=== PATIENT | male | born 1955 | race Caucasian/White ===

== ENCOUNTER 2020-10-09 06:03 | Outpatient (REF) | payer MEDICARE, SELFPAY ==
[2020-10-09 07:15] LABS: MANUAL DIFF FLAG NO
[2020-10-09 07:20] LABS: Basophils Percent Auto 0.6 % (0-2); Eosinophils Absolute Auto 0.2 X10*3/uL (0.0-0.4); Eosinophils Percent Auto 2.2 % (0-4); Hematocrit 42.4 % (42-52); Hemoglobin 14.6 g/dl (14.0-18.0); Imm Gran Abs Auto 0.01 X10*3/uL (0.00-0.03); Imm Gran Pct Auto 0.1 % (0.0-0.4); Lymphocytes Absolute Auto 1.4 X10*3/uL (1.2-4.9); Lymphocytes Percent Auto 19.1 % (20-40); Mean Corpuscular HGB Conc 34.4 g/dl (31.0-36.0); Mean Corpuscular Hemoglobin 31.8 pg (27.0-33.0); Mean Corpuscular Volume 92.4 fL (80-98); Mean Platelet Volume 11.6 fL (9.4-12.4); Monocytes Absolute Auto 0.5 X10*3/uL (0.1-1.2); Monocytes Percent Auto 6.9 % (2-11); Neutrophils Absolute Auto 5.1 X10*3/uL (2.0-8.3); Neutrophils Percent Auto 71.1 % (45-73); Platelet Count 222 X10*3/uL (160-400); Red Blood Count 4.59 X10*6/uL (4.60-5.80); Red Cell Distribution Width 12.3 % (11.0-16.0); White Blood Count 7.2 X10*3/uL (4.8-10.8)
[2020-10-09 07:27] LABS: Estimated Average Glucose 292 mg/dL; Hemoglobin A1c % 11.8 %
[2020-10-09 07:31] LABS: Alanine Aminotransferase 16 U/L (0-40); Albumin Level 3.9 g/dL (3.5-5.0); Alkaline Phosphatase 62 U/L (39-117); Anion Gap 13 (12-20); Aspartate Amino Transferase 16 U/L (5-37); Bilirubin Total 0.7 mg/dL (0.0-1.0); Blood Urea Nitrogen 20 mg/dL (9-16); Calcium 8.9 mg/dL (8.4-10.2); Carbon Dioxide 25 mmol/L (22-29); Chloride 105 mmol/L (96-108); Cholesterol 180 mg/dL; Estimated Glomerular Filt Rate > 60; Glucose Random 131 mg/dL (60-115); HDL Cholesterol 74 mg/dL; LDL Cholesterol Calculated 96 mg/dl; Potassium 4.3 mmol/l (3.3-5.1); Sodium 139 mmol/L (135-145); Total Protein 6.3 g/dL (6.5-8.0); Triglycerides 50 mg/dL
[2020-10-09 07:42] LABS: Creatinine Urine 242.35 mg/dL
[2020-10-09 07:51] LABS: Free T4 (Free Thyroxine) 1.27 ng/dL (0.71-1.85); Prostate Specific Antigen Scr 0.18 ng/mL (<0.05-4.0); Thyroid Stimulating Hormone 1.58 uIU/mL (0.32-4.0)
[2020-10-09 08:01] LABS: Folate 9.4 ng/mL (> or = 4.0); Vitamin B12 335 pg/mL (200-900)
== END 2020-10-09 06:04 | disposition home or self-care (01) ==
LOC: HO.LAB 06:03
PROVIDERS: PCP Internal Medicine; Visit Provider Internal Medicine
DX: E78.00 Pure hypercholesterolemia, unspecified (principal); I10 Essential (primary) hypertension; E03.9 Hypothyroidism, unspecified; E11.65 Type 2 diabetes mellitus with hyperglycemia
CPT/HCPCS: 36415; 80053; 80061; 82043; 82607; 82746; 83036; 84153; 84439; 84443; 85025

== ENCOUNTER 2021-04-15 05:56 | Outpatient (REF) | payer MEDICARE, SELFPAY ==
[2021-04-15 07:05] LABS: MANUAL DIFF FLAG NO
[2021-04-15 07:11] LABS: Basophils Absolute Auto 0.1 X10*3/uL (0.0-0.2); Basophils Percent Auto 0.7 % (0-2); Eosinophils Absolute Auto 0.2 X10*3/uL (0.0-0.4); Hematocrit 42.9 % (42-52); Hemoglobin 14.5 g/dl (14.0-18.0); Imm Gran Abs Auto 0.02 X10*3/uL (0.00-0.03); Imm Gran Pct Auto 0.3 % (0.0-0.4); Lymphocytes Absolute Auto 1.7 X10*3/uL (1.2-4.9); Lymphocytes Percent Auto 22.7 % (20-40); Mean Corpuscular HGB Conc 33.8 g/dl (31.0-36.0); Mean Corpuscular Hemoglobin 31.7 pg (27.0-33.0); Mean Corpuscular Volume 93.7 fL (80-98); Mean Platelet Volume 11.5 fL (9.4-12.4); Monocytes Absolute Auto 0.5 X10*3/uL (0.1-1.2); Monocytes Percent Auto 6.8 % (2-11); Neutrophils Absolute Auto 5.1 X10*3/uL (2.0-8.3); Neutrophils Percent Auto 66.5 % (45-73); Platelet Count 212 X10*3/uL (160-400); Red Blood Count 4.58 X10*6/uL (4.60-5.80); Red Cell Distribution Width 12.5 % (11.0-16.0); White Blood Count 7.6 X10*3/uL (4.8-10.8)
[2021-04-15 07:41] LABS: Alanine Aminotransferase 17 U/L (0-40); Alkaline Phosphatase 69 U/L (39-117); Anion Gap 13 (12-20); Aspartate Amino Transferase 15 U/L (5-37); Bilirubin Total 0.8 mg/dL (0.0-1.0); Blood Urea Nitrogen 22 mg/dL (9-16); Calcium 9.1 mg/dL (8.4-10.2); Carbon Dioxide 27 mmol/L (22-29); Chloride 105 mmol/L (96-108); Estimated Glomerular Filt Rate > 60; Glucose Random 273 mg/dL (60-115); Potassium 4.6 mmol/L (3.3-5.1); Sodium 140 mmol/L (135-145); Total Protein 6.3 g/dL (6.5-8.0)
[2021-04-15 07:43] LABS: Creatinine Urine 216.81 mg/dL
[2021-04-15 07:50] LABS: Estimated Average Glucose 312 mg/dL; Hemoglobin A1c % 12.5 %
[2021-04-15 07:54] LABS: Free T4 (Free Thyroxine) 1.12 ng/dL (0.71-1.85); Prostate Specific Antigen Scr 0.24 ng/mL (<0.05-4.0); Thyroid Stimulating Hormone 1.59 uIU/mL (0.32-4.0)
[2021-04-15 11:03] LABS: Folate 11.5 ng/mL (> or = 4.0); Vitamin B12 370 pg/mL (200-900)
== END 2021-04-15 05:57 | disposition home or self-care (01) ==
LOC: HO.LAB 05:56
PROVIDERS: PCP Internal Medicine; Visit Provider Internal Medicine
DX: E11.65 Type 2 diabetes mellitus with hyperglycemia (principal); Z79.4 Long term (current) use of insulin
CPT/HCPCS: 36415; 80053; 82043; 82607; 82746; 83036; 84153; 84439; 84443; 85025

== ENCOUNTER 2021-06-13 14:52 | Outpatient (REF) | payer MEDICARE, SELFPAY | END 2021-06-13 14:53 | disposition home or self-care (01) | LOC: HO.LAB 14:52 | PROVIDERS: Visit Provider Physician Assistant | DX: E11.65 Type 2 diabetes mellitus with hyperglycemia (principal); L03.116 Cellulitis of left lower limb; L02.416 Cutaneous abscess of left lower limb; Z96.652 Presence of left artificial knee joint | CPT/HCPCS: 87071; 87077; 87147; 87186; 87205 ==

== ENCOUNTER 2021-06-16 09:14 | Outpatient (REF) | payer MEDICARE, SELFPAY ==
--- NOTE | ~2021-06-16 | US_ITS ---
EXAMINATION: US VENOUS ULTRASOUND WITH DOPPLER LOWER EXTREMITY, LEFT CLINICAL INFORMATION: This is a 66-year-old male with left leg pain and cellulitis. Possible deep vein thrombosis. COMPARISON: None TECHNIQUE: Ultrasound of the deep veins is performed from the hip to the calf with compression sonography and color and pulse Doppler assessment. Spectral analysis with color-flow imaging is performed. FINDINGS: There is normal venous compression and respiratory variation and augmented flow. The visualized common femoral vein, superficial femoral vein, profunda femoral vein, popliteal vein, and the trifurcation region shows no evidence of deep venous thrombosis. There is no significant popliteal fossa cyst. If the patient's symptoms persist, followup ultrasound in 5 days 7 days might be of value to exclude proximal propagation from a non-visualized calf vein. US/US venous duplex LE IMPRESSION: No DVT demonstrated in the left lower extremity.
== END 2021-06-16 09:15 | disposition home or self-care (01) ==
LOC: HO.US 09:14
PROVIDERS: PCP Internal Medicine; Visit Provider Hospitalist
DX: M79.662 Pain in left lower leg (principal); L03.90 Cellulitis, unspecified
CPT/HCPCS: 93971

== ENCOUNTER 2021-08-03 09:47 | Inpatient (IN) | payer MEDICARE, SELFPAY ==
--- NOTE | ~2021-08-03 | US_ITS ---
EXAMINATION: US VENOUS ULTRASOUND WITH DOPPLER LOWER EXTREMITY, BILATERAL CLINICAL INFORMATION: Cellulitis COMPARISON: Previous left leg exam May 2021 TECHNIQUE: Ultrasound of the deep veins is performed from the hip to the calf with compression sonography and color and pulse Doppler assessment. Spectral analysis with color-flow imaging is performed. FINDINGS: RIGHT: There is normal venous compression and respiratory variation and augmented flow. The visualized common femoral vein, superficial femoral vein, profunda femoral vein, popliteal vein, and the trifurcation region shows no evidence of deep venous thrombosis. There is no significant popliteal fossa cyst. LEFT: There is normal venous compression and respiratory variation and augmented flow. The visualized common femoral vein, superficial femoral vein, profunda femoral vein, popliteal vein, and the trifurcation region shows no evidence of deep venous thrombosis. There is no significant popliteal fossa cyst. There is a prominent lymph node in the left proximal thigh measuring 4.8 x 1.2 x 2 cm. This demonstrates normal ultrasound morphology and flow and may be reactive. US/US venous duplex LE BI IMPRESSION: No DVT demonstrated in the bilateral lower extremity.
--- NOTE | ~2021-08-03 | XR_ITS ---
EXAMINATION: XR CHEST CLINICAL INFORMATION: Lower extremity swelling COMPARISON: Previous chest x-ray January 2010 TECHNIQUE: 2 views of the chest were obtained. FINDINGS: The cardiac and mediastinal contours are normal. There is slight elevation of the right hemidiaphragm. There is pleural thickening adjacent to the right lateral sixth and seventh ribs. This is unchanged from 2010 exam. The lungs are clear. There is no pleural effusion or pneumothorax. There are degenerative changes of the thoracic spine. No acute bone abnormality is seen. XR/XR chest 2V IMPRESSION: No evidence for CHF.
[2021-08-03 09:49] VITALS: BP 108/62; PULSE 98; RESP 20; TEMP 37.4; O2SAT 95; BMI 38.3
[2021-08-03 10:40] VITALS: BP 95/57; PULSE 81; RESP 14; TEMP 36.7; O2SAT 97
--- NOTE | 2021-08-03 10:48 | ED_ITS ---
HPI - Skin/Abscess/Foreign Bdy General Chief complaint: Skin/Abscess/Foreign Body Stated complaint: cellulitis - leg Time Seen by Provider: 08/03/21 10:17 Source: patient and family Mode of arrival: ambulatory Limitations: no limitations History of Present Illness HPI narrative: 66 yo male with past medical of history of OA, insulin-dependent diabetic, high cholesterol, polymyalgia rheumatica not currently on steroids, hypothyroidism, obesity, hypertension here with complaints of bilateral lower extremity swelling and redness left greater than right. Patient tells me that he has had this for about 2 months. He was initially seen at a walk-in and prescribed Keflex. His wound culture later grew Staph and so he was changed to 7 days of Bactrim. He tells me he initially had some improvement but now for the last few weeks as it increasing redness and swelling to both legs. No fevers or chills. Of note June 16 patient had bilateral venous US negative for DVT Related Data Home Medications Medication Instructions Recorded Confirmed aspirin 81 mg tablet,delayed 81 mg PO DAILY 10/13/20 04/20/21 release (Adult Aspirin Regimen) Previous Rx's Medication Instructions Recorded levothyroxine 112 mcg tablet 112 mcg PO QAM #90 tab 12/23/20 lisinopril 5 mg tablet 5 mg PO DAILY #90 tab 12/23/20 prednisone 5 mg tablet 5 mg PO DAILY #90 tab 02/11/21 insulin degludec 100 unit/mL 25 unit SUBCUT BID #10 ml 05/11/21 subcutaneous solution (Tresiba U-100 Insulin) insulin syringe-needle U-100 1 mL #100 ea 05/11/21 29 gauge x 1/2 (BD Insulin Syringe) cephalexin 500 mg capsule 500 mg PO Q6H 10 Days #40 cap 06/13/21 sulfamethoxazole 800 1 tab PO Q12H 10 Days #20 tab 06/13/21 mg-trimethoprim 160 mg tablet Allergies Allergy/AdvReac Type Severity Reaction Status Date / Time atorvastatin [Lipitor] Allergy Unknown Unknown Verified 06/16/21 07:57 canagliflozin [Invokana] Allergy Unknown hives Verified 06/16/21 07:57 dulaglutide [Trulicity] Allergy Unknown hives Verified 06/16/21 07:57 insulin lispro Allergy Unknown rash Verified 06/16/21 07:57 [Humalog U-100 Insulin] metformin [METFORMIN] Allergy Unknown HIVES Verified 06/16/21 07:57 rosuvastatin Allergy Unknown Unknown Verified 06/16/21 07:57 sitagliptin [From JANUVIA] Allergy Unknown HIVES Verified 06/16/21 07:57 Review of Systems Review of Systems: Yes all other systems are reviewed and are negative Constitutional: Constitutional: Reports no additional constitutional complaints, Denies body ache(s), Denies chills, Denies fever(s), Denies headache(s) and Denies weakness Eyes: Eyes: Reports no additional eye complaints and Denies change in vision ENT: Reports system reviewed and no additional complaints, except as documented, Denies dizziness, Denies headache(s), Denies nasal congestion, Denies nasal discharge and Denies neck pain Cardiovascular: Cardiovascular: Reports no additional cardiovascular complaints, Denies chest pain, Reports leg edema and Denies dyspnea Respiratory: Respiratory: Reports no additional respiratory complaints, Denies cough and Denies dyspnea Gastrointestinal: Gastrointestinal: Reports no additional gastrointestinal complaints, Denies abdominal pain, Denies diarrhea, Denies nausea and Denies vomiting Genitourinary: Genitourinary: Denies urinary incontinence Musculoskeletal: Musculoskeletal: Reports no additional musculoskeletal complaints, Denies back pain, Denies arthralgias, Denies joint swelling, Denies neck pain, Denies numbness and Denies tingling Integumentary/Breasts: Skin/Breast: Reports system reviewed and no additional complaints, except as docu, Reports swelling, Reports erythema and Reports rash Neurologic: Reports system reviewed and no additional complaints, except as documented, Denies Abnormal speech present, Denies dizziness, Denies headache(s), Denies numbness, Denies tingling and Denies weakness [facility] Past Medical History Attestation statement: The following information was validated with the patient. Source: old records reviewed and nursing notes reviewed Medical History Alcohol abuse Erectile dysfunction Hypercholesterolemia Hypertension Hypothyroid Migraine Obesity Osteoarthritis Polymyalgia rheumatica Solitary left kidney TIA (transient ischemic attack) Tobacco abuse Type 2 diabetes mellitus with hyperglycemia Vitamin D deficiency Surgical History History of arthroscopy of both knees History of colonoscopy History of total left knee replacement Hx of tonsillectomy Family History Family History Father Diabetes Mother Melanoma Maternal Uncle Colon cancer Social History Social History Housing: House Alcohol intake: never Patient Tobacco Use Status: Current everyday Tobacco user Tobacco use type: Cigar and Pipe Use of substances other than those prescribed or required for medical reasons: No Advance Directives: No Advance Directives Information Provided: No service: No Current occupational status: employed Physical Exam Vital Signs: Vital Signs: Last Vital Signs Temp 98.1 F 08/03/21 10:40 Pulse 81 08/03/21 10:40 Resp 14 08/03/21 10:40 BP 95/57 L 08/03/21 10:40 Pulse Ox 97 08/03/21 10:40 Body Mass Index 38.3 Const: General: cooperative, healthy appearing, comfortable and no acute distress Orientation/consciousness: patient oriented x3 Limitations: no limitations HENMT: Head: Yes normal to inspection Ears: hearing grossly normal wagner aterally General nose exam: Normal external nose present Face and sinus: Yes normal facial exam Mouth: Normal oral and palatal mucosa present Throat: Yes posterior oropharynx normal Eyes: General: appearance normal, both eyes and all related structures Pupils: Equal, round and reactive pupils present Neck: Neck: Yes normal visual inspection Chest: Chest palpation & inspection: normal inspection of the chest Resp: Effort & Inspection: normal respiratory effort Auscultation: clear to auscultation bilaterally Cardio: Rate: regular rate Rhythm: regular rhythm Peripheral pulses: Peripheral pulses 2+ throughout GI: Inspection: Yes normal to inspection Palpation (GI): Soft to palpation and nontender Auscultation: normal bowel sounds Back/Spine/Pelvis: Thoracic/Lumbar Spine: thoracic and lumbar spine normal to inspection Skin: General skin exam: no rashes or lesions noted Neuro: General: patient oriented x3, no focal motor deficits and normal sensation to monofilament Cranial nerves: Yes Equal, round and reactive pupils present Cognition (Neuro): normal cognition Speech: No Abnormal speech present Gait exam (Neuro): Normal gait present Motor exam (neuro): 5/5 motor strength present throughout Extrem: Other: pitting edema bilaterally 1+ +palpable pulses bilaterally. General: Yes normal to inspection Course Course Course Narrative: 66-year-old male here with complaints of bilateral lower extremity swelling and redness left greater than right for about 2 months. Had some initial improvement p.o. antibiotics but feels like now has worsened. No fevers or chills. Of note patient worked up for DVT 2 months ago negative ultrasound. At this infection is suspected. Antibiotics ordered. 1130-mild hyperglycemia. No evidence of DKA. Will order 1 L normal saline and 5 of IV insulin. 1230-spoke to Medicine who accepted patient for admission. MDM - Skin/Abscess/Foreign Bdy Medical Records Attestation: I reviewed the patient's medical records. Lab Data Attestation: I reviewed the patient's lab results. Result diagrams: 08/03/21 10:55 08/03/21 10:55 Labs: Lab Results 08/03/21 08/03/21 08/03/21 Range/Units 10:55 10:55 10:55 WBC 11.5 H (4.8-10.8) X10*3/uL RBC 4.38 L (4.60-5.80) X10*6/uL Hgb 13.8 L (14.0-18.0) g/dl Hct 40.1 L (42-52) % MCV 91.6 (80-98) fL MCH 31.5 (27.0-33.0) pg MCHC 34.4 (31.0-36.0) g/dl RDW 12.2 (11.0-16.0) % Plt Count 150 L D (160-400) X10*3/uL MPV 11.5 (9.4-12.4) fL Immature Gran % (Auto) 0.4 (0.0-0.4) % Neut % (Auto) 83.8 H (45-73) % Lymph % (Auto) 9.0 L (20-40) % [place] % (Auto) 6.3 (2-11) % Eos % (Auto) 0.2 (0-4) % Baso % (Auto) 0.3 (0-2) % Lymph # (Auto) 1.0 L (1.2-4.9) X10*3/uL [place] # (Auto) 0.7 (0.1-1.2) X10*3/uL Eos # (Auto) 0.0 (0.0-0.4) X10*3/uL Baso # (Auto) 0.0 (0.0-0.2) X10*3/uL Abs Immat Gran (auto) 0.05 H (0.00-0.03) X10*3/uL Absolute Neuts (auto) 9.7 H (2.0-8.3) X10*3/uL Absolute Nucleated RBC 0.000 (0.0-0.012) X10*3/uL Nucleated RBC % (auto) 0.0 (0.0-0.2) /100WBC Sodium 132 L (135-145) mmol/L Potassium 4.6 (3.3-5.1) mmol/L Chloride 97 (96-108) mmol/L Carbon Dioxide 26 (22-29) mmol/L Anion Gap 14 (12-20) BUN 40 H D (9-16) mg/dL Creatinine 1.25 (0.5-1.4) mg/dL Estim Creat Clear Calc 69.1 Estimated GFR 58 Random Glucose 422 H* (60-115) mg/dL Calcium 8.1 L D (8.4-10.2) mg/dL Magnesium 2.6 (1.6-2.6) mg/dL Total Bilirubin 1.3 H (0.0-1.0) mg/dL Direct Bilirubin 0.5 (0.0-0.5) mg/dL AST 28 D (5-37) U/L ALT 38 (0-40) U/L Alkaline Phosphatase 59 (39-117) U/L B-Natriuretic Peptide < 10 (<100) pg/mL Total Protein 6.1 L (6.5-8.0) g/dL Albumin 3.5 (3.5-5.0) g/dL COVID-19 (JENNIFER) (Negative) COVID-19 Clin Com 08/03/21 Range/Units 11:33 WBC (4.8-10.8) X10*3/uL RBC (4.60-5.80) X10*6/uL Hgb (14.0-18.0) g/dl Hct (42-52) % MCV (80-98) fL MCH (27.0-33.0) pg MCHC (31.0-36.0) g/dl RDW (11.0-16.0) % Plt Count (160-400) X10*3/uL MPV (9.4-12.4) fL Immature Gran % (Auto) (0.0-0.4) % Neut % (Auto) (45-73) % Lymph % (Auto) (20-40) % [place] % (Auto) (2-11) % Eos % (Auto) (0-4) % Baso % (Auto) (0-2) % Lymph # (Auto) (1.2-4.9) X10*3/uL [place] # (Auto) (0.1-1.2) X10*3/uL Eos # (Auto) (0.0-0.4) X10*3/uL Baso # (Auto) (0.0-0.2) X10*3/uL Abs Immat Gran (auto) (0.00-0.03) X10*3/uL Absolute Neuts (auto) (2.0-8.3) X10*3/uL Absolute Nucleated RBC (0.0-0.012) X10*3/uL Nucleated RBC % (auto) (0.0-0.2) /100WBC Sodium (135-145) mmol/L Potassium (3.3-5.1) mmol/L Chloride (96-108) mmol/L Carbon Dioxide (22-29) mmol/L Anion Gap (12-20) BUN (9-16) mg/dL Creatinine (0.5-1.4) mg/dL Estim Creat Clear Calc Estimated GFR Random Glucose (60-115) mg/dL Calcium (8.4-10.2) mg/dL Magnesium (1.6-2.6) mg/dL Total Bilirubin (0.0-1.0) mg/dL Direct Bilirubin (0.0-0.5) mg/dL AST (5-37) U/L ALT (0-40) U/L Alkaline Phosphatase (39-117) U/L B-Natriuretic Peptide (<100) pg/mL Total Protein (6.5-8.0) g/dL Albumin (3.5-5.0) g/dL COVID-19 (JENNIFER) Negative (Negative) COVID-19 Clin Com See Note Imaging Data Chest x-ray: Attestation: I personally reviewed and interpreted this imaging study as follows: Radiologist's impression: FINDINGS: The cardiac and mediastinal contours are normal. There is slight elevation of the right hemidiaphragm. There is pleural thickening adjacent to the right lateral sixth and seventh ribs. This is unchanged from 2010 exam. The lungs are clear. There is no pleural effusion or pneumothorax. There are degenerative changes of the thoracic spine. No acute bone abnormality is seen. XR/XR chest 2V IMPRESSION: No evidence for CHF. Discharge Plan Discharge Clinical Impression: Cellulitis, Hyperglycemia Patient Disposition: Admitted As Inpatient
[2021-08-03 11:05] LABS: MANUAL DIFF FLAG NO
[2021-08-03 11:08] LABS: Basophils Percent Auto 0.3 % (0-2); Eosinophils Percent Auto 0.2 % (0-4); Hematocrit 40.1 % (42-52); Hemoglobin 13.8 g/dl (14.0-18.0); Imm Gran Abs Auto 0.05 X10*3/uL (0.00-0.03); Imm Gran Pct Auto 0.4 % (0.0-0.4); Mean Corpuscular HGB Conc 34.4 g/dl (31.0-36.0); Mean Corpuscular Hemoglobin 31.5 pg (27.0-33.0); Mean Corpuscular Volume 91.6 fL (80-98); Mean Platelet Volume 11.5 fL (9.4-12.4); Monocytes Absolute Auto 0.7 X10*3/uL (0.1-1.2); Monocytes Percent Auto 6.3 % (2-11); Neutrophils Absolute Auto 9.7 X10*3/uL (2.0-8.3); Neutrophils Percent Auto 83.8 % (45-73); Platelet Count 150 X10*3/uL (160-400); Red Blood Count 4.38 X10*6/uL (4.60-5.80); Red Cell Distribution Width 12.2 % (11.0-16.0); White Blood Count 11.5 X10*3/uL (4.8-10.8)
[2021-08-03 11:23] LABS: Alanine Aminotransferase 38 U/L (0-40); Albumin Level 3.5 g/dL (3.5-5.0); Alkaline Phosphatase 59 U/L (39-117); Anion Gap 14 (12-20); Aspartate Amino Transferase 28 U/L (5-37); Bilirubin Direct 0.5 mg/dL (0.0-0.5); Bilirubin Total 1.3 mg/dL (0.0-1.0); Blood Urea Nitrogen 40 mg/dL (9-16); Calcium 8.1 mg/dL (8.4-10.2); Carbon Dioxide 26 mmol/L (22-29); Chloride 97 mmol/L (96-108); Creatinine Clr Calc Pharmacy 69.1; Estimated Glomerular Filt Rate 58; Glucose Random 422 mg/dL (60-115); Magnesium 2.6 mg/dL (1.6-2.6); Potassium 4.6 mmol/L (3.3-5.1); Sodium 132 mmol/L (135-145); Total Protein 6.1 g/dL (6.5-8.0)
[2021-08-03 11:25] LABS: B Type Natriuretic Peptide < 10 pg/mL (<100)
[2021-08-03] MEDS: Insulin Regular, Human 100 UNIT/ML 3 ML VIAL IVPUSH (11:48)
[2021-08-03] MEDS: 0.9 % Sodium Chloride 1,000 ML 999 ML IV (11:49)
[2021-08-03] MEDS: Piperacillin Sodium/Tazobactam 3.375 GM in 0.9 % Sodium Chloride 50 ML IV ×2 (11:58→18:26)
[2021-08-03 12:12] LABS: COVID-19 Test Negative (Negative)
--- NOTE | 2021-08-03 13:14 | PM.IMHP ---
History of Present Illness Date of Service: 08/03/21 Chief Complaint: cellulitis 66-year-old male well known to me with history of noncompliant type 2 diabetes. He states that over the last 4-6 weeks his leg started becoming red; states he notice some weepiness but it has progressed over the last 2 weeks. He denies pain but states his legs are itchy. Status his sugars have been running ?a little high?. Sugar in ER greater than 400. He denies fever chills and shortness of breath. He states last night, his legs were so weak be that he had to put towels underneath M to soak up the fluid Review of Systems Review of Systems: Denies chest pain He denies shortness of breath Denies nausea vomiting diarrhea PMFSH Medical History Alcohol abuse Erectile dysfunction Hypercholesterolemia Hypertension Hypothyroid Migraine Obesity Osteoarthritis Polymyalgia rheumatica Solitary left kidney TIA (transient ischemic attack) Tobacco abuse Type 2 diabetes mellitus with hyperglycemia Vitamin D deficiency Family History Father Diabetes Mother Melanoma Maternal Uncle Colon cancer Pertinent family history: . Surgical History History of arthroscopy of both knees History of colonoscopy History of total left knee replacement Hx of tonsillectomy Social History Housing: House Alcohol intake: never Patient Tobacco Use Status: Current everyday Tobacco user Tobacco use type: Cigar and Pipe Use of substances other than those prescribed or required for medical reasons: No Advance Directives: No Advance Directives Information Provided: No service: No Current occupational status: employed Meds Allergies Allergy/AdvReac Type Severity Reaction Status Date / Time atorvastatin [Lipitor] Allergy Unknown Unknown Verified 06/16/21 07:57 canagliflozin [Invokana] Allergy Unknown hives Verified 06/16/21 07:57 dulaglutide [Trulicity] Allergy Unknown hives Verified 06/16/21 07:57 insulin lispro Allergy Unknown rash Verified 06/16/21 07:57 [Humalog U-100 Insulin] metformin [METFORMIN] Allergy Unknown HIVES Verified 06/16/21 07:57 rosuvastatin Allergy Unknown Unknown Verified 06/16/21 07:57 sitagliptin [From OCTTOMASZ] Allergy Unknown HIVES Verified 06/16/21 07:57 Active Medications: Current Medications Dextrose (Dextrose 50 % 25 Gm/50 Ml Vial) 25 gm IVPUSH Q15M PRN; Protocol PRN Reason: per Hypoglycemia Standing Ord. Enoxaparin Sodium (Enoxaparin Sodium 40 Mg/0.4 Ml Syringe) 40 mg SUBCUT Q24H NINA Glucose (Glucose Gel 15 Gm Gel..Gram.) 15 gm PO Q15M PRN; Protocol PRN Reason: per Hypoglycemia Standing Ord. Glucose (Glucose Gel 15 Gm Gel..Gram.) 15 gm PO Q15M PRN; Protocol PRN Reason: per Hypoglycemia Standing Ord. Piperacillin Sod/Tazobactam (Sod 3.375 gm/ Sodium Chloride) 50 mls @ 100 mls/hr IV Q6H [facility] Insulin Human Lispro (Insulin Lispro 100 Unit/Ml 3 Ml Vial) 0 unit SUBCUT QIDACHS [facility]; Protocol Melatonin (Melatonin 3 Mg Tablet) 6 mg PO BEDTIME PRN PRN Reason: Insomnia Oxycodone HCl (Oxycodone Hcl Immed Release 5 Mg Tablet) 5 mg PO Q6H PRN PRN Reason: Pain, Severe (Pain Scale 7-10) Pharmacy Consult (Consult Rx Vancomycin Dosing) 1 each MISCELLANE DAILY PRN PRN Reason: Consult order Pharmacy Consult (Consult Rx Vancomycin Dosing) 1 each MISCELLANE DAILY PRN PRN Reason: Consult order Pharmacy Consult (Consult Rx Vancomycin Dosing) 1 each MISCELLANE DAILY PRN PRN Reason: Consult order Sodium Chloride (0.9 % Sodium Chloride Flush 3 Ml Syringe) 3 ml IVFLUSH QSHIFT [facility] Home Medications Medication Instructions Recorded Confirmed Last Taken Type aspirin 81 mg tablet,delayed 81 mg PO DAILY 10/13/20 04/20/21 Unknown History release (Adult Aspirin Regimen) Physical Exam Vital Signs and Narrative: Vital Signs: Last Vital Signs Temp 98.1 F 08/03/21 10:40 Pulse 81 08/03/21 10:40 Resp 14 08/03/21 10:40 BP 95/57 L 08/03/21 10:40 Pulse Ox 97 08/03/21 10:40 Body Mass Index 38.3 Const: Other: Awake alert oriented x3 in no acute distress lying quietly in bed HENMT: Other: Membranes moist; posterior pharynx clear Resp: Other: Clear to auscultation all malin. No rales rhonchi or wheezes Cardio: Other: No S4; positive S1-S2; no S3 murmurs or gallops GI: Other: Soft nontender nondistended with normoactive bowel sounds. Obese abdomen Neuro: Other: Cranial nerves 2-12 grossly intact as tested motor is 5/5 all extremities. Sensation diminished stocking-glove distribution Extrem: Other: Bilateral lower extremities edematous weeping. Left lower extremity medial aspect with quarter-size ulcer. Erythematous left greater than right from tibial plateau distally Results Labs CBC and Chem 7: 08/03/21 10:55 08/03/21 10:55 Labs: Laboratory Results - last 24 hr 08/03/21 08/03/21 08/03/21 10:55 10:55 10:55 MCV 91.6 MCH 31.5 MCHC 34.4 RDW 12.2 Plt Count 150 L D MPV 11.5 Immature Gran % (Auto) 0.4 Neut % (Auto) 83.8 H Lymph % (Auto) 9.0 L Stark % (Auto) 6.3 Eos % (Auto) 0.2 Baso % (Auto) 0.3 Lymph # (Auto) 1.0 L Stark # (Auto) 0.7 Eos # (Auto) 0.0 Baso # (Auto) 0.0 Abs Immat Gran (auto) 0.05 H Absolute Neuts (auto) 9.7 H Absolute Nucleated RBC 0.000 Nucleated RBC % (auto) 0.0 Anion Gap 14 Estim Creat Clear Calc 69.1 Estimated GFR 58 Random Glucose 422 H* Calcium 8.1 L D Magnesium 2.6 Total Bilirubin 1.3 H Direct Bilirubin 0.5 AST 28 D ALT 38 Alkaline Phosphatase 59 B-Natriuretic Peptide < 10 Total Protein 6.1 L Albumin 3.5 COVID-19 (JENNIFER) COVID-19 Clin Com 08/03/21 11:33 MCV MCH MCHC RDW Plt Count MPV Immature Gran % (Auto) Neut % (Auto) Lymph % (Auto) Stark % (Auto) Eos % (Auto) Baso % (Auto) Lymph # (Auto) Stark # (Auto) Eos # (Auto) Baso # (Auto) Abs Immat Gran (auto) Absolute Neuts (auto) Absolute Nucleated RBC Nucleated RBC % (auto) Anion Gap Estim Creat Clear Calc Estimated GFR Random Glucose Calcium Magnesium Total Bilirubin Direct Bilirubin AST ALT Alkaline Phosphatase B-Natriuretic Peptide Total Protein Albumin COVID-19 (JENNIFER) Negative COVID-19 Clin Com See Note Imaging Radiologist's Impressions: Impressions Chest X-Ray 08/03/21 10:23 IMPRESSION: No evidence for CHF. 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 He states he started to feel poorly and decided to come to the emergency room for evaluation. In the emergency room his sugar was greater than 400, sodium 132 and legs consistent with cellulitis. He will be admitted for further workup and treatment of same 1. Cellulitis IV Zosyn/vancomycin Given extensive edema and drainage with pulse dose with Lasix 20 mg once and follow response. Check labs in a.m. Bilateral venous duplex order to rule out clot 2. Diabetes type 2 requiring insulin Will switch Tresiba to Lantus at 30 units subQ b.i.d. Will add sliding scale to regimen adjust as indicated 3. PMR Longstanding prednisone use. Will continue the same at 5 mg daily 4. Hypothyroidism Will continue outpatient supplements as ordered check TSH if not ordered in the ER 5. Hypertension Will hold lisinopril as BP is marginal at this time. Reinstate as appropriate 6. Full code DVT prophylaxis: Lovenox Further plans based on clinical response to therapies and forthcoming data Quality Stroke Does the patient have a stroke diagnosis?: No VTE Prior VTE?: No VTE Risk Level:: Medical - moderate - high VTE Device Contraindication: Treatment Not Indicated VTE Drug Contraindication: N/A - Med Ordered
[2021-08-03] MEDS: vancomycin HCL 1,500 MG in 0.9 % Sodium Chloride 500 ML 333.33 MG IV (13:26)
[2021-08-03] MEDS: Enoxaparin Sodium 40 MG/0.4 ML SYRINGE SUBCUT (13:28)
--- NOTE | 2021-08-03 13:31 | PC.NURSE ---
called for report- kim to call back
--- NOTE | 2021-08-03 13:49 | PHA.PROG ---
Admission Date/Time: August 03, 2021 12:50 Indication: Skin Weight in k.13 kg Adjusted body weight in K.11 KG Vidalia body weight in K.1 kg Serum Creatinine - Last 168 Hours 08/03/21 10:55 Creatinine 1.25 Estimated CrCl and GFR - Last 168 Hours 08/03/21 10:55 Estim Creat Clear Calc 69.1 Estimated GFR 58 Vancomycin Loading Dose: 1500 mg on 08/03 @ 1326 Current Vancomycin Dosing Regimen: 1000 mg Q12H Date and Time for next Vancomycin Level to be drawn: 08/04 @ 1300 Pharmacist Comments on Vancomycin Plan: Start Vanco 1000 mg Q12H at 0200 @ 08/04. The expected AUC will be 529 with a trough of 18.1 Trough drawn before 3rd in case there is an unexpected jump in AUC due to obesity and renal function Pharmacy will monitor SCr daily, and adjust if required Shruthi Bui, Kayden Vancomycin dosing will take advantage of [employer] as a clinical decision support tool that uses Bayesian modeling to calculate individual patient's pharmacokinetic parameters and forecast the patient's drug concentration time course with the target goal AUC 24 range of 400 - 600 mg/L/hr.
[2021-08-03 14:54] LABS: Estimated Average Glucose 269 mg/dL
--- NOTE | 2021-08-03 15:15 | PHA.MEDREC ---
Pharmacy Consult ? Medication Reconciliation Pharmacy has completed the medication reconciliation. There are no remarkable issues for provider's attention. Shruthi Bui, JemimaD
[2021-08-03 15:16] VITALS: BP 112/64; PULSE 90; RESP 18; TEMP 36.1; O2SAT 96
[2021-08-03 16:40] LABS: Glucose, Whole Blood 177 mg/dL (60-115)
[2021-08-03] MEDS: Furosemide 20 MG/2 ML VIAL IVPUSH (16:43)
[2021-08-03] MEDS: 0.9 % Sodium Chloride Flush 3 ML SYRINGE IVFLUSH ×2 (16:43→20:40)
[2021-08-03] MEDS: Insulin Lispro 100 UNIT/ML 3 ML VIAL SUBCUT ×2 (16:43→20:39)
[2021-08-03 19:25] VITALS: BP 105/67; PULSE 93; RESP 14; TEMP 36.7; O2SAT 96
[2021-08-03 20:20] LABS: Glucose, Whole Blood 233 mg/dL (60-115)
[2021-08-03] MEDS: Aspirin Enteric Coated 81 MG TABLET.DR PO (20:39)
[2021-08-04] VITALS (7 sets, daily range): BP systolic 102–127; BP diastolic 56–62; PULSE 78–93; RESP 15–18; TEMP 36.1–37.3; O2SAT 95–97
[2021-08-04] MEDS: Piperacillin Sodium/Tazobactam 3.375 GM in 0.9 % Sodium Chloride 50 ML IV ×4 (00:35→18:29)
[2021-08-04] MEDS: vancomycin HCL 1,000 MG in 0.9 % Sodium Chloride 250 ML 270 MG IV (01:56)
[2021-08-04 05:38] LABS: MANUAL DIFF FLAG NO
[2021-08-04 05:43] LABS: Basophils Percent Auto 0.1 % (0-2); Eosinophils Percent Auto 0.1 % (0-4); Hematocrit 40.4 % (42-52); Imm Gran Abs Auto 0.14 X10*3/uL (0.00-0.03); Imm Gran Pct Auto 0.8 % (0.0-0.4); Lymphocytes Absolute Auto 1.6 X10*3/uL (1.2-4.9); Lymphocytes Percent Auto 9.4 % (20-40); Mean Corpuscular HGB Conc 34.7 g/dl (31.0-36.0); Mean Corpuscular Hemoglobin 31.5 pg (27.0-33.0); Mean Corpuscular Volume 90.8 fL (80-98); Mean Platelet Volume 11.2 fL (9.4-12.4); Monocytes Percent Auto 5.9 % (2-11); Neutrophils Percent Auto 83.7 % (45-73); Platelet Count 218 X10*3/uL (160-400); Red Blood Count 4.45 X10*6/uL (4.60-5.80); Red Cell Distribution Width 12.2 % (11.0-16.0); White Blood Count 16.7 X10*3/uL (4.8-10.8)
[2021-08-04] MEDS: Levothyroxine Sodium 112 MCG TABLET PO (06:03)
[2021-08-04 06:04] LABS: Anion Gap 16 (12-20); Blood Urea Nitrogen 23 mg/dL (9-16); Calcium 8.4 mg/dL (8.4-10.2); Carbon Dioxide 23 mmol/L (22-29); Chloride 101 mmol/L (96-108); Creatinine Clr Calc Pharmacy 102.9; Estimated Glomerular Filt Rate > 60; Glucose Random 90 mg/dL (60-115); Potassium 3.8 mmol/L (3.3-5.1); Sodium 136 mmol/L (135-145)
[2021-08-04 07:29] LABS: Glucose, Whole Blood 119 mg/dL (60-115)
--- NOTE | 2021-08-04 09:31 | MHC.CM.PN ---
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 D/C PLAN: HOME SELF-CARE, FAMILY FOR TRANSPORT PCP: NOE JETT HCP: GAGAN PAREDES (DTR): [phone] MARLEE LENA (SON) : C: [phone], H: [phone]
[2021-08-04] MEDS: Furosemide 20 MG/2 ML VIAL IVPUSH (10:34)
[2021-08-04] MEDS: 0.9 % Sodium Chloride Flush 3 ML SYRINGE IVFLUSH ×3 (10:34→20:49)
[2021-08-04] MEDS: Aspirin Enteric Coated 81 MG TABLET.DR PO ×2 (10:34→20:48)
[2021-08-04] MEDS: lisinopriL 5 MG TABLET PO (10:34)
[2021-08-04 11:30] LABS: Glucose, Whole Blood 269 mg/dL (60-115)
--- NOTE | 2021-08-04 12:06 | P.PNIM_ITS ---
Subjective Subjective Date of Service: 10/06/21 Interval History: No acute issues overnight. States feels better after antibiotics. Ambulating ad megan in room Review of Systems Denies chest pain He denies shortness of breath Denies nausea vomiting diarrhea Physical Exam Vital Signs: Vital Signs: Last Vital Signs Temp 97.5 F 08/04/21 11:36 Pulse 78 08/04/21 11:36 Resp 18 08/04/21 11:36 BP 110/62 08/04/21 11:36 Pulse Ox 95 08/04/21 11:36 Body Mass Index 38.3 Const: Other: Awake alert oriented x3 in no acute distress lying quietly in bed HENMT: Other: Membranes moist; posterior pharynx clear Resp: Other: Clear to auscultation all malin. No rales rhonchi or wheezes Cardio: Other: No S4; positive S1-S2; no S3 murmurs or gallops GI: Other: Soft nontender nondistended with normoactive bowel sounds. Obese abdomen Neuro: Other: Cranial nerves 2-12 grossly intact as tested motor is 5/5 all extremities. Sensation diminished stocking-glove distribution Extrem: Other: Bilateral lower extremities edematous weeping. Left lower extremity medial aspect with quarter-size ulcer. Erythematous left greater than right from tibial plateau distally. Posterior right calf with large ulcerated area Objective Data Active Medications Aspirin (Aspirin Enteric Coated 81 Mg Tablet.) 81 mg PO BID [facility] Last Admin: 08/04/21 10:34 Dose: 81 mg Documented by: BERNIE Dextrose (Dextrose 50 % 25 Gm/50 Ml Vial) 25 gm IVPUSH Q15M PRN; Protocol PRN Reason: per Hypoglycemia Standing Ord. Enoxaparin Sodium (Enoxaparin Sodium 40 Mg/0.4 Ml Syringe) 40 mg SUBCUT Q24H [facility] Last Admin: 08/03/21 13:28 Dose: 40 mg Documented by: WILLA Furosemide (Furosemide 20 Mg/2 Ml Vial) 20 mg IVPUSH DAILY [facility]; Protocol Last Admin: 08/04/21 10:34 Dose: 20 mg Documented by: BERNIE Glucose (Glucose Gel 15 Gm Gel..Gram.) 15 gm PO Q15M PRN; Protocol PRN Reason: per Hypoglycemia Standing Ord. Piperacillin Sod/Tazobactam (Sod 3.375 gm/ Sodium Chloride) 50 mls @ 100 mls/hr IV Q6H [facility] Last Infusion: 08/04/21 06:46 Dose: 0 mls/hr Documented by: HUSSAIN Vancomycin HCl 1,000 mg/ (Sodium Chloride) 270 mls @ 270 mls/hr IV Q12H [facility] Last Infusion: 08/04/21 03:13 Dose: 0 mls/hr Documented by: HUSSAIN Insulin Human Lispro (Insulin Lispro 100 Unit/Ml 3 Ml Vial) 0 unit SUBCUT QIDACHS [facility]; Protocol Last Admin: 08/04/21 07:47 Dose: Not Given Documented by: DOUG Non-Admin Reason: No Insulin Coverage Levothyroxine Sodium (Levothyroxine Sodium 112 Mcg Tablet) 112 mcg PO DAILY@0600 [facility] Last Admin: 08/04/21 06:03 Dose: 112 mcg Documented by: HUSSAIN Lisinopril (Lisinopril 5 Mg Tablet) 5 mg PO DAILY [facility]; Protocol Last Admin: 08/04/21 10:34 Dose: 5 mg Documented by: BERNIE Melatonin (Melatonin 3 Mg Tablet) 6 mg PO BEDTIME PRN PRN Reason: Insomnia Oxycodone HCl (Oxycodone Hcl Immed Release 5 Mg Tablet) 5 mg PO Q6H PRN PRN Reason: Pain, Severe (Pain Scale 7-10) Pharmacy Consult (Consult Rx Vancomycin Dosing) 1 each MISCELLANE DAILY PRN PRN Reason: Consult order Pharmacy Consult (Consult Rx Vancomycin Dosing) 1 each MISCELLANE DAILY PRN PRN Reason: Consult order Pharmacy Consult (Consult Rx Perform Med Rec) 1 each MISCELLANE ONCE PRN PRN Reason: Consult order Sodium Chloride (0.9 % Sodium Chloride Flush 3 Ml Syringe) 3 ml IVFLUSH QSHIFT [facility] Last Admin: 08/04/21 10:34 Dose: 3 ml Documented by: BERNIE Labs CBC & Chem 7: 08/05/21 05:54 08/05/21 05:54 Labs: Laboratory Results - last 24 hr 08/03/21 08/03/21 08/03/21 11:33 14:29 16:35 MCV MCH MCHC RDW Plt Count MPV Immature Gran % (Auto) Neut % (Auto) Lymph % (Auto) [place] % (Auto) Eos % (Auto) Baso % (Auto) Lymph # (Auto) [place] # (Auto) Eos # (Auto) Baso # (Auto) Abs Immat Gran (auto) Absolute Neuts (auto) Absolute Nucleated RBC Nucleated RBC % (auto) Anion Gap Estim Creat Clear Calc Estimated GFR POC Glucose 177 H Random Glucose Estimat Average Glucose 269 Hemoglobin A1c % 11.0 Calcium COVID-19 (JENNIFER) Negative COVID-19 Clin Com See Note 08/03/21 08/04/21 08/04/21 19:28 05:21 05:27 MCV 90.8 MCH 31.5 MCHC 34.7 RDW 12.2 Plt Count 218 D MPV 11.2 Immature Gran % (Auto) 0.8 H Neut % (Auto) 83.7 H Lymph % (Auto) 9.4 L [place] % (Auto) 5.9 Eos % (Auto) 0.1 Baso % (Auto) 0.1 Lymph # (Auto) 1.6 [place] # (Auto) 1.0 Eos # (Auto) 0.0 Baso # (Auto) 0.0 Abs Immat Gran (auto) 0.14 H Absolute Neuts (auto) 14.0 H Absolute Nucleated RBC 0.000 Nucleated RBC % (auto) 0.0 Anion Gap 16 Estim Creat Clear Calc 102.9 Estimated GFR > 60 POC Glucose 233 H Random Glucose 90 D Estimat Average Glucose Hemoglobin A1c % Calcium 8.4 COVID-19 (JENNIFER) COVID-19 Clin Com 08/04/21 08/04/21 07:20 11:08 MCV MCH MCHC RDW Plt Count MPV Immature Gran % (Auto) Neut % (Auto) Lymph % (Auto) [place] % (Auto) Eos % (Auto) Baso % (Auto) Lymph # (Auto) [place] # (Auto) Eos # (Auto) Baso # (Auto) Abs Immat Gran (auto) Absolute Neuts (auto) Absolute Nucleated RBC Nucleated RBC % (auto) Anion Gap Estim Creat Clear Calc Estimated GFR POC Glucose 119 H 269 H Random Glucose Estimat Average Glucose Hemoglobin A1c % Calcium COVID-19 (JENNIFER) COVID-19 Clin Com Assessment and Plan (1) Cellulitis: Status: Resolved Assessment and Plan: 66-year-old male poorly compliant with history of type 2 diabetes presents with 2 weeks of worsening redness, drainage bilateral lower extremities. He states he started to feel poorly and decided to come to the emergency room for evaluation. In the emergency room his sugar was greater than 400, sodium 132 and legs consistent with cellulitis. He will be admitted for further workup and treatment of same 1. Cellulitis IV Zosyn/vancomycin Venous duplex negative bilateral lower extremities ID consult pending 2. Diabetes type 2 requiring insulin Considered NPH however unavailable Given passed sensitivity to Humalog... An allergy to Lantus; question NPH/regular as outpatient. Follow-up with PCP 3. PMR Longstanding prednisone use. Will continue the same at 5 mg daily 4. Hypothyroidism Will continue outpatient supplements as ordered check TSH if not ordered in the ER 5. Hypertension Will hold lisinopril as BP is marginal at this time. Reinstate as appropriate 6. Full code DVT prophylaxis: Lovenox Further plans based on clinical response to therapies and forthcoming data Quality Stroke Does the patient have a stroke diagnosis?: No VTE Prior VTE?: No VTE Risk Level:: Medical - moderate - high VTE Device Contraindication: Treatment Not Indicated VTE Drug Contraindication: N/A - Med Ordered
[2021-08-04] MEDS: Insulin Lispro 100 UNIT/ML 3 ML VIAL SUBCUT ×2 (12:07→20:49)
[2021-08-04] MEDS: Enoxaparin Sodium 40 MG/0.4 ML SYRINGE SUBCUT (12:07)
--- NOTE | 2021-08-04 12:07 | MHC.CLN ---
RECOMMEND 2000DM DIET IN ADDITION TO CURRENT DIET R/T UNCONTROLLED DM
--- NOTE | 2021-08-04 13:27 | PC.NURSE ---
Skin/wound assessment completed. Patient has cellulitis on bilateral extremities with ulcers. All wounds cleaned with wound cleanser, EPC cream applied to periwounds then silver alginate applied to wound beds covered with non woven gauze, ABD pads and roll gauze. Tom wrap applied for compression. No other skin issues noted at this time.
[2021-08-04 13:53] LABS: Vancomycin Trough 3.3 mcg/mL (10.0-20.0)
[2021-08-04] MEDS: vancomycin HCL 1,250 MG in 0.9 % Sodium Chloride 250 ML 166.67 MG IV (15:52)
[2021-08-04 16:19] LABS: Glucose, Whole Blood 311 mg/dL (60-115)
[2021-08-04 20:37] LABS: Glucose, Whole Blood 373 mg/dL (60-115)
[2021-08-05] MEDS: Piperacillin Sodium/Tazobactam 3.375 GM in 0.9 % Sodium Chloride 50 ML IV ×2 (00:15→05:58)
[2021-08-05] MEDS: vancomycin HCL 1,250 MG in 0.9 % Sodium Chloride 250 ML 166.67 MG IV (02:30)
--- NOTE | 2021-08-05 03:18 | PC.NURSE ---
Addendum entered by Aida Hensley RN 08/05/21 03:24: Right allergies updated in patients chart. Original Note: Lispro listed as an allergy. Patient states he is not allergic to Lispro. He states he is allergic to Lantus. Lantus held and Lispro given per ordered sliding scale. Will pass along to daytime RN.
[2021-08-05 03:46] VITALS: BP 138/61; PULSE 83; RESP 18; TEMP 37.1; O2SAT 98
[2021-08-05] MEDS: Levothyroxine Sodium 112 MCG TABLET PO (05:58)
[2021-08-05 06:09] LABS: MANUAL DIFF FLAG NO
[2021-08-05 06:14] LABS: Basophils Percent Auto 0.3 % (0-2); Eosinophils Absolute Auto 0.1 X10*3/uL (0.0-0.4); Eosinophils Percent Auto 0.5 % (0-4); Hematocrit 36.1 % (42-52); Hemoglobin 12.5 g/dl (14.0-18.0); Imm Gran Pct Auto 0.8 % (0.0-0.4); Lymphocytes Absolute Auto 1.1 X10*3/uL (1.2-4.9); Lymphocytes Percent Auto 8.9 % (20-40); Mean Corpuscular HGB Conc 34.6 g/dl (31.0-36.0); Mean Corpuscular Hemoglobin 31.9 pg (27.0-33.0); Mean Corpuscular Volume 92.1 fL (80-98); Mean Platelet Volume 11.1 fL (9.4-12.4); Monocytes Absolute Auto 0.8 X10*3/uL (0.1-1.2); Monocytes Percent Auto 6.5 % (2-11); Neutrophils Absolute Auto 10.6 X10*3/uL (2.0-8.3); Platelet Count 206 X10*3/uL (160-400); Red Blood Count 3.92 X10*6/uL (4.60-5.80); Red Cell Distribution Width 12.4 % (11.0-16.0); White Blood Count 12.8 X10*3/uL (4.8-10.8)
[2021-08-05 06:28] LABS: Creatinine Clr Calc Pharmacy 109.4; Estimated Glomerular Filt Rate > 60
[2021-08-05 06:29] LABS: Alanine Aminotransferase 26 U/L (0-40); Albumin Level 2.9 g/dL (3.5-5.0); Alkaline Phosphatase 56 U/L (39-117); Anion Gap 11 (12-20); Aspartate Amino Transferase 18 U/L (5-37); Bilirubin Total 1.2 mg/dL (0.0-1.0); Blood Urea Nitrogen 21 mg/dL (9-16); Calcium 8.2 mg/dL (8.4-10.2); Carbon Dioxide 27 mmol/L (22-29); Chloride 103 mmol/L (96-108); Estimated Glomerular Filt Rate > 60; Glucose Fasting 239 mg/dL (60-99); Potassium 4.3 mmol/L (3.3-5.1); Sodium 137 mmol/L (135-145); Total Protein 5.2 g/dL (6.5-8.0)
[2021-08-05 07:18] VITALS: BP 114/61; PULSE 85; RESP 17; TEMP 36.4; O2SAT 95
[2021-08-05 07:58] LABS: Glucose, Whole Blood 221 mg/dL (60-115)
[2021-08-05] MEDS: Aspirin Enteric Coated 81 MG TABLET.DR PO (07:59)
[2021-08-05] MEDS: 0.9 % Sodium Chloride Flush 3 ML SYRINGE IVFLUSH (07:59)
[2021-08-05] MEDS: Insulin Lispro 100 UNIT/ML 3 ML VIAL SUBCUT (07:59)
[2021-08-05] MEDS: Furosemide 20 MG/2 ML VIAL IVPUSH (08:00)
[2021-08-05] MEDS: lisinopriL 5 MG TABLET PO (08:02)
--- NOTE | 2021-08-05 10:30 | PM.DS ---
DS: Providers Provider Date of Service: 08/05/21 Date of admission: 08/03/21 12:50 Primary care physician: Babak Greene MD Consults: 08/04/21 10:32 Consult to Infectious Diseases Routine Consulting Provider: Adeline Sawyer Reason for consultation: Cellulitis in backdrop of Poorly controlled DMII DS: Diagnosis Discharge Diagnosis (1) Stasis dermatitis: Status: Acute DS: Summary Hospital Course Hospital Course: 66-year-old male was admitted for suspected lower extremity cellulitis. He was treated with IV vancomycin and Zosyn. However, given patient's presentation of prolonged progression over several weeks to months, presentation on bilateral lower extremities, no signs of systemic illness, this is most likely stasis dermatitis. Will discontinue antibiotics, treat with compression therapy. Monitor closely for superimposed infection development. patient is feeling well and will be discharged home. Time Spent with Patient Time attestation: Total time spent providing and/or coordinating discharge services: Discharge coordination time: Greater than 30 minutes Quality: Stroke Does the patient have a stroke diagnosis?: No Physical Exam Vital Signs: Vital Signs: Last Vital Signs Temp 97.5 F 08/05/21 07:18 Pulse 85 08/05/21 07:18 Resp 17 08/05/21 07:18 BP 114/61 08/05/21 07:18 Pulse Ox 95 08/05/21 07:18 Body Mass Index 38.3 General: AO X 3, no acute distress Resp: CTA bilateral, no accessory muscles used CVS: S1,S2,RRR GI: soft, non tender, non distended Neuro: motor grossly intact, alert Psych: appropriate affect, appropriate insight skin: bilateral edema with overlying erythema, L>R, old scar over right knee. DS: Data Data Completed and Pending Labs on day of discharge: Laboratory Results - last 24 hr 08/04/21 08/04/21 08/04/21 11:08 12:55 16:14 WBC RBC Hgb Hct MCV MCH MCHC RDW Plt Count MPV Immature Gran % (Auto) Neut % (Auto) Lymph % (Auto) [place] % (Auto) Eos % (Auto) Baso % (Auto) Lymph # (Auto) [place] # (Auto) Eos # (Auto) Baso # (Auto) Abs Immat Gran (auto) Absolute Neuts (auto) Absolute Nucleated RBC Nucleated RBC % (auto) Sodium Potassium Chloride Carbon Dioxide Anion Gap BUN Creatinine Estim Creat Clear Calc Estimated GFR POC Glucose 269 H 311 H Fasting Glucose Calcium Total Bilirubin AST ALT Alkaline Phosphatase Total Protein Albumin Vancomycin Trough 3.3 L 08/04/21 08/05/21 08/05/21 20:33 05:54 05:54 WBC 12.8 H RBC 3.92 L Hgb 12.5 L Hct 36.1 L MCV 92.1 MCH 31.9 MCHC 34.6 RDW 12.4 Plt Count 206 MPV 11.1 Immature Gran % (Auto) 0.8 H Neut % (Auto) 83.0 H Lymph % (Auto) 8.9 L [place] % (Auto) 6.5 Eos % (Auto) 0.5 Baso % (Auto) 0.3 Lymph # (Auto) 1.1 L [place] # (Auto) 0.8 Eos # (Auto) 0.1 Baso # (Auto) 0.0 Abs Immat Gran (auto) 0.10 H Absolute Neuts (auto) 10.6 H Absolute Nucleated RBC 0.000 Nucleated RBC % (auto) 0.0 Sodium 137 Potassium 4.3 Chloride 103 Carbon Dioxide 27 Anion Gap 11 L BUN 21 H Creatinine 0.80 Estim Creat Clear Calc 108.0 Estimated GFR > 60 POC Glucose 373 H* Fasting Glucose 239 H Calcium 8.2 L Total Bilirubin 1.2 H AST 18 ALT 26 Alkaline Phosphatase 56 Total Protein 5.2 L Albumin 2.9 L Vancomycin Trough 08/05/21 08/05/21 05:54 07:16 WBC RBC Hgb Hct MCV MCH MCHC RDW Plt Count MPV Immature Gran % (Auto) Neut % (Auto) Lymph % (Auto) [place] % (Auto) Eos % (Auto) Baso % (Auto) Lymph # (Auto) [place] # (Auto) Eos # (Auto) Baso # (Auto) Abs Immat Gran (auto) Absolute Neuts (auto) Absolute Nucleated RBC Nucleated RBC % (auto) Sodium Potassium Chloride Carbon Dioxide Anion Gap BUN Creatinine 0.79 Estim Creat Clear Calc 109.4 Estimated GFR > 60 POC Glucose 221 H Fasting Glucose Calcium Total Bilirubin AST ALT Alkaline Phosphatase Total Protein Albumin Vancomycin Trough Preliminary micro results at discharge 08/03/21 11:53 Blood Culture - Preliminary Blood - Venous No growth after 24 hours. 08/03/21 11:53 Blood Culture - Preliminary Blood - Venous No growth after 24 hours. Discharge Plan Discharge Patient Disposition: Home, Self-Care Discharge Diagnosis: venous stasis Referrals: Po,Babak Hooper MD [Primary Care Provider] - 1 Week Discharge Medications: Continued levothyroxine 112 mcg tablet 112 mcg PO QAM Qty: 90 RF: 2 lisinopril 5 mg tablet 5 mg PO DAILY Qty: 90 RF: 2 Tresiba U-100 Insulin 100 unit/mL solution 25 unit subcut BID Qty: 10 RF: 11 (DME) insulin syringe-needle U-100 [BD Insulin Syringe] 1 mL 29 gauge x 1/2 syringe See Rx Instructions .ROUTE .MEDSUPPLY Qty: 100 RF: 3 aspirin [Adult Aspirin Regimen] 81 mg tablet,delayed release (DR/EC) 81 mg PO BID RF: 0 Discharge Orders: Discharge Order (Routine); Ordered 08/05/21 Ordered By: Vikash Barragan Diet: advance to usual diet Activity on Discharge: As tolerated Stand Alone Forms: Patient Portal Discharge page Care Plan Goals: manage stasis Health Concerns: stasis dermaitis Plan of Treatment: leg wraps, Assessment: see above
--- NOTE | 2021-08-05 11:22 | MHC.CM.PN ---
PT DISCHARGED HOME SELF-CARE, PER WOUND NURSE PT NEEDS A REFERRAL FOR WOUND CLINIC, HOSPITALIST AWARE AND CM HAS CONTACTED [facility] TO PROVIDE PTS DEMOGRAPHICS AND INSURANCE INFO AND THEY WILL CALL PT TO SET UP APPT. FAMILY HAS TRANSPORTED PT.
== END 2021-08-05 11:09 | disposition home or self-care (01) | DRG 301 ==
LOC: HO.ED 12:20 → HO.EDOVER 13:02 → HO.S3 13:02
PROVIDERS: Nurse Practitioner Family; Admitting Provider Hospitalist; Emergency Provider Emergency Medicine; PCP Internal Medicine; Visit Provider Internal Medicine
DX: E11.51 Type 2 diabetes mellitus with diabetic peripheral angiopathy without gangrene (principal); I87.2 Venous insufficiency (chronic) (peripheral); E11.65 Type 2 diabetes mellitus with hyperglycemia; Z20.822 Contact with and (suspected) exposure to COVID-19; Z96.652 Presence of left artificial knee joint; E03.9 Hypothyroidism, unspecified; I10 Essential (primary) hypertension; M35.3 Polymyalgia rheumatica; F17.210 Nicotine dependence, cigarettes, uncomplicated; Z71.6 Tobacco abuse counseling; Z79.4 Long term (current) use of insulin; Z79.82 Long term (current) use of aspirin; Z79.890 Hormone replacement therapy; Z79.899 Other long term (current) drug therapy
CPT/HCPCS: 36415; 71046; 80048; 80053; 80076; 80202; 82565; 82947; 83036; 83735; 83880; 85025; 87040; 87635; 93970; 99285; J1650; J1940; J2543; J3370

== ENCOUNTER 2021-08-13 11:52 | Outpatient (RCR) | payer MEDICARE, SELFPAY | END 2022-01-05 15:44 | disposition home or self-care (01) | LOC: HO.WCC 11:52 | PROVIDERS: PCP Internal Medicine; Visit Provider Surgery | DX: I87.303 Chronic venous hypertension (idiopathic) without complications of bilateral lower extremity (principal); L12.0 Bullous pemphigoid; L30.9 Dermatitis, unspecified; I10 Essential (primary) hypertension; Z86.73 Personal history of transient ischemic attack (TIA), and cerebral infarction without residual deficits; F17.290 Nicotine dependence, other tobacco product, uncomplicated | CPT/HCPCS: 10140; 11042; 11043; 11045; 29580; 97597; 99212; 99213; 99214; 99215 ==

== ENCOUNTER 2021-10-15 05:54 | Outpatient (REF) | payer MEDICARE, SELFPAY ==
[2021-10-15 06:15] LABS: MANUAL DIFF FLAG NO
[2021-10-15 06:19] LABS: Basophils Absolute Auto 0.1 X10*3/uL (0.0-0.2); Basophils Percent Auto 0.6 % (0-2); Eosinophils Percent Auto 12.7 % (0-4); Hematocrit 37.8 % (42.0-52.0); Hemoglobin 12.4 g/dl (14.0-18.0); Imm Gran Abs Auto 0.02 X10*3/uL (0.00-0.03); Imm Gran Pct Auto 0.2 % (0.0-0.4); Lymphocytes Absolute Auto 1.7 X10*3/uL (1.2-4.9); Lymphocytes Percent Auto 20.3 % (20-40); Mean Corpuscular HGB Conc 32.8 g/dl (31.0-36.0); Mean Corpuscular Hemoglobin 30.6 pg (27.0-33.0); Mean Corpuscular Volume 93.3 fL (80.0-98.0); Mean Platelet Volume 10.4 fL (9.4-12.4); Monocytes Absolute Auto 0.5 X10*3/uL (0.1-1.2); Monocytes Percent Auto 6.4 % (2-11); Neutrophils Absolute Auto 4.9 x10*3/uL (2.0-8.3); Neutrophils Percent Auto 59.8 % (45-73); Platelet Count 253 X10*3/uL (160-400); Red Blood Count 4.05 X10*6/uL (4.60-5.80); White Blood Count 8.2 X10*3/uL (4.8-10.8)
[2021-10-15 06:48] LABS: Alanine Aminotransferase 11 U/L (0-40); Albumin Level 3.9 g/dL (3.5-5.0); Alkaline Phosphatase 51 U/L (39-117); Anion Gap 9 (12-20); Aspartate Amino Transferase 14 U/L (5-37); Bilirubin Total 0.8 mg/dL (0.0-1.0); Blood Urea Nitrogen 19 mg/dL (9-16); C Reactive Protein 1.61 mg/dL (< or = 0.50); Calcium 9.8 mg/dL (8.4-10.2); Carbon Dioxide 31 mmol/L (22-29); Chloride 106 mmol/L (96-108); Cholesterol 182 mg/dL; Estimated Glomerular Filt Rate > 60; Glucose Random 116 mg/dL (60-115); HDL Cholesterol 56 mg/dL; LDL Cholesterol Calculated 116 mg/dl; Potassium 4.8 mmol/L (3.3-5.1); Sodium 141 mmol/L (135-145); Total Protein 7.3 g/dL (6.5-8.0); Triglycerides 54 mg/dL
[2021-10-15 07:08] LABS: Free T4 (Free Thyroxine) 1.29 ng/dL (0.71-1.85); Prostate Specific Antigen Scr 0.15 ng/mL (<0.05-4.0); Thyroid Stimulating Hormone 2.37 uIU/mL (0.32-4.0)
[2021-10-15 07:17] LABS: Folate 11.9 ng/mL (> or = 4.0); Vitamin B12 379 pg/mL (200-900)
[2021-10-15 07:24] LABS: Erythrocyte Sedimentation Rate 36 MM/HR (0-15)
[2021-10-15 08:07] LABS: Estimated Average Glucose 232 mg/dL; Hemoglobin A1c % 9.7 %
[2021-10-15 09:35] LABS: Creatinine Urine 216.22 mg/dL
== END 2021-10-15 05:55 | disposition home or self-care (01) ==
LOC: HO.LAB 05:54
PROVIDERS: PCP Internal Medicine; Visit Provider Internal Medicine
DX: E11.65 Type 2 diabetes mellitus with hyperglycemia (principal); E78.00 Pure hypercholesterolemia, unspecified; Z79.4 Long term (current) use of insulin
CPT/HCPCS: 36415; 80053; 80061; 82607; 82746; 83036; 84153; 84439; 84443; 85025; 85652; 86140

== ENCOUNTER 2022-04-08 12:35 | Outpatient (RCR) | payer MEDICARE, SELFPAY | END 2022-05-06 13:02 | disposition home or self-care (01) | LOC: HO.WCC 12:35 | PROVIDERS: Visit Provider Surgery | DX: Z09 Encounter for follow-up examination after completed treatment for conditions other than malignant neoplasm (principal); L12.0 Bullous pemphigoid; I10 Essential (primary) hypertension; I25.2 Old myocardial infarction; I48.91 Unspecified atrial fibrillation; Z87.891 Personal history of nicotine dependence; Z86.73 Personal history of transient ischemic attack (TIA), and cerebral infarction without residual deficits; Z87.2 Personal history of diseases of the skin and subcutaneous tissue | CPT/HCPCS: 99212; 99215 ==

== ENCOUNTER 2022-04-14 19:00 | Emergency (ER) | payer MEDICARE, SELFPAY ==
--- NOTE | ~2022-04-14 | CT_ITS ---
EXAMINATION: CT ANGIOGRAM HEAD CT ANGIOGRAM NECK CLINICAL INFORMATION: Headache. Complete loss of vision lasting 1-2 minutes one or 2 weeks prior. No associated weakness or headache. COMPARISON: CT head from 04/14/2022. TECHNIQUE: Initial noncontrast greenhouse staff imaging of the head and neck was performed. Comparison is made with noncontrast head CT from earlier today. Test bolus sequences followed by intravenous administration 70 mL of Omnipaque 350. Helical imaging was performed in the axial plane from the aortic arch to the skull vertex. Delayed postcontrast imaging of the head was also performed. The data was processed at the neurodiagnostic technologist's workstation for generation of MIP sequences. Angled MIPs and volume rendered reformatted images were also generated at an offline 3D workstation. Stenoses are assessed in accordance with NASCET criteria unless otherwise indicated. This CT examination was performed using dose optimization techniques as appropriate, variously including the following: *Automated exposure control. *Adjustment of mA and/or kV according to patient size (this includes techniques or standardized protocols for targeted exams where dose is matched to indication/reason for exam; i.e. extremities or head). *Use of iterative reconstruction technique. DLP: 1644 mGy-cm FINDINGS: CT Head: There is no evidence of acute intracranial hemorrhage or edematous territorial infarction. A few foci of hypoattenuation in the periventricular and deep white matter are consistent with mild microangiopathy. Chronic lacunar infarct of the right cerebellar hemisphere. No additional loss of loco-white matter differentiation. The ventricles are normal in size and configuration. No evidence for obstructive hydrocephalus. No abnormal mass effect or midline shift. No extra-axial fluid collections. No pathologic intra-axial enhancement. No acute soft tissue or osseous abnormalities. Mild mucosal thickening of the paranasal sinuses. The mastoid air cells and middle ear cavities are clear. Multifocal odontogenic enamel erosions and periapical lucencies. CT Neck: The thyroid gland and remaining cervical soft tissues are within normal limits. Exuberant anterior osteophytosis from C4-T3. Moderate to advanced multilevel degenerative spondyloarthropathy of the cervical spine. Facet and uncovertebral joint arthropathy leads osseous encroachment on the neural foramina from C2-C5. CT Upper Chest: The visualized lung apices and upper mediastinum are within normal limits. Neck CTA: Aortic Arch: Normal contour and caliber with mild calcific atherosclerotic disease. Classic 3 vessel branching pattern of the aortic arch. Great Vessel Origins: No significant stenosis of the branch origins. Right Common Carotid Artery: No focal stenosis or occlusion. Cervical Right Internal Carotid Artery: Calcific atherosclerotic disease of the carotid bulb and proximal internal carotid artery causing less than 50% stenosis. Left Common Carotid Artery: No focal stenosis or occlusion. Cervical Left Internal Carotid Artery: Calcific atherosclerotic disease of the carotid bulb and proximal internal carotid artery causing less than 50% stenosis. Cervical Right Vertebral Artery: No focal stenosis or occlusion. Cervical Left Vertebral Artery: Dominant. No focal stenosis or occlusion. Brain CTA: Intracranial Internal Carotid Arteries: There is a partially occlusive thrombus that extends from the carotid terminus and origin of the M1 segment of the right MCA into the proximal aspect of the A1 segment of the right CARRIE. Otherwise, calcific atherosclerotic disease of the intracranial internal carotid arteries without additional occlusion or flow-limiting stenosis. Right Anterior Cerebral Artery: As noted above, there is a 1.3 cm long thrombus extending from the right carotid terminus into the proximal A1 segment of the right CARRIE. Reconstitution of opacification of the distal A1 segment of the right CARRIE. Normal opacification of the distal CARRIE segments. Left Anterior Cerebral Artery: Normal A1 segment. Normal opacification of the distal CARRIE segments. Anterior Communicating Artery: Normal. Right Middle Cerebral Artery: As noted above, there is a thrombus minimally extending into the origin of the M1 segment of the right MCA. Otherwise, normal M1 segment of the MCA without focal stenosis or occlusion. Normal arborization of the distal segments. Left Middle Cerebral Artery: Normal M1 segment of the MCA without focal stenosis or occlusion. Normal arborization of the distal segments. Right Vertebral Artery: The V4 segment is diminutive. Normal opacification of the proximal segments of the posterior inferior cerebellar artery. Left Vertebral Artery: Normal V4 segment. Normal opacification of the proximal segments of the posterior inferior cerebellar artery. Basilar Artery: Normal without focal stenosis or occlusion. Normal appearance of the proximal superior cerebellar arteries. Right Posterior Cerebral Artery: Normal P1 segment. Normal opacification of the distal [employer] segments. Left Posterior Cerebral Artery: Normal P1 segment. Normal opacification of the distal [employer] segments. Normal opacification of the superior sagittal, straight, transverse, and sigmoid sinuses. CT/CT angio head neck stroke IMPRESSION: 1. No evidence of acute intracranial hemorrhage or edematous territorial infarction. Mild underlying microangiopathy and generalized cerebral volume loss. Chronic lacunar infarct of the right cerebellar hemisphere. 2. There appears to be thrombotic material filling the proximal A1 segment of the right CARRIE. There is thrombotic material partially extends into the carotid terminus and origin of the right MCA. At this time, there is normal opacification of the right CARRIE and MCA distally. 3. CTA of the head and neck without additional proximal occlusion or flow-limiting stenosis. This critical result was discussed with Dr. Churchill at 19:50 on 04/14/2022 and it was ascertained that the content and urgency of the report was understood at the time of direct communication.
--- NOTE | ~2022-04-14 | CT_ITS ---
EXAMINATION: CT HEAD WITHOUT CONTRAST (STROKE PROTOCOL) CLINICAL INFORMATION: Stroke protocol. Left-sided weakness, dysarthria COMPARISON: CT head 02/10/2010 TECHNIQUE: Contiguous axial imaging was performed from the skull base to vertex without intravenous administration of contrast. This CT examination was performed using dose optimization techniques as appropriate, variously including the following: *Automated exposure control *Adjustment of mA and/or kV according to patient size (this includes techniques or standardized protocols for targeted exams where dose is matched to indication/reason for exam; i.e. extremities or head) *Use of iterative reconstruction technique DLP: 861 mGy-cm FINDINGS: There is no evidence of acute intracranial hemorrhage or edematous territorial infarction. No abnormal mass effect or midline shift is seen. Tavares to white matter differentiation is well preserved. No extra-axial fluid collections are identified. There is generalized cerebral volume loss. No hydrocephalus. Mild periventricular and deep white matter hypodensities suggestive of chronic microangiopathic ischemic changes. No acute calvarial fracture. The mastoid air cells and visualized portions of the paranasal sinuses are well aerated. CT/CT head for stroke IMPRESSION: No CT evidence of acute intracranial intracranial hemorrhage or edematous territorial infarction. Early or small areas infarction cannot excluded. Further evaluation with CTA or MRI as clinically warranted. This critical result was discussed with Dr. Churchill at 1918 hours on 04/14/2022.
--- NOTE | ~2022-04-14 | XR_ITS ---
EXAMINATION: PORTABLE CHEST 1 VIEW CLINICAL INFORMATION: tia . COMPARISON: 08/03/2021. TECHNIQUE: Portable frontal view of the chest was obtained. FINDINGS: The lungs are hypoexpanded. Minimal left basilar atelectasis but no superimposed focal infiltrate, effusion, edema, or pneumothorax. Cardiac and mediastinal silhouettes are within normal limits for technique. No acute bony abnormality seen. Degenerative changes in the spine and shoulders. XR/XR chest 1V IMPRESSION: Hypoexpanded with mild atelectatic change but no acute airspace disease.
--- NOTE | 2022-04-14 19:03 | ECG_ITS ---
Test Reason : STROKE Blood Pressure : / mmHG Vent. Rate : 083 BPM Atrial Rate : 083 BPM P-R Int : 268 ms QRS Dur : 098 ms QT Int : 360 ms P-R-T Axes : 039 -24 022 degrees QTc Int : 423 ms Sinus rhythm with 1st degree A-V block Otherwise normal ECG When compared with ECG of 05-MAR-2015 14:45, No significant change was found Referred By: Tal Pack Electronically Signed By:YOSI HERNANDEZ MD
--- NOTE | 2022-04-14 19:13 | ED.NEUROSD ---
HPI - Neuro Symptoms/Deficit General Chief Complaint: Stroke Stated Complaint: stroke Time Seen by Provider: 04/14/22 19:03 Source: patient Mode of arrival: EMS Limitations: no limitations History of Present Illness HPI Narrative: Patient diabetic with history of hypertension and TIA last episode of TIA was in 2009 came by EMS for sudden onset of left-sided weakness with facial droop at 18:30 patient was walking to his car with his daughter all of a sudden he dropped his phone from his left hand and then was unable to hold his phone and had difficulty in speaking with left facial droop whole episode lasted about 5-6 minutes by the time EMS reached there was no focal deficit patient is on baby aspirin twice daily Related Data Home Medications Medication Instructions Recorded Confirmed aspirin 81 mg tablet,delayed 81 mg PO BID 10/13/20 08/03/21 release (Adult Aspirin Regimen) triamcinolone acetonide 0.1 % 1 appl topical BID 11/02/21 topical cream Previous Rx's Medication Instructions Recorded levothyroxine 112 mcg tablet 112 mcg PO QAM #90 tabs 09/21/21 lisinopril 5 mg tablet 5 mg PO DAILY #90 tabs 09/21/21 insulin syringe-needle U-100 1 mL #100 ea 12/02/21 29 gauge x 1/2 (BD Insulin Syringe) insulin degludec 100 unit/mL 25 unit (0.25 mL) subcut BID #10 mL 02/15/22 subcutaneous solution (Tresiba U-100 Insulin) Allergies Allergy/AdvReac Type Severity Reaction Status Date / Time atorvastatin [Lipitor] Allergy Unknown Unknown Verified 11/02/21 13:43 canagliflozin [Invokana] Allergy Unknown hives Verified 11/02/21 13:43 dulaglutide [Trulicity] Allergy Unknown hives Verified 11/02/21 13:43 insulin glargine Allergy Unknown Hives Verified 11/02/21 13:43 [From Lantus U-100 Insulin] metformin [METFORMIN] Allergy Unknown HIVES Verified 11/02/21 13:43 rosuvastatin Allergy Unknown Unknown Verified 11/02/21 13:43 sitagliptin [From JANUVIA] Allergy Unknown HIVES Verified 11/02/21 13:43 Review of Systems Review of Systems: Yes all other systems are reviewed and are negative PMFSH Past Medical History Medical History Alcohol abuse Migraine Solitary left kidney TIA (transient ischemic attack) Vitamin D deficiency Surgical History History of arthroscopy of both knees History of colonoscopy Hx of tonsillectomy Family History Family History Father Diabetes Mother Melanoma Maternal Uncle Colon cancer Social History Social History Household Members: None Housing: House Do you presently have visiting nurse or other home services: No Alcohol intake: former Patient Tobacco Use Status: Current everyday Tobacco user Tobacco use type: Cigar and Pipe Years Smoked: 50 Smoked in Last 30 Days: Yes e-Cigarette/Vaping Use: Currently Using Second Hand Smoke Exposure: Yes Use of substances other than those prescribed or required for medical reasons: No Advance Directives: No Advance Directives Information Provided: Yes service: No Current occupational status: employed Physical Exam Vital Signs: Vital Signs: Last Vital Signs Temp 98.1 F 04/14/22 19:34 Pulse 89 04/14/22 21:08 Resp 14 04/14/22 21:08 BP 156/72 H 04/14/22 21:08 Pulse Ox 97 04/14/22 21:08 O2 Del Method 04/14/22 21:08 BMI result Body Mass Index 41.3 Appearance: Alert. Oriented X3. No acute distress. Eyes: PERRLA, No Nystagmus ENT: Pharynx normal. Oral Mucosa moist Neck: Normal inspection. Neck supple. CVS: Normal heart rate and rhythm. Pulses normal. Respiratory: No respiratory distress. Equal air entry bilateral, no wheezing/rales/rhonchi Abdomen: Soft and nontender. Bowel sounds are present, no mass palpable, no CVA tenderness Skin: Skin warm and dry. Normal skin color. Normal skin turgor. Extremities: 3+ lower extremity edema. No calf tenderness Neuro: Oriented X 3. No motor deficit. No sensory deficit.No cerebellar signs , cranial nerves II-XII intact MDM - Neuro Symptoms/Deficit MDM Narrative Medical decision making narrative: 20:40 Patient history of TIA came with acute episode of left arm weakness left facial droop and dysarthria lasted only for 5-6 minutes patient is on aspirin twice daily at home after arrival patient has no neuro deficit. CT scan of the head was negative for any acute stroke CTA head and neck showed 1.3 cm long thrombus at carotid terminus extending to proximal A1 of right CARRIE and origin of right MCA. Case discussed with Dr. Hauser neurologist advised transfer to [facility]. Case discussed Dr. Melgar neurointerventional at [facility] accepted the patient for transfer at 2100. Patient agreed further risk for the procedure at [facility] Medical Records Attestation: I reviewed the patient's medical records. Lab Data Attestation: I reviewed the patient's lab results. Result diagrams: 04/14/22 20:31 04/14/22 20:31 Labs: Lab Results 04/14/22 04/14/22 04/14/22 Range/Units 20:31 20:31 20:31 WBC 7.1 (4.8-10.8) X10*3/uL RBC 4.14 L (4.60-5.80) X10*6/uL Hgb 12.9 L (14.0-18.0) g/dl Hct 38.0 L (42.0-52.0) % MCV 91.8 (80.0-98.0) fL MCH 31.2 (27.0-33.0) pg MCHC 33.9 (31.0-36.0) g/dl RDW 12.7 (11.0-16.0) % Plt Count 181 D (160-400) X10*3/uL MPV 10.9 (9.4-12.4) fL Immature Gran % (Auto) 0.3 (0.0-0.4) % Neut % (Auto) 70.1 (45-73) % Lymph % (Auto) 16.7 L (20-40) % Morehouse % (Auto) 6.8 (2-11) % Eos % (Auto) 5.7 H (0-4) % Baso % (Auto) 0.4 (0-2) % Lymph # (Auto) 1.2 (1.2-4.9) X10*3/uL [place] # (Auto) 0.5 (0.1-1.2) X10*3/uL Eos # (Auto) 0.4 (0.0-0.4) X10*3/uL Baso # (Auto) 0.0 (0.0-0.2) X10*3/uL Abs Immat Gran (auto) 0.02 (0.00-0.03) X10*3/uL Absolute Neuts (auto) 5.0 (2.0-8.3) x10*3/uL Absolute Nucleated RBC 0.000 (0.0-0.012) X10*3/uL Nucleated RBC % (auto) 0.0 (0.0-0.2) /100WBC PT 11.4 (9.9-13.0) SEC INR 1.0 (0.9-1.1) Sodium 137 (135-145) mmol/L Potassium 4.3 (3.3-5.1) mmol/L Chloride 105 (96-108) mmol/L Carbon Dioxide 24 (22-29) mmol/L Anion Gap 12 (12-20) BUN 17 H (9-16) mg/dL Creatinine 0.94 (0.5-1.4) mg/dL Estim Creat Clear Calc 58.2 Estimated GFR > 60 POC Glucose (60-115) mg/dL Random Glucose 380 H* (60-115) mg/dL Calcium 8.6 D (8.4-10.2) mg/dL Troponin I High Sens (<3.5-35.0) ng/L Hold Red Top COVID-19 (JENNIFER) (Negative) COVID-19 Clin Com 04/14/22 04/14/22 04/14/22 Range/Units 20:31 20:31 20:56 WBC (4.8-10.8) X10*3/uL RBC (4.60-5.80) X10*6/uL Hgb (14.0-18.0) g/dl Hct (42.0-52.0) % MCV (80.0-98.0) fL MCH (27.0-33.0) pg MCHC (31.0-36.0) g/dl RDW (11.0-16.0) % Plt Count (160-400) X10*3/uL MPV (9.4-12.4) fL Immature Gran % (Auto) (0.0-0.4) % Neut % (Auto) (45-73) % Lymph % (Auto) (20-40) % Morehouse % (Auto) (2-11) % Eos % (Auto) (0-4) % Baso % (Auto) (0-2) % Lymph # (Auto) (1.2-4.9) X10*3/uL Morehouse # (Auto) (0.1-1.2) X10*3/uL Eos # (Auto) (0.0-0.4) X10*3/uL Baso # (Auto) (0.0-0.2) X10*3/uL Abs Immat Gran (auto) (0.00-0.03) X10*3/uL Absolute Neuts (auto) (2.0-8.3) x10*3/uL Absolute Nucleated RBC (0.0-0.012) X10*3/uL Nucleated RBC % (auto) (0.0-0.2) /100WBC PT (9.9-13.0) SEC INR (0.9-1.1) Sodium (135-145) mmol/L Potassium (3.3-5.1) mmol/L Chloride (96-108) mmol/L Carbon Dioxide (22-29) mmol/L Anion Gap (12-20) BUN (9-16) mg/dL Creatinine (0.5-1.4) mg/dL Estim Creat Clear Calc Estimated GFR POC Glucose 327 H (60-115) mg/dL Random Glucose (60-115) mg/dL Calcium (8.4-10.2) mg/dL Troponin I High Sens < 3.5 (<3.5-35.0) ng/L Hold Red Top See Note COVID-19 (JENNIFER) (Negative) COVID-19 Clin Com 04/14/22 Range/Units 21:02 WBC (4.8-10.8) X10*3/uL RBC (4.60-5.80) X10*6/uL Hgb (14.0-18.0) g/dl Hct (42.0-52.0) % MCV (80.0-98.0) fL MCH (27.0-33.0) pg MCHC (31.0-36.0) g/dl RDW (11.0-16.0) % Plt Count (160-400) X10*3/uL MPV (9.4-12.4) fL Immature Gran % (Auto) (0.0-0.4) % Neut % (Auto) (45-73) % Lymph % (Auto) (20-40) % Morehouse % (Auto) (2-11) % Eos % (Auto) (0-4) % Baso % (Auto) (0-2) % Lymph # (Auto) (1.2-4.9) X10*3/uL More[place] # (Auto) (0.1-1.2) X10*3/uL Eos # (Auto) (0.0-0.4) X10*3/uL Baso # (Auto) (0.0-0.2) X10*3/uL Abs Immat Gran (auto) (0.00-0.03) X10*3/uL Absolute Neuts (auto) (2.0-8.3) x10*3/uL Absolute Nucleated RBC (0.0-0.012) X10*3/uL Nucleated RBC % (auto) (0.0-0.2) /100WBC PT (9.9-13.0) SEC INR (0.9-1.1) Sodium (135-145) mmol/L Potassium (3.3-5.1) mmol/L Chloride (96-108) mmol/L Carbon Dioxide (22-29) mmol/L Anion Gap (12-20) BUN (9-16) mg/dL Creatinine (0.5-1.4) mg/dL Estim Creat Clear Calc Estimated GFR POC Glucose (60-115) mg/dL Random Glucose (60-115) mg/dL Calcium (8.4-10.2) mg/dL Troponin I High Sens (<3.5-35.0) ng/L Hold Red Top COVID-19 (JENNIFER) Negative (Negative) COVID-19 Clin Com See Note Imaging Data CT scan - head: Attestation: I personally reviewed and interpreted this imaging study as follows: Radiologist's impression: CT/CT angio head? neck stroke IMPRESSION: 1. No evidence of acute intracranial hemorrhage or edematous territorial infarction. Mild underlying microangiopathy and generalized cerebral volume loss. Chronic lacunar infarct of the right cerebellar hemisphere. ? 2. There appears to be thrombotic material filling the proximal A1 segment of the right CARRIE. There is thrombotic material partially extends into the carotid terminus and origin of the right MCA. At this time, there is normal opacification of the right CARRIE and MCA distally. ? 3. CTA of the head and neck without additional proximal occlusion or flow-limiting stenosis. ? This critical result was discussed with Dr. Churchill at 19:50 on 04/14/2022 and it was ascertained that the content and urgency of the report was understood at the time of direct communication. ECG Data Attestation: I personally reviewed and interpreted this ECG as follows: Interpretation: Normal sinus rhythm first-degree heart block heart rate 83 beats per minute normal interval normal axis no acute ST-T is no acute ischemia NIH Stroke Scale Internal: Initial- Upon Arrival Time: 19:00 Level of Consciousness: Alert Level of Consciousness Questions: Answers both questions correctly Level of Consciousness Commands: Performs both tasks correctly Best Gaze: Normal Visual: No visual loss Facial Palsy: Normal Motor Arm (Right): No drift Motor Arm (Left): No drift Motor Leg (Right): No drift Motor Leg (Left): No drift Limb Ataxia: Absent Sensory: Normal Best Language: No aphasia Dysarthia: Normal Extinction and Inattention: No abnormality Score: 0 Critical Care Time Critical Care Time Critical Care Time: Yes Total Critical Care Time: 55 Attestation: I spent 55 minutes of critical care, with interventions, assessments, speaking to patient, consultants, and family. Discharge Plan Discharge Clinical Impression: Transient cerebral ischemia Patient Disposition: [facility] Transfer Details: [facility] Emergency Department Dr. Melgar Prescriptions: No Action lisinopril 5 mg tablet 5 mg PO DAILY Qty: 90 2RF levothyroxine 112 mcg tablet 112 mcg PO QAM Qty: 90 2RF (DME) insulin syringe-needle U-100 [BD Insulin Syringe] 1 mL 29 gauge x 1/2 syringe See Rx Instructions .ROUTE .MEDSUPPLY Qty: 100 3RF Rx Instructions: As directed Tresiba U-100 Insulin 100 unit/mL solution 25 unit subcut BID Qty: 10 3RF aspirin [Adult Aspirin Regimen] 81 mg tablet,delayed release (DR/EC) 81 mg PO BID triamcinolone acetonide 0.1 % cream 1 appl topical BID
[2022-04-14 19:34] VITALS: BP 140/69; BP 160/79; PULSE 74; PULSE 83; RESP 18; TEMP 36.7; O2SAT 95; O2SAT 96; BMI 18.6
[2022-04-14] MEDS: iohexoL 350 MG/ML 100 ML INFUS..BTL IV (19:36)
[2022-04-14 20:36] LABS: MANUAL DIFF FLAG NO
[2022-04-14 20:37] LABS: Basophils Percent Auto 0.4 % (0-2); Eosinophils Absolute Auto 0.4 X10*3/uL (0.0-0.4); Eosinophils Percent Auto 5.7 % (0-4); Hemoglobin 12.9 g/dl (14.0-18.0); Imm Gran Abs Auto 0.02 X10*3/uL (0.00-0.03); Imm Gran Pct Auto 0.3 % (0.0-0.4); Lymphocytes Absolute Auto 1.2 X10*3/uL (1.2-4.9); Lymphocytes Percent Auto 16.7 % (20-40); Mean Corpuscular HGB Conc 33.9 g/dl (31.0-36.0); Mean Corpuscular Hemoglobin 31.2 pg (27.0-33.0); Mean Corpuscular Volume 91.8 fL (80.0-98.0); Mean Platelet Volume 10.9 fL (9.4-12.4); Monocytes Absolute Auto 0.5 X10*3/uL (0.1-1.2); Monocytes Percent Auto 6.8 % (2-11); Neutrophils Percent Auto 70.1 % (45-73); Platelet Count 181 X10*3/uL (160-400); Red Blood Count 4.14 X10*6/uL (4.60-5.80); Red Cell Distribution Width 12.7 % (11.0-16.0); White Blood Count 7.1 X10*3/uL (4.8-10.8)
[2022-04-14 20:43] LABS: Prothrombin Time 11.4 SEC (9.9-13.0)
[2022-04-14] MEDS: Aspirin Enteric Coated 325 MG TABLET.DR PO (20:46)
[2022-04-14 20:49] VITALS: BP 151/69; PULSE 87; RESP 16; O2SAT 96; BMI 41.3
--- NOTE | 2022-04-14 20:51 | PC.NURSE ---
CALL OUT TO [facility] @2028
[2022-04-14 20:56] LABS: Anion Gap 12 (12-20); Blood Urea Nitrogen 17 mg/dL (9-16); Calcium 8.6 mg/dL (8.4-10.2); Carbon Dioxide 24 mmol/L (22-29); Chloride 105 mmol/L (96-108); Creatinine Clr Calc Pharmacy 58.2; Estimated Glomerular Filt Rate > 60; Glucose Random 380 mg/dL (60-115); Potassium 4.3 mmol/L (3.3-5.1); Sodium 137 mmol/L (135-145)
[2022-04-14 20:58] LABS: Stroke Lab Use COMPLETE
[2022-04-14 21:00] LABS: Troponin-I High Sensitivity < 3.5 ng/L (<3.5-35.0)
[2022-04-14 21:02] LABS: Glucose, Whole Blood 327 mg/dL (60-115)
--- NOTE | 2022-04-14 21:04 | PC.NURSE ---
Critical lab of 380 reported to [facility].
[2022-04-14 21:08] VITALS: BP 156/72; PULSE 89; RESP 14; O2SAT 97
[2022-04-14 21:41] LABS: COVID-19 Test Negative (Negative); IDNOW Serial# 55D5AD1C
== END 2022-04-14 21:30 | disposition short-term general hospital (02) ==
PROVIDERS: Emergency Provider Internal Medicine
DX: G45.9 Transient cerebral ischemic attack, unspecified (principal); R29.810 Facial weakness; F17.200 Nicotine dependence, unspecified, uncomplicated; E11.9 Type 2 diabetes mellitus without complications; Z20.822 Contact with and (suspected) exposure to COVID-19; Z71.6 Tobacco abuse counseling; Z79.899 Other long term (current) drug therapy; Z79.4 Long term (current) use of insulin
CPT/HCPCS: 36415; 70450; 70496; 70498; 71045; 80048; 82947; 84484; 85025; 85610; 87635; 93005; 99285; Q9967

== ENCOUNTER 2022-04-29 06:25 | Outpatient (REF) | payer MEDICARE, SELFPAY ==
[2022-04-29 06:39] LABS: MANUAL DIFF FLAG NO
[2022-04-29 07:24] LABS: Basophils Absolute Auto 0.1 X10*3/uL (0.0-0.2); Basophils Percent Auto 0.9 % (0-2); Eosinophils Absolute Auto 0.3 X10*3/uL (0.0-0.4); Eosinophils Percent Auto 2.7 % (0-4); Hemoglobin 12.9 g/dl (14.0-18.0); Imm Gran Abs Auto 0.03 X10*3/uL (0.00-0.03); Imm Gran Pct Auto 0.3 % (0.0-0.4); Lymphocytes Absolute Auto 1.5 X10*3/uL (1.2-4.9); Lymphocytes Percent Auto 16.5 % (20-40); Mean Corpuscular HGB Conc 33.9 g/dl (31.0-36.0); Mean Corpuscular Hemoglobin 30.9 pg (27.0-33.0); Mean Corpuscular Volume 90.9 fL (80.0-98.0); Mean Platelet Volume 10.5 fL (9.4-12.4); Monocytes Absolute Auto 0.6 X10*3/uL (0.1-1.2); Monocytes Percent Auto 6.4 % (2-11); Neutrophils Absolute Auto 6.8 x10*3/uL (2.0-8.3); Neutrophils Percent Auto 73.2 % (45-73); Platelet Count 340 X10*3/uL (160-400); Red Blood Count 4.18 X10*6/uL (4.60-5.80); Red Cell Distribution Width 12.3 % (11.0-16.0); White Blood Count 9.3 X10*3/uL (4.8-10.8)
[2022-04-29 07:42] LABS: Estimated Average Glucose 258 mg/dL; Hemoglobin A1c % 10.6 %
[2022-04-29 07:43] LABS: Alanine Aminotransferase 20 U/L (0-40); Albumin Level 3.9 g/dL (3.5-5.0); Alkaline Phosphatase 64 U/L (39-117); Anion Gap 13 (12-20); Aspartate Amino Transferase 20 U/L (5-37); Blood Urea Nitrogen 13 mg/dL (9-16); Calcium 8.7 mg/dL (8.4-10.2); Carbon Dioxide 25 mmol/L (22-29); Chloride 105 mmol/L (96-108); Cholesterol 123 mg/dL; Estimated Glomerular Filt Rate > 60; Glucose Random 107 mg/dL (60-115); HDL Cholesterol 58 mg/dL; LDL Cholesterol Calculated 57 mg/dl; Potassium 4.6 mmol/L (3.3-5.1); Sodium 138 mmol/L (135-145); Total Protein 6.8 g/dL (6.5-8.0); Triglycerides 42 mg/dL
[2022-04-29 08:09] LABS: Free T4 (Free Thyroxine) 1.42 ng/dL (0.71-1.85); Prostate Specific Antigen Scr 0.13 ng/mL (<0.05-4.0); Thyroid Stimulating Hormone 2.07 uIU/mL (0.32-4.0)
== END 2022-04-29 06:26 | disposition home or self-care (01) ==
LOC: HO.LAB 06:25
PROVIDERS: PCP Internal Medicine; Visit Provider Internal Medicine
DX: Z12.5 Encounter for screening for malignant neoplasm of prostate (principal); E11.65 Type 2 diabetes mellitus with hyperglycemia; E78.00 Pure hypercholesterolemia, unspecified; Z79.4 Long term (current) use of insulin
CPT/HCPCS: 36415; 80053; 80061; 83036; 84153; 84439; 84443; 85025

== ENCOUNTER 2022-08-09 06:00 | Outpatient (REF) | payer MEDICARE, SELFPAY ==
[2022-08-09 06:19] LABS: MANUAL DIFF FLAG NO
[2022-08-09 07:31] LABS: Basophils Percent Auto 0.6 % (0-2); Eosinophils Absolute Auto 0.3 X10*3/uL (0.0-0.4); Eosinophils Percent Auto 4.1 % (0-4); Hematocrit 36.8 % (42.0-52.0); Hemoglobin 12.3 g/dl (14.0-18.0); Imm Gran Abs Auto 0.02 X10*3/uL (0.00-0.03); Imm Gran Pct Auto 0.3 % (0.0-0.4); Lymphocytes Absolute Auto 1.4 X10*3/uL (1.2-4.9); Lymphocytes Percent Auto 20.5 % (20-40); Mean Corpuscular HGB Conc 33.4 g/dl (31.0-36.0); Mean Corpuscular Hemoglobin 30.3 pg (27.0-33.0); Mean Corpuscular Volume 90.6 fL (80.0-98.0); Mean Platelet Volume 10.3 fL (9.4-12.4); Monocytes Absolute Auto 0.5 X10*3/uL (0.1-1.2); Monocytes Percent Auto 7.3 % (2-11); Neutrophils Absolute Auto 4.4 x10*3/uL (2.0-8.3); Neutrophils Percent Auto 67.2 % (45-73); Platelet Count 241 X10*3/uL (160-400); Red Blood Count 4.06 X10*6/uL (4.60-5.80); Red Cell Distribution Width 12.6 % (11.0-16.0); White Blood Count 6.6 X10*3/uL (4.8-10.8)
[2022-08-09 08:02] LABS: Creatinine Urine 154.57 mg/dL; Microalbum/Creatinine Ratio Ur 12.2 ug/mg cr
[2022-08-09 08:05] LABS: Alanine Aminotransferase 9 U/L (0-40); Albumin Level 3.8 g/dL (3.5-5.0); Alkaline Phosphatase 57 U/L (39-117); Anion Gap 15 (12-20); Aspartate Amino Transferase 10 U/L (5-37); Bilirubin Total 0.9 mg/dL (0.0-1.0); Blood Urea Nitrogen 19 mg/dL (9-16); C Reactive Protein 3.46 mg/dL (< or = 0.50); Calcium 8.9 mg/dL (8.4-10.2); Carbon Dioxide 25 mmol/L (22-29); Chloride 103 mmol/L (96-108); Cholesterol 137 mg/dL; Estimated Glomerular Filt Rate > 60; Glucose Random 260 mg/dL (60-115); HDL Cholesterol 53 mg/dL; LDL Cholesterol Calculated 76 mg/dl; Potassium 4.5 mmol/L (3.3-5.1); Sodium 138 mmol/L (135-145); Total Protein 6.6 g/dL (6.5-8.0); Triglycerides 43 mg/dL
[2022-08-09 08:08] LABS: Estimated Average Glucose 278 mg/dL; Hemoglobin A1c % 11.3 %
[2022-08-09 08:27] LABS: Folate 15.8 ng/mL (> or = 4.0); Vitamin B12 421 pg/mL (200-900)
[2022-08-09 08:31] LABS: Free T4 (Free Thyroxine) 1.24 ng/dL (0.71-1.85); Prostate Specific Antigen Scr 0.12 ng/mL (<0.05-4.0); Thyroid Stimulating Hormone 2.38 uIU/mL (0.32-4.0)
[2022-08-09 08:35] LABS: Erythrocyte Sedimentation Rate 58 MM/HR (0-15)
== END 2022-08-09 06:01 | disposition home or self-care (01) ==
LOC: HO.LAB 06:00
PROVIDERS: PCP Internal Medicine; Visit Provider Internal Medicine
DX: E11.65 Type 2 diabetes mellitus with hyperglycemia (principal); E78.00 Pure hypercholesterolemia, unspecified; M35.3 Polymyalgia rheumatica; Z79.4 Long term (current) use of insulin; Z12.5 Encounter for screening for malignant neoplasm of prostate
CPT/HCPCS: 36415; 80053; 80061; 82043; 82607; 82746; 83036; 84153; 84439; 84443; 85025; 85652; 86140

== ENCOUNTER 2022-11-12 05:55 | Outpatient (REF) | payer MEDICARE, SELFPAY ==
[2022-11-12 06:08] LABS: MANUAL DIFF FLAG NO
[2022-11-12 07:24] LABS: Basophils Percent Auto 0.6 % (0-2); Eosinophils Absolute Auto 0.3 X10*3/uL (0.0-0.4); Eosinophils Percent Auto 4.2 % (0-4); Hematocrit 37.8 % (42.0-52.0); Hemoglobin 12.9 g/dl (14.0-18.0); Imm Gran Abs Auto 0.02 X10*3/uL (0.00-0.03); Imm Gran Pct Auto 0.3 % (0.0-0.4); Immature Retic Fraction 7.5 % (2.3-13.4); Lymphocytes Absolute Auto 1.5 X10*3/uL (1.2-4.9); Lymphocytes Percent Auto 20.8 % (20-40); Mean Corpuscular HGB Conc 34.1 g/dl (31.0-36.0); Mean Corpuscular Hemoglobin 30.4 pg (27.0-33.0); Mean Corpuscular Volume 88.9 fL (80.0-98.0); Mean Platelet Volume 10.9 fL (9.4-12.4); Monocytes Absolute Auto 0.5 X10*3/uL (0.1-1.2); Monocytes Percent Auto 6.8 % (2-11); Neutrophils Absolute Auto 4.8 x10*3/uL (2.0-8.3); Neutrophils Percent Auto 67.3 % (45-73); Platelet Count 202 X10*3/uL (160-400); Red Blood Count 4.25 X10*6/uL (4.60-5.80); Red Cell Distribution Width 13.1 % (11.0-16.0); Retic HGB Equivalent 36.2 pg (30.0-35.0); Reticulocyte Percent 1.4 % (0.5-1.8); Reticulocytes Absolute 0.061 X10*6/uL (0.026-0.095); White Blood Count 7.2 X10*3/uL (4.8-10.8)
[2022-11-12 07:55] LABS: Alanine Aminotransferase 13 U/L (0-40); Albumin Level 3.7 g/dL (3.5-5.0); Alkaline Phosphatase 66 U/L (39-117); Anion Gap 15 (12-20); Aspartate Amino Transferase 14 U/L (5-37); Bilirubin Total 0.9 mg/dL (0.0-1.0); Blood Urea Nitrogen 17 mg/dL (9-16); Calcium 9.1 mg/dL (8.4-10.2); Carbon Dioxide 28 mmol/L (22-29); Chloride 104 mmol/L (96-108); Cholesterol 120 mg/dL; Estimated Glomerular Filt Rate > 60; Glucose Random 106 mg/dL (60-115); HDL Cholesterol 57 mg/dL; Iron 57 mcg/dL (45-160); LDL Cholesterol Calculated 56 mg/dl; Percent Iron Saturation 25 % (15-50); Potassium 4.6 mmol/L (3.3-5.1); Sodium 142 mmol/L (135-145); Total Iron Binding Capacity 227 mcg/dL (228-428); Total Protein 6.5 g/dL (6.5-8.0); Triglycerides 37 mg/dL; Unsaturated Iron Binding 170 ug/dL
[2022-11-12 07:58] LABS: Creatinine Urine 236.46 mg/dL
[2022-11-12 08:12] LABS: Ferritin 119 ng/mL (20-250); Free T4 (Free Thyroxine) 1.21 ng/dL (0.71-1.85); Thyroid Stimulating Hormone 2.05 uIU/mL (0.32-4.0)
[2022-11-12 08:13] LABS: Estimated Average Glucose 283 mg/dL; Hemoglobin A1c % 11.5 %
[2022-11-12 08:25] LABS: Folate 14.7 ng/mL (> or = 4.0); Vitamin B12 470 pg/mL (200-900)
== END 2022-11-12 05:56 | disposition home or self-care (01) ==
LOC: HO.LAB 05:55
PROVIDERS: PCP Internal Medicine; Visit Provider Internal Medicine
DX: E78.00 Pure hypercholesterolemia, unspecified (principal); E11.65 Type 2 diabetes mellitus with hyperglycemia; Z79.4 Long term (current) use of insulin; Z86.73 Personal history of transient ischemic attack (TIA), and cerebral infarction without residual deficits
CPT/HCPCS: 36415; 80053; 80061; 82607; 82728; 82746; 83036; 83540; 84439; 84443; 85025; 85045

== ENCOUNTER 2022-12-07 08:08 | Outpatient (RCR) | payer MEDICARE, SELFPAY | END 2023-05-13 16:00 | disposition home or self-care (01) | LOC: HO.WCC 08:08 | PROVIDERS: PCP Internal Medicine; Visit Provider Physician Assistant | DX: E11.622 Type 2 diabetes mellitus with other skin ulcer (principal); I87.333 Chronic venous hypertension (idiopathic) with ulcer and inflammation of bilateral lower extremity; E11.51 Type 2 diabetes mellitus with diabetic peripheral angiopathy without gangrene; L97.222 Non-pressure chronic ulcer of left calf with fat layer exposed; L97.211 Non-pressure chronic ulcer of right calf limited to breakdown of skin; L97.212 Non-pressure chronic ulcer of right calf with fat layer exposed; Q82.0 Hereditary lymphedema; F17.290 Nicotine dependence, other tobacco product, uncomplicated; I10 Essential (primary) hypertension; I25.2 Old myocardial infarction; I48.91 Unspecified atrial fibrillation; Z86.73 Personal history of transient ischemic attack (TIA), and cerebral infarction without residual deficits | CPT/HCPCS: 11042; 11045; 29580; 97597; 97598; 99212; 99213 ==

== ENCOUNTER 2023-05-19 05:57 | Outpatient (REF) | payer MEDICARE, SELFPAY ==
[2023-05-19 06:11] LABS: MANUAL DIFF FLAG NO
[2023-05-19 07:32] LABS: Basophils Percent Auto 0.5 % (0-2); Eosinophils Absolute Auto 0.2 X10*3/uL (0.0-0.4); Hematocrit 37.2 % (42.0-52.0); Hemoglobin 12.4 g/dl (14.0-18.0); Imm Gran Abs Auto 0.03 X10*3/uL (0.00-0.03); Imm Gran Pct Auto 0.4 % (0.0-0.4); Immature Retic Fraction 6.1 % (2.3-13.4); Lymphocytes Absolute Auto 1.5 X10*3/uL (1.2-4.9); Lymphocytes Percent Auto 19.3 % (20-40); Mean Corpuscular HGB Conc 33.3 g/dl (31.0-36.0); Mean Corpuscular Hemoglobin 30.5 pg (27.0-33.0); Mean Corpuscular Volume 91.4 fL (80.0-98.0); Mean Platelet Volume 11.2 fL (9.4-12.4); Monocytes Absolute Auto 0.6 X10*3/uL (0.1-1.2); Monocytes Percent Auto 7.8 % (2-11); Neutrophils Absolute Auto 5.3 x10*3/uL (2.0-8.3); Platelet Count 215 X10*3/uL (160-400); Red Blood Count 4.07 X10*6/uL (4.60-5.80); Red Cell Distribution Width 12.9 % (11.0-16.0); Retic HGB Equivalent 34.2 pg (30.0-35.0); Reticulocyte Percent 1.4 % (0.5-1.8); Reticulocytes Absolute 0.057 X10*6/uL (0.026-0.095); White Blood Count 7.7 X10*3/uL (4.8-10.8)
[2023-05-19 08:23] LABS: Alanine Aminotransferase 11 U/L (0-40); Albumin Level 3.6 g/dL (3.5-5.0); Alkaline Phosphatase 58 U/L (39-117); Anion Gap 15 (12-20); Aspartate Amino Transferase 13 U/L (5-37); Bilirubin Total 0.9 mg/dL (0.0-1.0); Blood Urea Nitrogen 21 mg/dL (9-16); Carbon Dioxide 22 mmol/L (22-29); Chloride 105 mmol/L (96-108); Cholesterol 117 mg/dL; Estimated Glomerular Filt Rate > 60; Glucose Random 97 mg/dL (60-115); HDL Cholesterol 57 mg/dL; Iron 34 mcg/dL (45-160); LDL Cholesterol Calculated 53 mg/dl; Percent Iron Saturation 18 % (15-50); Potassium 4.1 mmol/L (3.3-5.1); Sodium 138 mmol/L (135-145); Total Iron Binding Capacity 193 mcg/dL (228-428); Total Protein 6.7 g/dL (6.5-8.0); Triglycerides 37 mg/dL; Unsaturated Iron Binding 159 ug/dL
[2023-05-19 08:25] LABS: Creatinine Urine 218.71 mg/dL; Microalbum/Creatinine Ratio Ur 13.2 ug/mg cr
[2023-05-19 08:46] LABS: Ferritin 196 ng/mL (20-250); Free T4 (Free Thyroxine) 1.16 ng/dL (0.71-1.85); Thyroid Stimulating Hormone 2.12 uIU/mL (0.32-4.0)
[2023-05-19 08:50] LABS: Vitamin B12 466 pg/mL (200-900)
== END 2023-05-19 05:58 | disposition home or self-care (01) ==
LOC: HO.LAB 05:57
PROVIDERS: PCP Internal Medicine; Visit Provider Internal Medicine
DX: Z12.5 Encounter for screening for malignant neoplasm of prostate (principal); E11.65 Type 2 diabetes mellitus with hyperglycemia; E78.00 Pure hypercholesterolemia, unspecified; Z79.4 Long term (current) use of insulin
CPT/HCPCS: 36415; 80053; 80061; 82043; 82607; 82728; 82746; 83540; 84153; 84439; 84443; 85025; 85045

== ENCOUNTER 2023-05-23 15:18 | Outpatient (AMB) | payer MEDICARE, SELFPAY ==
[2023-05-23 15:20] VITALS: BP 138/66; PULSE 89; O2SAT 97; BMI 37.3
--- NOTE | 2023-05-23 15:20 | MHC.PC.OV ---
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: No Allergies atorvastatin [Lipitor] Allergy (Unknown, Verified 05/23/23 15:20) Unknown canagliflozin [Invokana] Allergy (Unknown, Verified 05/23/23 15:20) hives dulaglutide [Trulicity] Allergy (Unknown, Verified 05/23/23 15:20) hives insulin glargine [From Lantus U-100 Insulin] Allergy (Unknown, Verified 05/23/23 15:20) Hives metformin [METFORMIN] Allergy (Unknown, Verified 05/23/23 15:20) HIVES rosuvastatin Allergy (Unknown, Verified 05/23/23 15:20) Unknown sitagliptin [From JANUVIA] Allergy (Unknown, Verified 05/23/23 15:20) HIVES Medication List - Last Reconciled 05/23/23 by Babak Greene MD aspirin (Adult Aspirin Regimen) 81 mg PO BID 90 days atorvastatin 40 mg PO BEDTIME blood sugar diagnostic (FreeStyle Lite Strips) As directed check the BS TID insulin requiring clopidogrel 75 mg PO DAILY 90 days insulin degludec (Tresiba U-100 Insulin) 28 units (0.28 mL) subcut BID insulin syringe-needle U-100 (BD Insulin Syringe) As directed lancets (FreeStyle Lancets) As directed check BS TID levothyroxine 112 mcg PO QAM lisinopril 10 mg PO DAILY 90 days triamcinolone acetonide 0.1% 1 appl topical BID Tobacco use date assessed: 05/23/23 Fall risk assessment: No Falls in past year Last assessed Fall Risk: 05/23/23 Dental Screening Dental Screen Date: 05/23/23 Did you have a dental visit in the last 12 months?: Yes Did you have a dental problem in the last 6 months where you did not have access to dental care?: No HPI 3 month f/u HPI Details 68-year-old obese male with uncontrolled diabetes mellitus obstructive sleep apnea venous stasis dermatitis hypertension hypothyroidism hypercholesterolemia last seen in January 2020 patient is here for follow-up patient just had blood work done. PAtient has air pressure for the legs [facility] Medical History (Updated 02/15/23 @ 16:15 by Babak Greene MD) Alcohol abuse Erectile dysfunction Hypercholesterolemia Hypertension Hypothyroid Migraine Obesity Osteoarthritis Polymyalgia rheumatica Solitary left kidney TIA (transient ischemic attack) Tobacco abuse Type 2 diabetes mellitus with hyperglycemia Vitamin D deficiency Surgical History History of arthroscopy of both knees History of colonoscopy History of total left knee replacement Hx of tonsillectomy Family History (Updated 02/15/23 @ 15:32 by Geetha Johnson CMA) Father Diabetes Mother Melanoma Maternal Uncle Colon cancer Social History (Updated 05/04/22 @ 14:18 by Babak Greene MD) Household Members: None Housing: House Do you presently have visiting nurse or other home services: No Alcohol intake: former Patient Tobacco Use Status: Current everyday Tobacco user Tobacco use type: Cigar and Pipe Years Smoked: 50 stopped 08/2022 e-Cigarette/Vaping Use: Currently Using Second Hand Smoke Exposure: Yes service: No Current occupational status: employed Cognitive needs: Yes Hearing needs: No Vision needs: Yes Questionnaire Thrive Questionnaire Date Thrive assessed: 11/16/22 AUDIT C Alcohol Use Questionnaire (AUDIT-C) 1. How often do you have a drink containing alcohol?: Never 3. How often do you have six or more drinks on one occasion?: Never Total Score: 0 RIVERA-7 AMB Questionnaire RIVERA-7 Date RIVERA - 7 assessed: 11/16/22 Source: Developed by Drs. Brice Awad, Lesley Munguia, Jony Mendoza and colleagues, with an educational saúl from [employer]. Physical exam (Primary Care) Vital Signs: Last Vital Signs Pulse 89 05/23/23 15:20 BP 120/60 05/23/23 16:41 Pulse Ox 97 05/23/23 15:20 Oxygen Delivery Method Room Air 05/23/23 15:20 BMI result Body Mass Index 37.3 Tobacco/Smoking Status: Tobacco use Status Tobacco use date assessed 05/23/23 05/23/23 15:21 Patient Tobacco Use Status Current everyday Tobacco 05/23/23 15:21 Tobacco use type Pipe,Cigar 05/23/23 15:21 e-Cigarette/Vaping Use Currently Using 05/23/23 15:21 Thrive Assessment: Date of Thrive Assessment Date Thrive assessed 11/16/22 05/23/23 15:21 Const General: alert; No acute distress Eyes Conjunctivae: conjunctivae normal Resp Auscultation: clear to auscultation bilaterally Cardio Rate: regular rate Rhythm: regular rhythm GI Inspection: Yes normal to inspection Extrem General: Yes normal to inspection and No edema Results AMB Hemoglobin A1c AMB Hemoglobin A1c 11.5 % Last Edit by RASHEEDA Jett on 05/23/23 16:16 Results Reviewed Results Reviewed: Laboratory Last Values Hgb A1c (Clinic) 11.5 % (4.0-6.0) H 05/23/23 15:26 Assessment and Plan Assessment & Plan (1) Type 2 diabetes mellitus with hyperglycemia: Comment: [facility]- Code(s): E11.65 - Type 2 diabetes mellitus with hyperglycemia Qualifiers: Diabetes mellitus correction insulin use: with termite control representative use Qualified Code(s): E11.65 - Type 2 diabetes mellitus with hyperglycemia; Z79.4 - extermination supervisor (current) use of insulin Plan: Decrease the amount of carbohydrate intake, pasta, bread, rice and potatoes are all sugar and that is aside from all the sweet stuff, remember that fruits are good but they are Sweet also. hemoglobin A1c goal of less than 7.0 patient is on Tresiba- will increase the dose to control DM (2) Hypercholesterolemia: Code(s): E78.00 - Pure hypercholesterolemia, unspecified Plan: Avoid fried foods, chicken skin, eggs, butter margarine, pastries and meat. Be it pork or beef they have a lot of cholesterol LDL goal of less than 70 and triglyceride of less than 150 patient is on atorvastatin 40 mg once a day 04/2023 controlled (3) Hypothyroid: Code(s): E03.9 - Hypothyroidism, unspecified Qualifiers: Hypothyroidism type: acquired Qualified Code(s): E03.9 - Hypothyroidism, unspecified Plan: continue with thyroid medication (4) Obesity: Code(s): E66.9 - Obesity, unspecified Qualifiers: Body mass index: BMI 40.0-44.9 Obesity classification: adult class 3 (BMI >= 40) Obesity type: due to excess calories Serious obesity comorbidity presence: with serious comorbidity Qualified Code(s): E66.01 - Morbid (severe) obesity due to excess calories; Z68.41 - Body mass index [BMI]40.0-44.9, adult Plan: diet and exercise (5) Hypertension: Code(s): I10 - Essential (primary) hypertension Qualifiers: Hypertension type: essential hypertension Qualified Code(s): I10 - Essential (primary) hypertension Plan: Continue with blood pressure medication. Decrease salt intake and exercise patient is on lisinopril 10 mg once a day (6) Colon cancer screening: Code(s): Z12.11 - Encounter for screening for malignant neoplasm of colon Plan: decline due to colitis (7) Peripheral vascular disease: Code(s): I73.9 - Peripheral vascular disease, unspecified Plan: When sitting down elevate the legs, exercise, and support stockings. has the compression lymphedema air bag system (8) CVA (cerebral vascular accident): Comment: R ICA thrombectomy 03/2022, wide-based gait Code(s): I63.9 - Cerebral infarction, unspecified Plan: Control the cholesterol, weight, blood pressure, diabetes Orders: Orders AMB Hemoglobin A1c Today E11.65 - Type 2 diabetes mellitus with hyperglycemia Medications: Changed From insulin degludec (Tresiba U-100 Insulin) 25 units (0.25 mL) subcut BID 10 mL 3RF E11.65 - Type 2 diabetes mellitus with hyperglycemia To insulin degludec (Tresiba U-100 Insulin) 28 units (0.28 mL) subcut BID 10 mL 3RF E11.65 - Type 2 diabetes mellitus with hyperglycemia Coding Level of Care Code Est Pt Level 4 (14992) Diagnoses Type 2 diabetes mellitus with hyperglycemia E11.65; Z79.4 Diabetes mellitus 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
[2023-05-23 16:41] VITALS: BP 120/60
== END 2023-05-23 16:56 | disposition home or self-care (01) ==
PROVIDERS: PCP Internal Medicine; Visit Provider Internal Medicine
DX: E11.65 Type 2 diabetes mellitus with hyperglycemia (principal); Z79.4 Long term (current) use of insulin; E78.00 Pure hypercholesterolemia, unspecified; E03.9 Hypothyroidism, unspecified; E66.01 Morbid (severe) obesity due to excess calories; Z68.41 Body mass index [BMI] 40.0-44.9, adult; I10 Essential (primary) hypertension; Z12.11 Encounter for screening for malignant neoplasm of colon; I73.9 Peripheral vascular disease, unspecified; I63.9 Cerebral infarction, unspecified
CPT/HCPCS: 83036; 99214

== ENCOUNTER 2023-08-12 05:55 | Outpatient (REF) | payer MEDICARE, SELFPAY ==
[2023-08-12 06:08] LABS: MANUAL DIFF FLAG NO
[2023-08-12 07:28] LABS: Basophils Absolute Auto 0.1 X10*3/uL (0.0-0.2); Basophils Percent Auto 0.7 % (0-2); Eosinophils Absolute Auto 0.5 X10*3/uL (0.0-0.4); Eosinophils Percent Auto 6.4 % (0-4); Hematocrit 38.3 % (42.0-52.0); Hemoglobin 12.7 g/dl (14.0-18.0); Imm Gran Abs Auto 0.02 X10*3/uL (0.00-0.03); Imm Gran Pct Auto 0.3 % (0.0-0.4); Lymphocytes Absolute Auto 1.6 X10*3/uL (1.2-4.9); Lymphocytes Percent Auto 22.4 % (20-40); Mean Corpuscular HGB Conc 33.2 g/dl (31.0-36.0); Mean Corpuscular Hemoglobin 31.1 pg (27.0-33.0); Mean Corpuscular Volume 93.9 fL (80.0-98.0); Mean Platelet Volume 11.3 fL (9.4-12.4); Monocytes Absolute Auto 0.5 X10*3/uL (0.1-1.2); Monocytes Percent Auto 6.9 % (2-11); Neutrophils Absolute Auto 4.5 x10*3/uL (2.0-8.3); Neutrophils Percent Auto 63.3 % (45-73); Platelet Count 204 X10*3/uL (160-400); Red Blood Count 4.08 X10*6/uL (4.60-5.80); Red Cell Distribution Width 13.3 % (11.0-16.0); White Blood Count 7.2 X10*3/uL (4.8-10.8)
[2023-08-12 07:29] LABS: Estimated Average Glucose 252 mg/dL; Hemoglobin A1c % 10.4 % (<6.0)
[2023-08-12 07:45] LABS: Alanine Aminotransferase 18 U/L (0-40); Albumin Level 3.8 g/dL (3.5-5.0); Alkaline Phosphatase 57 U/L (39-117); Anion Gap 14 (12-20); Aspartate Amino Transferase 16 U/L (5-37); Bilirubin Total 0.6 mg/dL (0.0-1.0); Blood Urea Nitrogen 23 mg/dL (9-16); Calcium 9.3 mg/dL (8.4-10.2); Carbon Dioxide 23 mmol/L (22-29); Chloride 106 mmol/L (96-108); Cholesterol 126 mg/dL (<200); Estimated Glomerular Filt Rate > 60; Glucose Random 123 mg/dL (60-115); HDL Cholesterol 63 mg/dL (>40); LDL Cholesterol Calculated 57 mg/dL (<100); Potassium 4.5 mmol/L (3.3-5.1); Sodium 138 mmol/L (135-145); Total Protein 6.8 g/dL (6.5-8.0); Triglycerides 34 mg/dL (<150)
[2023-08-12 09:43] LABS: Appearance Urine Clear; Color Urine Yellow; Glucose Urine UA Negative (Negative); Leukocyte Esterase Urine Negative (Negative); Nitrite Urine Negative (Negative); PH 5.5 (5.0-9.0); Specific Gravity - Urine >= 1.030 (1.005-1.025); Urine Blood Negative (Negative); Urine Ketones Negative (Negative); Urine Protein Negative (Neg-Trace)
[2023-08-12 09:47] LABS: Bacteria Urine None Seen (None Seen); Hyaline Casts Urine 0-2 /LPF (0-2); RBC Urine 0-2 /HPF (0-2); Squamous Epithelial Cell Urine 0-2 /HPF (0-2); WBC Urine 0-5 /HPF (0-5)
[2023-08-12 09:58] LABS: Creatinine Urine 152.07 mg/dL; Microalbum/Creatinine Ratio Ur 9.2 ug/mg cr (<30)
== END 2023-08-12 05:56 | disposition home or self-care (01) ==
LOC: HO.LAB 05:55
PROVIDERS: PCP Internal Medicine; Visit Provider Internal Medicine
DX: E11.65 Type 2 diabetes mellitus with hyperglycemia (principal); E78.00 Pure hypercholesterolemia, unspecified; Z79.4 Long term (current) use of insulin
CPT/HCPCS: 36415; 80053; 80061; 81001; 82043; 82570; 83036; 85025

== ENCOUNTER 2023-08-22 15:32 | Outpatient (AMB) | payer MEDICARE, SELFPAY ==
--- NOTE | 2023-08-22 15:32 | MHC.PC.OV ---
Vital Signs 08/22/23 15:33 Height 5 ft 7 in Weight 247 lb 0.6 oz BMI 38.7 BP 130/70 Blood Pressure Location Lt brachial Position Sitting Pulse 70 Pulse Source Pulse Oximeter Pulse Oximetry (%) 95 Oxygen Delivery Method Room Air Intake Visit Reasons: CVA,Cholelesterol, DM Poly Area Supervisor Required: No Allergies atorvastatin [Lipitor] Allergy (Unknown, Verified 08/22/23 15:33) Unknown canagliflozin [Invokana] Allergy (Unknown, Verified 08/22/23 15:33) hives dulaglutide [Trulicity] Allergy (Unknown, Verified 08/22/23 15:33) hives insulin glargine [From Lantus U-100 Insulin] Allergy (Unknown, Verified 08/22/23 15:33) Hives metformin [METFORMIN] Allergy (Unknown, Verified 08/22/23 15:33) HIVES rosuvastatin Allergy (Unknown, Verified 08/22/23 15:33) Unknown sitagliptin [From JANUVIA] Allergy (Unknown, Verified 08/22/23 15:33) HIVES Medication List - Last Reconciled 08/22/23 by Babak Greene MD aspirin (Adult Aspirin Regimen) 81 mg PO BID 90 days atorvastatin 40 mg PO BEDTIME blood sugar diagnostic (FreeStyle Lite Strips) As directed check the BS TID insulin requiring clopidogrel 75 mg PO DAILY 90 days insulin degludec (Tresiba U-100 Insulin) 28 units (0.28 mL) subcut BID insulin syringe-needle U-100 (BD Insulin Syringe) As directed lancets (FreeStyle Lancets) As directed check BS TID levothyroxine 112 mcg PO QAM lisinopril 20 mg PO DAILY 90 days triamcinolone acetonide 0.1% 1 appl topical BID Tobacco use date assessed: 08/22/23 Fall risk assessment: No Falls in past year Last assessed Fall Risk: 08/22/23 Dental Screening Did you have a dental visit in the last 12 months?: Yes Did you have a dental problem in the last 6 months where you did not have access to dental care?: No Was dental information given to patient?: Patient has dentist HPI CVA,Cholelesterol, DM HPI Details 68-year-old obese male with uncontrolled diabetes mellitus hypercholesterolemia hypothyroidism hypertension and CVA last seen in April 2023. decline any oral med or shots- understanding that complications will come. [facility] Medical History (Updated 02/15/23 @ 16:15 by Babak Greene MD) TIA (transient ischemic attack) Solitary left kidney Osteoarthritis Type 2 diabetes mellitus with hyperglycemia Erectile dysfunction Hypercholesterolemia Polymyalgia rheumatica Vitamin D deficiency Hypothyroid Migraine Obesity Alcohol abuse Tobacco abuse Hypertension Surgical History History of colonoscopy Hx of tonsillectomy History of total left knee replacement History of arthroscopy of both knees Family History (Updated 02/15/23 @ 15:32 by Geetha Johnson [facility]) Father Diabetes Mother Melanoma Maternal Uncle Colon cancer Social History (Updated 05/04/22 @ 14:18 by Babak Greene MD) Household Members: None Housing: House Do you presently have visiting nurse or other home services: No Alcohol intake: former Patient Tobacco Use Status: Current everyday Tobacco user Tobacco use type: Cigar and Pipe Years Smoked: 50 stopped 08/2022 e-Cigarette/Vaping Use: Currently Using Second Hand Smoke Exposure: Yes service: No Current occupational status: employed Cognitive needs: Yes Hearing needs: No Vision needs: Yes Questionnaire Thrive Questionnaire Date Thrive assessed: 11/16/22 AUDIT C Alcohol Use Questionnaire (AUDIT-C) 1. How often do you have a drink containing alcohol?: Never 3. How often do you have six or more drinks on one occasion?: Never Total Score: 0 RIVERA-7 AMB Questionnaire RIVERA-7 Date RIVERA - 7 assessed: 11/16/22 Source: Developed by Drs. Brice Awad, Lesley Munguia, Jony Mendoza and colleagues, with an educational saúl from [employer]. Physical exam (Primary Care) Vital Signs: Last Vital Signs Pulse 70 08/22/23 15:33 BP 130/70 08/22/23 15:33 Pulse Ox 95 08/22/23 15:33 Oxygen Delivery Method Room Air 08/22/23 15:33 BMI result Body Mass Index 38.7 Tobacco/Smoking Status: Tobacco use Status Tobacco use date assessed 08/22/23 08/22/23 15:34 Patient Tobacco Use Status Current everyday Tobacco 08/22/23 15:34 Tobacco use type Pipe,Cigar 08/22/23 15:34 e-Cigarette/Vaping Use Currently Using 08/22/23 15:34 Thrive Assessment: Date of Thrive Assessment Date Thrive assessed 11/16/22 08/22/23 15:34 Const General: alert; No acute distress Eyes Conjunctivae: conjunctivae normal Resp Auscultation: clear to auscultation bilaterally Cardio Rate: regular rate Rhythm: regular rhythm GI Inspection: Yes normal to inspection Extrem General: Yes normal to inspection and No edema Assessment and Plan Assessment & Plan (1) Type 2 diabetes mellitus with hyperglycemia: Comment: [facility]- Code(s): E11.65 - Type 2 diabetes mellitus with hyperglycemia Qualifiers: Diabetes mellitus half-way insulin use: with salvage determiner use Qualified Code(s): E11.65 - Type 2 diabetes mellitus with hyperglycemia; Z79.4 - termite inspector (current) use of insulin Plan: Decrease the amount of carbohydrate intake, pasta, bread, rice and potatoes are all sugar and that is aside from all the sweet stuff, remember that fruits are good but they are Sweet also. Hemoglobin A1c goal of less than 7.0. Patient is on Tresiba only (2) Hypercholesterolemia: Code(s): E78.00 - Pure hypercholesterolemia, unspecified Plan: Avoid fried foods, chicken skin, eggs, butter margarine, pastries and meat. Be it pork or beef they have a lot of cholesterol LDL goal of less than 70 and triglyceride of less than 150 patient on atorvastatin 40 mg once a day July 2023 blood work goal (3) Hypothyroid: Code(s): E03.9 - Hypothyroidism, unspecified Qualifiers: Hypothyroidism type: acquired Qualified Code(s): E03.9 - Hypothyroidism, unspecified Plan: Continue with thyroid medication (4) Hypertension: Code(s): I10 - Essential (primary) hypertension Qualifiers: Hypertension type: essential hypertension Qualified Code(s): I10 - Essential (primary) hypertension Plan: Continue with blood pressure medication. Decrease salt intake and exercise patient on lisinopril 10 mg once a day (5) Obesity: Code(s): E66.9 - Obesity, unspecified Qualifiers: Obesity type: due to excess calories Obesity classification: adult class 3 (BMI >= 40) Serious obesity comorbidity presence: with serious comorbidity Body mass index: BMI 40.0-44.9 Qualified Code(s): E66.01 - Morbid (severe) obesity due to excess calories; Z68.41 - Body mass index [BMI]40.0-44.9, adult Plan: Diet and exercise (6) CVA (cerebral vascular accident): Comment: R ICA thrombectomy 03/2022, wide-based gait Code(s): I63.9 - Cerebral infarction, unspecified Plan: Control the cholesterol, weight, blood pressure, diabetes continue with aspirin (7) Obstructive sleep apnea (adult) (pediatric): Comment: CPAP Code(s): G47.33 - Obstructive sleep apnea (adult) (pediatric) Plan: Continue to use the CPAP more than 4 hours a night and benefits from this (8) Peripheral vascular disease: Code(s): I73.9 - Peripheral vascular disease, unspecified Medications: Changed From lisinopril 10 mg PO DAILY 90 tabs 2RF 90 days To lisinopril 20 mg PO DAILY 90 tabs 2RF 90 days Coding Level of Care Code Est Pt Level 4 (10886) Diagnoses Type 2 diabetes mellitus with hyperglycemia, with long-term current use of insulin E11.65; Z79.4 Diabetes mellitus half-way insulin use: with half-way use Hypercholesterolemia E78.00 Acquired hypothyroidism E03.9 Hypothyroidism type: acquired Essential hypertension I10 Hypertension type: essential hypertension Class 3 severe obesity due to excess calories with serious comorbidity and body mass index (BMI) of 40.0 to 44.9 in adult E66.01; Z68.41 Obesity type: due to excess calories Obesity classification: adult class 3 (BMI >= 40) Serious obesity comorbidity presence: with serious comorbidity Body mass index: BMI 40.0-44.9 CVA (cerebral vascular accident) I63.9 Obstructive sleep apnea (adult) (pediatric) G47.33 Peripheral vascular disease I73.9
[2023-08-22 15:33] VITALS: BP 130/70; PULSE 70; O2SAT 95; BMI 38.7
== END 2023-08-22 16:13 | disposition home or self-care (01) ==
PROVIDERS: PCP Internal Medicine; Visit Provider Internal Medicine
DX: E11.65 Type 2 diabetes mellitus with hyperglycemia (principal); Z79.4 Long term (current) use of insulin; E66.01 Morbid (severe) obesity due to excess calories; Z68.41 Body mass index [BMI] 40.0-44.9, adult; I73.9 Peripheral vascular disease, unspecified; E78.00 Pure hypercholesterolemia, unspecified; E03.9 Hypothyroidism, unspecified; I10 Essential (primary) hypertension; I63.9 Cerebral infarction, unspecified; G47.33 Obstructive sleep apnea (adult) (pediatric)
CPT/HCPCS: 99214

== ENCOUNTER 2023-11-18 05:51 | Outpatient (REF) | payer MEDICARE, SELFPAY ==
[2023-11-18 06:08] LABS: MANUAL DIFF FLAG NO
[2023-11-18 07:25] LABS: Basophils Absolute Auto 0.1 X10*3/uL (0.0-0.2); Basophils Percent Auto 0.8 % (0-2); Eosinophils Absolute Auto 0.3 X10*3/uL (0.0-0.4); Eosinophils Percent Auto 4.2 % (0-4); Hematocrit 38.5 % (42.0-52.0); Imm Gran Abs Auto 0.01 X10*3/uL (0.00-0.03); Imm Gran Pct Auto 0.2 % (0.0-0.4); Immature Retic Fraction 8.3 % (2.3-13.4); Lymphocytes Absolute Auto 1.2 X10*3/uL (1.2-4.9); Lymphocytes Percent Auto 19.3 % (20-40); Mean Corpuscular HGB Conc 33.8 g/dl (31.0-36.0); Mean Corpuscular Hemoglobin 31.5 pg (27.0-33.0); Mean Corpuscular Volume 93.2 fL (80.0-98.0); Mean Platelet Volume 10.8 fL (9.4-12.4); Monocytes Absolute Auto 0.5 X10*3/uL (0.1-1.2); Monocytes Percent Auto 8.8 % (2-11); Neutrophils Absolute Auto 4.1 x10*3/uL (2.0-8.3); Neutrophils Percent Auto 66.7 % (45-73); Platelet Count 234 X10*3/uL (160-400); Red Blood Count 4.13 X10*6/uL (4.60-5.80); Retic HGB Equivalent 35.8 pg (30.0-35.0); Reticulocyte Percent 1.4 % (0.5-1.8); Reticulocytes Absolute 0.058 X10*6/uL (0.026-0.095); White Blood Count 6.2 X10*3/uL (4.8-10.8)
[2023-11-18 07:27] LABS: Estimated Average Glucose 235 mg/dL; Hemoglobin A1c % 9.8 % (<6.0)
[2023-11-18 07:52] LABS: Alanine Aminotransferase 16 U/L (0-40); Albumin Level 3.8 g/dL (3.5-5.0); Alkaline Phosphatase 64 U/L (39-117); Anion Gap 12 (12-20); Aspartate Amino Transferase 17 U/L (5-37); Bilirubin Total 0.5 mg/dL (0.0-1.0); Blood Urea Nitrogen 24 mg/dL (9-16); Calcium 9.3 mg/dL (8.4-10.2); Carbon Dioxide 26 mmol/L (22-29); Chloride 108 mmol/L (96-108); Estimated Glomerular Filt Rate > 60; Glucose Random 176 mg/dL (60-115); Iron 45 mcg/dL (45-160); Percent Iron Saturation 19 % (15-50); Potassium 4.2 mmol/L (3.3-5.1); Sodium 142 mmol/L (135-145); Total Iron Binding Capacity 243 mcg/dL (228-428); Unsaturated Iron Binding 198 ug/dL
[2023-11-18 08:01] LABS: Ferritin 79 ng/mL (20-250); Vitamin D 25-OH Total 11.4 ng/mL (>30)
[2023-11-18 08:13] LABS: Creatinine Urine 230.15 mg/dL
== END 2023-11-18 05:52 | disposition home or self-care (01) ==
LOC: HO.LAB 05:51
PROVIDERS: PCP Internal Medicine; Visit Provider Internal Medicine
DX: E11.65 Type 2 diabetes mellitus with hyperglycemia (principal); Z79.4 Long term (current) use of insulin
CPT/HCPCS: 36415; 80053; 82306; 82570; 82728; 83036; 83540; 85025; 85045

== ENCOUNTER 2023-11-24 15:15 | Outpatient (AMB) | payer MEDICARE, SELFPAY ==
[2023-11-24 15:18] VITALS: BP 140/72; PULSE 90; O2SAT 97; BMI 40.1
--- NOTE | 2023-11-24 15:18 | MHC.PC.OV ---
Vital Signs 11/24/23 15:18 Height 5 ft 7 in Weight 256 lb BMI 40.1 BP 140/72 H Blood Pressure Location Lt brachial Position Sitting Pulse 90 Pulse Source Pulse Oximeter Pulse Oximetry (%) 97 Oxygen Delivery Method Room Air Intake Visit Reasons: DM Intake Note: Patient is here to follow up on DM Digester Required: No Allergies atorvastatin [Lipitor] Allergy (Unknown, Verified 11/24/23 16:05) Unknown canagliflozin [Invokana] Allergy (Unknown, Verified 11/24/23 16:05) hives dulaglutide [Trulicity] Allergy (Unknown, Verified 11/24/23 16:05) hives insulin glargine [From Lantus U-100 Insulin] Allergy (Unknown, Verified 11/24/23 16:05) Hives metformin [METFORMIN] Allergy (Unknown, Verified 11/24/23 16:05) HIVES rosuvastatin Allergy (Unknown, Verified 11/24/23 16:05) Unknown sitagliptin [From JANUVIA] Allergy (Unknown, Verified 11/24/23 16:05) HIVES Tobacco use date assessed: 11/24/23 Fall risk assessment: No Falls in past year Last assessed Fall Risk: 11/24/23 Dental Screening Dental Screen Date: 11/24/23 Did you have a dental visit in the last 12 months?: Yes Did you have a dental problem in the last 6 months where you did not have access to dental care?: No Was dental information given to patient?: Patient has dentist HPI DM HPI Details 68-year-old obese male morbid with uncontrolled diabetes mellitus hypercholesterolemia hypothyroidism hypertension history of CVA obstructive sleep apnea and peripheral vascular disease last seen in July 2023. Patient's last colonoscopy was done in 2015 and was advised to get retested again. concern on high BS and states allergic to all and for the BP decline changing dose - still has high BP SBP 140 and DBP 75 [facility] Medical History (Updated 02/15/23 @ 16:15 by Babak Greene MD) TIA (transient ischemic attack) Solitary left kidney Osteoarthritis Type 2 diabetes mellitus with hyperglycemia Erectile dysfunction Hypercholesterolemia Polymyalgia rheumatica Vitamin D deficiency Hypothyroid Migraine Obesity Alcohol abuse Tobacco abuse Hypertension Surgical History History of colonoscopy Hx of tonsillectomy History of total left knee replacement History of arthroscopy of both knees Family History (Updated 02/15/23 @ 15:32 by Geetha Johnson CMA) Father Diabetes Mother Melanoma Maternal Uncle Colon cancer Social History (Updated 05/04/22 @ 14:18 by Babak Greene MD) Household Members: None Housing: House Do you presently have visiting nurse or other home services: No Alcohol intake: former Patient Tobacco Use Status: Current everyday Tobacco user Tobacco use type: Cigar and Pipe Years Smoked: 50 stopped 08/2022 e-Cigarette/Vaping Use: Currently Using Second Hand Smoke Exposure: Yes service: No Current occupational status: employed Cognitive needs: Yes Hearing needs: No Vision needs: Yes Questionnaire PHQ-9 Over the last 2 weeks, how often have you been bothered by any of the following problems? 1. Little interest or pleasure in doing things: not at all 2. Feeling down, depressed, or hopeless: not at all 3. Trouble falling or staying asleep, or sleeping too much: not at all 4. Feeling tired or having little energy: not at all 5. Poor appetite or overeating: not at all 6. Feeling bad about yourself - or that you are a failure or have let yourself or your family down: not at all 7. Trouble concentrating on things, such as reading the newspaper or watching television: not at all 8. Moving or speaking so slowly that other people could have noticed. Or the opposite - being so fidgety or restless that you have been moving around a lot more than usual: not at all 9. Thoughts that you would be better off or of hurting yourself in some way: not at all Total score: 0 Depression Screening Interpretation: Negative Depression Screening Done: Yes Source: Developed by Drs. Brice Awad, Lesley Munguia, Jony Mendoza and colleagues, with an educational saúl from [employer]. Thrive Questionnaire Date Thrive assessed: 11/24/23 I am a: Patient What is your living situation today?: I have a steady place to live Within the past 12 months, did the food you bought not last and you didn't have the money to get more?: Never true Within the past 12 months, did you worry whether your food would run out before you got money to buy more?: Never true Do you have trouble paying for medicines?: No Do you have trouble getting transportation to medical appointments?: No Do you have trouble paying your heating and electricity bill?: No Do you have trouble taking care of your child, family member or friend?: No Do you have trouble with day-to-day activities such as bathing, preparing meals, shopping, managing finances, etc.?: No Are you currently unemployed and looking for a job?: No Are you interested in more education?: No Please select the resources that you would like help with: None THRIVE Score: 0 AUDIT C Alcohol Use Questionnaire (AUDIT-C) 1. How often do you have a drink containing alcohol?: Never 3. How often do you have six or more drinks on one occasion?: Never Total Score: 0 RIVERA-7 AMB Questionnaire RIVERA-7 Date RIVERA - 7 assessed: 11/24/23 Source: Developed by Drs. Brice Awad, Lesley Munguia, Jony Mendoza and colleagues, with an educational saúl from [employer]. Physical exam (Primary Care) Vital Signs: Last Vital Signs Pulse 90 11/24/23 15:18 BP 140/72 H 11/24/23 15:18 Pulse Ox 97 11/24/23 15:18 Oxygen Delivery Method Room Air 11/24/23 15:18 BMI result Body Mass Index 40.1 Tobacco/Smoking Status: Tobacco use Status Tobacco use date assessed 11/24/23 11/24/23 15:20 Patient Tobacco Use Status Current everyday Tobacco 11/24/23 15:20 Tobacco use type Pipe,Cigar 11/24/23 15:20 e-Cigarette/Vaping Use Currently Using 11/24/23 15:20 PHQ-9: PHQ-9 Score PHQ-9: Total score 0 11/24/23 16:41 Depression Screening Interpretation: Negative Thrive Assessment: Date of Thrive Assessment Date Thrive assessed 11/24/23 11/24/23 15:20 Const General: alert; No acute distress Eyes Conjunctivae: conjunctivae normal Resp Auscultation: clear to auscultation bilaterally Cardio Rate: regular rate Rhythm: regular rhythm GI Inspection: Yes normal to inspection Extrem Other: 2+ edema bilateral lower extremity General: Yes edema Office Procedures Flu Questionnaire Does the patient have a severe egg allergy?: No Does the patient have severe life threatening allergies?: No Does the patient have a fever or illness today?: No Has the patient ever had Guillain-[place] Syndrome?: No Has the patient ever had any past reaction to a flu shot?: No Immunizations flu vacc [id number] 6mos up(PF) 60 mcg(15 mcgx4)/0.5 mL IM syringe Performing Provider: Babak Greene MD Performing Location: [facility] Administered by: RASHEEDA Jett on 11/24/23 16:54 Dose Route Admin Location Dispensed Lot Number Expiration Date NDC Phlebotomist Lab Assistant 0.5 mL IM Left Deltoid 0.5 mL [id number] 04/22/24 [id number] Information Gateway VIS Given Date VIS Provided VIS Publication Date 11/24/23 Single Vaccine 21 Eligibility Eligibility Date Funding Source Not VFC Eligible 11/24/23 Private Assessment and Plan Assessment & Plan (1) Type 2 diabetes mellitus with hyperglycemia: Comment: [facility]- Code(s): E11.65 - Type 2 diabetes mellitus with hyperglycemia Qualifiers: Diabetes mellitus chcf insulin use: with macadam raker use Qualified Code(s): E11.65 - Type 2 diabetes mellitus with hyperglycemia; Z79.4 - regional economic liaison (current) use of insulin Plan: Decrease the amount of carbohydrate intake, pasta, bread, rice and potatoes are all sugar and that is aside from all the sweet stuff, remember that fruits are good but they are Sweet also. Hemoglobin A1c goal of less than 7.0 presently on insulin Tresiba declined any other medication. (2) Hypercholesterolemia: Code(s): E78.00 - Pure hypercholesterolemia, unspecified Plan: Avoid fried foods, chicken skin, eggs, butter margarine, pastries and meat. Be it pork or beef they have a lot of cholesterol LDL goal of less than 70 on atorvastatin 40 mg once a day (3) Hypothyroid: Code(s): E03.9 - Hypothyroidism, unspecified Qualifiers: Hypothyroidism type: acquired Qualified Code(s): E03.9 - Hypothyroidism, unspecified Plan: Continue with thyroid medication (4) Obesity: Code(s): E66.9 - Obesity, unspecified Qualifiers: Obesity type: due to excess calories Obesity classification: adult class 3 (BMI >= 40) Serious obesity comorbidity presence: with serious comorbidity Body mass index: BMI 40.0-44.9 Qualified Code(s): E66.01 - Morbid (severe) obesity due to excess calories; Z68.41 - Body mass index [BMI]40.0-44.9, adult Plan: Diet and exercise (5) Hypertension: Code(s): I10 - Essential (primary) hypertension Qualifiers: Hypertension type: essential hypertension Qualified Code(s): I10 - Essential (primary) hypertension Plan: Continue with blood pressure medication. Decrease salt intake and exercise presently on lisinopril 20 mg once a day. Patient declines additional medication (6) CVA (cerebral vascular accident): Comment: R ICA thrombectomy 03/2022, wide-based gait Code(s): I63.9 - Cerebral infarction, unspecified Plan: Control the cholesterol, weight, blood pressure, diabetes presently on aspirin and clopidogrel (7) Obstructive sleep apnea (adult) (pediatric): Comment: CPAP Code(s): G47.33 - Obstructive sleep apnea (adult) (pediatric) Plan: Continue to use the CPAP more than 4 hours and benefits from this. Orders: Orders Influenza [id number] Immunization Today Z23 - Encounter for immunization Medications: New flu vacc [id number] 6mos up(PF) 0.5 mL IM ONCE 0.5 mL 0RF Z23 - Encounter for immunization Coding Level of Care Code Est Pt Level 4 (30239) Diagnoses Type 2 diabetes mellitus with hyperglycemia, with long-term current use of insulin E11.65; Z79.4 Diabetes mellitus chcf insulin use: with chcf use Hypercholesterolemia E78.00 Acquired hypothyroidism E03.9 Hypothyroidism type: acquired Class 3 severe obesity due to excess calories with serious comorbidity and body mass index (BMI) of 40.0 to 44.9 in adult E66.01; Z68.41 Obesity type: due to excess calories Obesity classification: adult class 3 (BMI >= 40) Serious obesity comorbidity presence: with serious comorbidity Body mass index: BMI 40.0-44.9 Essential hypertension I10 Hypertension type: essential hypertension CVA (cerebral vascular accident) I63.9 Obstructive sleep apnea (adult) (pediatric) G47.33
== END 2023-11-24 16:59 | disposition home or self-care (01) ==
PROVIDERS: PCP Internal Medicine; Visit Provider Internal Medicine
DX: E11.65 Type 2 diabetes mellitus with hyperglycemia (principal); E66.01 Morbid (severe) obesity due to excess calories; Z68.41 Body mass index [BMI] 40.0-44.9, adult; Z23 Encounter for immunization; Z79.4 Long term (current) use of insulin; E78.00 Pure hypercholesterolemia, unspecified; G47.33 Obstructive sleep apnea (adult) (pediatric); E03.9 Hypothyroidism, unspecified; I10 Essential (primary) hypertension; I63.9 Cerebral infarction, unspecified
CPT/HCPCS: 90471; 90686; 99214

== ENCOUNTER 2024-02-21 06:01 | Outpatient (REF) | payer MEDICARE, SELFPAY ==
[2024-02-21 06:21] LABS: MANUAL DIFF FLAG NO
[2024-02-21 07:22] LABS: Basophils Absolute Auto 0.1 X10*3/uL (0.0-0.2); Basophils Percent Auto 0.7 % (0-2); Eosinophils Absolute Auto 0.3 X10*3/uL (0.0-0.4); Eosinophils Percent Auto 4.1 % (0-4); Hematocrit 37.5 % (42.0-52.0); Imm Gran Abs Auto 0.03 X10*3/uL (0.00-0.03); Imm Gran Pct Auto 0.4 % (0.0-0.4); Lymphocytes Absolute Auto 1.3 X10*3/uL (1.2-4.9); Lymphocytes Percent Auto 18.8 % (20-40); Mean Corpuscular HGB Conc 34.7 g/dl (31.0-36.0); Mean Corpuscular Hemoglobin 32.4 pg (27.0-33.0); Mean Corpuscular Volume 93.5 fL (80.0-98.0); Mean Platelet Volume 10.8 fL (9.4-12.4); Monocytes Absolute Auto 0.5 X10*3/uL (0.1-1.2); Monocytes Percent Auto 7.2 % (2-11); Neutrophils Absolute Auto 4.9 x10*3/uL (2.0-8.3); Neutrophils Percent Auto 68.8 % (45-73); Platelet Count 207 X10*3/uL (160-400); Red Blood Count 4.01 X10*6/uL (4.60-5.80); Red Cell Distribution Width 13.2 % (11.0-16.0); White Blood Count 7.1 X10*3/uL (4.8-10.8)
[2024-02-21 07:57] LABS: Prostate Specific Antigen Scr 0.19 ng/mL (<0.05-4.0)
[2024-02-21 08:04] LABS: Estimated Average Glucose 220 mg/dL; Hemoglobin A1c % 9.3 % (<6.0)
[2024-02-21 08:15] LABS: Free T4 (Free Thyroxine) 1.03 ng/dL (0.71-1.85); Thyroid Stimulating Hormone 3.47 uIU/mL (0.32-4.0); Vitamin D 25-OH Total 12.3 ng/mL (>30)
[2024-02-21 08:32] LABS: Creatinine Urine 88.23 mg/dL
[2024-02-21 08:37] LABS: Alanine Aminotransferase 20 U/L (0-40); Albumin Level 3.7 g/dL (3.5-5.0); Alkaline Phosphatase 58 U/L (39-117); Anion Gap 18 (12-20); Aspartate Amino Transferase 22 U/L (5-37); Bilirubin Total 0.7 mg/dL (0.0-1.0); Blood Urea Nitrogen 17 mg/dL (9-16); Calcium 8.9 mg/dL (8.4-10.2); Carbon Dioxide 21 mmol/L (22-29); Chloride 105 mmol/L (96-108); Cholesterol 121 mg/dL (<200); Estimated Glomerular Filt Rate > 60; Glucose Random 94 mg/dL (60-115); HDL Cholesterol 57 mg/dL (>40); LDL Cholesterol Calculated 57 mg/dL (<100); Potassium 5.1 mmol/L (3.3-5.1); Sodium 139 mmol/L (135-145); Total Protein 6.4 g/dL (6.5-8.0); Triglycerides 38 mg/dL (<150)
== END 2024-02-21 06:02 | disposition home or self-care (01) ==
LOC: HO.LAB 06:01
PROVIDERS: PCP Internal Medicine; Visit Provider Internal Medicine
DX: Z12.5 Encounter for screening for malignant neoplasm of prostate (principal); I63.9 Cerebral infarction, unspecified; E78.00 Pure hypercholesterolemia, unspecified; E11.65 Type 2 diabetes mellitus with hyperglycemia; Z79.4 Long term (current) use of insulin
CPT/HCPCS: 36415; 80053; 80061; 82306; 82570; 83036; 84153; 84439; 84443; 85025

== ENCOUNTER 2024-02-27 15:28 | Outpatient (AMB) | payer MEDICARE, SELFPAY ==
--- NOTE | 2024-02-27 15:37 | MHC.PC.OV ---
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: No Allergies atorvastatin [Lipitor] Allergy (Unknown, Verified 02/27/24 15:38) Unknown canagliflozin [Invokana] Allergy (Unknown, Verified 02/27/24 15:38) hives dulaglutide [Trulicity] Allergy (Unknown, Verified 02/27/24 15:38) hives insulin glargine [From Lantus U-100 Insulin] Allergy (Unknown, Verified 02/27/24 15:38) Hives metformin [METFORMIN] Allergy (Unknown, Verified 02/27/24 15:38) HIVES rosuvastatin Allergy (Unknown, Verified 02/27/24 15:38) Unknown sitagliptin [From JANUVIA] Allergy (Unknown, Verified 02/27/24 15:38) HIVES Tobacco use date assessed: 02/27/24 Fall risk assessment: No Falls in past year Last assessed Fall Risk: 02/27/24 Dental Screening Dental Screen Date: 11/24/23 HPI DM HPI Details 68-year-old morbidly obese male with uncontrolled diabetes mellitus noncompliant hypothyroidism hypercholesterolemia hypertension history of CVA obstructive sleep apnea coming in for follow-up. Last seen in November 2023. Patient did see Ophthalmology has nonproliferative diabetic retinopathy with some cystic edema and nuclear cataract. sent to Dr. Martino and was rx systane [facility] Medical History (Updated 02/15/23 @ 16:15 by Babak Greene MD) TIA (transient ischemic attack) Solitary left kidney Osteoarthritis Type 2 diabetes mellitus with hyperglycemia Erectile dysfunction Hypercholesterolemia Polymyalgia rheumatica Vitamin D deficiency Hypothyroid Migraine Obesity Alcohol abuse Tobacco abuse Hypertension Surgical History History of colonoscopy Hx of tonsillectomy History of total left knee replacement History of arthroscopy of both knees Family History (Updated 02/15/23 @ 15:32 by Geetha Johnson CMA) Father Diabetes Mother Melanoma Maternal Uncle Colon cancer Social History (Updated 05/04/22 @ 14:18 by Babak Greene MD) Household Members: None Housing: House Do you presently have visiting nurse or other home services: No Alcohol intake: former Patient Tobacco Use Status: Current everyday Tobacco user Tobacco use type: Cigar and Pipe Years Smoked: 50 stopped 08/2022 e-Cigarette/Vaping Use: Currently Using Second Hand Smoke Exposure: Yes service: No Current occupational status: employed Cognitive needs: Yes Hearing needs: No Vision needs: Yes Questionnaire Thrive Questionnaire Date Thrive assessed: 11/24/23 AUDIT C Alcohol Use Questionnaire (AUDIT-C) 1. How often do you have a drink containing alcohol?: Never 3. How often do you have six or more drinks on one occasion?: Never Total Score: 0 RIVERA-7 AMB Questionnaire RIVERA-7 Date RIVERA - 7 assessed: 11/24/23 Source: Developed by Drs. Brice Awad, Lesley Munguia, Jony Mendoza and colleagues, with an educational saúl from [employer]. Physical exam (Primary Care) Vital Signs: Last Vital Signs Pulse 84 02/27/24 15:38 BP 140/72 H 02/27/24 15:38 Pulse Ox 97 02/27/24 15:38 Oxygen Delivery Method Room Air 02/27/24 15:38 BMI result Body Mass Index 40.1 Tobacco/Smoking Status: Tobacco use Status Tobacco use date assessed 02/27/24 02/27/24 15:38 Patient Tobacco Use Status Current everyday Tobacco 02/27/24 15:38 Tobacco use type Pipe,Cigar 02/27/24 15:38 e-Cigarette/Vaping Use Currently Using 02/27/24 15:38 Thrive Assessment: Date of Thrive Assessment Date Thrive assessed 11/24/23 02/27/24 15:38 Const General: alert; No acute distress Eyes Conjunctivae: conjunctivae normal Resp Auscultation: clear to auscultation bilaterally Cardio Rate: regular rate Rhythm: regular rhythm GI Inspection: Yes normal to inspection Extrem General: Yes normal to inspection and No edema Assessment and Plan Assessment & Plan (1) Type 2 diabetes mellitus with hyperglycemia: Comment: [facility]- Code(s): E11.65 - Type 2 diabetes mellitus with hyperglycemia Qualifiers: Diabetes mellitus 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 Hemoglobin A1c goal of less than 7.0. Patient on insulin declined additional medication. (2) Hypertension: Code(s): I10 - Essential (primary) hypertension Qualifiers: Hypertension type: essential hypertension Qualified Code(s): I10 - Essential (primary) hypertension Plan: Continue with blood pressure medication. Decrease salt intake and exercise on lisinopril 20 mg once a day (3) Obesity: Code(s): E66.9 - Obesity, unspecified Qualifiers: Obesity type: due to excess calories Obesity classification: adult class 3 (BMI >= 40) Serious obesity comorbidity presence: with serious comorbidity Body mass index: BMI 40.0-44.9 Qualified Code(s): E66.01 - Morbid (severe) obesity due to excess calories; Z68.41 - Body mass index [BMI]40.0-44.9, adult Plan: Diet and exercise (4) Hypothyroid: Code(s): E03.9 - Hypothyroidism, unspecified Qualifiers: Hypothyroidism type: acquired Qualified Code(s): E03.9 - Hypothyroidism, unspecified Plan: Continue with thyroid medication (5) Hypercholesterolemia: Code(s): E78.00 - Pure hypercholesterolemia, unspecified Plan: Avoid fried foods, chicken skin, eggs, butter margarine, pastries and meat. Be it pork or beef they have a lot of cholesterol LDL goal of less than 70 and triglyceride of less than 150 on atorvastatin 40 mg once a day (6) CVA (cerebral vascular accident): Comment: R ICA thrombectomy 03/2022, wide-based gait Code(s): I63.9 - Cerebral infarction, unspecified Plan: Control the cholesterol, weight, blood pressure, diabetes continue with aspirin patient also on clopidogrel 75 mg once a day Coding Level of Care Code Est Pt Level 4 (63018) Diagnoses Type 2 diabetes mellitus with hyperglycemia, with long-term current use of insulin E11.65; Z79.4 Diabetes mellitus skilled nursing insulin use: with skilled nursing use Essential hypertension I10 Hypertension type: essential hypertension Class 3 severe obesity due to excess calories with serious comorbidity and body mass index (BMI) of 40.0 to 44.9 in adult E66.01; Z68.41 Obesity type: due to excess calories Obesity classification: adult class 3 (BMI >= 40) Serious obesity comorbidity presence: with serious comorbidity Body mass index: BMI 40.0-44.9 Acquired hypothyroidism E03.9 Hypothyroidism type: acquired Hypercholesterolemia E78.00 CVA (cerebral vascular accident) I63.9
[2024-02-27 15:38] VITALS: BP 140/72; PULSE 84; O2SAT 97; BMI 40.1
[2024-02-27 16:27] VITALS: BP 132/80
== END 2024-02-27 16:35 | disposition home or self-care (01) ==
PROVIDERS: PCP Internal Medicine; Visit Provider Internal Medicine
DX: E11.65 Type 2 diabetes mellitus with hyperglycemia (principal); Z79.4 Long term (current) use of insulin; E66.01 Morbid (severe) obesity due to excess calories; Z68.41 Body mass index [BMI] 40.0-44.9, adult; E03.9 Hypothyroidism, unspecified; E78.00 Pure hypercholesterolemia, unspecified
CPT/HCPCS: 99214

== ENCOUNTER 2024-06-17 11:11 | Inpatient (IN) | payer MEDICARE, SELFPAY ==
[2024-06-17] VITALS (8 sets, daily range): BP systolic 118–177; BP diastolic 40–84; PULSE 99–114; RESP 17–24; TEMP 36.1–36.9; O2SAT 94–97; BMI 38.3
--- NOTE | ~2024-06-17 | CT_ITS ---
Examination:: CT brain and CT cervical spine without contrast. CLINICAL INDICATION: Trauma. COMPARISON: CTA brain and neck 04/14/2022. TECHNIQUE: 2 mm in axial and reformatted 2 mm thin sagittal and coronal images of brain were obtained. Subsequently axial 3 mm thin and reformatted 2 mm thin sagittal and coronal images of cervical spine were obtained. DLP [id number]. This CT examination was performed using dose optimization technique as appropriate, variously including the following: Automated exposure control Adjustment of MA and/or KV according to patient size(this includes techniques or standardized protocols for targeted exams where dose is matched to indication/reason for exam; extremities or head. Use of iterative reconstruction techniques. FINDINGS: Brain: There is no acute intra-axial, extra-axial bleed, masses or midline shift. There is a right frontal lobe edema new since the previous study 04/14/2022, likely encephalomalacia from previous injury. There is no acute infarction in evolution. There is no edema. The rodríguez to white matter differentiation is maintained normal. The lateral ventricles are symmetrical in size but enlarged. Bone windows reveal no calvarial abnormality. There is complete opacification of left maxillary sinus from inflammatory process. No scalp soft tissue abnormality seen. Cervical spine: There is maintain cervical lordosis the vertebral heights and alignment is normal. The craniovertebral junction and the C1-C2 alignment is normal. The disc heights are maintained and normal. There is some ventral bridging osteophytes from C4/5 through T2-3-3 levels. There is no visible fracture, dislocation or subluxation seen. The prevertebral and paravertebral soft tissues are normal. There is bilateral C2-3, left C3-4 facet joint arthropathy. Incidentally noted are bilateral C7 cervical ribs. CT/CT cervical spine wo IV con IMPRESSION: No acute bleed or infarct seen. 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 No acute cervical fracture, dislocation or subluxation. Bilateral C7 cervical ribs. Electronically signed by: Ino Yoo MD 06/17/2024 03:30 PM EDT
--- NOTE | ~2024-06-17 | XR_ITS ---
EXAMINATION: XR CHEST CLINICAL INFORMATION: fall, weakness COMPARISON: Chest radiograph 04/14/2022 TECHNIQUE: One view of the chest FINDINGS: Lines and tubes: Cardiac loop recorder device overlies left hemithorax. Lung volumes with streaky bibasilar opacities which may reflect atelectasis. No pleural effusion. No pneumothorax. Unchanged cardiomediastinal silhouette. XR/XR chest 1V IMPRESSION: 1. Lung volumes with streaky bibasilar opacities which may reflect atelectasis. Electronically signed by: Libby Malhotra MD 06/17/2024 01:57 PM EDT
--- NOTE | 2024-06-17 11:19 | ED_ITS ---
HPI - Fall General Chief Complaint: Fall Stated Complaint: FALL,ON FLOOR SINCE LAST NIGHT PER EMS Time Seen by Provider: 06/17/24 11:12 Source: patient and EMS Mode of arrival: EMS Limitations: no limitations History of Present Illness ED Provider: Ute Glez APRN HPI Narrative: 69 yo male with history of ROLO, DM, hypothyroidism, HLD, HTN, CVA on dual platelet here after he slid out of bed last night landing on the ground, unable to get up since then. Reports landed on his buttocks. No head strike or LOC. Arrives incontinent of urine. No headache, chest pain, abdominal pain, back/neck pain. Related Data Home Medications ?Medication ?Instructions ?Recorded ?Confirmed triamcinolone acetonide 0.1 % 1 appl topical BID 11/02/21 08/22/23 topical cream Previous Rx's ?Medication ?Instructions ?Recorded aspirin 81 mg tablet,delayed 81 mg PO BID 90 days #180 tabs 12/16/22 release (Adult Aspirin Regimen) blood sugar diagnostic (FreeStyle #300 ea 12/16/22 Lite Strips) lancets 28 gauge (FreeStyle ##3 12/16/22 Lancets) lisinopril 20 mg tablet 20 mg PO DAILY 90 days #90 tabs 08/22/23 levothyroxine 112 mcg tablet 112 mcg PO QAM #90 tabs 09/21/23 MOLNLYCKE TUBIGRIP SIZE F NAtural #4 ea 12/05/23 atorvastatin 40 mg tablet 40 mg PO BEDTIME #90 tabs 01/23/24 insulin syringe-needle U-100 1 mL #100 ea 03/12/24 29 gauge x 1/2 (BD Insulin Syringe) clopidogrel 75 mg tablet 75 mg PO DAILY 90 days #90 tabs 04/23/24 insulin degludec 100 unit/mL 28 unit (0.28 mL) subcut BID #10 mL 05/07/24 subcutaneous solution (Tresiba U-100 Insulin) Allergies Allergy/AdvReac Type Severity Reaction Status Date / Time atorvastatin [Lipitor] Allergy Unknown Unknown Verified 06/17/24 11:41 canagliflozin [Invokana] Allergy Unknown hives Verified 06/17/24 11:41 dulaglutide [Trulicity] Allergy Unknown hives Verified 06/17/24 11:41 insulin glargine Allergy Unknown Hives Verified 06/17/24 11:41 [From Lantus U-100 Insulin] metformin [METFORMIN] Allergy Unknown HIVES Verified 06/17/24 11:41 rosuvastatin Allergy Unknown Unknown Verified 06/17/24 11:41 sitagliptin [From JANUVIA] Allergy Unknown HIVES Verified 06/17/24 11:41 Review of Systems 2 Review of Systems: Yes all other systems are reviewed and are negative Constitutional: Constitutional: Reports no additional constitutional complaints, Denies body ache(s), Denies chills, Denies fever(s), Denies headache(s) and Reports weakness Eyes: Eyes: Reports no additional eye complaints and Denies change in vision ENT: Reports system reviewed and no additional complaints, except as documented, Denies dizziness, Denies headache(s), Denies nasal congestion, Denies nasal discharge and Denies neck pain Cardiovascular: Cardiovascular: Reports no additional cardiovascular complaints, Denies chest pain, Denies leg edema and Denies dyspnea Respiratory: Respiratory: Reports no additional respiratory complaints, Denies cough and Denies dyspnea Gastrointestinal: Gastrointestinal: Reports no additional gastrointestinal complaints, Denies abdominal pain, Denies diarrhea, Denies nausea and Denies vomiting Genitourinary: Genitourinary: Denies urinary incontinence Musculoskeletal: Musculoskeletal: Reports no additional musculoskeletal complaints, Denies back pain, Denies arthralgias, Denies joint swelling, Denies neck pain, Denies numbness and Denies tingling Integumentary/Breasts: Skin/Breast: Reports system reviewed and no additional complaints, except as docu and Denies rash Neurologic: Reports system reviewed and no additional complaints, except as documented, Denies Abnormal speech present, Denies dizziness, Denies headache(s), Denies numbness, Denies tingling and Reports weakness PMFSH Past Medical History Attestation statement: The following information was validated with the patient. Source: old records reviewed and nursing notes reviewed Medical History TIA (transient ischemic attack) Solitary left kidney Osteoarthritis Type 2 diabetes mellitus with hyperglycemia Erectile dysfunction Hypercholesterolemia Polymyalgia rheumatica Vitamin D deficiency Hypothyroid Migraine Obesity Alcohol abuse Tobacco abuse Hypertension Surgical History History of colonoscopy Hx of tonsillectomy History of total left knee replacement History of arthroscopy of both knees Family History Family History Father Diabetes Mother Melanoma Maternal Uncle Colon cancer Social History Social History Household Members: None Housing: House Do you presently have visiting nurse or other home services: No Alcohol intake: former Patient Tobacco Use Status: Current everyday Tobacco user Tobacco use type: Cigar and Pipe Years Smoked: 50 stopped 08/2022 Smoked in Last 30 Days: No e-Cigarette/Vaping Use: Currently Using Second Hand Smoke Exposure: Yes Use of substances other than those prescribed or required for medical reasons: No Advance Directives: No Advance Directives Information Provided: Yes Do you have a plan to hurt others: No Plan service: No Current occupational status: employed Cognitive needs: Yes Hearing needs: No Vision needs: Yes Physical Exam 2 Vital Signs: Vital Signs: Last Vital Signs Temp 97.1 F 06/17/24 14:44 Pulse 110 H 06/17/24 15:48 Resp 22 H 06/17/24 15:48 BP 168/84 H 06/17/24 15:48 Pulse Ox 96 06/17/24 15:48 O2 Del Method Room Air 06/17/24 15:48 BMI result Body Mass Index 38.3 Const: General: cooperative, healthy appearing, comfortable and no acute distress Orientation/consciousness: patient oriented x3 Limitations: no limitations HEENT: Other: Tacky MM Head: Yes normal to inspection, No Elizabeth's sign and No raccoon eyes E ars: hearing grossly normal bilaterally and TM's normal bilaterally General nose exam: Normal external nose present Face and sinus: Yes normal facial exam Mouth: Normal oral and palatal mucosa present Throat: Yes posterior oropharynx normal Eyes: General: appearance normal, both eyes and all related structures P upils: Equal, round and reactive pupils present Neck: Other: No cervical midline tenderness, step offs or deformities Neck: Yes normal visual inspection Chest: Chest palpation & inspection: normal inspection of the chest Resp: Effort & Inspection: normal respiratory effort Auscultation: clear to auscultation bilaterally Cardio: Rate: regular rate Rhythm: regular rhythm Peripheral pulses: P eripheral pulses 2+ throughout GI: Inspection: Yes normal to inspection Palpation (GI): Soft to palpation and nontender Auscultation: normal bowel sounds Back/Spine/Pelvis: Other: Thoracic/Lumbar Spine: thoracic and lumbar spine normal to inspection Skin: General skin exam: no rashes or lesions noted Neuro: Other: 4/5 strength all extremities General: patient oriented x3, moves all extremities and normal sensation to monofilament Cranial nerves: Yes Equal, round and reactive pupils present Cognition (Neuro): normal cognition Speech: No Abnormal speech present S ensory Exam: Normal double simultaneous stimulation for sensation Extrem: Other: Course Course Course Narrative: 1338-elevated lactic acid with leukocytosis, tachycardia, tachypnea. At this time infection suspected. Antibiotics ordered. Reevaluation(s) Reevaluation #1: I reviewed the findings with the patient and the family at the bedside. They do share some additional concerns the patient lives alone and has had some falls and seems to be more weak than baseline. They are requesting physical therapy evaluation and case management consult which I explained to them can happen during his hospitalization. I spoke to the hospitalist who accepted admission Medications Administered Discontinued Medications Generic Name Dose Route Start Last Admin Trade Name Freq PRN Reason Stop Dose Admin Sodium Chloride 1,000 mls @ 999 mls/hr 06/17/24 11:52 06/17/24 14:25 Ns IV 06/17/24 12:52 Infused .Q1H1M STA Infusion Ceftriaxone Sodium 1 gm/ 50 mls @ 100 mls/hr 06/17/24 13:38 06/17/24 14:25 Sodium Chloride IV 06/17/24 14:07 Infused ONCE ONE Infusion Medical Decision Making Medical Decision Making [facility] Narrative: 69 yo male with history of ROLO, DM, hypothyroidism, HLD, HTN, CVA on dual platelet here after he slid out of bed last night landing on the ground, unable to get up since then. Reports landed on his buttocks. No head strike or LOC. Arrives incontinent of urine. No headache, chest pain, abdominal pain, back/neck pain. On exam there are areas of breakdown over the buttocks. Patient has swelling to bilateral LE which he tells me is chronic for him L> R, there are some wounds on the posterior left calf and a DTI on the left heel VSS Tacky MM Will obtain labs, EKG, CXR, UA, CT head/cervical spine. Will start IVF Differential Diagnosis Differential Diagnoses: The differential diagnosis associated with the presentation includes rhabdo, trauma, metabolic cause, cellulitis Admission/Observation Consideration of admission/observation: Escalation of care including admission/observation considered Labs show rhabdomyolysis requiring IV fluids, patient meeting SIRS criteria needing IV antibiotics and admission Consult Healthcare Provider Management of the patient was discussed with: Hospitalist Spoke to Dr Bryan who accepted admission Lab Data MDM Lab Attestation statement: I reviewed the patient's lab results. 06/17/24 12:19 06/17/24 12:19 Labs: Lab Results 06/17/24 06/17/24 Range/Units 12:19 15:43 WBC 14.3 H (4.8-10.8) X10*3/uL RBC 4.75 (4.60-5.80) X10*6/uL Hgb 15.0 (14.0-18.0) g/dl Hct 44.3 (42.0-52.0) % MCV 93.3 (80.0-98.0) fL MCH 31.6 (27.0-33.0) pg MCHC 33.9 (31.0-36.0) g/dl RDW 13.4 (11.0-16.0) % Plt Count 225 (160-400) X10*3/uL MPV 11.3 (9.4-12.4) fL Immature Gran % (Auto) 0.5 H (0.0-0.4) % Neut % (Auto) 87.3 H (45-73) % Lymph % (Auto) 6.1 L (20-40) % [place] % (Auto) 5.9 (2-11) % Eos % (Auto) 0.0 (0-4) % Baso % (Auto) 0.2 (0-2) % Lymph # (Auto) 0.9 L (1.2-4.9) X10*3/uL [place] # (Auto) 0.8 (0.1-1.2) X10*3/uL Eos # (Auto) 0.0 (0.0-0.4) X10*3/uL Baso # (Auto) 0.0 (0.0-0.2) X10*3/uL Abs Immat Gran (auto) 0.07 H (0.00-0.03) X10*3/uL Absolute Neuts (auto) 12.5 H (2.0-8.3) x10*3/uL Absolute Nucleated RBC 0.000 (0.0-0.012) X10*3/uL Nucleated RBC % (auto) 0.0 (0.0-0.2) /100WBC PT 13.0 (11.1-13.3) SEC INR 1.1 (0.9-1.1) Sodium 145 (135-145) mmol/L Potassium 4.5 (3.3-5.1) mmol/L Chloride 107 (96-108) mmol/L Carbon Dioxide 21 L (22-29) mmol/L Anion Gap 22 H (12-20) BUN 70 H (9-16) mg/dL Creatinine 0.89 (0.5-1.4) mg/dL Estim Creat Clear Calc 96.0 Estimated GFR > 60 Random Glucose 318 H (60-115) mg/dL Lactic Acid 3.5 H* (0.5-2.0) mmol/L Calcium 9.5 D (8.4-10.2) mg/dL Magnesium 3.0 H (1.6-2.6) mg/dL Total Bilirubin 1.3 H (0.0-1.0) mg/dL Direct Bilirubin 0.6 H (0.0-0.5) mg/dL AST 79 H (5-37) U/L ALT 83 H (0-40) U/L Alkaline Phosphatase 75 (39-117) U/L Total Creatine Kinase 1901 H 1949 H (38-174) U/L Troponin I High Sens 4.9 (<3.5-35.0) ng/L Total Protein 7.2 (6.5-8.0) g/dL Albumin 3.4 L (3.5-5.0) g/dL Urine Color Dark Yellow Urine Appearance Clear Urine pH 5.5 (5.0-9.0) Ur Specific [place] >= 1.030 H (1.005-1.025) Urine Protein Trace (Neg-Trace) mg/dL Urine Glucose (UA) >=1000 H (Negative) mg/dL Urine Ketones 15 (Negative) mg/dL Urine Blood Negative (Negative) Urine Nitrite Negative (Negative) Ur Leukocyte Esterase Negative (Negative) Urine RBC 0-2 (0-2) /HPF Urine WBC 0-5 (0-5) /HPF Ur Squamous Epith Cells 3-5 (0-2) /HPF Urine Bacteria None Seen (None Seen) Hyaline Casts 6-10 (0-2) /LPF Granular Casts Present Independent Interpretation I performed an independent interpretation of an: EKG, Plain X-Ray and CT Scan Interpretation: I independently viewed the chest x-ray/ct head/cervical spine and agree with the radiology report I independently viewed the EKG which is sinus tachycardia with a rate of 106, normal RI, normal QRS normal QT Radiology Impression Discussion of test interpretation with radiology: I have reviewed the radiologist's reading. Radiologist Impression: [address] [address] XRay Report Signed Patient: Shaun Nolasco MR#: [id number] : 1955 Acct:[id number] Age/Sex: 69 / M ADM Date: 06/17/24 Loc: .ED Attending Dr: Ordering Physician: Ute Alonzo NP Date of Service: 06/17/24 Procedure(s): XR chest 1V Accession Number(s): [id number] cc: Babak Greene MD; Ute Alonzo NP~ EXAMINATION: XR CHEST CLINICAL INFORMATION: fall, weakness COMPARISON: Chest radiograph 04/14/2022 TECHNIQUE: One view of the chest FINDINGS: Lines and tubes: Cardiac loop recorder device overlies left hemithorax. Lung volumes with streaky bibasilar opacities which may reflect atelectasis. No pleural effusion. No pneumothorax. Unchanged cardiomediastinal silhouette. XR/XR chest 1V IMPRESSION: 1. Lung volumes with streaky bibasilar opacities which may reflect atelectasis. Electronically signed by: Libby Malhotra MD 06/17/2024 01:57 PM EDT [address] [address] [address] Scan Report Signed Patient: Shaun Nolasco MR#: [id number] : 1955 Acct:[id number] Age/Sex: 69 / M ADM Date: 06/17/24 Loc: HO.ED Attending Dr: Ordering Physician: Ute Alonzo NP Date of Service: 06/17/24 Procedure(s): CT head/brain wo IV con Accession Number(s): [id number] cc: Babak Greene MD; Ute Alonzo NP~ Examination:: CT brain and CT cervical spine without contrast. CLINICAL INDICATION: Trauma. COMPARISON: CTA brain and neck 04/14/2022. TECHNIQUE: 2 mm in axial and reformatted 2 mm thin sagittal and coronal images of brain were obtained. Subsequently axial 3 mm thin and reformatted 2 mm thin sagittal and coronal images of cervical spine were obtained. DLP 1461. This CT examination was performed using dose optimization technique as appropriate, variously including the following: Automated exposure control Adjustment of MA and/or KV according to patient size(this includes techniques or standardized protocols for targeted exams where dose is matched to indication/reason for exam; extremities or head. Use of iterative reconstruction techniques. FINDINGS: Brain: There is no acute intra-axial, extra-axial bleed, masses or midline shift. There is a right frontal lobe edema new since the previous study 04/14/2022, likely encephalomalacia from previous injury. There is no acute infarction in evolution. There is no edema. The rodríguez to white matter differentiation is maintained normal. The lateral ventricles are symmetrical in size but enlarged. Bone windows reveal no calvarial abnormality. There is complete opacification of left maxillary sinus from inflammatory process. No scalp soft tissue abnormality seen. Cervical spine: There is maintain cervical lordosis the vertebral heights and alignment is normal. The craniovertebral junction and the C1-C2 alignment is normal. The disc heights are maintained and normal. There is some ventral bridging osteophytes from C4/5 through T2-3-3 levels. There is no visible fracture, dislocation or subluxation seen. The prevertebral and paravertebral soft tissues are normal. There is bilateral C2-3, left C3-4 facet joint arthropathy. Incidentally noted are bilateral C7 cervical ribs. CT/CT head/brain wo IV con IMPRESSION: No acute bleed or infarct seen. 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 No acute cervical fracture, dislocation or subluxation. Bilateral C7 cervical ribs. Independent Historian Clinical information obtained from an independent historian. History obtained from or confirmed by: EMS Critical Care Time Critical Care Time Critical Care Time: Yes Total Critical Care Time: 60 Attestation: Rhabdomyolysis requiring admission. Discussion with hospitalist Discharge Plan Discharge Clinical Impression: Rhabdomyolysis, Elevated lactic acid level, Leukocytosis, Cellulitis Patient Disposition: Admitted As Inpatient Print Language: Maldivian
--- NOTE | 2024-06-17 11:22 | ECG_ITS ---
Test Reason : weakness Blood Pressure : / mmHG Vent. Rate : 095 BPM Atrial Rate : 095 BPM P-R Int : 200 ms QRS Dur : 084 ms QT Int : 380 ms P-R-T Axes : 018 -51 032 degrees QTc Int : 477 ms Normal sinus rhythm Left axis deviation Inferior infarct , age undetermined Abnormal ECG When compared with ECG of 14-APR-2022 20:24, IA interval has decreased Inferior infarct is now Present QT has lengthened Referred By: Ute Glez Electronically Signed By:DELIA PARKER
[2024-06-17] MEDS: 0.9 % Sodium Chloride 1,000 ML 999 ML IV (12:33)
[2024-06-17 12:34] LABS: MANUAL DIFF FLAG NO
[2024-06-17 12:53] LABS: Appearance Urine Clear; Color Urine Dark Yellow; Glucose Urine UA >=1000 mg/dL (Negative); Leukocyte Esterase Urine Negative (Negative); Nitrite Urine Negative (Negative); PH 5.5 (5.0-9.0); Specific Gravity - Urine >= 1.030 (1.005-1.025); UMIC TRIGGER UACC YES; Urine Blood Negative (Negative); Urine Ketones 15 mg/dL (Negative); Urine Protein Trace mg/dL (Neg-Trace)
[2024-06-17 12:54] LABS: Basophils Percent Auto 0.2 % (0-2); Hematocrit 44.3 % (42.0-52.0); Imm Gran Abs Auto 0.07 X10*3/uL (0.00-0.03); Imm Gran Pct Auto 0.5 % (0.0-0.4); Lymphocytes Absolute Auto 0.9 X10*3/uL (1.2-4.9); Lymphocytes Percent Auto 6.1 % (20-40); Mean Corpuscular HGB Conc 33.9 g/dl (31.0-36.0); Mean Corpuscular Hemoglobin 31.6 pg (27.0-33.0); Mean Corpuscular Volume 93.3 fL (80.0-98.0); Mean Platelet Volume 11.3 fL (9.4-12.4); Monocytes Absolute Auto 0.8 X10*3/uL (0.1-1.2); Monocytes Percent Auto 5.9 % (2-11); Neutrophils Absolute Auto 12.5 x10*3/uL (2.0-8.3); Neutrophils Percent Auto 87.3 % (45-73); Platelet Count 225 X10*3/uL (160-400); Red Blood Count 4.75 X10*6/uL (4.60-5.80); Red Cell Distribution Width 13.4 % (11.0-16.0); White Blood Count 14.3 X10*3/uL (4.8-10.8)
[2024-06-17 12:56] LABS: INTERNATIONAL NORM RATIO 1.1 (0.9-1.1)
--- NOTE | 2024-06-17 13:00 | PC.NURSE ---
Pt comes of ED today via EMS s/p fall out of chair last night. Pt was found by family member this morning. Pt denies pain, denies LOC or head strike. A&Ox3, VSS, and afebrile. Pt was incontinent upon arrival. While cleaning, large wound with skin tear noted to coccyx area. Scant bleeding, Pt denies pain. Non-adherent loosely applied to area to prevent wound from touching bed pad. Blood labs drawn. Awaiting CT results.
[2024-06-17 13:04] LABS: Alanine Aminotransferase 83 U/L (0-40); Albumin Level 3.4 g/dL (3.5-5.0); Alkaline Phosphatase 75 U/L (39-117); Anion Gap 22 (12-20); Aspartate Amino Transferase 79 U/L (5-37); Bilirubin Direct 0.6 mg/dL (0.0-0.5); Bilirubin Total 1.3 mg/dL (0.0-1.0); Blood Urea Nitrogen 70 mg/dL (9-16); Calcium 9.5 mg/dL (8.4-10.2); Carbon Dioxide 21 mmol/L (22-29); Chloride 107 mmol/L (96-108); Estimated Glomerular Filt Rate > 60; Glucose Random 318 mg/dL (60-115); Potassium 4.5 mmol/L (3.3-5.1); Sodium 145 mmol/L (135-145); Total Protein 7.2 g/dL (6.5-8.0)
[2024-06-17 13:05] LABS: Lactic Acid 3.5 mmol/L (0.5-2.0)
[2024-06-17 13:08] LABS: Troponin-I High Sensitivity 4.9 ng/L (<3.5-35.0)
[2024-06-17 13:23] LABS: Bacteria Urine None Seen (None Seen); Granular Casts Urine Present; RBC Urine 0-2 /HPF (0-2); WBC Urine 0-5 /HPF (0-5)
[2024-06-17] MEDS: cefTRIAXone sodium 1 GM in 0.9 % Sodium Chloride 50 ML IV (13:43)
[2024-06-17 14:32] LABS: Reflex Lactate? Lactic Acid Added
--- NOTE | 2024-06-17 14:42 | ECG_ITS ---
Test Reason : tachycardia Blood Pressure : / mmHG Vent. Rate : 106 BPM Atrial Rate : 106 BPM P-R Int : 206 ms QRS Dur : 074 ms QT Int : 344 ms P-R-T Axes : 059 -28 048 degrees QTc Int : 456 ms Poor data quality, interpretation may be adversely affected Sinus tachycardia Possible Inferior infarct (cited on or before 17-JUN-2024) Abnormal ECG When compared with ECG of 17-JUN-2024 11:51, Questionable change in initial forces of Inferior leads Heart rate has increased Referred By: Ute Glez Electronically Signed By:DELIA PARKER
--- NOTE | 2024-06-17 14:43 | PC.NURSE ---
pt warm to touch, shivering, rectal temp 97, monitoring engineer applied - HR variable 84-114, provider notified. plan for repeat EKG/labs.
[2024-06-17 16:42] LABS: COVID-19 Test Negative (Negative); IDNOW Serial# 152EDE1D
--- NOTE | 2024-06-17 17:18 | P.HPHOSP_ITS ---
History of Present Illness Date of Service: 06/17/24 Chief Complaint: fall 69-year-old gentleman with past medical history of obstructive sleep apnea, diabetes mellitus type 2, hypothyroidism, hyperlipidemia, hypertension, CVA on dual platelet was brought in to [facility] accompanied by family since patient was on bed last night and was unable to get out of bed so he has slid out of bed, landed on the ground and remained on the floor all night till 09:00, when daughter sent aunt to check on him, since he was not responding to her phone calls, on arrival to the emergency room he was noted to be incontinent of urine patient denied any symptoms of lightheadedness dizziness, no fevers, no chills, no shortness of breath, no cough, no abdominal pain no nausea, no vomiting no urinary symptoms of urgency and frequency, no chest pain or palpitation workup in the emergency room showed WBC 14.3, magnesium 3 BUN 70 normal creatinine, blood sugar 318, AG 22, bicarb 21,LA 3.5, total bili 1.3, creatinine kinase 1949 Chest x-ray showed streaky bibasilar opacities likely atelectasis, CT head and C-spine were unremarkable, leg examination reveals left leg bigger than right leg with warmth redness, no tenderness to palpation, no open wounds, patient is now being admitted to [facility] due to sepsis likely related to left lower extremity cellulitis and mild rhabdomyolysis along with anion gap acidosis likely due to lactic acidosis. Review of Systems 2 Review of Systems: General no headache ,no dizziness, no fever chills. CVS no chest pain, no palpitation. Respiratory no cough, no sob Gastrointestinal no nausea, no vomiting, no abdominal pain no urgency no frequency Musculoskeletal no pain Skin bilateral lower extremity redness left greater than right All other system reviewed and negative. [facility] Medical History TIA (transient ischemic attack) Solitary left kidney Osteoarthritis Type 2 diabetes mellitus with hyperglycemia Erectile dysfunction Hypercholesterolemia Polymyalgia rheumatica Vitamin D deficiency Hypothyroid Migraine Obesity Alcohol abuse Tobacco abuse Hypertension Family History Father Diabetes Mother Melanoma Maternal Uncle Colon cancer Surgical History History of colonoscopy Hx of tonsillectomy History of total left knee replacement History of arthroscopy of both knees Social History Household Members: None Housing: House Do you presently have visiting nurse or other home services: No Alcohol intake: former Patient Tobacco Use Status: Current everyday Tobacco user Tobacco use type: Cigar and Pipe Years Smoked: 50 stopped 08/2022 Smoked in Last 30 Days: No e-Cigarette/Vaping Use: Currently Using Second Hand Smoke Exposure: Yes Use of substances other than those prescribed or required for medical reasons: No Advance Directives: No Advance Directives Information Provided: Yes Do you have a plan to hurt others: No Plan Nutrition Risks: No Nutritional Risk service: Yes Current occupational status: employed Cognitive needs: Yes Hearing needs: No Vision needs: Yes Meds Allergies Allergy/AdvReac Type Severity Reaction Status Date / Time canagliflozin [Invokana] Allergy Unknown hives Verified 06/17/24 11:41 dulaglutide [Trulicity] Allergy Unknown hives Verified 06/17/24 11:41 insulin glargine Allergy Unknown Hives Verified 06/17/24 11:41 [From Lantus U-100 Insulin] metformin [METFORMIN] Allergy Unknown HIVES Verified 06/17/24 11:41 rosuvastatin Allergy Unknown Unknown Verified 06/17/24 11:41 sitagliptin [From JANUVIA] Allergy Unknown HIVES Verified 06/17/24 11:41 Active Medications: Current Medications Acetaminophen (Acetaminophen 325 Mg Tablet) 650 mg PO Q6H PRN PRN Reason: Pain, Mild (Pain Scale 1-3), fever or headache Calcium Carbonate (Calcium Carbonate 750 Mg Tab.Chew) 750 mg PO Q4H PRN PRN Reason: Heartburn Magnesium Hydroxide (Milk Of Magnesia 30 Ml Oral.Susp) 30 ml PO DAILY PRN PRN Reason: Constipation Melatonin (Melatonin 3 Mg Tablet) 6 mg PO BEDTIME PRN PRN Reason: Insomnia Ondansetron HCl (Ondansetron Hcl 4 Mg/2 Ml Vial) 4 mg IVPUSH Q8H PRN PRN Reason: Nausea and Vomiting Polyethylene Glycol (Polyethylene Glycol 3350 17 Gm Powd.Pack) 17 gm PO DAILY PRN PRN Reason: Constipation Sodium Chloride (0.9 % Sodium Chloride Flush 3 Ml Syringe) 3 ml IVFLUSH QSHIFT NINA Home Medications ?Medication ?Instructions ?Recorded ?Confirmed ?Last Taken ?Type levothyroxine 112 mcg tablet 112 mcg PO DAILY@0600 06/17/24 06/17/24 06/15/24 History Physical Exam 2 Vital Signs and Narrative: Vital Signs: Last Vital Signs Temp 97.1 F 06/17/24 14:44 Pulse 110 H 06/17/24 15:48 Resp 22 H 06/17/24 15:48 BP 168/84 H 06/17/24 15:48 Pulse Ox 96 06/17/24 15:48 O2 Del Method Room Air 06/17/24 15:48 BMI result Body Mass Index 38.3 Const: Other: General awake alert x3 resting comfortably in no acute distress. Anicteric sclera Neck supple no JVD. CVS regular rate rhythm, good peripheral pulses Respiratory lungs clear to auscultation, no respiratory distress, no wheeze, no rhonchi. Gastrointestinal abdomen soft, non tender, bowel sounds audible, no guarding , no rigidity. Extremities right leg > left, right lower extremity redness, warmth extending towards medial thigh, left leg chronic venous stasis changes with thick skin Coccyx deep tissue injury Neuro non focal Psych appropriate affect Results Labs 06/18/24 11:18 06/17/24 12:19 Labs: Laboratory Results - last 24 hr 06/17/24 06/17/24 06/17/24 12:19 15:43 16:24 MCV 93.3 MCH 31.6 MCHC 33.9 RDW 13.4 Plt Count 225 MPV 11.3 Immature Gran % (Auto) 0.5 H Neut % (Auto) 87.3 H Lymph % (Auto) 6.1 L Kingman % (Auto) 5.9 Eos % (Auto) 0.0 Baso % (Auto) 0.2 Lymph # (Auto) 0.9 L Kingman # (Auto) 0.8 Eos # (Auto) 0.0 Baso # (Auto) 0.0 Abs Immat Gran (auto) 0.07 H Absolute Neuts (auto) 12.5 H Absolute Nucleated RBC 0.000 Nucleated RBC % (auto) 0.0 PT 13.0 INR 1.1 Anion Gap 22 H Estim Creat Clear Calc 96.0 Estimated GFR > 60 Random Glucose 318 H Lactic Acid 3.5 H* Calcium 9.5 D Magnesium 3.0 H Total Bilirubin 1.3 H Direct Bilirubin 0.6 H AST 79 H ALT 83 H Alkaline Phosphatase 75 Total Creatine Kinase 1901 H 1949 H Troponin I High Sens 4.9 Total Protein 7.2 Albumin 3.4 L Urine Color Dark Yellow Urine Appearance Clear Urine pH 5.5 Ur Specific Wiggins >= 1.030 H Urine Protein Trace Urine Glucose (UA) >=1000 H Urine Ketones 15 Urine Blood Negative Urine Nitrite Negative Ur Leukocyte Esterase Negative Urine RBC 0-2 Urine WBC 0-5 Ur Squamous Epith Cells 3-5 Urine Bacteria None Seen Hyaline Casts 6-10 Granular Casts Present COVID-19 (JENNIFER) Cancelled Negative COVID-19 Clin Com Cancelled See Note Imaging Radiologist's Impressions: Impressions Chest X-Ray 06/17/24 11:47 IMPRESSION: 1. Lung volumes with streaky bibasilar opacities which may reflect atelectasis. Electronically signed by: Libby Malhotra MD 06/17/2024 01:57 PM EDT RP Cervical Spine CT 06/17/24 12:49 IMPRESSION: No acute bleed or infarct seen. 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 No acute cervical fracture, dislocation or subluxation. Bilateral C7 cervical ribs. Electronically signed by: Ino Yoo MD 06/17/2024 03:30 PM EDT RP Head CT 06/17/24 12:49 IMPRESSION: No acute bleed or infarct seen. 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 No acute cervical fracture, dislocation or subluxation. Bilateral C7 cervical ribs. Electronically signed by: Ino Yoo MD 06/17/2024 03:30 PM EDT RP Assessment and Plan (1) Cellulitis: Status: Acute (2) Elevated lactic acid level: Status: Acute Plan 69-year-old gentleman with history of obstructive sleep apnea, diabetes mellitus, hypothyroidism, hyperlipidemia, hypertension, CVA on dual antiplatelet therapy slid out of bed last night landing on the ground on his buttocks, unable to get up since then and brought to [facility] this morning patient denies loss of consciousness, no preceding symptoms of lightheadedness, or dizziness, patient noted to be incontinent of urine, diagnosed to have sepsis likely due to left lower extremity cellulitis and an anion gap acidosis. Sepsis likely due to left lower extremity cellulitis due to diabetes mellitus/ch venous stasis wounds. IV vancomycin started on 06/17 Follow CBC, blood culture x2 Keep legs elevated/wound nurse consult Anion gap metabolic acidosis likely due to acute lactic acidosis IVF,follow labs Acute mild rhabdomyolysis treat with IV fluids follow CPK Hypermagnesemia Question on magnesium replacement, follow home meds, repeat magnesium, IV fluids Generalized weakness PT eval Diabetes mellitus type 2 on insulin presented with hyperglycemia, place on insulin sliding scale, diabetic diet,on Tresiba b.i.d. at home but ran out of prescription few days ago. Hypothyroidism resume levothyroxine, follow TSH Hyperlipidemia Lipitor 40 mg Hypertension on lisinopril follow bp History of CVA continue Plavix and aspirin. Class 2 obesity recommend low-calorie diet and nutrition consult ROLO not using CPAP regularly, place on CPAP Full code In my clinical judgment patient required 2 night inpatient hospitalization management of sepsis likely due to cellulitis requiring IV antibiotics and close electrolyte monitoring. Quality Stroke Does the patient have a stroke diagnosis?: No VTE Prior VTE?: No VTE Risk Level:: Medical - moderate - high VTE Device Contraindication: Treatment Not Indicated VTE Drug Contraindication: N/A - Med Ordered
--- OUTSIDE RECORDS SUMMARY | 2024-06-17 17:29 | XMS_ITS | Continuity of Care Document ---
Author Organization [facility] Address [address] [place] [address]- Care Team Providers Care Steam Locomotive Firer/Fireman Name Role Phone Reji Atwood MD Primary Care Physician Encounter [facility] [place] Date(s): 02/29/24 - 05/02/24 [facility] [address] [place] [address]- Attending Physician: Delio Arevalo MD Admitting Physician: Delio Arevalo MD Referring Physician: Reji Atwood MD Allergies, Adverse Reactions, Alerts Substance Reaction Severity Status Lipitor Active Lantus Active rosuvastatin Active Trulicity Active Januvia Active metFORMIN Active Invokana Active Immunizations Given and Recorded Vaccine Date Status Refusal Reason SARS-CoV-2 (COVID-19) mRNA-7591 vaccine 09/19/21 R ecorded Medications aspirin 81 mg oral tablet, chewable 81 mg, 1, tablet, By Mouth, Daily, # 12 tablet, Refills 0, Tot. Refills 0, Maintenance, 04/24/22 5:58:00 EDT, Print Requisition, Partial fill upon patient request if the prescription is for a schedule II opioid drug. Start Date: 04/24/22 Stop Date: 05/06/22 Status: Ordered atorvastatin 40 mg oral tablet 1 tablet = 40 mg, By Mouth, Daily at bedtime, # 30 tablet, 0 Refills, Maintenance, 04/24/22 5:59:00EDT, Tablet, Partial fill upon patient request if the prescription is for a schedule II opioid drug. Start Date: 04/24/22 Status: Ordered insulin detemir 100 units/mL subcutaneous solution = 25 units, Subcutaneous Injection, 2 times a day, # 10 mL, 0 Refills, Maintenance, 04/24/22 5:56:00 EDT, Solution, Partial fill upon patient request if the prescription is for a schedule II opioid drug. Start Date: 04/24/22 Stop Date: 05/24/22 Status: Ordered levothyroxine 0.112 mg oral tablet 1 tablet = 112 mcg, By Mouth, Daily, # 30 tablet, 0 Refills, Maintenance, 04/24/22 5:59:00 EDT, Tablet, Partial fill upon patient request if the prescription is for a schedule II opioid drug. Start Date: 04/24/22 Status: Ordered lisinopril 5 mg oral tablet 5 mg, 1, tablet, By Mouth, Daily, # 30 tablet, Refills 0, Tot. Refills 0, Maintenance, 04/24/22 5:59:00 EDT, Print Requisition, Partial fill upon patient request if the prescription is for a scheduleII opioid drug. Start Date: 04/24/22 Status: Ordered Plavix 75 mg oral tablet 75 mg, 1, tablet, By Mouth, Daily, # 30 tablet, Refills 0, Tot. Refills 0, Maintenance, 04/24/22 5:59:00 EDT, Print Requisition, Partial fill upon patient request if the prescription is for a schedule II opioid drug. Start Date: 04/24/22 Status: Ordered Problem List Condition Confirmation Course Effective Dates Status Health St atus Informant Obese class II Confirmed Active Patient Care team information Care Team Personnel Name: Marnie Aparicio RN Position: S RN Member Role: Primary Care Nurse Name: Xin Wagner RN Position: S RN Member Role: Primary Care Nurse Name: Aj Farooq RN Position: S RN Member Role: Primary Care Nurse Name: Chavez Driscoll Position: S RN Member Role: Primary Care Nurse Care Team Related Persons Name: GIANNA PAREDES Address: home [address] [place], [place] Name: GAGAN PAREDES Address: [address] [place] [address] Name: GLEN PAREDES
--- OUTSIDE RECORDS SUMMARY | 2024-06-17 17:29 | XMS_ITS | Continuity of Care Document ---
Author Organization [facility] Address [address] [place] [address]- Care Team Providers Care Certified Physician Assistant Name Role Phone Reji Atwood MD Primary Care Physician [place] [facility] [place] - 05/04/23 [facility] [address] [place] [address]- Attending Physician: Delio Arevalo MD Admitting Physician: Delio Arevalo MD Referring Physician: Reji Atwood MD Allergies, Adverse Reactions, Alerts Substance Reaction Severity Status Lipitor Active Lantus Active rosuvastatin Active Januvia Active metFORMIN Active Invokana Active Trulicity Active Immunizations Given and Recorded Vaccine Date Status Refusal Reason SARS-CoV-2 (COVID-19) mRNA-8878 vaccine 09/19/21 R ecorded Medications aspirin 81 [...] Persons Name: GIANNA PAREDES Address: home [address] [place], [place] Name: GAGAN PAREDES Address: [address] [place] [address] Name: GLEN PAREDES
--- OUTSIDE RECORDS SUMMARY | 2024-06-17 17:29 | XMS_ITS | Continuity of Care Document ---
Author Organization [facility] Address [address] [place] [address]- Care Team Providers Care Dental Sales Representative Name Role Phone Rai Reji BRAN Primary Care Physician Encounter [facility] [place] Date(s): 02/28/23 - 03/30/23 [facility] [address] [place] [address]- Attending Physician: Josue Gonsales Admitting Physician: Josue Gonsales Referring Physician: AdmtrJosue Allergies, Adverse Reactions, Alerts Substance Reaction Severity Status Lipitor Active Lantus Active Trulicity Active rosuvastatin Active Januvia Active metFORMIN Active Invokana Active Immunizations Given and Recorded Vaccine Date Status Refusal Reason SARS-CoV-2 (COVID-19) mRNA-1270 vaccine 09/19/21 R ecorded Medications aspirin 81 [...] Persons Name: GIANNA PAREDES Address: home [address] [place], [place] Name: GAGAN PAREDES Address: [address] [place] [address] Name: GLEN PAREDES
--- OUTSIDE RECORDS SUMMARY | 2024-06-17 17:29 | XMS_ITS | Continuity of Care Document ---
Author Organization [facility] Address [address] [place] [address]- Care Team Providers Care Cooperative Education Director Name Role Phone Reji Atwood MD Primary Care Physician Encounter [facility] [place] Date(s): 08/30/23 - 11/02/23 [facility] [address] [place] [address]- Attending Physician: Delio Arevalo MD Admitting Physician: Delio Arevalo MD Referring Physician: Reji Atwood MD Allergies, Adverse Reactions, Alerts Substance Reaction Severity Status Lipitor Active Lantus Active Trulicity Active rosuvastatin Active Januvia Active metFORMIN Active Invokana Active Immunizations Given and Recorded Vaccine Date Status Refusal Reason SARS-CoV-2 (COVID-19) mRNA-1274 vaccine 09/19/21 R ecorded Medications aspirin 81 [...] Persons Name: GIANNA PAREDES Address: [address] [place] [address] Name: GAGAN PAREDES Address: [address] [place] [address] Name: GLEN PAREDES
--- OUTSIDE RECORDS SUMMARY | 2024-06-17 17:29 | XMS_ITS | Continuity of Care Document ---
Author Organization [facility] Address [address] [place] [address]- Care Team Providers Care Front Line Supervisor Name Role Phone Reji Atwood MD Primary Care Physician Encounter [facility] [place] Date(s): 06/01/22 - 08/01/22 [facility] [address] [place] [address]- Attending Physician: Delio Arevalo MD Admitting Physician: Delio Arevalo MD Referring Physician: Reji Atwood MD Allergies, Adverse Reactions, Alerts Substance Reaction Severity Status Lipitor Active Lantus Active rosuvastatin Active Invokana Active Trulicity Active metFORMIN Active Januvia Active Immunizations Given and Recorded Vaccine Date Status Refusal Reason SARS-CoV-2 (COVID-19) mRNA-6224 vaccine 09/19/21 R ecorded Medications aspirin 81 [...] II Confirmed Active Patient Care team information Personnel Name: Rai BRAN , Reji Tavera Address: Address: [address] [place] [address]-
--- OUTSIDE RECORDS SUMMARY | 2024-06-17 17:29 | XMS_ITS | Continuity of Care Document ---
Author Organization [facility] Address [address] [place] [address]- Care Team Providers Care Developmental Education Instructor Name Role Phone Reji Atwood MD Primary Care Physician Encounter [facility] Date(s): 05/11/22 - 06/27/22 [facility] [address] [place] [address]- Attending Physician: Delio Arevalo MD Admitting Physician: Delio Arevalo MD Referring Physician: Reji Atwood MD Allergies, Adverse Reactions, Alerts Substance Reaction Severity Status Lipitor Active Lantus Active Trulicity Active rosuvastatin Active Januvia Active metFORMIN Active Invokana Active Immunizations Given and Recorded Vaccine Date Status Refusal Reason SARS-CoV-2 (COVID-19) mRNA-1122 vaccine 09/19/21 R ecorded Medications aspirin 81 [...] Date: 04/24/22 Status: Ordered Problem List Condition Effective Dates Status Health Status Inform ant Obese class II(Confirmed) Active Care Team Personnel Name: Reji Atwood MD Address: [address] [place] [address] [address] [place] [address]- [place]
--- OUTSIDE RECORDS SUMMARY | 2024-06-17 17:29 | XMS_ITS | Continuity of Care Document ---
Author Organization [facility] Address [address] [place] [address]- Care Team Providers Care Assignment Desk Assistant Name Role Phone Rai Reji BRAN Primary Care Physician Encounter [facility] [place] Date(s): 05/11/22 - 06/10/22 [facility] [address] [place] [address]- Allergies, Adverse Reactions, Alerts Substance Reaction Severity Status Lipitor Active Lantus Active rosuvastatin Active Januvia Active metFORMIN Active Invokana Active Trulicity Active Immunizations Given and Recorded Vaccine Date Status Refusal Reason SARS-CoV-2 (COVID-19) mRNA-6337 vaccine 09/19/21 R ecorded Medications aspirin 81 [...]
--- OUTSIDE RECORDS SUMMARY | 2024-06-17 17:29 | XMS_ITS | Continuity of Care Document ---
Author Organization [facility] Address [address] [place] [address]- Care Team Providers Care Technical Sales Consultant Name Role Phone Reji Atwood MD Primary Care Physician [phone] Encounter [facility] [place] Date(s): 08/06/22 - 10/10/22 [facility] [address] [place] [address]- Attending Physician: Delio Arevalo MD Admitting Physician: Delio Arevalo MD Referring Physician: Reji Atwood MD Allergies, Adverse Reactions, Alerts Substance Reaction Severity Status Lipitor Active Lantus Active rosuvastatin Active Januvia Active metFORMIN Active Invokana Active Trulicity Active Immunizations Given and Recorded Vaccine Date Status Refusal Reason SARS-CoV-2 (COVID-19) mRNA-5845 vaccine 09/19/21 R ecorded Medications aspirin 81 [...] Persons Name: GIANNA PAREDES Address: [address] [place], [place] Name: GAGAN PAREDES Address: [address] [place] [address] Name: GLEN PAREDES
--- OUTSIDE RECORDS SUMMARY | 2024-06-17 17:29 | XMS_ITS | Continuity of Care Document ---
Author Organization [facility] Address [address] [place] [address]- Care Team Providers Care Hemotherapist Name Role Phone Rai Reji BRAN Primary Care Physician [phone] Encounter [facility] [place] Date(s): 08/29/23 - 09/28/23 [facility] [address] [place] [address]- Attending Physician: Josue Gonsales Admitting Physician: Josue Gonsales Referring Physician: Josue Gonsales Allergies, Adverse Reactions, Alerts Substance Reaction Severity Status Lipitor Active Lantus Active rosuvastatin Active Januvia Active metFORMIN Active Invokana Active Trulicity Active Immunizations Given and Recorded Vaccine Date Status Refusal Reason SARS-CoV-2 (COVID-19) mRNA-1273 vaccine 09/19/21 R ecorded Medications aspirin 81 [...] Persons Name: GIANNA PAREDES Address: [address] [place] [address] Name: GAGAN PAREDES Address: [address] [place] [address] Name: GLEN PAREDES
--- OUTSIDE RECORDS SUMMARY | 2024-06-17 17:29 | XMS_ITS | Continuity of Care Document ---
Author Organization [facility] Address [address] [place] [address]- Care Team Providers Care Dividend Deposit Voucher Clerk Name Role Phone Rai Reji BRAN Primary Care Physician [place] [facility] [place] - 11/14/22 [facility] [address] [place] [address]- Attending Physician: Josue Gonsales Admitting Physician: Josue Gonsales Referring Physician: AdmtrJosue Allergies, Adverse Reactions, Alerts Substance Reaction Severity Status Lipitor Active Lantus Active rosuvastatin Active Januvia Active metFORMIN Active Invokana Active Trulicity Active Immunizations Given and Recorded Vaccine Date Status Refusal Reason SARS-CoV-2 (COVID-19) mRNA-1277 vaccine 09/19/21 R ecorded Medications aspirin 81 [...] Persons Name: GIANNA PAREDES Address: [address] [place], [place] Name: GAGAN PAREDES Address: [address] [place] [address] Name: GLEN PAREDES
--- OUTSIDE RECORDS SUMMARY | 2024-06-17 17:29 | XMS_ITS | Continuity of Care Document ---
Author Organization [facility] Address [address] [place] [address]- Care Team Providers Care Reference Investigator Name Role Phone Reji Atwood MD Primary Care Physician [phone] [place] [facility] [place] - 01/19/23 [facility] [address] [place] [address]- Attending Physician: Delio Arevalo MD Admitting Physician: Delio Arevalo MD Referring Physician: Reji Atwood MD Allergies, Adverse Reactions, Alerts Substance Reaction Severity Status Lipitor Active Lantus Active rosuvastatin Active Januvia Active metFORMIN Active Invokana Active Trulicity Active Immunizations Given and Recorded Vaccine Date Status Refusal Reason SARS-CoV-2 (COVID-19) mRNA-8124 vaccine 09/19/21 R ecorded Medications aspirin 81 [...] Persons Name: GIANNA PAREDES Address: [address] [place], [place] Name: GAGAN PAREDES Address: [address] [place] [address] Name: GLEN PAREDES
--- OUTSIDE RECORDS SUMMARY | 2024-06-17 17:29 | XMS_ITS | Continuity of Care Document ---
Author Organization [facility] Address [address] [place] [address]- Care Team Providers Care Weighing Station Operator Name Role Phone Rai Reji BRAN Primary Care Physician [place] [facility] [place] Date(s): 02/27/24 - 03/28/24 [facility] [address] [place] [address]- Attending Physician: Josue Gonsales Admitting Physician: Josue [...] Persons Name: GIANNA PAREDES Address: [address] [place] [address] Name: GAGAN PAREDES Address: [address] [place] [address] Name: GLEN PAREDES
--- OUTSIDE RECORDS SUMMARY | 2024-06-17 17:29 | XMS_ITS | Continuity of Care Document ---
Author Organization [facility] Address [address] [place] [address]- Care Team Providers Care Hydrochloric Manufacturing Supervisor Name Role Phone Reji Atwood MD Primary Care Physician [phone] Encounter [facility] [place] Date(s): 01/24/23 - 03/30/23 [facility] [address] [place] [address]- Attending Physician: Delio Arevalo MD Admitting Physician: Delio Arevalo MD Referring Physician: Reji Atwood MD Allergies, Adverse Reactions, Alerts Substance Reaction Severity Status Lipitor Active Lantus Active rosuvastatin Active Januvia Active metFORMIN Active Invokana Active Trulicity Active Immunizations Given and Recorded Vaccine Date Status Refusal Reason SARS-CoV-2 (COVID-19) mRNA-1972 vaccine 09/19/21 R ecorded Medications aspirin 81 [...] Persons Name: GIANNA PAREDES Address: [address] [place], [place] Name: GAGAN PAREDES Address: home [address] [place] [address] Name: GLEN PAREDES
--- OUTSIDE RECORDS SUMMARY | 2024-06-17 17:29 | XMS_ITS | Continuity of Care Document ---
Author Organization [facility] Address [address] [place] [address]- Care Team Providers Care Process Mold Technician Name Role Phone Rai Reji BRAN Primary Care Physician Encounter [facility] [place] Date(s): 01/22/24 - 02/21/24 [facility] [address] [place] [address]- Attending Physician: Josue Gonsales Admitting Physician: Josue Gonsales Referring Physician: AdmtrJosue Allergies, Adverse Reactions, Alerts Substance Reaction Severity Status Lipitor Active Lantus Active rosuvastatin Active Januvia Active metFORMIN Active Invokana Active Trulicity Active Immunizations Given and Recorded Vaccine Date Status Refusal Reason SARS-CoV-2 (COVID-19) mRNA-1276 vaccine 09/19/21 R ecorded Medications aspirin 81 [...] Persons Name: GIANNA PAREDES Address: home [address] [place], [place] Name: GAGAN PAREDES Address: [address] [place] [address] Name: GLEN PAREDES
--- OUTSIDE RECORDS SUMMARY | 2024-06-17 17:29 | XMS_ITS | Continuity of Care Document ---
Author Organization [facility] Address [address] [place] [address]- Care Team Providers Care Web Machine Tender Name Role Phone Reji Atwood MD Primary Care Physician [phone] Encounter [facility] [place] Date(s): 07/26/23 - 09/28/23 [facility] [address] [place] [address]- Attending Physician: Delio Arevalo MD Admitting Physician: Delio Arevalo MD Referring Physician: Reji Atwood MD Allergies, Adverse Reactions, Alerts Substance Reaction Severity Status Lipitor Active Lantus Active rosuvastatin Active Januvia Active metFORMIN Active Invokana Active Trulicity Active Immunizations Given and Recorded Vaccine Date Status Refusal Reason SARS-CoV-2 (COVID-19) mRNA-6608 vaccine 09/19/21 R ecorded Medications aspirin 81 [...] Persons Name: GIANNA PAREDES Address: home [address] [place], [place] Name: GAGAN PAREDES Address: [address] [place] [address] Name: GLEN PAREDES
--- OUTSIDE RECORDS SUMMARY | 2024-06-17 17:29 | XMS_ITS | Continuity of Care Document ---
Author Organization [facility] Address [address] [place] [address]- Care Team Providers Care Machine Zipper Trimmer Name Role Phone Rai Reji BRAN Primary Care Physician [phone] En[place] [facility] [place] Date(s): 05/15/23 - 06/14/23 [facility] [address] [place] [address]- Attending Physician: Josue Gonsales Admitting Physician: Josue [...] Persons Name: GIANNA PAREDES Address: home [address] [place], [place] Name: GAGAN PAREDES Address: [address] [place] [address] Name: GLEN PAREDES
--- OUTSIDE RECORDS SUMMARY | 2024-06-17 17:29 | XMS_ITS | Continuity of Care Document ---
Author Organization [facility] Address [address] [facility], [address]r d Floor, [address] [place] [address]- Care Team Providers Care Contracts Attorney Name Role Phone Rai Reji BRAN Primary Care Physician [phone] [place] [facility] [place] Date(s): 05/17/22 - 06/16/22 [facility] [address], [address] Floor, [address] [place] [address]- Attending Physician: Josue Gonsales Admitting Physician: Admtr, Ar8 Referring Physician: Admtr, Ar8 Allergies, Adverse Reactions, Alerts Substance Reaction Severity Status Lipitor Active Lantus Active rosuvastatin Active Januvia Active metFORMIN Active Invokana Active Trulicity Active Immunizations Given and Recorded Vaccine Date Status Refusal Reason SARS-CoV-2 (COVID-19) mRNA-1271 vaccine 09/19/21 R ecorded Medications aspirin 81 [...]
--- OUTSIDE RECORDS SUMMARY | 2024-06-17 17:29 | XMS_ITS | Continuity of Care Document ---
Author Organization [facility] Address [address] [place] [address]- Care Team Providers Care Earth Science Technical Officer Name Role Phone Reji Atwood MD Primary Care Physician [phone] Encounter [facility] [place] Date(s): 05/19/23 - 07/20/23 [facility] [address] [place] [address]- Attending Physician: Delio Arevalo MD Admitting Physician: Delio Arevalo MD Referring Physician: Reji Atwood MD Allergies, Adverse Reactions, Alerts Substance Reaction Severity Status Lipitor Active Lantus Active Trulicity Active rosuvastatin Active Januvia Active metFORMIN Active Invokana Active Immunizations Given and Recorded Vaccine Date Status Refusal Reason SARS-CoV-2 (COVID-19) mRNA-6074 vaccine 09/19/21 R ecorded Medications aspirin 81 [...] Persons Name: GIANNA PAREDES Address: home [address] [place], [place] Name: GAGAN PAREDES Address: [address] [place] [address] Name: GLEN PAREDES
--- OUTSIDE RECORDS SUMMARY | 2024-06-17 17:29 | XMS_ITS | Continuity of Care Document ---
Author Organization [facility] Address [address], [address] Floor, [address] [place] [address]- Care Team Providers Care Office Coordinator Receptionist Name Role Phone Rai , Reji Tavera Primary Care Physician Encounter [facility] [place] Date(s): 04/20/22 - 07/03/22 [facility] [address], 3[address] Floor, [address] [place] [address]- Attending Physician: Lisbet Arechiga MD, Yoli Allergies, Adverse Reactions, Alerts Substance Reaction Severity Status Lipitor Active Lantus Active Invokana Active Trulicity Active metFORMIN Active rosuvastatin Active Januvia Active Immunizations Given and Recorded [...] class II(Confirmed) Active Care Team Personnel Name: Rai BRAN , Reji Tavera Address: [address] [place] [address] [address] [place] [address]- [place]
--- OUTSIDE RECORDS SUMMARY | 2024-06-17 17:29 | XMS_ITS | Continuity of Care Document ---
Author Organization [facility] Address [address] [place] [address]- Care Team Providers Care Artificial Glass Eye Maker Name Role Phone Rai Reji BRAN Primary Care Physician Encounter [facility] Date(s): 12/19/22 - 01/18/23 [facility] [address] [place] [address]- Attending Physician: Josue Gonsales Admitting Physician: Josue [...] RN Member Role: Primary Care Nurse Name: Xni Wagner RN Position: S RN Member Role: Primary Care Nurse Name: Aj Farooq RN Position: S RN Member Role: Primary Care Nurse Name: Chavez Driscoll Position: S RN Member Role: Primary Care Nurse Care Team Related Persons Name: GIANNA PAREDES Address: home [address] [place], [place] Name: GAGAN PAREDES Address: home [address] [place] [address] Name: GLEN PAREDES
--- OUTSIDE RECORDS SUMMARY | 2024-06-17 17:29 | XMS_ITS | Continuity of Care Document ---
Author Organization [facility] Address [address] [place] [address]- Care Team Providers Care Acrobatic Dancer Name Role Phone Rai Reji BRAN Primary Care Physician [phone] Encounter [facility] [place] Date(s): 04/15/22 - 04/21/[address] [address] Discharge Disposition: Disch/Trans to IP Rehab or unit w/in Hos Attending Physician: Gustavo June MD Admitting Physician: Khalif Natarajan MD Referring Physician: Not on Staff, Referring MD Allergies, Adverse Reactions, Alerts Substance Reaction Severity Status Lipitor Active Lantus Active rosuvastatin Active Januvia Active metFORMIN Active Invokana Active Trulicity Active Immunizations Given and Recorded Vaccine Date Status Refusal Reason SARS-CoV-2 (COVID-19) mRNA-4341 vaccine 09/19/21 R ecorded Medications aspirin 81 mg oral delayed release tablet 81 mg, 1, tablet, By Mouth, 2 times a day, # 90 tablet, Refills 0, Maintenance, 04/15/22 0:45:00 EDT, Partial fill upon patient request if the prescription is for a schedule II opioid drug. Start Date: 04/15/22 Status: Ordered atorvastatin 40 mg oral tablet 1 tablet = 40 mg, By Mouth, Daily at bedtime, 0 Refills, Maintenance, 04/21/22 15:34:00 EDT, Tablet, Partial fill upon patient request if the prescription is for a schedule II opioid drug. Start Date: 04/21/22 Status: Ordered insulin detemir 100 units/mL subcutaneous solution = 20 units, Subcutaneous Injection, Every 12 hours, 0 Refills, Maintenance, 04/21/22 15:40:00 EDT, Injection, Partial fill upon patient request if the prescription is for a schedule II opioid drug. Start Date: 04/21/22 Status: Ordered Insulin Lispro 6-16 units, Subcutaneous Injection, 3 times a day before meals and bedtime, << Sliding Scale Comments >> 100 - 149 6 units Call if less than 70 150 - 199 8 units 200 - 249 10 units 250 - 299 12 units 300 - 349 14 units 350 - 399... Start Date: 04/21/22 Status: Ordered levothyroxine 0.112 mg oral tablet 1 tablet = 112 mcg, By Mouth, Daily, 0 Refills, Maintenance Start Date: 09/10/13 Status: Ordered lisinopril 5 mg oral tablet 1 tablet = 5 mg, By Mouth, Daily, 0 Refills, Maintenance Start Date: 09/10/13 Status: Ordered lisinopril 5 mg oral tablet 5 mg, Tablet, By Mouth, 04/21/22 9:00:00 EDT Start Date: 04/21/22 Stop Date: 04/21/22 Status: Completed mupirocin 2% topical ointment 1 application, Topically, 3 times a day, # 15 Gm, 0 Refills, Maintenance, 04/15/22 0:09:00 EDT, Ointment, Partial fill upon patient request if the prescription is for a schedule II opioid drug. Start Date: 04/15/22 Status: Ordered Plavix 75 mg oral tablet 75 mg, 1, tablet, By Mouth, Daily, Refills 0, Maintenance, 04/21/22 15:34:00 EDT, Partial fill uponpatient request if the prescription is for a schedule II opioid drug. Start Date: 04/21/22 Status: Ordered triamcinolone 0.1% topical cream 1 application, Topically, 2 times a day, # 80 Gm, 0 Refills, Maintenance, 04/15/22 0:09:00 EDT, Cream, Partial fill upon patient request if the prescription is for a schedule II opioid drug. Start Date: 04/15/22 Status: Ordered Problem List Condition Effective Dates Status Health Status Inform ant Obese class II(Confirmed) Active Vital Signs Most recent to oldest [Reference Range]: 1 2 3 Height 170.2 cm (04/21/22 12:04 PM) 170.2 cm (04/21/22 8:26 AM) 170.2 cm (04/20/22 3:43 PM) Weight 115.8 kg (04/19/22 7:04 AM) 115.8 kg (04/14/22 11:45 PM) Oxygen Saturation [94-100 %] 97 % (04/21/22 3:00 PM) 96 % (04/21/22 12:04 PM) 98 % (04/21/22 8:26 AM) Pulse Rate [55-90 bpm] 86 bpm (04/21/22 3:00 PM) 80 bpm (04/21/22 12:04 PM) 86 bpm (04/21/22 8:26 AM) Body Mass Index [18.5-24.99] 39.98 *>HHI* (04/14/22 11:45 PM) Blood Pressure [90-138/55-84 mm Hg] 127/75mm Hg (04/21/22 3:00 PM) 116/66mm Hg (04/21/22 12:04 PM) 128/61mm Hg (04/21/22 9:05 AM) Respiratory Rate [16-30 br/min] 20 br/min (04/21/22 3:00 PM) 20 br/min (04/21/22 12:04 PM) 20 br/min (04/21/22 8:26 AM) Temperature [96.8-100.4 DegF] 99 DegF (04/21/22 3:00 PM) 98.1 DegF (04/21/22 12:04 PM) 97.4 DegF (04/21/22 8:26 AM) Liters per Minute 0 L/min (04/21/22 8:26 AM) 5 L/min (04/19/22 4:27 PM) 2 L/min (04/16/22 8:00 AM) Mode of Delivery (Oxygen) Room air (04/21/22 3:00 PM) Room air (04/21/22 12:04 PM) Room air (04/21/22 8:26 AM) Blood pressure sites Arm, right (04/21/22 3:00 PM) Arm, right (04/21/22 12:04 PM) Arm, right (04/21/22 8:26 AM) Temperature Route Temporal (04/21/22 3:00 PM) Temporal (04/21/22 12:04 PM) Temporal (04/21/22 8:26 AM) Dry Weight 115.8 kg (04/14/22 11:45 PM)
--- OUTSIDE RECORDS SUMMARY | 2024-06-17 17:29 | XMS_ITS | Continuity of Care Document ---
Author Organization [facility] Address Unknown Care Team Providers Care Mangle Operator Garments Name Role Phone Rai Reji BRAN Primary Care Physician [phone] Encounter [facility] [place] Date(s): 05/17/22 - 05/24/22 [facility] Attending Physician: Lisbet Arechiga MD, Yoli Allergies, Adverse Reactions, Alerts Substance Reaction Severity Status Lipitor Active Lantus Active rosuvastatin Active Januvia Active metFORMIN Active Invokana Active Trulicity Active Immunizations Given and Recorded Vaccine Date Status Refusal Reason SARS-CoV-2 (COVID-19) bULO-6818 vaccine 09/19/21 R ecorded Medications aspirin 81 [...]
--- OUTSIDE RECORDS SUMMARY | 2024-06-17 17:29 | XMS_ITS | Continuity of Care Document ---
Author Organization [facility] Address [address] [place] [address]- Care Team Providers Care Jacquard Lace Weaver Name Role Phone Rai Reji BRAN Primary Care Physician Encounter [facility] [place] Date(s): 05/11/22 - 06/10/22 [facility] [address] [place] [address]- Allergies, Adverse Reactions, Alerts Substance Reaction Severity Status Lipitor Active Lantus Active rosuvastatin Active Januvia Active metFORMIN Active Invokana Active Trulicity Active Immunizations Given and Recorded Vaccine Date Status Refusal Reason SARS-CoV-2 (COVID-19) mRNA-8524 vaccine 09/19/21 R ecorded Medications aspirin 81 [...]
--- OUTSIDE RECORDS SUMMARY | 2024-06-17 17:29 | XMS_ITS | Continuity of Care Document ---
Author Organization [facility] Address [address] [place] [address]- Care Team Providers Care Arboreal Scientist Name Role Phone Reji Atwood MD Primary Care Physician [place] [facility] [place] 04/02/24 - 06/06/24 [facility] [address] [place] [address]- Attending Physician: Delio Arevalo MD Admitting Physician: [...] Persons Name: GIANNA PAREDES Address: [address] [place] [address] Name: GAGAN PAREDES Address: [address] [place] [address] Name: GLEN PAREDES
--- OUTSIDE RECORDS SUMMARY | 2024-06-17 17:29 | XMS_ITS | Continuity of Care Document ---
Author Organization [facility] Address [address] [place] [address]- Care Team Providers Care Vocational Examiner Name Role Phone Rai Reji BRAN Primary Care Physician [phone] [place] [facility] [place] Date(s): 12/13/23 - 01/12/24 [facility] [address] [place] [address]- Allergies, Adverse Reactions, Alerts Substance Reaction Severity Status Lipitor Active Lantus Active Trulicity Active rosuvastatin Active Januvia Active metFORMIN Active Invokana Active Immunizations Given and Recorded Vaccine Date Status Refusal Reason SARS-CoV-2 (COVID-19) mRNA-2409 vaccine 09/19/21 R ecorded Medications aspirin 81 [...] Team Related Persons Name: GIANNA PAREDES Address: [address] [address] Name: GAGAN PAREDES Address: [address] [address] Name: GLEN PAREDES
--- OUTSIDE RECORDS SUMMARY | 2024-06-17 17:29 | XMS_ITS | Continuity of Care Document ---
Author Organization [facility] Address [address] [place] [address]- Care Team Providers Care Software Systems Analyst Name Role Phone Rai Reji BRAN Primary Care Physician Encounter [facility] [place] Date(s): 06/19/23 - 07/19/23 [facility] [address] [place] [address]- Attending Physician: Josue Gonsales Admitting Physician: Josue Gonsales Referring Physician: AdmtrJosue Allergies, Adverse Reactions, Alerts Substance Reaction Severity Status Lipitor Active Lantus Active rosuvastatin Active Trulicity Active Januvia Active metFORMIN Active Invokana Active Immunizations Given and Recorded Vaccine Date Status Refusal Reason SARS-CoV-2 (COVID-19) mRNA-1279 vaccine 09/19/21 R ecorded Medications aspirin 81 [...] Persons Name: GIANNA PAREDES Address: [address] [place], [place] Name: GAGAN PAREDES Address: [address] [place] [address] Name: GLEN PAREDES
--- OUTSIDE RECORDS SUMMARY | 2024-06-17 17:29 | XMS_ITS | Continuity of Care Document ---
Author Organization [facility] Address [address] [place] [address]- Care Team Providers Care Embosser Apprentice Name Role Phone Rai Reji BRAN Primary Care Physician [phone] [place] [facility] [place]23 - 08/23/23 [facility] [address] [place] [address]- Attending Physician: Josue Gonsales Admitting Physician: Josue [...] Persons Name: GIANNA PAREDES Address: [address] [place], [place] Name: GAGAN PAREDES Address: [address] [place] [address] Name: GLEN PAREDES
--- OUTSIDE RECORDS SUMMARY | 2024-06-17 17:29 | XMS_ITS | Continuity of Care Document ---
Author Organization [facility] Address [address] [place] [address]- Care Team Providers Care Operational Risk Consultant Name Role Phone Reji Atwood MD Primary Care Physician En[place] [facility] [place] Date(s): 12/21/22 - 02/23/23 [facility] [address] [place] [address]- Attending Physician: Delio Arevalo MD Admitting Physician: Delio Arevalo MD Referring Physician: Reji Atwood MD Allergies, Adverse Reactions, Alerts Substance Reaction Severity Status Lipitor Active Lantus Active rosuvastatin Active Januvia Active metFORMIN Active Invokana Active Trulicity Active Immunizations Given and Recorded Vaccine Date Status Refusal Reason SARS-CoV-2 (COVID-19) mRNA-1872 vaccine 09/19/21 R ecorded Medications aspirin 81 [...] Persons Name: GIANNA PAREDES Address: [address] [place], [place] Name: GAGAN PAREDES Address: [address] [place] [address] Name: GLEN PAREDES
--- OUTSIDE RECORDS SUMMARY | 2024-06-17 17:29 | XMS_ITS | Continuity of Care Document ---
Author Organization [facility] Address [address] [place] [address]- Care Team Providers Care Short Range Air Defense Artillery Name Role Phone Rai Reji BRAN Primary Care Physician Encounter [facility] [place] Date(s): 05/07/24 - 06/06/24 [facility] [address] [place] [address]- Attending Physician: Josue Gonsales Admitting Physician: Josue [...] Persons Name: GIANNA PAREDES Address: [address] [place], [place] Name: GAGAN PAREDES Address: [address] [place] [address] Name: GLEN PAREDES
--- OUTSIDE RECORDS SUMMARY | 2024-06-17 17:29 | XMS_ITS | Continuity of Care Document ---
Author Organization [facility] Address [address] [place] [address]- Care Team Providers Care Knotting Machine Operator Portable Name Role Phone Rai Reji BRAN Primary Care Physician Encounter [facility] [place] Date(s): 04/01/24 - 05/01/24 [facility] [address] [place] [address]- Attending Physician: Josue Gonsales Admitting Physician: Josue Gonsales Referring Physician: AdmtrJosue Allergies, Adverse Reactions, Alerts Substance Reaction Severity Status Lipitor Active Lantus Active Trulicity Active rosuvastatin Active Januvia Active metFORMIN Active Invokana Active Immunizations Given and Recorded Vaccine Date Status Refusal Reason SARS-CoV-2 (COVID-19) mRNA-1275 vaccine 09/19/21 R ecorded Medications aspirin 81 [...] Persons Name: GIANNA PAREDES Address: [address] [place], [place] Name: GAGAN PAREDES Address: [address] [place] [address] Name: GLEN PAREDES
--- OUTSIDE RECORDS SUMMARY | 2024-06-17 17:29 | XMS_ITS | Continuity of Care Document ---
Author Organization [facility] Address [address] [place] [address]- Care Team Providers Care Geology Teacher Name Role Phone Reji Atwood MD Primary Care Physician Encounter [facility] [place] Date(s): 06/21/23 - 08/24/23 [facility] [address] [place] [address]- Attending Physician: Delio Arevalo MD Admitting Physician: [...] Persons Name: GIANNA PAREDES Address: [address] [place] [address] Name: GAGAN PAREDES Address: [address] [place] [address] Name: GLEN PAREDES
--- OUTSIDE RECORDS SUMMARY | 2024-06-17 17:29 | XMS_ITS | Continuity of Care Document ---
Author Organization [facility] Address [address] [place] [address]- Care Team Providers Care Trench Pipe Layer Name Role Phone Reji Atwood MD Primary Care Physician [phone] [place] [facility] [place](s[place] 10/15/22 - 12/15/22 [facility] [address] [place] [address]- Attending Physician: Delio Arevalo MD Admitting Physician: Delio Arevalo MD Referring Physician: Reji Atwood MD Allergies, Adverse Reactions, Alerts Substance Reaction Severity Status Lipitor Active Lantus Active rosuvastatin Active Januvia Active metFORMIN Active Invokana Active Trulicity Active Immunizations Given and Recorded Vaccine Date Status Refusal Reason SARS-CoV-2 (COVID-19) mRNA-1926 vaccine 09/19/21 R ecorded Medications aspirin 81 [...] Persons Name: GIANNA PAREDES Address: [address] [place], [place] Name: GAGAN PAREDES Address: [address] [place] [address] Name: GLEN PAREDES
--- OUTSIDE RECORDS SUMMARY | 2024-06-17 17:29 | XMS_ITS | Continuity of Care Document ---
Author Organization [facility] Address [address] [place] [address]- Care Team Providers Care Insecticide Expert Name Role Phone Reji Atwood MD Primary Care Physician [place] [facility] [place]05/23 - 06/15/23 [facility] [address] [place] [address]- Attending Physician: Delio Arevalo MD Admitting Physician: Delio Arevalo MD Referring Physician: Reji Atwood MD Allergies, Adverse Reactions, Alerts Substance Reaction Severity Status Lipitor Active Lantus Active rosuvastatin Active Januvia Active metFORMIN Active Trulicity Active Invokana Active Immunizations Given and Recorded Vaccine Date Status Refusal Reason SARS-CoV-2 (COVID-19) mRNA-0138 vaccine 09/19/21 R ecorded Medications aspirin 81 [...] Persons Name: GIANNA PAREDES Address: [address] [place], [place] Name: GAGAN PAREDES Address: [address] [place] [address] Name: GLEN PAREDES
--- OUTSIDE RECORDS SUMMARY | 2024-06-17 17:29 | XMS_ITS | Continuity of Care Document ---
Author Organization [facility] Address [address] [place] [address]- Care Team Providers Care Mine Supervisor Name Role Phone Ari Reji BRAN Primary Care Physician [place] [facility] [place] Date(s): 04/03/23 - 05/03/23 [facility] [address] [place] [address]- Attending Physician: Josue Gonsales Admitting Physician: Josue [...] Persons Name: GIANNA PAREDES Address: [address] [place], [place] Name: GAGAN PAREDES Address: [address] [place] [address] Name: GLEN PAREDES
--- OUTSIDE RECORDS SUMMARY | 2024-06-17 17:29 | XMS_ITS | Continuity of Care Document ---
Author Organization [facility] Address [address] [place] [id number]- Care Team Providers Care Mangle Catcher Name Role Phone Rai Reji BRAN Primary Care Physician [phone] [place] [facility] [place] 02[place]23/23 [facility] [address] [place] [id number]- Attending Physician: Josue Gonsales Admitting Physician: Josue [...] Persons Name: GIANNA PAREDES Address: home [address] [place] [address] Name: GAGAN PAREDES Address: [address] [place] [address] Name: GLEN PAREDES
--- OUTSIDE RECORDS SUMMARY | 2024-06-17 17:29 | XMS_ITS | Continuity of Care Document ---
Author Organization [facility] Address [address] [place] [address]- Care Team Providers Care B2B Appointment Setter Name Role Phone Reji Atwood MD Primary Care Physician Encounter [facility] [place] Date(s): 09/13/22 - 11/14/22 [facility] [address] [place] [id number]- Attending Physician: Delio Arevalo MD Admitting Physician: Delio Arevalo MD Referring Physician: Reji Atwood MD Allergies, Adverse Reactions, Alerts Substance Reaction Severity Status Lipitor Active Lantus Active rosuvastatin Active Januvia Active metFORMIN Active Trulicity Active Invokana Active Immunizations Given and Recorded Vaccine Date Status Refusal Reason SARS-CoV-2 (COVID-19) [id number] vaccine 09/19/21 R ecorded Medications aspirin 81 [...] Persons Name: GIANNA PAREDES Address: home [address] [place], [place] Name: GAGAN PAREDES Address: [address] [place] [address] Name: GLEN PAREDES
--- OUTSIDE RECORDS SUMMARY | 2024-06-17 17:29 | XMS_ITS | Continuity of Care Document ---
Author Organization [facility] Address [address] [place] [id number]- Care Team Providers Care Extension Course Counselor Name Role Phone Reji Atwood MD Primary Care Physician [place] [facility] [place] 02/16/24 [facility] [address] [place] [id number]- Attending Physician: Delio Arevalo MD Admitting Physician: Delio Arevalo MD Referring Physician: Reji Atwood MD Allergies, Adverse Reactions, Alerts Substance Reaction Severity Status Lipitor Active Lantus Active rosuvastatin Active Januvia Active metFORMIN Active Invokana Active Trulicity Active Immunizations Given and Recorded Vaccine Date Status Refusal Reason SARS-CoV-2 (COVID-19) [id number] vaccine 09/19/21 R ecorded Medications aspirin 81 [...] Persons Name: GIANNA PAREDES Address: [address] [place], [place] Name: GAGAN PAREDES Address: [address] [place] [address] Name: GLEN PAREDES
--- NOTE | 2024-06-17 17:39 | PHA.MEDREC ---
Addendum entered by Helena Farr RPh 06/17/24 17:44: [facility] reviewed Original Note: Pharmacy Consult ? Medication Reconciliation Pharmacy has completed the medication reconciliation.
[2024-06-17 18:21] LABS: Reflex Lactate? 2 Y; ~Lactic Acid-LAB USE ONLY 2.4 mmol/L (0.5-2.0)
[2024-06-17] MEDS: Enoxaparin Sodium 40 MG/0.4 ML SYRINGE SUBCUT (18:22)
[2024-06-17] MEDS: vancomycin/NS 2,000 MG/500 ML PLAST..BAG 250 MG IV (18:22)
[2024-06-17 20:38] LABS: Glucose, Whole Blood 298 mg/dL (60-115)
[2024-06-17] MEDS: Insulin Lispro 100 UNIT/ML 3 ML VIAL SUBCUT (20:53)
[2024-06-17 21:00] LABS: ~Lactic Acid-LAB USE ONLY 2.6 mmol/L (0.5-2.0)
[2024-06-18] VITALS (10 sets, daily range): BP systolic 96–147; BP diastolic 48–86; PULSE 82–103; RESP 16–22; TEMP 36.4–37; O2SAT 93–97
[2024-06-18 07:35] LABS: Glucose, Whole Blood 271 mg/dL (60-115)
[2024-06-18] MEDS: vancomycin HCL 1,000 MG in 0.9 % Sodium Chloride 250 ML 270 MG IV ×2 (07:41→21:06)
[2024-06-18] MEDS: Insulin Lispro 100 UNIT/ML 3 ML VIAL SUBCUT ×4 (07:41→21:19)
[2024-06-18] MEDS: 0.9 % Sodium Chloride Flush 3 ML SYRINGE IVFLUSH ×3 (07:45→21:22)
--- NOTE | 2024-06-18 07:54 | PC.NURSE ---
Pt boosted in bed, given meal tray. Pt medicated per MAR, VS updated. Pt denies any complaints at this time. Awaiting inpatient bed assignment.
--- NOTE | 2024-06-18 08:16 | MHC.EDTECH ---
checked on patient to see if patient was wet patient was dry i set up patient with his breakfast tray
--- NOTE | 2024-06-18 09:39 | MHC.CM.PN ---
CM met with Patient at bedside, in the ED and addressed IMM with him, providing Patient with the original and a copy will be placed on the chart. Patient lives alone in a house, is still working and functionally independent/no DME. Home/self care is the goal and CM has initiated and will follow for dc planning. PCP is Dr. Babak Greene and Daughter/Son or Sister-in Law will transport to home.
--- NOTE | 2024-06-18 09:46 | PC.NURSE ---
Pt ambulatory to the BR with staff member to shave, per pt request with electric razor.
[2024-06-18] MEDS: Aspirin Enteric Coated 81 MG TABLET.DR PO ×2 (10:10→21:06)
[2024-06-18] MEDS: Clopidogrel Bisulfate 75 MG TABLET PO (10:10)
--- NOTE | 2024-06-18 10:14 | PC.NURSE ---
Daughter at bedside visiting. Pt given am medications without incident. Call gunn within reach.
--- NOTE | 2024-06-18 11:23 | MHC.EDTECH ---
patient had a BM put patient on a bed murphy and clean his bed I did a full bed change on him patient ask for some douglas evens gave him 2 cans of douglas evens
[2024-06-18 11:24] LABS: Hematocrit 39.8 % (42.0-52.0); Hemoglobin 13.6 g/dl (14.0-18.0); Mean Corpuscular HGB Conc 34.2 g/dl (31.0-36.0); Mean Corpuscular Hemoglobin 31.7 pg (27.0-33.0); Mean Corpuscular Volume 92.8 fL (80.0-98.0); Mean Platelet Volume 10.6 fL (9.4-12.4); Platelet Count 197 X10*3/uL (160-400); Red Blood Count 4.29 X10*6/uL (4.60-5.80); Red Cell Distribution Width 13.5 % (11.0-16.0); White Blood Count 15.4 X10*3/uL (4.8-10.8)
[2024-06-18 11:36] LABS: Creatinine Clr Calc Pharmacy 98.2; Estimated Glomerular Filt Rate > 60
--- NOTE | 2024-06-18 11:50 | HO.PM.IMPN ---
Subjective Subjective Date of Service: 06/19/24 Interval History: Being followed for sepsis due to left lower extremity cellulitis, weakness and rhabdomyolysis. Offers no acute complaints denies pain, slept well, tolerated CPAP for short duration, denies lightheadedness, no dizziness, no nausea, no vomiting, no pain no other acute events overnight Review of Systems All other system reviewed and negative. Physical Exam Vital Signs: Vital Signs: Last Vital Signs Temp 98.6 F 06/18/24 11:22 Pulse 103 H 06/18/24 11:22 Resp 22 H 06/18/24 11:22 BP 141/63 H 06/18/24 11:22 Pulse Ox 94 06/18/24 11:22 O2 Del Method Room Air 06/18/24 11:22 BMI result Body Mass Index 38.3 Const: Other: General awake alert x3 resting comfortably in no acute distress. Anicteric sclera Neck supple no JVD. CVS regular rate rhythm, good peripheral pulses Respiratory lungs clear to auscultation, no respiratory distress, no wheeze, no rhonchi. Gastrointestinal abdomen soft, non tender, bowel sounds audible, no guarding , no rigidity. Extremities left leg > rt, left lower extremity redness, warmth improving, chronic venous stasis changes with thick skin Coccyx deep tissue injury Neuro non focal Psych appropriate affect Objective Data Active Medications Acetaminophen (Acetaminophen 325 Mg Tablet) 650 mg PO Q6H PRN PRN Reason: Pain, Mild (Pain Scale 1-3), fever or headache Aspirin (Aspirin Enteric Coated 81 Mg Tablet.) 81 mg PO BID [facility] Last Admin: 06/18/24 10:10 Dose: 81 mg Documented By: MATEO Atorvastatin Calcium (Atorvastatin Calcium 40 Mg Tablet) 40 mg PO BEDTIME [facility] Calcium Carbonate (Calcium Carbonate 750 Mg Tab.Chew) 750 mg PO Q4H PRN PRN Reason: Heartburn Clopidogrel Bisulfate (Clopidogrel Bisulfate 75 Mg Tablet) 75 mg PO DAILY [facility] Last Admin: 06/18/24 10:10 Dose: 75 mg Documented By: MATEO Enoxaparin Sodium (Enoxaparin Sodium 40 Mg/0.4 Ml Syringe) 40 mg SUBCUT Q24H [facility] Last Admin: 06/17/24 18:22 Dose: 40 mg Documented By: CLARISA Glucose (Glucose Gel 15 Gm Gel..Gram.) 15 gm PO Q15M PRN; Protocol PRN Reason: per Hypoglycemia Standing Ord. Vancomycin HCl 1,000 mg/ (Sodium Chloride) 270 mls @ 270 mls/hr IV Q12H [facility] Last Infusion: 06/18/24 08:41 Dose: Infused Documented By: MATEO Dextrose (D10) 250 mls @ 750 mls/hr IV Q15M PRN; Protocol PRN Reason: per Hypoglycemia Standing Ord. Insulin Human Lispro (Insulin Lispro 100 Unit/Ml 3 Ml Vial) 0 unit SUBCUT QIDACHS [facility]; Protocol Last Admin: 06/18/24 07:41 Dose: 6 unit Documented By: MATEO Levothyroxine Sodium (Levothyroxine Sodium 112 Mcg Tablet) 112 mcg PO DAILY@0600 [facility] Magnesium Hydroxide (Milk Of Magnesia 30 Ml Oral.Susp) 30 ml PO DAILY PRN PRN Reason: Constipation Melatonin (Melatonin 3 Mg Tablet) 6 mg PO BEDTIME PRN PRN Reason: Insomnia Non-Formulary Medication (Insulin Degludec [Tresiba U-100 Insulin]) 28 unit SUBCUT BID [facility] Ondansetron HCl (Ondansetron Hcl 4 Mg/2 Ml Vial) 4 mg IVPUSH Q8H PRN PRN Reason: Nausea and Vomiting Pharmacy Consult (Consult Rx Vancomycin Dosing) 1 each MISCELLANE DAILY PRN PRN Reason: Consult order Polyethylene Glycol (Polyethylene Glycol 3350 17 Gm Powd.Pack) 17 gm PO DAILY PRN PRN Reason: Constipation Sodium Chloride (0.9 % Sodium Chloride Flush 3 Ml Syringe) 3 ml IVFLUSH QSHIFT [facility] Last Admin: 06/18/24 07:45 Dose: 3 ml Documented By: MATEO Labs 06/18/24 11:18 06/19/24 06:19 Labs: Laboratory Results - last 24 hr 06/17/24 06/17/24 06/17/24 12:19 15:43 16:14 MCV 93.3 MCH 31.6 MCHC 33.9 RDW 13.4 Plt Count 225 MPV 11.3 Immature Gran % (Auto) 0.5 H Neut % (Auto) 87.3 H Lymph % (Auto) 6.1 L [place] % (Auto) 5.9 Eos % (Auto) 0.0 Baso % (Auto) 0.2 Lymph # (Auto) 0.9 L [place] # (Auto) 0.8 Eos # (Auto) 0.0 Baso # (Auto) 0.0 Abs Immat Gran (auto) 0.07 H Absolute Neuts (auto) 12.5 H Absolute Nucleated RBC 0.000 Nucleated RBC % (auto) 0.0 PT 13.0 INR 1.1 Anion Gap 22 H Estim Creat Clear Calc 96.0 Estimated GFR > 60 POC Glucose Random Glucose 318 H Lactic Acid 3.5 H* Lactic Acid F/U @ 2Hr 2.4 H* Lactic Acid F/U @ 4Hr Calcium 9.5 D Magnesium 3.0 H Total Bilirubin 1.3 H Direct Bilirubin 0.6 H AST 79 H ALT 83 H Alkaline Phosphatase 75 Total Creatine Kinase 1901 H 1949 H Troponin I High Sens 4.9 Total Protein 7.2 Albumin 3.4 L Urine Color Dark Yellow Urine Appearance Clear Urine pH 5.5 Ur Specific [place] >= 1.030 H Urine Protein Trace Urine Glucose (UA) >=1000 H Urine Ketones 15 Urine Blood Negative Urine Nitrite Negative Ur Leukocyte Esterase Negative Urine RBC 0-2 Urine WBC 0-5 Ur Squamous Epith Cells 3-5 Urine Bacteria None Seen Hyaline Casts 6-10 Granular Casts Present COVID-19 (JENNIFER) Cancelled COVID-19 Clin Com Cancelled 06/17/24 06/17/24 06/17/24 16:24 20:08 20:29 MCV MCH MCHC RDW Plt Count MPV Immature Gran % (Auto) Neut % (Auto) Lymph % (Auto) [place] % (Auto) Eos % (Auto) Baso % (Auto) Lymph # (Auto) [place] # (Auto) Eos # (Auto) Baso # (Auto) Abs Immat Gran (auto) Absolute Neuts (auto) Absolute Nucleated RBC Nucleated RBC % (auto) PT INR Anion Gap Estim Creat Clear Calc Estimated GFR POC Glucose 298 H Random Glucose Lactic Acid Lactic Acid F/U @ 2Hr Lactic Acid F/U @ 4Hr 2.6 H* Calcium Magnesium Total Bilirubin Direct Bilirubin AST ALT Alkaline Phosphatase Total Creatine Kinase Troponin I High Sens Total Protein Albumin Urine Color Urine Appearance Urine pH Ur Specific [place] Urine Protein Urine Glucose (UA) Urine Ketones Urine Blood Urine Nitrite Ur Leukocyte Esterase Urine RBC Urine WBC Ur Squamous Epith Cells Urine Bacteria Hyaline Casts Granular Casts COVID-19 (JENNIFER) Negative COVID-19 Clin Com See Note 06/18/24 06/18/24 06:59 11:18 MCV 92.8 MCH 31.7 MCHC 34.2 RDW 13.5 Plt Count 197 MPV 10.6 Immature Gran % (Auto) Neut % (Auto) Lymph % (Auto) [place] % (Auto) Eos % (Auto) Baso % (Auto) Lymph # (Auto) [place] # (Auto) Eos # (Auto) Baso # (Auto) Abs Immat Gran (auto) Absolute Neuts (auto) Absolute Nucleated RBC 0.000 Nucleated RBC % (auto) 0.0 PT INR Anion Gap Estim Creat Clear Calc 98.2 Estimated GFR > 60 POC Glucose 271 H Random Glucose Lactic Acid Lactic Acid F/U @ 2Hr Lactic Acid F/U @ 4Hr Calcium Magnesium Total Bilirubin Direct Bilirubin AST ALT Alkaline Phosphatase Total Creatine Kinase Troponin I High Sens Total Protein Albumin Urine Color Urine Appearance Urine pH Ur Specific [place] Urine Protein Urine Glucose (UA) Urine Ketones Urine Blood Urine Nitrite Ur Leukocyte Esterase Urine RBC Urine WBC Ur Squamous Epith Cells Urine Bacteria Hyaline Casts Granular Casts COVID-19 (JENNIFER) COVID-19 Clin Com Microbiology Microbiology Results: Microbiology 06/17/24 12:34 Blood Culture - Preliminary Blood - Venous Prelim: GPC Gram Stain only 06/17/24 12:28 Blood Culture - Preliminary Blood - Venous Prelim: GPC Gram Stain only Assessment and Plan (1) Cellulitis: Status: Acute (2) Leukocytosis: Status: Acute (3) Elevated lactic acid level: Status: Acute (4) Rhabdomyolysis: Status: Acute (5) Obstructive sleep apnea (adult) (pediatric): Status: Acute Plan 69-year-old gentleman with history of obstructive sleep apnea, diabetes mellitus, hypothyroidism, hyperlipidemia, hypertension, CVA on dual antiplatelet therapy slid out of bed last night landing on the ground on his buttocks, unable to get up since then and brought to [facility] this morning patient denies loss of consciousness, no preceding symptoms of lightheadedness, or dizziness, patient noted to be incontinent of urine, diagnosed to have sepsis likely due to left lower extremity cellulitis and an anion gap acidosis. Sepsis likely due to left lower extremity cellulitis due to diabetes mellitus/ch venous stasis wounds. IV vancomycin started on 06/17 Follow CBC,follow blood culture x2 Chest x-ray benign, UA negative Keep legs elevated/wound nurse consult Anion gap metabolic acidosis likely due to acute lactic acidosis Resolved with IV fluids Acute mild rhabdomyolysis s/p IV fluids, follow CPK. Hypermagnesemia repeat magnesium trending down, not on magnesium supplements, normal renal function Generalized weakness PT eval Diabetes mellitus type 2 on insulin presented with hyperglycemia, on insulin sliding scale, diabetic diet,on Tresiba b.i.d. at home but ran out of prescription few days ago. Follow blood sugar, send script of Tresiba to pharmacy Adjust insulin sliding scale. Hypothyroidism resume levothyroxine, TSH pending Hyperlipidemia Lipitor 40 mg Hypertension on lisinopril follow bp History of CVA continue Plavix and aspirin. Class 2 obesity recommend low-calorie diet and nutrition consult. ROLO not using CPAP regularly, encourage CPAP Sacral pressure wound unstageable /deep tissue injury present on admission, follow wound nurse consult. Full code In my clinical judgment patient requires continued inpatient hospitalization management of sepsis likely due to cellulitis requiring IV antibiotics and close electrolyte monitoring. Quality Stroke Does the patient have a stroke diagnosis?: No VTE Prior VTE?: No VTE Risk Level:: Medical - moderate - high VTE Device Contraindication: Treatment Not Indicated VTE Drug Contraindication: N/A - Med Ordered
[2024-06-18 11:53] LABS: Anion Gap 12 (12-20); Blood Urea Nitrogen 54 mg/dL (9-16); Calcium 8.3 mg/dL (8.4-10.2); Carbon Dioxide 25 mmol/L (22-29); Chloride 103 mmol/L (96-108); Creatinine Clr Calc Pharmacy 99.4; Estimated Glomerular Filt Rate > 60; Glucose Random 367 mg/dL (60-115); Magnesium 2.7 mg/dL (1.6-2.6); Potassium 4.5 mmol/L (3.3-5.1); Sodium 135 mmol/L (135-145)
[2024-06-18 12:03] LABS: Glucose, Whole Blood 344 mg/dL (60-115)
[2024-06-18 12:14] LABS: Thyroid Stimulating Hormone 5.06 uIU/mL (0.32-4.0)
--- NOTE | 2024-06-18 14:00 | MHC.EDTECH ---
patient had BM Gave him a be bed bath and gave him water
--- NOTE | 2024-06-18 14:01 | PC.NURSE ---
PT working with patient.
--- NOTE | 2024-06-18 15:39 | MHC.EDTECH ---
This pct assumed care of patient at 1500 ,vitals taken ,pt comfortable ,no apparent distress noted ,plan of care continue ,will continue to monitor .
--- NOTE | 2024-06-18 16:53 | MHC.EDTECH ---
KAIA Christian said not to check blood sugar until dinner comes .
[2024-06-18 18:07] LABS: Glucose, Whole Blood 277 mg/dL (60-115)
[2024-06-18] MEDS: Enoxaparin Sodium 40 MG/0.4 ML SYRINGE SUBCUT (18:27)
[2024-06-18 19:42] LABS: Vancomycin Random 11.9 mcg/mL (15-20)
[2024-06-18 21:02] LABS: Glucose, Whole Blood 234 mg/dL (60-115)
[2024-06-18] MEDS: Atorvastatin Calcium 40 MG TABLET PO (21:06)
[2024-06-19] VITALS (9 sets, daily range): BP systolic 102–136; BP diastolic 42–66; PULSE 76–94; RESP 14–20; TEMP 36–37.1; O2SAT 92–100
[2024-06-19] MEDS: Levothyroxine Sodium 112 MCG TABLET PO (05:39)
--- NOTE | 2024-06-19 06:23 | HO.SKINPHOTO ---
Location: Buttocks Location: L Leg/L heel
[2024-06-19 06:52] LABS: Creatinine Clr Calc Pharmacy 104.2; Estimated Glomerular Filt Rate > 60
[2024-06-19 07:12] LABS: Glucose, Whole Blood 205 mg/dL (60-115)
[2024-06-19] MEDS: Aspirin Enteric Coated 81 MG TABLET.DR PO ×2 (08:29→21:59)
[2024-06-19] MEDS: Insulin Lispro 100 UNIT/ML 3 ML VIAL SUBCUT ×4 (08:29→21:59)
[2024-06-19] MEDS: Clopidogrel Bisulfate 75 MG TABLET PO (08:29)
[2024-06-19] MEDS: vancomycin HCL 1,000 MG in 0.9 % Sodium Chloride 250 ML 270 MG IV (09:16)
[2024-06-19 12:09] LABS: Glucose, Whole Blood 294 mg/dL (60-115)
--- NOTE | 2024-06-19 13:35 | HO.PM.IMPN ---
Subjective Subjective Date of Service: 06/19/24 Interval History: Being followed for cellulitis/sepsis/rhabdo and weakness Offers no acute complaints, resting comfortably tolerating diet, no nausea, no vomiting, no fevers, no chills blood sugars in 200 range. Review of Systems All other system reviewed and are negative Physical Exam Vital Signs: Vital Signs: Last Vital Signs Temp 97.5 F 06/19/24 12:00 Pulse 87 06/19/24 12:00 Resp 20 06/19/24 12:00 BP 102/42 L 06/19/24 12:00 Pulse Ox 98 06/19/24 12:00 O2 Del Method Room Air 06/19/24 12:00 BMI result Body Mass Index 38.3 Const: Other: General awake alert x3 resting comfortably in no acute distress. Anicteric sclera Neck supple no JVD. CVS regular rate rhythm, good peripheral pulses Respiratory lungs clear to auscultation, no respiratory distress, no wheeze, no rhonchi. Gastrointestinal abdomen soft, non tender, bowel sounds audible, no guarding , no rigidity. Extremities left leg > rt, left lower extremity less erythema and swelling, chronic venous stasis changes with thick skin Coccyx deep tissue injury Neuro non focal Psych appropriate affect Objective Data Active Medications Acetaminophen (Acetaminophen 325 Mg Tablet) 650 mg PO Q6H PRN PRN Reason: Pain, Mild (Pain Scale 1-3), fever or headache Aspirin (Aspirin Enteric Coated 81 Mg Tablet.) 81 mg PO BID [facility] Last Admin: 06/19/24 08:29 Dose: 81 mg Documented By: CRISELDA Atorvastatin Calcium (Atorvastatin Calcium 40 Mg Tablet) 40 mg PO BEDTIME [facility] Last Admin: 06/18/24 21:06 Dose: 40 mg Documented By: FOREST Calcium Carbonate (Calcium Carbonate 750 Mg Tab.Chew) 750 mg PO Q4H PRN PRN Reason: Heartburn Clopidogrel Bisulfate (Clopidogrel Bisulfate 75 Mg Tablet) 75 mg PO DAILY [facility] Last Admin: 06/19/24 08:29 Dose: 75 mg Documented By: CRISELDA Collagenase (Collagenase Clostridium Hist. 30 Gm Tube) 1 appl TOPICAL DAILY [facility]; Protocol Enoxaparin Sodium (Enoxaparin Sodium 40 Mg/0.4 Ml Syringe) 40 mg SUBCUT Q24H [facility] Last Admin: 06/18/24 18:27 Dose: 40 mg Documented By: SHYLA Glucose (Glucose Gel 15 Gm Gel..Gram.) 15 gm PO Q15M PRN; Protocol PRN Reason: per Hypoglycemia Standing Ord. Dextrose (D10) 250 mls @ 750 mls/hr IV Q15M PRN; Protocol PRN Reason: per Hypoglycemia Standing Ord. Ceftriaxone Sodium 2 gm/ (Sodium Chloride) 50 mls @ 100 mls/hr IV Q24H [facility] Insulin Human Lispro (Insulin Lispro 100 Unit/Ml 3 Ml Vial) 0 unit SUBCUT QIDACHS [facility]; Protocol Last Admin: 06/19/24 12:14 Dose: 10 unit Documented By: CRISELDA Levothyroxine Sodium (Levothyroxine Sodium 112 Mcg Tablet) 112 mcg PO DAILY@0600 [facility] Last Admin: 06/19/24 05:39 Dose: 112 mcg Documented By: FOREST Magnesium Hydroxide (Milk Of Magnesia 30 Ml Oral.Susp) 30 ml PO DAILY PRN PRN Reason: Constipation Melatonin (Melatonin 3 Mg Tablet) 6 mg PO BEDTIME PRN PRN Reason: Insomnia Non-Formulary Medication (Insulin Degludec [Tresiba U-100 Insulin]) 28 unit SUBCUT BID [facility] Ondansetron HCl (Ondansetron Hcl 4 Mg/2 Ml Vial) 4 mg IVPUSH Q8H PRN PRN Reason: Nausea and Vomiting Pharmacy Consult (Consult Rx Vancomycin Dosing) 1 each MISCELLANE DAILY PRN PRN Reason: Consult order Polyethylene Glycol (Polyethylene Glycol 3350 17 Gm Powd.Pack) 17 gm PO DAILY PRN PRN Reason: Constipation Sodium Chloride (0.9 % Sodium Chloride Flush 3 Ml Syringe) 3 ml IVFLUSH QSHIFT [facility] Last Admin: 06/19/24 08:29 Dose: Not Given Documented By: CRISELDA Non-Admin Reason: No Access Labs 06/18/24 11:18 06/19/24 06:19 Labs: Laboratory Results - last 24 hr 06/18/24 06/18/24 06/18/24 17:59 18:53 20:58 Estim Creat Clear Calc Estimated GFR POC Glucose 277 H 234 H Random Vancomycin 11.9 L 06/19/24 06/19/24 06/19/24 06:19 07:01 11:58 Estim Creat Clear Calc 104.2 Estimated GFR > 60 POC Glucose 205 H 294 H Random Vancomycin Microbiology Microbiology Results: Microbiology 06/17/24 12:34 Blood Culture - Final Blood - Venous Strep agalactiae (Grp B) 06/17/24 12:28 Blood Culture - Final Blood - Venous Strep agalactiae (Grp B) Assessment and Plan (1) Cellulitis: Status: Acute (2) Leukocytosis: Status: Acute (3) Elevated lactic acid level: Status: Acute (4) Rhabdomyolysis: Status: Acute Plan 69-year-old gentleman with history of obstructive sleep apnea, diabetes mellitus, hypothyroidism, hyperlipidemia, hypertension, CVA on dual antiplatelet therapy slid out of bed last night landing on the ground on his buttocks, unable to get up since then and brought to [facility] this morning patient denies loss of consciousness, no preceding symptoms of lightheadedness, or dizziness, patient noted to be incontinent of urine, diagnosed to have sepsis likely due to left lower extremity cellulitis and an anion gap acidosis. Sepsis likely due to left lower extremity cellulitis due to diabetes mellitus/ch venous stasis wounds. Blood cultures x2 positive for strep agalactie On IV vancomycin started on 06/17, will transition to IV ceftriaxone, repeat blood cultures x2, follow CBC Chest x-ray benign, UA negative Keep legs elevated Anion gap metabolic acidosis likely due to acute lactic acidosis. Resolved with IV fluids Acute mild rhabdomyolysis s/p IV fluids, follow CPK. Hypermagnesemia repeat magnesium trending down, not on magnesium supplements, normal renal function Generalized weakness PT recommend short-term rehab Diabetes mellitus type 2 on insulin presented with hyperglycemia, on insulin sliding scale, diabetic diet,on Tresiba b.i.d. at home but ran out of prescription few days ago. Follow blood sugar, send script of Tresiba to pharmacy Adjust insulin sliding scale. Hypothyroidism resume levothyroxine, TSH 5.06 , will increase dose to 125 mcg daily, follow TSH in 6 weeks. Hyperlipidemia Lipitor 40 mg Hypertension soft BP lisinopril on hold History of CVA continue Plavix and aspirin. Class 2 obesity recommend low-calorie diet ROLO not using CPAP regularly, continue CPAP at bedtime Sacral pressure wound unstageable /deep tissue injury present on admission, seen by wound nurse recommended Santyl dressing, will obtain surgical consult for dressing Full code In my clinical judgment patient requires continued inpatient hospitalization management of sepsis/bacteremia likely due to cellulitis requiring IV antibiotics and close electrolyte monitoring. Quality Stroke Does the patient have a stroke diagnosis?: No VTE Prior VTE?: No VTE Risk Level:: Medical - moderate - high VTE Device Contraindication: Treatment Not Indicated VTE Drug Contraindication: N/A - Med Ordered
[2024-06-19] MEDS: cefTRIAXone sodium 2 GM in 0.9 % Sodium Chloride 50 ML IV (14:27)
--- NOTE | 2024-06-19 15:54 | HO.WOUND ---
Wound Consult: Initial 69yr old? admitted to [facility] on 06/17/24 17:13 - See progress notes and H&P for detailed history.? Wound consult placed for Buttock and bilateral Heels.? Patient agreeable to assessment and photo documentation.? Patient reports he was down at his home after a fall for approximately 10 hours on his back without being able to get up. Sacum Etiology: Unstageable Pressure Injury Present on Admission Measurements:11 cm x 8cm x 0.2cm Wound Bed: moist black eschar Drainage / Odor: Mild odor noted - brink drainage Edges: ?irregular Maria L wound: ? red blanchable tissue No Induration, Fluctuance or Warmth noted Pain: tenderness reported Goals of Treatment: Off Load and Santyl for enzymatic debridement - general surgery consult to assess for debridement Right Heel Left Heel Bilateral Heels Etiology: Deep Tissue Injury Present on Admission Measurements:see charting for measurement Wound Bed: intact dark purple nonblanchable tissue Drainage / Odor: None Edges: ?irregular Maria L wound: ? red blanchable tissue No Induration, Fluctuance or Warmth noted Pain: Pain reported Goals of Treatment: Off Load Pressure - Heel Protector boots while in bed Mid Thoracic Back Etiology: Deep Tissue Injury Present on Admission Wound Bed: intact serous filled blisters and dark maroon purple nonblanchable tissue Drainage / Odor: None Edges: ?irregular Maria L wound: Intact No Induration, Fluctuance or Warmth noted Pain: denies Goals of Treatment: Off Load Pressure with foam dressing to protect from friciton and pressure Left Posterior Leg Etiology: Venous Dermatitis Wound Bed: moist red tissue Drainage / Odor: serous drainage noted Edges: ?irregular Maria L wound: ? Macerated edges red blanchable tissue No Induration, Fluctuance or Warmth noted Pain: tenderness reported Goals of Treatment: Lower Leg elevation and Durafiber AG to aid in moisture management Recommendations: 1. Turn and Reposition every 2 hours and as needed for patient comfort.? Use pillows or wedges to support off loading positions. 2. Off Load all bony prominences with use of pillows and heel boots if needed.? Apply Preventative foams where needed. ? 3. Monitor for incontinence and moisture control, use barrier creams when needed for prevention and treatment. 4. Provide adequate and supplemental nutrition.? 5. Order low air loss mattress. 6. When applicable maintain blood glucose levels per Providers order. 7. Bilateral Heels - Elevate lower legs - Apply skin prep to heels. Place in Heel Protector boots when in bed to off load pressure. 8. Sacrum - Off Load Pressure - Cleanse with normal saline, pat dry. ?Apply barrier to the immediate maria l wound, apply thick layer of Santyl to entire wound bed, cover with saline moist gauze, secure ABD Pad, change Daily. 9. Left Lower Leg - Elevate lower legs off of surface of bed with use of pillows.? Cleanse with NS, Pat dry.? Apply vaseline to both legs, apply layer of Durafiber AG to open wound beds secure with ABD pad, gauze wrap and tape.? Change every other day.. 10. Mid Thoracic Spine - Routine cleansing, Apply foam dressing peel back and assess change every 5 days and PRN. Re-consult wound care Nurse for wound deterioration or wound changes.
--- NOTE | 2024-06-19 15:56 | PM.CNGS ---
History of Present Illness Consult details Consult date: 06/19/24 Narrative: 69-year-old male referred because of a sacrococcygeal decubitus ulcer. He was admitted on June 17, 2024 after he was found at home on the floor. He apparently had not been responding to phone calls from his family. It was uncertain as to how long he had been on the floor but it appears that he had been there all night He was extremely weak and was noted to have rhabdomyolysis and elevated lactate levels. He also had significant cellulitis of the left lower leg along with edema which was deemed to be the source of sepsis He was also noted to have this large sacral decubitus ulcer so General surgery was consulted He says that he is now able to get up to the recliner. He says that he feels a little stronger compared to when he was 1st admitted. He does state that he has had this left leg edema for a long time. He also admits that he has never been very mobile because of his severe rheumatoid arthritis. He also has polymyalgia rheumatica and diabetes.. Review of Systems Constitutional: Constitutional: Reports chills and Denies fever(s) Cardiovascular: Cardiovascular: Reports dyspnea on exertion Respiratory: Respiratory: Reports dyspnea on exertion Comments: Sleep apnea Gastrointestinal: Gastrointestinal: Denies abdominal pain Musculoskeletal: Musculoskeletal: Reports abnormal gait, Reports back pain, Reports myalgias, Reports arthralgias, Reports limited range of motion and Reports muscle weakness Neurologic: Reports abnormal gait PMFSH Past Medical History Medical History (Updated 06/19/24 @ 16:03 by Steve Paiz MD) Sacral decubitus ulcer TIA (transient ischemic attack) Solitary left kidney Osteoarthritis Type 2 diabetes mellitus with hyperglycemia Erectile dysfunction Hypercholesterolemia Polymyalgia rheumatica Vitamin D deficiency Hypothyroid Migraine Obesity Alcohol abuse Tobacco abuse Hypertension Family History Family History Father Diabetes Mother Melanoma Maternal Uncle Colon cancer Surgical History Surgical History History of colonoscopy Hx of tonsillectomy History of total left knee replacement History of arthroscopy of both knees Social History Social History Household Members: None Housing: House Do you presently have visiting nurse or other home services: No Alcohol intake: former Patient Tobacco Use Status: Never used Tobacco Tobacco use type: Cigar and Pipe Years Smoked: 50 stopped 08/2022 e-Cigarette/Vaping Use: Currently Using Second Hand Smoke Exposure: Yes service: Yes Current occupational status: employed Cognitive needs: Yes Hearing needs: No Vision needs: Yes Meds Allergies Allergy/AdvReac Type Severity Reaction Status Date / Time canagliflozin [Invokana] Allergy Unknown hives Verified 06/17/24 11:41 dulaglutide [Trulicity] Allergy Unknown hives Verified 06/17/24 11:41 insulin glargine Allergy Unknown Hives Verified 06/17/24 11:41 [From Lantus U-100 Insulin] metformin [METFORMIN] Allergy Unknown HIVES Verified 06/17/24 11:41 rosuvastatin Allergy Unknown Unknown Verified 06/17/24 11:41 sitagliptin [From JANUVIA] Allergy Unknown HIVES Verified 06/17/24 11:41 Active Medications: Current Medications Acetaminophen (Acetaminophen 325 Mg Tablet) 650 mg PO Q6H PRN PRN Reason: Pain, Mild (Pain Scale 1-3), fever or headache Aspirin (Aspirin Enteric Coated 81 Mg Tablet.) 81 mg PO BID [facility] Last Admin: 06/19/24 08:29 Dose: 81 mg Atorvastatin Calcium (Atorvastatin Calcium 40 Mg Tablet) 40 mg PO BEDTIME [facility] Last Admin: 06/18/24 21:06 Dose: 40 mg Calcium Carbonate (Calcium Carbonate 750 Mg Tab.Chew) 750 mg PO Q4H PRN PRN Reason: Heartburn Clopidogrel Bisulfate (Clopidogrel Bisulfate 75 Mg Tablet) 75 mg PO DAILY [facility] Last Admin: 06/19/24 08:29 Dose: 75 mg Collagenase (Collagenase Clostridium Hist. 30 Gm Tube) 1 appl TOPICAL DAILY [facility]; Protocol Last Admin: 06/19/24 14:03 Dose: Not Given Enoxaparin Sodium (Enoxaparin Sodium 40 Mg/0.4 Ml Syringe) 40 mg SUBCUT Q24H [facility] Last Admin: 06/18/24 18:27 Dose: 40 mg Glucose (Glucose Gel 15 Gm Gel..Gram.) 15 gm PO Q15M PRN; Protocol PRN Reason: per Hypoglycemia Standing Ord. Dextrose (D10) 250 mls @ 750 mls/hr IV Q15M PRN; Protocol PRN Reason: per Hypoglycemia Standing Ord. Ceftriaxone Sodium 2 gm/ (Sodium Chloride) 50 mls @ 100 mls/hr IV Q24H [facility] Last Infusion: 06/19/24 15:08 Dose: Infused Insulin Human Lispro (Insulin Lispro 100 Unit/Ml 3 Ml Vial) 0 unit SUBCUT QIDACHS [facility]; Protocol Last Admin: 06/19/24 12:14 Dose: 10 unit Levothyroxine Sodium (Levothyroxine Sodium 125 Mcg Tablet) 125 mcg PO DAILY@0600 [facility] Magnesium Hydroxide (Milk Of Magnesia 30 Ml Oral.Susp) 30 ml PO DAILY PRN PRN Reason: Constipation Melatonin (Melatonin 3 Mg Tablet) 6 mg PO BEDTIME PRN PRN Reason: Insomnia Non-Formulary Medication (Insulin Degludec [Tresiba U-100 Insulin]) 28 unit SUBCUT BID [facility] Ondansetron HCl (Ondansetron Hcl 4 Mg/2 Ml Vial) 4 mg IVPUSH Q8H PRN PRN Reason: Nausea and Vomiting Pharmacy Consult (Consult Rx Vancomycin Dosing) 1 each MISCELLANE DAILY PRN PRN Reason: Consult order Polyethylene Glycol (Polyethylene Glycol 3350 17 Gm Powd.Pack) 17 gm PO DAILY PRN PRN Reason: Constipation Sodium Chloride (0.9 % Sodium Chloride Flush 3 Ml Syringe) 3 ml IVFLUSH QSHIFT [facility] Last Admin: 06/19/24 08:29 Dose: Not Given Home Medications ?Medication ?Instructions ?Recorded ?Confirmed ?Last Taken ?Type levothyroxine 112 mcg tablet 112 mcg PO DAILY@0600 06/17/24 06/17/24 06/15/24 History Physical Exam Vital Signs: Vital Signs: Last Vital Signs Temp 97.7 F 06/19/24 15:51 Pulse 94 06/19/24 15:51 Resp 14 06/19/24 15:51 BP 136/66 06/19/24 15:51 Pulse Ox 93 06/19/24 15:51 O2 Del Method Room Air 06/19/24 15:51 BMI result Body Mass Index 38.3 Const: Other: Obese looking, appears weak, answers questions well General: no acute distress Cardio: Rate: regular rate GI: Other: Protuberant but soft Palpation (GI): not firm and nontender Back/Spine/Pelvis: Other: Sacrococcygeal decubitus ulcer with an eschar, about 9 x 6 cm, no pus, no on going gangrene no cellulitis, no significant tenderness, Extrem: Other: Significant edema of the left lower leg, with some cellulitis, no fluctuance or induration Results Labs 06/20/24 06:49 06/20/24 06:49 Labs: Abnormal lab results 06/18/24 06/18/24 06/18/24 Range/Units 17:59 18:53 20:58 POC Glucose 277 H 234 H (60-115) mg/dL Random Vancomycin 11.9 L (15-20) mcg/mL 06/19/24 06/19/24 Range/Units 07:01 11:58 POC Glucose 205 H 294 H (60-115) mg/dL Random Vancomycin (15-20) mcg/mL BMP 06/19/24 06:19 Creatinine 0.82 Urine 06/17/24 Range/Units 12:19 Urine Color Dark Yellow Urine Appearance Clear Urine pH 5.5 (5.0-9.0) Ur Specific [place] >= 1.030 H (1.005-1.025) Urine Protein Trace (Neg-Trace) mg/dL Urine Glucose (UA) >=1000 H (Negative) mg/dL All other labs normal. Laboratory Results WBC 15.4 X10*3/uL (4.8-10.8) H 06/18/24 11:18 RBC 4.29 X10*6/uL (4.60-5.80) L 06/18/24 11:18 Hgb 13.6 g/dl (14.0-18.0) L 06/18/24 11:18 Hct 39.8 % (42.0-52.0) L 06/18/24 11:18 MCV 92.8 fL (80.0-98.0) 06/18/24 11:18 MCH 31.7 pg (27.0-33.0) 06/18/24 11:18 MCHC 34.2 g/dl (31.0-36.0) 06/18/24 11:18 RDW 13.5 % (11.0-16.0) 06/18/24 11:18 Plt Count 197 X10*3/uL (160-400) 06/18/24 11:18 MPV 10.6 fL (9.4-12.4) 06/18/24 11:18 Immature Gran % (Auto) 0.5 % (0.0-0.4) H 06/17/24 12:19 Neut % (Auto) 87.3 % (45-73) H 06/17/24 12:19 Lymph % (Auto) 6.1 % (20-40) L 06/17/24 12:19 [place] % (Auto) 5.9 % (2-11) 06/17/24 12:19 Eos % (Auto) 0.0 % (0-4) 06/17/24 12:19 Baso % (Auto) 0.2 % (0-2) 06/17/24 12:19 Lymph # (Auto) 0.9 X10*3/uL (1.2-4.9) L 06/17/24 12:19 [place] # (Auto) 0.8 X10*3/uL (0.1-1.2) 06/17/24 12:19 Eos # (Auto) 0.0 X10*3/uL (0.0-0.4) 06/17/24 12:19 Baso # (Auto) 0.0 X10*3/uL (0.0-0.2) 06/17/24 12:19 Abs Immat Gran (auto) 0.07 X10*3/uL (0.00-0.03) H 06/17/24 12:19 Absolute Neuts (auto) 12.5 x10*3/uL (2.0-8.3) H 06/17/24 12:19 Absolute Nucleated RBC 0.000 X10*3/uL (0.0-0.012) 06/18/24 11:18 Nucleated RBC % (auto) 0.0 /100WBC (0.0-0.2) 06/18/24 11:18 PT 13.0 SEC (11.1-13.3) 06/17/24 12:19 INR 1.1 (0.9-1.1) 06/17/24 12:19 Sodium 135 mmol/L (135-145) 06/18/24 11:18 Potassium 4.5 mmol/L (3.3-5.1) 06/18/24 11:18 Chloride 103 mmol/L (96-108) 06/18/24 11:18 Carbon Dioxide 25 mmol/L (22-29) 06/18/24 11:18 Anion Gap 12 (12-20) 06/18/24 11:18 BUN 54 mg/dL (9-16) H 06/18/24 11:18 Creatinine 0.82 mg/dL (0.5-1.4) 06/19/24 06:19 Estim Creat Clear Calc 104.2 06/19/24 06:19 Estimated GFR > 60 06/19/24 06:19 POC Glucose 294 mg/dL (60-115) H 06/19/24 11:58 Random Glucose 367 mg/dL (60-115) H* 06/18/24 11:18 Lactic Acid 3.5 mmol/L (0.5-2.0) H* 06/17/24 12:19 Lactic Acid F/U @ 2Hr 2.4 mmol/L (0.5-2.0) H* 06/17/24 16:14 Lactic Acid F/U @ 4Hr 2.6 mmol/L (0.5-2.0) H* 06/17/24 20:08 Calcium 8.3 mg/dL (8.4-10.2) L D 06/18/24 11:18 Magnesium 2.7 mg/dL (1.6-2.6) H 06/18/24 11:18 Total Bilirubin 1.3 mg/dL (0.0-1.0) H 06/17/24 12:19 Direct Bilirubin 0.6 mg/dL (0.0-0.5) H 06/17/24 12:19 AST 79 U/L (5-37) H 06/17/24 12:19 ALT 83 U/L (0-40) H 06/17/24 12:19 Alkaline Phosphatase 75 U/L (39-117) 06/17/24 12:19 Total Creatine Kinase 1949 U/L (38-174) H 06/17/24 15:43 Troponin I High Sens 4.9 ng/L (<3.5-35.0) 06/17/24 12:19 Total Protein 7.2 g/dL (6.5-8.0) 06/17/24 12:19 Albumin 3.4 g/dL (3.5-5.0) L 06/17/24 12:19 TSH 5.06 uIU/mL (0.32-4.0) H 06/18/24 11:18 Urine Color Dark Yellow 06/17/24 12:19 Urine Appearance Clear 06/17/24 12:19 Urine pH 5.5 (5.0-9.0) 06/17/24 12:19 Ur Specific [place] >= 1.030 (1.005-1.025) H 06/17/24 12:19 Urine Protein Trace mg/dL (Neg-Trace) 06/17/24 12:19 Urine Glucose (UA) >=1000 mg/dL (Negative) H 06/17/24 12:19 Urine Ketones 15 mg/dL (Negative) 06/17/24 12:19 Urine Blood Negative (Negative) 06/17/24 12:19 Urine Nitrite Negative (Negative) 06/17/24 12:19 Ur Leukocyte Esterase Negative (Negative) 06/17/24 12:19 Urine RBC 0-2 /HPF (0-2) 06/17/24 12:19 Urine WBC 0-5 /HPF (0-5) 06/17/24 12:19 Ur Squamous Epith Cells 3-5 /HPF (0-2) 06/17/24 12:19 Urine Bacteria None Seen (None Seen) 06/17/24 12:19 Hyaline Casts 6-10 /LPF (0-2) 06/17/24 12:19 Granular Casts Present 06/17/24 12:19 Random Vancomycin 11.9 mcg/mL (15-20) L 06/18/24 18:53 COVID-19 (JENNIFER) Negative (Negative) 06/17/24 16:24 COVID-19 Clin Com See Note 06/17/24 16:24 Impressions Chest X-Ray 06/17/24 11:47 IMPRESSION: 1. Lung volumes with streaky bibasilar opacities which may reflect atelectasis. Electronically signed by: Libby Malhotra MD 06/17/2024 01:57 PM EDT RP Cervical Spine CT 06/17/24 12:49 IMPRESSION: No acute bleed or infarct seen. 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 No acute cervical fracture, dislocation or subluxation. Bilateral C7 cervical ribs. Electronically signed by: Ino Yoo MD 06/17/2024 03:30 PM EDT RP Head CT 06/17/24 12:49 IMPRESSION: No acute bleed or infarct seen. 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 No acute cervical fracture, dislocation or subluxation. Bilateral C7 cervical ribs. Electronically signed by: Ino Yoo MD 06/17/2024 03:30 PM EDT RP Assessment and Plan (1) Sacral decubitus ulcer: Status: Acute Plan He has a large sacral decubitus ulcer as described above. This is unstageable at this time. He may need to have debridement for this in the operating room because of the presence of an eschar. I will review this with wound care nurse Justa as well as with the patient's family tomorrow. In the meantime, his position should be changed every 2 hours . He says that he feels stronger but he seems to be still not very mobile in bed. Procedures Date of Service Date of Service: 06/20/24
[2024-06-19 16:21] LABS: Glucose, Whole Blood 320 mg/dL (60-115)
[2024-06-19] MEDS: 0.9 % Sodium Chloride Flush 3 ML SYRINGE IVFLUSH (16:55)
[2024-06-19] MEDS: Enoxaparin Sodium 40 MG/0.4 ML SYRINGE SUBCUT (18:32)
[2024-06-19 19:43] LABS: Vancomycin Random 13.8 mcg/mL (15-20)
[2024-06-19 20:40] LABS: Glucose, Whole Blood 348 mg/dL (60-115)
[2024-06-19 21:56] LABS: Glucose, Whole Blood 312 mg/dL (60-115)
[2024-06-19] MEDS: Atorvastatin Calcium 40 MG TABLET PO (21:59)
[2024-06-20 04:00] VITALS: BP 132/63; PULSE 83; RESP 20; TEMP 36.1; O2SAT 92
[2024-06-20] MEDS: Levothyroxine Sodium 125 MCG TABLET PO (06:23)
[2024-06-20 07:15] VITALS: BP 144/66; PULSE 83; RESP 12; TEMP 36.3; O2SAT 93
[2024-06-20 07:17] LABS: Hematocrit 34.9 % (42.0-52.0); Hemoglobin 11.9 g/dl (14.0-18.0); Mean Corpuscular HGB Conc 34.1 g/dl (31.0-36.0); Mean Corpuscular Hemoglobin 31.4 pg (27.0-33.0); Mean Corpuscular Volume 92.1 fL (80.0-98.0); Mean Platelet Volume 10.5 fL (9.4-12.4); Platelet Count 248 X10*3/uL (160-400); Red Blood Count 3.79 X10*6/uL (4.60-5.80); Red Cell Distribution Width 13.3 % (11.0-16.0); White Blood Count 11.6 X10*3/uL (4.8-10.8)
[2024-06-20 07:18] LABS: Alanine Aminotransferase 45 U/L (0-40); Albumin Level 2.6 g/dL (3.5-5.0); Alkaline Phosphatase 53 U/L (39-117); Anion Gap 13 (12-20); Aspartate Amino Transferase 32 U/L (5-37); Bilirubin Direct 0.5 mg/dL (0.0-0.5); Blood Urea Nitrogen 34 mg/dL (9-16); Calcium 8.5 mg/dL (8.4-10.2); Carbon Dioxide 24 mmol/L (22-29); Chloride 102 mmol/L (96-108); Estimated Glomerular Filt Rate > 60; Glucose Random 235 mg/dL (60-115); Potassium 4.2 mmol/L (3.3-5.1); Sodium 135 mmol/L (135-145); Total Protein 5.4 g/dL (6.5-8.0)
[2024-06-20 07:33] LABS: Glucose, Whole Blood 222 mg/dL (60-115)
[2024-06-20] MEDS: Insulin Lispro 100 UNIT/ML 3 ML VIAL SUBCUT ×4 (08:21→21:51)
[2024-06-20] MEDS: Aspirin Enteric Coated 81 MG TABLET.DR PO ×2 (08:22→21:51)
[2024-06-20] MEDS: Clopidogrel Bisulfate 75 MG TABLET PO (08:22)
[2024-06-20] MEDS: 0.9 % Sodium Chloride Flush 3 ML SYRINGE IVFLUSH ×3 (08:22→21:54)
--- NOTE | 2024-06-20 10:19 | MHC.CM.PN ---
Per ROUNDS discussion, Patient is not yet medically cleared for dc (debridement of Sacral wound); PT is recommending STR and CM will continue to follow.
[2024-06-20 10:48] VITALS: BP 144/66; PULSE 83; O2SAT 93
[2024-06-20] MEDS: Sennosides/Docusate Sodium TABLET 1 TAB PO (11:02)
[2024-06-20] MEDS: polyethylene glycoL 3350 17 GM POWD.PACK PO (11:02)
[2024-06-20 11:11] LABS: Glucose, Whole Blood 293 mg/dL (60-115)
[2024-06-20 11:37] VITALS: BP 135/60; PULSE 80; RESP 20; TEMP 36.2; O2SAT 95
[2024-06-20 12:17] VITALS: BMI 38.3
--- NOTE | 2024-06-20 12:24 | MHC.CLN ---
NUTRITION DIET=DIABETIC 2000 KCALS. SUPPLEMENT ENSURE MAX BID PROVIDES 300 KCALS, 60 G PROTEIN. SUPPLEMENT APPROPRIATE TO PROMOTE WOUND HEALING. SKIN WITH UNSTAGEABLE AREA TO COCCYX AND DTIs TO MID THORACIC SPINE AND BILATERAL HEELS. INTAKE 75-100%. FOLLOW FOR INTAKE AND WOUND HEALING. SEE CLINICAL NUTRITION ASSESSMENT 06/20/24.
--- NOTE | 2024-06-20 12:45 | PM.PNGS ---
Subjective Subjective Date of Service: 06/20/24 <Cherry Ramírez PA-C - Last Filed: 06/20/24 12:52> 06/20/24 <Steve Paiz MD - Last Filed: 06/20/24 15:35> Interval history: Feels more tired today. Did not sleep well. Has not been able to get out of bed. <Cherry Ramírez PA-C - Last Filed: 06/20/24 12:52> Physical Exam Vital Signs: Vital Signs: Last Vital Signs Temp 97.1 F 06/20/24 11:37 Pulse 80 06/20/24 11:37 Resp 20 06/20/24 11:37 BP 135/60 06/20/24 11:37 Pulse Ox 95 06/20/24 11:37 O2 Del Method Room Air 06/20/24 11:37 BMI result Body Mass Index 38.3 <Cherry Ramírez PA-C - Last Filed: 06/20/24 12:52> Const: General: comfortable, no acute distress and alert <Cherry Ramírez PA-C - Last Filed: 06/20/24 12:52> Nutritional Appearance: obese <Cherry Ramírez PA-C - Last Filed: 06/20/24 12:52> Orientation/consciousness: patient oriented x3 <Cherry Ramírez PA-C - Last Filed: 06/20/24 12:52> Skin: Other: Sacral decubitus ulcer with large thick eschar measuring about 9 x 6 cm, no surrounding skin changes, area debrided at bedside down to viable subq tissue <Cherry Ramírez PA-C - Last Filed: 06/20/24 12:52> Neuro: General: patient oriented x3 <Cherry Ramírez PA-C - Last Filed: 06/20/24 12:52> Extrem: Other: b/l pitting edema <LITTLE Rice Last Filed: 06/20/24 12:52> Objective Data Active Medications Acetaminophen (Acetaminophen 325 Mg Tablet) 650 mg PO Q6H PRN PRN Reason: Pain, Mild (Pain Scale 1-3), fever or headache Aspirin (Aspirin Enteric Coated 81 Mg Tablet.) 81 mg PO BID [facility] Last Admin: 06/20/24 08:22 Dose: 81 mg Documented By: CRISELDA Atorvastatin Calcium (Atorvastatin Calcium 40 Mg Tablet) 40 mg PO BEDTIME [facility] Last Admin: 06/19/24 21:59 Dose: 40 mg Documented By: ADIEL Calcium Carbonate (Calcium Carbonate 750 Mg Tab.Chew) 750 mg PO Q4H PRN PRN Reason: Heartburn Clopidogrel Bisulfate (Clopidogrel Bisulfate 75 Mg Tablet) 75 mg PO DAILY [facility] Last Admin: 06/20/24 08:22 Dose: 75 mg Documented By: CRISELDA Collagenase (Collagenase Clostridium Hist. 30 Gm Tube) 1 appl TOPICAL DAILY [facility]; Protocol Last Admin: 06/20/24 10:17 Dose: Not Given Documented By: CRISELDA Non-Admin Reason: wound debridement Enoxaparin Sodium (Enoxaparin Sodium 40 Mg/0.4 Ml Syringe) 40 mg SUBCUT Q24H [facility] Last Admin: 06/19/24 18:32 Dose: 40 mg Documented By: CRISELDA Glucose (Glucose Gel 15 Gm Gel..Gram.) 15 gm PO Q15M PRN; Protocol PRN Reason: per Hypoglycemia Standing Ord. Dextrose (D10) 250 mls @ 750 mls/hr IV Q15M PRN; Protocol PRN Reason: per Hypoglycemia Standing Ord. Ceftriaxone Sodium 2 gm/ (Sodium Chloride) 50 mls @ 100 mls/hr IV Q24H [facility] Last Infusion: 06/19/24 15:08 Dose: Infused Documented By: CRISELDA Insulin Human Lispro (Insulin Lispro 100 Unit/Ml 3 Ml Vial) 0 unit SUBCUT QIDACHS [facility]; Protocol Last Admin: 06/20/24 11:02 Dose: 10 unit Documented By: CRISELDA Levothyroxine Sodium (Levothyroxine Sodium 125 Mcg Tablet) 125 mcg PO DAILY@0600 [facility] Last Admin: 06/20/24 06:23 Dose: 125 mcg Documented By: ADIEL Magnesium Hydroxide (Milk Of Magnesia 30 Ml Oral.Susp) 30 ml PO DAILY PRN PRN Reason: Constipation Melatonin (Melatonin 3 Mg Tablet) 6 mg PO BEDTIME PRN PRN Reason: Insomnia Pt Own (Insulin Degludec [Tresiba U- 100 Insulin] 100 Unit/Ml Solution) 20 unit SUBCUT BID [facility] Ondansetron HCl (Ondansetron Hcl 4 Mg/2 Ml Vial) 4 mg IVPUSH Q8H PRN PRN Reason: Nausea and Vomiting Pharmacy Consult (Consult Rx Vancomycin Dosing) 1 each MISCELLANE DAILY PRN PRN Reason: Consult order Polyethylene Glycol (Polyethylene Glycol 3350 17 Gm Powd.Pack) 17 gm PO DAILY PRN PRN Reason: Constipation Polyethylene Glycol (Polyethylene Glycol 3350 17 Gm Powd.Pack) 17 gm PO DAILY [facility] Last Admin: 06/20/24 11:02 Dose: 17 gm Documented By: CRISELDA Senna/Docusate Sodium (Sennosides/Docusate Sodium Tablet) 1 tab PO DAILY [facility] Last Admin: 06/20/24 11:02 Dose: 1 tab Documented By: CRISELDA Sodium Chloride (0.9 % Sodium Chloride Flush 3 Ml Syringe) 3 ml IVFLUSH QSHIFT [facility] Last Admin: 06/20/24 08:22 Dose: 3 ml Documented By: CRISELDA <Cherry Ramírez PA-C - Last Filed: 06/20/24 12:52> Labs CBC & Chem 7: 06/20/24 06:49 06/20/24 06:49 <Cherry Ramírez PA-C - Last Filed: 06/20/24 12:52> Labs: Laboratory Results - last 24 hr 06/19/24 06/19/24 06/19/24 16:10 18:00 19:26 MCV MCH MCHC RDW Plt Count MPV Absolute Nucleated RBC Nucleated RBC % (auto) Anion Gap Estim Creat Clear Calc Estimated GFR POC Glucose 320 H 348 H Random Glucose Calcium Total Bilirubin Direct Bilirubin AST ALT Alkaline Phosphatase Total Creatine Kinase Total Protein Albumin Random Vancomycin 13.8 L 06/19/24 06/20/24 06/20/24 21:52 06:49 07:18 MCV 92.1 MCH 31.4 MCHC 34.1 RDW 13.3 Plt Count 248 D MPV 10.5 Absolute Nucleated RBC 0.000 Nucleated RBC % (auto) 0.0 Anion Gap 13 Estim Creat Clear Calc 111.0 Estimated GFR > 60 POC Glucose 312 H 222 H Random Glucose 235 H Calcium 8.5 Total Bilirubin 1.0 Direct Bilirubin 0.5 AST 32 ALT 45 H Alkaline Phosphatase 53 Total Creatine Kinase 414 H Total Protein 5.4 L Albumin 2.6 L Random Vancomycin 06/20/24 10:59 MCV MCH MCHC RDW Plt Count MPV Absolute Nucleated RBC Nucleated RBC % (auto) Anion Gap Estim Creat Clear Calc Estimated GFR POC Glucose 293 H Random Glucose Calcium Total Bilirubin Direct Bilirubin AST ALT Alkaline Phosphatase Total Creatine Kinase Total Protein Albumin Random Vancomycin <Cherry Ramírez PA-C - Last Filed: 06/20/24 12:52> Microbiology Microbiology Results: Microbiology 06/17/24 12:34 Blood Culture - Final Blood - Venous Strep agalactiae (Grp B) 06/17/24 12:28 Blood Culture - Final Blood - Venous Strep agalactiae (Grp B) <Cherry Ramírez PA-C - Last Filed: 06/20/24 12:52> Procedures Date of Service Date of Service: 06/20/24 <Cherry Ramírez PA-C - Last Filed: 06/20/24 12:52> 06/20/24 <Steve Paiz MD - Last Filed: 06/20/24 15:35> Progress Note: A&P Assessment and plan (1) Sacral decubitus ulcer: Status: Acute <Cherry Ramírez PA-C - Last Filed: 06/20/24 12:52> Assessment and Plan: Sharp excisional debridement done at bedside with a blade 15 as well as curved Hines scissors Wet-to-dry dressings applied He tolerated procedure well Change position [id number] Seen and examined independently <Steve Paiz MD - Last Filed: 06/20/24 15:35> Assessment and Plan: Sacral decubitus ulcer with large eschar. Sharp excisional debridement with scissors and scalpel performed at bedside today down to viable subq tissue. Wound base oozy and viable appearing for now. Wet to dry fluffs to wound base followed by thick dressing of fluffs and abd pads followed by tape. Can change daily and as needed. Cont offloading q2h, nutritional support. Consider [place] cath until strength improved for better wound care, prevent skin maceration. <LITTLE Rice Last Filed: 06/20/24 12:52> Time Spent With Patient Time: Total time managing care of this patient today ____ minutes. <LITTLE Rice Last Filed: 06/20/24 12:52> Quality Stroke Does the patient have a stroke diagnosis?: No <Cherry Ramírez PA-C - Last Filed: 06/20/24 12:52> VTE Prior VTE?: No <Cherry Ramírez PA-C - Last Filed: 06/20/24 12:52> VTE Risk Level:: Medical - moderate - high <Cherry Ramírez PA-C - Last Filed: 06/20/24 12:52> VTE Device Contraindication: Treatment Not Indicated <Cherry Ramírez PA-C - Last Filed: 06/20/24 12:52> VTE Drug Contraindication: N/A - Med Ordered <Cherry Ramírez PA-C - Last Filed: 06/20/24 12:52>
--- NOTE | 2024-06-20 13:16 | P.PNIM_ITS ---
Subjective Subjective Date of Service: 06/20/24 Interval History: Being followed for left lower extremity cellulitis/sepsis / rhabdo and hyperglycemia. Denies pain, no fevers, no chills, tolerating diet with no nausea, no vomiting, complaining of constipation offers no other acute complaints, of headache, no dizziness. daughter at bedside. Review of Systems All other system reviewed and are negative. Physical Exam 2 Vital Signs: Vital Signs: Last Vital Signs Temp 97.1 F 06/20/24 11:37 Pulse 80 06/20/24 11:37 Resp 20 06/20/24 11:37 BP 135/60 06/20/24 11:37 Pulse Ox 95 06/20/24 11:37 O2 Del Method Room Air 06/20/24 11:37 BMI result Body Mass Index 38.3 Const: Other: General awake alert x3 resting comfortably in no acute distress. Anicteric sclera Neck supple no JVD. CVS regular rate rhythm, good peripheral pulses Respiratory lungs clear to auscultation, no respiratory distress, no wheeze, no rhonchi. Gastrointestinal abdomen soft, non tender, bowel sounds audible, no guarding , no rigidity. Extremities left leg > rt, persistent erythema and swelling improving, chronic venous stasis changes with thick skin Left posterior leg venous stasis wound, irregular margins, no induration or fluctuation Coccyx deep tissue injury b/l heel deep tissue injury,no open ulcers Neuro non focal Psych appropriate affect Objective Data Active Medications Acetaminophen (Acetaminophen 325 Mg Tablet) 650 mg PO Q6H PRN PRN Reason: Pain, Mild (Pain Scale 1-3), fever or headache Aspirin (Aspirin Enteric Coated 81 Mg Tablet.) 81 mg PO BID [facility] Last Admin: 06/20/24 08:22 Dose: 81 mg Documented By: CRISELDA Atorvastatin Calcium (Atorvastatin Calcium 40 Mg Tablet) 40 mg PO BEDTIME [facility] Last Admin: 06/19/24 21:59 Dose: 40 mg Documented By: ADIEL Calcium Carbonate (Calcium Carbonate 750 Mg Tab.Chew) 750 mg PO Q4H PRN PRN Reason: Heartburn Clopidogrel Bisulfate (Clopidogrel Bisulfate 75 Mg Tablet) 75 mg PO DAILY [facility] Last Admin: 06/20/24 08:22 Dose: 75 mg Documented By: CRISELDA Collagenase (Collagenase Clostridium Hist. 30 Gm Tube) 1 appl TOPICAL DAILY [facility]; Protocol Last Admin: 06/20/24 10:17 Dose: Not Given Documented By: CRISELDA Non-Admin Reason: wound debridement Enoxaparin Sodium (Enoxaparin Sodium 40 Mg/0.4 Ml Syringe) 40 mg SUBCUT Q24H [facility] Last Admin: 06/19/24 18:32 Dose: 40 mg Documented By: CRISELDA Glucose (Glucose Gel 15 Gm Gel..Gram.) 15 gm PO Q15M PRN; Protocol PRN Reason: per Hypoglycemia Standing Ord. Dextrose (D10) 250 mls @ 750 mls/hr IV Q15M PRN; Protocol PRN Reason: per Hypoglycemia Standing Ord. Ceftriaxone Sodium 2 gm/ (Sodium Chloride) 50 mls @ 100 mls/hr IV Q24H [facility] Last Infusion: 06/19/24 15:08 Dose: Infused Documented By: CRISELDA Insulin Human Lispro (Insulin Lispro 100 Unit/Ml 3 Ml Vial) 0 unit SUBCUT QIDACHS [facility]; Protocol Last Admin: 06/20/24 11:02 Dose: 10 unit Documented By: CRISELDA Levothyroxine Sodium (Levothyroxine Sodium 125 Mcg Tablet) 125 mcg PO DAILY@0600 [facility] Last Admin: 06/20/24 06:23 Dose: 125 mcg Documented By: ADIEL Magnesium Hydroxide (Milk Of Magnesia 30 Ml Oral.Susp) 30 ml PO DAILY PRN PRN Reason: Constipation Melatonin (Melatonin 3 Mg Tablet) 6 mg PO BEDTIME PRN PRN Reason: Insomnia Pt Own (Insulin Degludec [Tresiba U- 100 Insulin] 100 Unit/Ml Solution) 20 unit SUBCUT BID [facility] Ondansetron HCl (Ondansetron Hcl 4 Mg/2 Ml Vial) 4 mg IVPUSH Q8H PRN PRN Reason: Nausea and Vomiting Pharmacy Consult (Consult Rx Vancomycin Dosing) 1 each MISCELLANE DAILY PRN PRN Reason: Consult order Polyethylene Glycol (Polyethylene Glycol 3350 17 Gm Powd.Pack) 17 gm PO DAILY PRN PRN Reason: Constipation Polyethylene Glycol (Polyethylene Glycol 3350 17 Gm Powd.Pack) 17 gm PO DAILY [facility] Last Admin: 06/20/24 11:02 Dose: 17 gm Documented By: CRISELDA Senna/Docusate Sodium (Sennosides/Docusate Sodium Tablet) 1 tab PO DAILY [facility] Last Admin: 06/20/24 11:02 Dose: 1 tab Documented By: CRISELDA Sodium Chloride (0.9 % Sodium Chloride Flush 3 Ml Syringe) 3 ml IVFLUSH QSHIFT [facility] Last Admin: 06/20/24 08:22 Dose: 3 ml Documented By: CRISELDA Labs 06/20/24 06:49 06/20/24 06:49 Labs: Laboratory Results - last 24 hr 06/19/24 06/19/24 06/19/24 16:10 18:00 19:26 MCV MCH MCHC RDW Plt Count MPV Absolute Nucleated RBC Nucleated RBC % (auto) Anion Gap Estim Creat Clear Calc Estimated GFR POC Glucose 320 H 348 H Random Glucose Calcium Total Bilirubin Direct Bilirubin AST ALT Alkaline Phosphatase Total Creatine Kinase Total Protein Albumin Random Vancomycin 13.8 L 06/19/24 06/20/24 06/20/24 21:52 06:49 07:18 MCV 92.1 MCH 31.4 MCHC 34.1 RDW 13.3 Plt Count 248 D MPV 10.5 Absolute Nucleated RBC 0.000 Nucleated RBC % (auto) 0.0 Anion Gap 13 Estim Creat Clear Calc 111.0 Estimated GFR > 60 POC Glucose 312 H 222 H Random Glucose 235 H Calcium 8.5 Total Bilirubin 1.0 Direct Bilirubin 0.5 AST 32 ALT 45 H Alkaline Phosphatase 53 Total Creatine Kinase 414 H Total Protein 5.4 L Albumin 2.6 L Random Vancomycin 06/20/24 10:59 MCV MCH MCHC RDW Plt Count MPV Absolute Nucleated RBC Nucleated RBC % (auto) Anion Gap Estim Creat Clear Calc Estimated GFR POC Glucose 293 H Random Glucose Calcium Total Bilirubin Direct Bilirubin AST ALT Alkaline Phosphatase Total Creatine Kinase Total Protein Albumin Random Vancomycin Assessment and Plan (1) Sacral decubitus ulcer: Status: Acute (2) Cellulitis: Status: Acute (3) Leukocytosis: Status: Acute Plan 69-year-old gentleman with history of obstructive sleep apnea, diabetes mellitus, hypothyroidism, hyperlipidemia, hypertension, CVA on dual antiplatelet therapy slid out of bed last night landing on the ground on his buttocks, unable to get up since then and brought to [facility] this morning patient denies loss of consciousness, no preceding symptoms of lightheadedness, or dizziness, patient noted to be incontinent of urine, diagnosed to have sepsis likely due to left lower extremity cellulitis and an anion gap acidosis. Sepsis likely due to left lower extremity cellulitis due to diabetes mellitus/ch venous stasis wound. Strep agalactiae bacteremia Blood cultures x2 positive for strep agalactie/repeat bc x2 pend s/p IV vancomycin started on 06/17, transitioned to IV ceftriaxone on 06/19, if bc neg will dc on 2 weeks of po ceftin Chest x-ray benign, UA negative Keep legs elevated Anion gap metabolic acidosis likely due to acute lactic acidosis. Resolved with IV fluids Acute mild rhabdomyolysis s/p IV fluids, CPK trended down to 414, LFTs trended down will likely due to rhabdo. Hypermagnesemia repeat magnesium trended down, not on magnesium supplements, normal renal function. Generalized weakness PT recommend short-term rehab Diabetes mellitus type 2 on insulin presented with hyperglycemia, on insulin sliding scale, diabetic diet,on Tresiba b.i.d. at home but ran out of prescription few days ago. Follow blood sugar, Patient allergic to Lantus, family brought Tresiba , pharmacy will resume from [facility] , continue insulin sliding scale. Hypothyroidism TSH 5.06 , will increase dose to 125 mcg daily, follow TSH in 6 weeks. Hyperlipidemia Lipitor 40 mg Hypertension soft BP continue to hold lisinopril. History of CVA continue Plavix and aspirin. Class 2 obesity recommend low-calorie diet ROLO not using CPAP regularly, encourage compliance come continue CPAP at bedtime Sacral pressure wound unstageable /deep tissue injury present on admission, seen by wound nurse recommended Santyl dressing, seen by General surgery for debridement. Full code In my clinical judgment patient requires continued inpatient hospitalization management of sepsis/bacteremia likely due to cellulitis requiring IV antibiotics , and further treatment and expert consultation for sacral wound. Quality Stroke Does the patient have a stroke diagnosis?: No VTE Prior VTE?: No VTE Risk Level:: Medical - moderate - high VTE Device Contraindication: Treatment Not Indicated VTE Drug Contraindication: N/A - Med Ordered
--- NOTE | 2024-06-20 13:23 | P.CDIM_ITS ---
PROVIDER RESPONSE TEXT: To clarify, the appropriate diagnosis supported by the clinical indicators: Deep tissue injury bilateral heels QUERY TEXT: PHYSICIAN'S DOCUMENTATION REQUEST Date of Query: 06/20/2024 08:29 AM EDT Patient Name: Shaun Nolasco Admit Date: 06/17/2024 Dear Brigitte Bryan MD, A review of the medical record indicates additional documentation may be needed. Please review below and update the documentation accordingly. Clinical Indicators: Wound assessment note dated 06/19 - Deep tissue injury bilateral heels - present on admission. Heels elevated off the bed/heel protector boots while in bed. Based on the above, could you please provide further information regarding the ulcer/wound/injury: Deep tissue injury bilateral heels Pressure (decubitus) ulcer Please include the stage of the ulcer and specify the location and laterality of the ulcer/wound Other (explain) Clinically unable to determine (explain) Thank you, Shawna Harp, CCS, CDIS Use of terms such as suspected, likely, concern for, or probable (associated with a specific diagnosi s that is being evaluated, monitored, or treated as if it exists) are acceptable and can be coded in the inpatient se tting, when documented at the time of discharge. Please use your independent medical judgment in providing your response. THIS QUERY IS PART OF THE PERMANENT MEDICAL RECORD
[2024-06-20] MEDS: cefTRIAXone sodium 2 GM in 0.9 % Sodium Chloride 50 ML IV (14:45)
[2024-06-20 15:24] VITALS: BP 130/59; PULSE 87; RESP 14; TEMP 36.3; O2SAT 93
--- NOTE | 2024-06-20 15:35 | PM.PROC ---
Brief Operative Note Date of procedure: 06/20/24 Pre-op diagnosis: Sacral decubitus ulcer with eschar Post-op diagnosis: same Procedure: Procedure: Sharp excisional debridement of ulcer with thick eschar on the sacrococcygeal area The patient was in left lateral decubitus position. The area of the eschar was cleaned. I used a blade 15 to excise the eschar. This was from the underlying deep subcutaneous tissue using curved Hines scissors. The area excised consisted of full-thickness of the skin and part of subcutaneous layer. This measured about 9 x 6 cm in dimension Wet-to-dry dressings were then applied. He tolerated procedure well. There were no immediate complications.
[2024-06-20 16:21] LABS: Glucose, Whole Blood 261 mg/dL (60-115)
[2024-06-20] MEDS: Enoxaparin Sodium 40 MG/0.4 ML SYRINGE SUBCUT (18:05)
[2024-06-20 19:17] VITALS: BP 158/67; PULSE 94; RESP 17; TEMP 37; O2SAT 94
[2024-06-20 20:50] LABS: Glucose, Whole Blood 263 mg/dL (60-115)
[2024-06-20] MEDS: Atorvastatin Calcium 40 MG TABLET PO (21:51)
[2024-06-21] VITALS (7 sets, daily range): BP systolic 122–151; BP diastolic 63–74; PULSE 84–90; RESP 12–20; TEMP 36.1–36.4; O2SAT 92–95
--- NOTE | 2024-06-21 01:15 | PC.RT ---
Pt refused NOC CPAP
[2024-06-21] MEDS: Levothyroxine Sodium 125 MCG TABLET PO (06:23)
[2024-06-21 07:11] LABS: Glucose, Whole Blood 248 mg/dL (60-115)
[2024-06-21] MEDS: Insulin Lispro 100 UNIT/ML 3 ML VIAL SUBCUT ×4 (09:23→21:18)
[2024-06-21] MEDS: Aspirin Enteric Coated 81 MG TABLET.DR PO ×2 (09:24→21:17)
[2024-06-21] MEDS: 0.9 % Sodium Chloride Flush 3 ML SYRINGE IVFLUSH ×3 (09:24→21:19)
[2024-06-21] MEDS: Clopidogrel Bisulfate 75 MG TABLET PO (09:24)
[2024-06-21] MEDS: Sennosides/Docusate Sodium TABLET 1 TAB PO (09:24)
[2024-06-21] MEDS: Collagenase Clostridium Hist. 30 GM TUBE 1 APPL TOPICAL (09:27)
[2024-06-21 11:14] LABS: Glucose, Whole Blood 335 mg/dL (60-115)
--- NOTE | 2024-06-21 11:56 | P.PNIM_ITS ---
Subjective Subjective Date of Service: 06/21/24 Interval History: Seen and examined this morning Follow-up for left leg cellulitis/sacral decubitus ulcer no overnight events no specific complaints this am Review of Systems Review of Systems: Yes all other systems are reviewed and are negative Constitutional Constitutional: Denies chills and Denies fever(s) Cardiovascular Cardiovascular: Denies chest pain and Denies dyspnea Respiratory Respiratory: Denies dyspnea Gastrointestinal Gastrointestinal: Denies abdominal pain, Denies nausea and Denies vomiting Physical Exam 2 Vital Signs: Vital Signs: Last Vital Signs Temp 97.0 F 06/21/24 11:21 Pulse 87 06/21/24 11:21 Resp 16 06/21/24 11:21 BP 146/74 H 06/21/24 11:21 Pulse Ox 94 06/21/24 11:21 O2 Del Method Room Air 06/21/24 11:21 BMI result Body Mass Index 38.3 Const: General: cooperative, comfortable, no acute distress, alert and awake Nutritional Appearance: overweight Orientation/consciousness: patient oriented x3 Resp: Effort & Inspection: normal respiratory effort, able to speak in complete sentences, no respiratory distress and no use of accessory muscles A uscultation: clear to auscultation bilaterally Cardio: Rate: regular rate GI: Inspection: No distended Palpation (GI): Soft to palpation and nontender Skin: Other: chronic venous stasis skin changes/thickened skin b/l lower extremities; left leg>right leg with mild erythema; left leg with b/l heel DTI, no open skin Neuro: General: patient oriented x3 Objective Data Active Medications Acetaminophen (Acetaminophen 325 Mg Tablet) 650 mg PO Q6H PRN PRN Reason: Pain, Mild (Pain Scale 1-3), fever or headache Aspirin (Aspirin Enteric Coated 81 Mg Tablet.) 81 mg PO BID [facility] Last Admin: 06/21/24 09:24 Dose: 81 mg Documented By: PITER Atorvastatin Calcium (Atorvastatin Calcium 40 Mg Tablet) 40 mg PO BEDTIME [facility] Last Admin: 06/20/24 21:51 Dose: 40 mg Documented By: ADIEL Calcium Carbonate (Calcium Carbonate 750 Mg Tab.Chew) 750 mg PO Q4H PRN PRN Reason: Heartburn Clopidogrel Bisulfate (Clopidogrel Bisulfate 75 Mg Tablet) 75 mg PO DAILY [facility] Last Admin: 06/21/24 09:24 Dose: 75 mg Documented By: PITER Collagenase (Collagenase Clostridium Hist. 30 Gm Tube) 1 appl TOPICAL DAILY [facility]; Protocol Last Admin: 06/21/24 09:27 Dose: 1 appl Documented By: PITER Enoxaparin Sodium (Enoxaparin Sodium 40 Mg/0.4 Ml Syringe) 40 mg SUBCUT Q24H [facility] Last Admin: 06/20/24 18:05 Dose: 40 mg Documented By: CRISELDA Glucose (Glucose Gel 15 Gm Gel..Gram.) 15 gm PO Q15M PRN; Protocol PRN Reason: per Hypoglycemia Standing Ord. Dextrose (D10) 250 mls @ 750 mls/hr IV Q15M PRN; Protocol PRN Reason: per Hypoglycemia Standing Ord. Ceftriaxone Sodium 2 gm/ (Sodium Chloride) 50 mls @ 100 mls/hr IV Q24H [facility] Last Infusion: 06/20/24 15:18 Dose: Infused Documented By: CRISELDA Insulin Human Lispro (Insulin Lispro 100 Unit/Ml 3 Ml Vial) 0 unit SUBCUT QIDACHS [facility]; Protocol Last Admin: 06/21/24 09:23 Dose: 8 unit Documented By: PITER Levothyroxine Sodium (Levothyroxine Sodium 125 Mcg Tablet) 125 mcg PO DAILY@0600 [facility] Last Admin: 06/21/24 06:23 Dose: 125 mcg Documented By: ADIEL Magnesium Hydroxide (Milk Of Magnesia 30 Ml Oral.Susp) 30 ml PO DAILY PRN PRN Reason: Constipation Melatonin (Melatonin 3 Mg Tablet) 6 mg PO BEDTIME PRN PRN Reason: Insomnia Pt Own (Insulin Degludec [Tresiba U- 100 Insulin] 100 Unit/Ml Solution) 20 unit SUBCUT BID [facility] Last Admin: 06/21/24 09:23 Dose: 20 unit Documented By: PITER Ondansetron HCl (Ondansetron Hcl 4 Mg/2 Ml Vial) 4 mg IVPUSH Q8H PRN PRN Reason: Nausea and Vomiting Polyethylene Glycol (Polyethylene Glycol 3350 17 Gm Powd.Pack) 17 gm PO DAILY PRN PRN Reason: Constipation Polyethylene Glycol (Polyethylene Glycol 3350 17 Gm Powd.Pack) 17 gm PO DAILY [facility] Last Admin: 06/21/24 09:24 Dose: Not Given Documented By: PITER Non-Admin Reason: Patient Refused Senna/Docusate Sodium (Sennosides/Docusate Sodium Tablet) 1 tab PO DAILY [facility] Last Admin: 06/21/24 09:24 Dose: 1 tab Documented By: PITER Sodium Chloride (0.9 % Sodium Chloride Flush 3 Ml Syringe) 3 ml IVFLUSH QSHIFT [facility] Last Admin: 06/21/24 09:24 Dose: 3 ml Documented By: PITER Labs 06/20/24 06:49 06/20/24 06:49 Labs: Laboratory Results - last 24 hr 06/20/24 06/20/24 06/21/24 16:13 20:31 06:59 POC Glucose 261 H 263 H 248 H 06/21/24 10:57 POC Glucose 335 H Microbiology Microbiology Results: Microbiology 06/19/24 15:36 Blood Culture - Preliminary Blood - Venous No growth after 24 hours. 06/19/24 15:36 Blood Culture - Preliminary Blood - Venous No growth after 24 hours. Assessment and Plan (1) Sacral decubitus ulcer: Status: Acute (2) Cellulitis: Status: Acute Plan 69-year-old gentleman with history of obstructive sleep apnea, diabetes mellitus, hypothyroidism, hyperlipidemia, hypertension, CVA on dual antiplatelet therapy slid out of bed last night landing on the ground on his buttocks, unable to get up since then and brought to [facility] [place] this morning patient denies loss of consciousness, no preceding symptoms of lightheadedness, or dizziness, patient noted to be incontinent of urine, diagnosed to have sepsis likely due to left lower extremity cellulitis and an anion gap acidosis. Sepsis likely due to left lower extremity cellulitis due to diabetes mellitus/ch venous stasis wound. Strep agalactiae bacteremia Blood cultures x2 positive for strep agalactie/repeat bc x2 negative s/p IV vancomycin started on 06/17, transitioned to IV ceftriaxone on 06/19, repeat BCx neg, plan for dc on 2 weeks of po ceftin Chest x-ray benign, UA negative Keep legs elevated, continue local wound care Anion gap metabolic acidosis likely due to acute lactic acidosis. Resolved with IV fluids Acute mild rhabdomyolysis s/p IV fluids, CPK trended down to 414, LFTs trended down likely due to rhabdo. Hypermagnesemia repeat magnesium trended down, not on magnesium supplements, normal renal function. Generalized weakness PT recommend short-term rehab when medically ready for discharge Diabetes mellitus type 2 on insulin presented with hyperglycemia on insulin sliding scale, diabetic diet,on Tresiba b.i.d. at home but ran out of prescription a few days prior to admission Patient allergic to Lantus, family brought Tresiba, continue insulin sliding scale. Hypothyroidism TSH 5.06 , will increase dose to 125 mcg daily, follow TSH in 6 weeks. Hyperlipidemia Lipitor 40 mg Hypertension Lisinopril on hold for soft BP, BP trending up, we will resume at lower dose, up titrate as needed History of CVA continue Plavix, aspirin, statin Class 2 obesity recommend low-calorie diet ROLO not using CPAP regularly, encourage compliance; continue CPAP at bedtime Sacral pressure wound unstageable /deep tissue injury present on admission seen by wound nurse recommended Santyl dressing seen by General surgery -s/p sharp excisional debridement at bedside 06/20 Full code In my clinical judgment patient requires continued inpatient hospitalization management of sepsis/bacteremia likely due to cellulitis requiring IV antibiotics, and further treatment and expert consultation for sacral wound. Quality Stroke Does the patient have a stroke diagnosis?: No VTE Prior VTE?: No VTE Risk Level:: Medical - moderate - high VTE Device Contraindication: Treatment Not Indicated VTE Drug Contraindication: N/A - Med Ordered
[2024-06-21] MEDS: cefTRIAXone sodium 2 GM in 0.9 % Sodium Chloride 50 ML IV (13:08)
--- NOTE | 2024-06-21 13:10 | HO.WOUND ---
Wound Consult: Follow up 69yr old? admitted to [facility] on 06/17/24 17:13 - See progress notes and H&P for detailed history.? Wound consult follow up for Buttock and bilateral Heels.? Patient agreeable to assessment and photo documentation.? Patient reports he was down at his home after a fall for approximately 10 hours on his back without being able to get up. Sacum 06/19/24 Sacrum Etiology: Unstageable Pressure Injury Present on Admission - S/P bedside debridement from general surgery - see note for details Measurements:12 cm x 7cm x 0.3cm Wound Bed: moist necrotic tissue areas of red moist tissue Drainage / Odor:No odor noted - serosang drainage Edges: ?irregular Maria L wound: ? Intact pink blanchable tissue No Induration, Fluctuance or Warmth noted Pain: denies pain Goals of Treatment: Off Load and Santyl for enzymatic debridement Right Heel 06/19/24 Right Heel 06/21/24 Left Heel 06/19/24 Left Heel 06/21/24 Bilateral Heels Etiology: Deep Tissue Injury Present on Admission Measurements:see charting for measurement Wound Bed: intact dark purple nonblanchable tissue Drainage / Odor: None Edges: ?irregular Maria L wound: ? red blanchable tissue No Induration, Fluctuance or Warmth noted Pain: Pain reported Goals of Treatment: Off Load Pressure - Heel Protector boots while in bed Mid Thoracic Back - Resolving Etiology: Deep Tissue Injury Present on Admission Wound Bed: intact serous filled blisters and dark maroon purple nonblanchable tissue Drainage / Odor: None Edges: ?irregular Maria L wound: Intact No Induration, Fluctuance or Warmth noted Pain: denies Goals of Treatment: Off Load Pressure with foam dressing to protect from friciton and pressure Left Posterior Leg Etiology: Venous Dermatitis Wound Bed: moist red tissue Drainage / Odor: serous drainage noted Edges: ?irregular Maria L wound: ? Macerated edges red blanchable tissue No Induration, Fluctuance or Warmth noted Pain: tenderness reported Goals of Treatment: Lower Leg elevation and Durafiber AG to aid in moisture management No new topical recommendations needed at this time. Recommendations: 1. Turn and Reposition every 2 hours and as needed for patient comfort.? Use pillows or wedges to support off loading positions. 2. Off Load all bony prominences with use of pillows and heel boots if needed.? Apply Preventative foams where needed. ? 3. Monitor for incontinence and moisture control, use barrier creams when needed for prevention and treatment. 4. Provide adequate and supplemental nutrition.? 5. Order low air loss mattress. 6. When applicable maintain blood glucose levels per Providers order. 7. Bilateral Heels - Elevate lower legs - Apply skin prep to heels. Place in Heel Protector boots when in bed to off load pressure. 8. Sacrum - Off Load Pressure - Cleanse with normal saline, pat dry. ?Apply barrier to the immediate maria l wound, apply thick layer of Santyl to entire wound bed, cover with saline moist gauze, secure ABD Pad, change Daily. 9. Left Lower Leg - Elevate lower legs off of surface of bed with use of pillows.? Cleanse with NS, Pat dry.? Apply vaseline to both legs, apply layer of Durafiber AG to open wound beds secure with ABD pad, gauze wrap and tape.? Change every other day.. 10. Mid Thoracic Spine - Routine cleansing, Apply foam dressing peel back and assess change every 5 days and PRN. Re-consult wound care Nurse for wound deterioration or wound changes.
--- NOTE | 2024-06-21 14:43 | PM.PNGS ---
Subjective Subjective Date of Service: 06/21/24 Interval history: No new complaints He says he still weak and was unable to do physical therapy Physical Exam Vital Signs: Vital Signs: Last Vital Signs Temp 97.0 F 06/21/24 11:21 Pulse 87 06/21/24 11:21 Resp 16 06/21/24 11:21 BP 146/74 H 06/21/24 11:21 Pulse Ox 94 06/21/24 11:21 O2 Del Method Room Air 06/21/24 11:21 BMI result Body Mass Index 38.3 Const: General: comfortable and no acute distress Resp: Effort & Inspection: normal respiratory effort Back/Spine/Pelvis: Other: Dressings dry Objective Data Active Medications Acetaminophen (Acetaminophen 325 Mg Tablet) 650 mg PO Q6H PRN PRN Reason: Pain, Mild (Pain Scale 1-3), fever or headache Aspirin (Aspirin Enteric Coated 81 Mg Tablet.) 81 mg PO BID [facility] Last Admin: 06/21/24 09:24 Dose: 81 mg Documented By: PITER Atorvastatin Calcium (Atorvastatin Calcium 40 Mg Tablet) 40 mg PO BEDTIME [facility] Last Admin: 06/20/24 21:51 Dose: 40 mg Documented By: ADIEL Calcium Carbonate (Calcium Carbonate 750 Mg Tab.Chew) 750 mg PO Q4H PRN PRN Reason: Heartburn Clopidogrel Bisulfate (Clopidogrel Bisulfate 75 Mg Tablet) 75 mg PO DAILY [facility] Last Admin: 06/21/24 09:24 Dose: 75 mg Documented By: PITER Collagenase (Collagenase Clostridium Hist. 30 Gm Tube) 1 appl TOPICAL DAILY [facility]; Protocol Last Admin: 06/21/24 09:27 Dose: 1 appl Documented By: PITER Enoxaparin Sodium (Enoxaparin Sodium 40 Mg/0.4 Ml Syringe) 40 mg SUBCUT Q24H [facility] Last Admin: 06/20/24 18:05 Dose: 40 mg Documented By: CRISELDA Glucose (Glucose Gel 15 Gm Gel..Gram.) 15 gm PO Q15M PRN; Protocol PRN Reason: per Hypoglycemia Standing Ord. Dextrose (D10) 250 mls @ 750 mls/hr IV Q15M PRN; Protocol PRN Reason: per Hypoglycemia Standing Ord. Ceftriaxone Sodium 2 gm/ (Sodium Chloride) 50 mls @ 100 mls/hr IV Q24H [facility] Last Infusion: 06/21/24 13:55 Dose: Infused Documented By: ALCIDES Insulin Human Lispro (Insulin Lispro 100 Unit/Ml 3 Ml Vial) 0 unit SUBCUT QIDACHS [facility]; Protocol Last Admin: 06/21/24 12:20 Dose: 12 unit Documented By: PITER Levothyroxine Sodium (Levothyroxine Sodium 125 Mcg Tablet) 125 mcg PO DAILY@0600 [facility] Last Admin: 06/21/24 06:23 Dose: 125 mcg Documented By: ADIEL Lisinopril (Lisinopril 10 Mg Tablet) 10 mg PO DAILY [facility]; Protocol Magnesium Hydroxide (Milk Of Magnesia 30 Ml Oral.Susp) 30 ml PO DAILY PRN PRN Reason: Constipation Melatonin (Melatonin 3 Mg Tablet) 6 mg PO BEDTIME PRN PRN Reason: Insomnia Pt Own (Insulin Degludec [Tresiba U- 100 Insulin] 100 Unit/Ml Solution) 20 unit SUBCUT BID [facility] Last Admin: 06/21/24 09:23 Dose: 20 unit Documented By: PITER Ondansetron HCl (Ondansetron Hcl 4 Mg/2 Ml Vial) 4 mg IVPUSH Q8H PRN PRN Reason: Nausea and Vomiting Polyethylene Glycol (Polyethylene Glycol 3350 17 Gm Powd.Pack) 17 gm PO DAILY PRN PRN Reason: Constipation Polyethylene Glycol (Polyethylene Glycol 3350 17 Gm Powd.Pack) 17 gm PO DAILY [facility] Last Admin: 06/21/24 09:24 Dose: Not Given Documented By: PITER Non-Admin Reason: Patient Refused Senna/Docusate Sodium (Sennosides/Docusate Sodium Tablet) 1 tab PO DAILY [facility] Last Admin: 06/21/24 09:24 Dose: 1 tab Documented By: PITER Sodium Chloride (0.9 % Sodium Chloride Flush 3 Ml Syringe) 3 ml IVFLUSH QSHIFT [facility] Last Admin: 06/21/24 09:24 Dose: 3 ml Documented By: PITER Labs 06/20/24 06:49 06/20/24 06:49 Labs: Laboratory Results - last 24 hr 06/20/24 06/20/24 06/21/24 16:13 20:31 06:59 POC Glucose 261 H 263 H 248 H 06/21/24 10:57 POC Glucose 335 H Microbiology Microbiology Results: Microbiology 06/19/24 15:36 Blood Culture - Preliminary Blood - Venous No growth after 24 hours. 06/19/24 15:36 Blood Culture - Preliminary Blood - Venous No growth after 24 hours. Procedures Date of Service Date of Service: 06/21/24 Progress Note: A&P Assessment and plan (1) Sacral decubitus ulcer: Status: Acute Assessment and Plan: Status post excisional debridement Dressings were changed by wound care nurse Justa Wound surface appears clean Santyl dressings applied Turn patient [id number] Continue wound care Time Spent With Patient Time: Total time managing care of this patient today ____ minutes. Quality Stroke Does the patient have a stroke diagnosis?: No VTE Prior VTE?: No VTE Risk Level:: Medical - moderate - high VTE Device Contraindication: Treatment Not Indicated VTE Drug Contraindication: N/A - Med Ordered
[2024-06-21 15:55] LABS: Glucose, Whole Blood 264 mg/dL (60-115)
[2024-06-21] MEDS: Enoxaparin Sodium 40 MG/0.4 ML SYRINGE SUBCUT (17:51)
[2024-06-21 20:39] LABS: Glucose, Whole Blood 251 mg/dL (60-115)
[2024-06-21] MEDS: Atorvastatin Calcium 40 MG TABLET PO (21:17)
[2024-06-22 03:27] VITALS: BP 143/64; PULSE 86; RESP 17; TEMP 36.2; O2SAT 94
[2024-06-22] MEDS: Levothyroxine Sodium 125 MCG TABLET PO (06:15)
[2024-06-22 07:19] VITALS: BP 127/64; PULSE 79; RESP 20; TEMP 36.9; O2SAT 92
[2024-06-22 07:29] LABS: Glucose, Whole Blood 196 mg/dL (60-115)
[2024-06-22 07:58] LABS: Anion Gap 15 (12-20); Blood Urea Nitrogen 34 mg/dL (9-16); Calcium 8.9 mg/dL (8.4-10.2); Carbon Dioxide 19 mmol/L (22-29); Chloride 105 mmol/L (96-108); Creatinine Clr Calc Pharmacy 101.8; Estimated Glomerular Filt Rate > 60; Glucose Random 215 mg/dL (60-115); Potassium 5.5 mmol/L (3.3-5.1); Sodium 133 mmol/L (135-145)
[2024-06-22] MEDS: Sennosides/Docusate Sodium TABLET 1 TAB PO ×2 (08:22→08:52)
[2024-06-22] MEDS: polyethylene glycoL 3350 17 GM POWD.PACK PO ×2 (08:22→08:53)
[2024-06-22] MEDS: Clopidogrel Bisulfate 75 MG TABLET PO ×2 (08:22→08:51)
[2024-06-22] MEDS: lisinopriL 10 MG TABLET PO (08:22)
[2024-06-22] MEDS: Aspirin Enteric Coated 81 MG TABLET.DR PO ×3 (08:22→20:15)
[2024-06-22] MEDS: Insulin Lispro 100 UNIT/ML 3 ML VIAL SUBCUT ×4 (08:51→20:15)
[2024-06-22] MEDS: 0.9 % Sodium Chloride Flush 3 ML SYRINGE IVFLUSH ×3 (08:56→20:16)
[2024-06-22] MEDS: Collagenase Clostridium Hist. 30 GM TUBE 1 APPL TOPICAL (08:57)
[2024-06-22 10:54] LABS: Glucose, Whole Blood 273 mg/dL (60-115)
[2024-06-22 11:11] VITALS: BP 134/64; PULSE 90; RESP 20; TEMP 36.4; O2SAT 93
[2024-06-22 11:26] LABS: Glucose, Whole Blood 273 mg/dL (60-115)
[2024-06-22 12:31] LABS: Potassium 4.5 mmol/L (3.3-5.1)
--- NOTE | 2024-06-22 13:11 | P.DS_ITS ---
DS: Providers Provider Date of Service: 06/23/24 Date of admission: 06/17/24 17:13 Date of discharge: 06/23/24 Primary care physician: Babak Greene MD Consults: 06/19/24 06:22 Consult to Wound Care Routine Reason for consultation: Buttocks/L calf 06/19/24 12:06 Consult to General Surgery Routine Consulting Provider: Steve Paiz Reason for consultation: sacral wound Attending physician on discharge: Rommel Palencia Discharging clinician: Geetha Camilo DS: Diagnosis Discharge Diagnosis (1) Sacral decubitus ulcer: Status: Acute DS: Summary Hospital Course Hospital Course: From H&P on the day of admission 69-year-old gentleman with past medical history of obstructive sleep apnea, diabetes mellitus type 2, hypothyroidism, hyperlipidemia, hypertension, CVA on dual platelet was brought in to [facility] accompanied by family since patient was on bed last night and was unable to get out of bed so he has slid out of bed, landed on the ground and remained on the floor all night till 09:00, when daughter sent aunt to check on him, since he was not responding to her phone calls, on arrival to the emergency room he was noted to be incontinent of urine patient denied any symptoms of lightheadedness dizziness, no fevers, no chills, no shortness of breath, no cough, no abdominal pain no nausea, no vomiting no urinary symptoms of urgency and frequency, no chest pain or palpitation workup in the emergency room showed WBC 14.3, magnesium 3 BUN 70 normal creatinine, blood sugar 318, AG 22, bicarb 21,LA 3.5, total bili 1.3, creatinine kinase 1949 Chest x-ray showed streaky bibasilar opacities likely atelectasis, CT head and C-spine were unremarkable, leg examination reveals left leg bigger than right leg with warmth redness, no tenderness to palpation, no open wounds, patient is now being admitted to [facility] due to sepsis likely related to left lower extremity cellulitis and mild rhabdomyolysis along with anion gap acidosis likely due to lactic acidosis. Sepsis likely due to left lower extremity cellulitis due to diabetes mellitus/ch venous stasis wound. Strep agalactiae bacteremia Blood cultures x2 positive for strep agalactie/repeat bc x2 negative s/p IV vancomycin started on 06/17, transitioned to IV ceftriaxone on 06/19, repeat BCx neg, plan for dc on 2 weeks of po ceftin Chest x-ray benign, UA negative Keep legs elevated, continue local wound care Anion gap metabolic acidosis likely due to acute lactic acidosis. Resolved with IV fluids Acute mild rhabdomyolysis s/p IV fluids, CPK trended down to 414, LFTs trended down likely due to rhabdo. Hypermagnesemia repeat magnesium trended down, not on magnesium supplements, normal renal function. Generalized weakness PT recommend short-term rehab Diabetes mellitus type 2 on insulin presented with hyperglycemia on insulin sliding scale, diabetic diet,on Tresiba b.i.d. at home but ran out of prescription a few days prior to admission Patient allergic to Lantus, family brought Tresiba, continue insulin sliding scale. Hypothyroidism TSH 5.06 , will increase dose to 125 mcg daily, follow TSH in 6 weeks. Hypertension Lisinopril on hold for soft BP, resume as indicated Hyperkalemia k 5.5 but due to hemolysis. repeat normal recommend to repeat BMP on tuesday wounds Bilateral Heels - Elevate lower legs - Apply skin prep to heels. Place in Heel Protector boots when in bed to off load pressure. Sacrum - Off Load Pressure - Cleanse with normal saline, pat dry. ?Apply barrier to the immediate maria l wound, apply thick layer of Santyl to entire wound bed, cover with saline moist gauze, secure ABD Pad, change Daily. Left Lower Leg - Elevate lower legs off of surface of bed with use of pillows.? Cleanse with NS, Pat dry.? Apply vaseline to both legs, apply layer of Durafiber AG to open wound beds secure with ABD pad, gauze wrap and tape.? Change every other day.. Mid Thoracic Spine - Routine cleansing, Apply foam dressing peel back and assess change every 5 days and PRN. Time Attestation Discharge Coordination Time (in mins): 40 Quality: Safe Use of Opioids Does Pt have an Active Cancer Diagnosis on the Problem List?: No Quality: Stroke Does the patient have a stroke diagnosis?: No Physical Exam Vital Signs: Vital Signs: Last Vital Signs Temp 97.5 F 06/22/24 11:11 Pulse 90 06/22/24 11:11 Resp 20 06/22/24 11:11 BP 134/64 06/22/24 11:11 Pulse Ox 93 06/22/24 11:11 O2 Del Method Room Air 06/22/24 11:11 BMI result Body Mass Index 38.3 Const: General: cooperative, comfortable, no acute distress, alert and awake Nutritional Appearance: overweight Orientation/consciousness: patient oriented x3 Resp: Effort & Inspection: normal respiratory effort, able to speak in complete sentences, no respiratory distress and no use of accessory muscles Auscultation: clear to auscultation bilaterally Cardio: Rate: regular rate GI: Inspection: No distended Palpation (GI): Soft to palpation and nontender Skin: Other: chronic venous stasis skin changes/thickened skin b/l lower extremities; left leg>right leg with mild erythema; left leg with b/l heel DTI, no open skin Neuro: General: patient oriented x3 DS: Data Data Completed and Pending Labs on day of discharge: Laboratory Results - last 24 hr 06/21/24 06/21/24 06/22/24 15:44 20:27 07:12 Sodium 133 L Potassium 5.5 H D Chloride 105 Carbon Dioxide 19 L Anion Gap 15 BUN 34 H Creatinine 0.84 Estim Creat Clear Calc 101.8 Estimated GFR > 60 POC Glucose 264 H 251 H Random Glucose 215 H Calcium 8.9 06/22/24 06/22/24 06/22/24 07:19 10:47 11:18 Sodium Potassium Chloride Carbon Dioxide Anion Gap BUN Creatinine Estim Creat Clear Calc Estimated GFR POC Glucose 196 H 273 H 273 H Random Glucose Calcium 06/22/24 12:04 Sodium Potassium 4.5 Chloride Carbon Dioxide Anion Gap BUN Creatinine Estim Creat Clear Calc Estimated GFR POC Glucose Random Glucose Calcium Preliminary micro results at discharge 06/19/24 15:36 Blood Culture - Preliminary Blood - Venous No growth after 48 hours. 06/19/24 15:36 Blood Culture - Preliminary Blood - Venous No growth after 48 hours. Discharge Plan Discharge Anticipated Discharge Date/Time: 06/23/24 13:18 Patient Disposition: [facility] Discharge Diagnosis: left leg cellulitis, sacral ulcer, bacteremia Referrals: [facility] [Outside] - 1 Week Po,Babak Hooper MD [Primary Care Provider] - 1 Week Discharge Medications: New Santyl 250 unit/gram Ointment 1 appl topical DAILY Qty: 15 0RF Protocol: Apply to: Apply to: sacrum cefuroxime axetil 500 mg tablet 500 mg PO BID 10 Days Qty: 20 0RF Continued aspirin [Adult Aspirin Regimen] 81 mg tablet,delayed release (DR/EC) 81 mg PO BID 90 Days Qty: 180 0RF atorvastatin 40 mg tablet 40 mg PO BEDTIME Qty: 90 2RF clopidogrel 75 mg tablet 75 mg PO DAILY 90 Days Qty: 90 3RF levothyroxine 112 mcg tablet 112 mcg PO DAILY@0600 Changed insulin degludec [Tresiba U-100 Insulin] 100 unit/mL solution 20 unit subcut BID Qty: 10 3RF Held lisinopril 20 mg tablet 20 mg PO DAILY 90 Days Qty: 90 2RF Hold Instructions: resume as bp allows; follow potassium levels No Action (DME) lancets [FreeStyle Lancets] 28 gauge misc See Rx Instructions .ROUTE .MEDSUPPLY Qty: 3 3RF Rx Instructions: As directed check BS TID (DME) FreeStyle Lite Strips Strip See Rx Instructions .ROUTE .MEDSUPPLY Qty: 300 3RF Rx Instructions: As directed check the BS TID insulin requiring (DME) MOLNLYCKE TUBIGRIP SIZE F NAtural See Rx Instructions .Route .MEDSUPPLY Qty: 4 2RF Rx Instructions: As directed elasticated tubular support bandage (lower extremity swelling) (DME) insulin syringe-needle U-100 [BD Insulin Syringe] 1 mL 29 gauge x 1/2 syringe See Rx Instructions .ROUTE .MEDSUPPLY Qty: 100 3RF Rx Instructions: As directed Discharge Orders: Discharge Order (Routine); Ordered 06/23/24 Ordered By: Geetha Camilo Activity on Discharge: As tolerated Stand Alone Forms: Patient Portal Discharge page Print Language: [place] Zealander Care Plan Goals: see below Health Concerns: Sepsis due to left lower extremity cellulitis Strep bacteremia Metabolic acidosis-resolved Mild rhabdomyolysis-resolved Hyperkalemia-resolved Unstageable sacral pressure injury; bilateral heel DTI; left posterior leg venous dermatitis Plan of Treatment: complete 10 more days of antibiotics for cellulitis and bacteremia outpatient follow up with PCP repeat BMP on tuesday to follow potassium levels resume lisinopril if potassium remains stable and bp allows wound care: Bilateral Heels - Elevate lower legs - Apply skin prep to heels. Place in Heel Protector boots when in bed to off load pressure. Sacrum - Off Load Pressure - Cleanse with normal saline, pat dry. ?Apply barrier to the immediate maria l wound, apply thick layer of Santyl to entire wound bed, cover with saline moist gauze, secure ABD Pad, change Daily. Left Lower Leg - Elevate lower legs off of surface of bed with use of pillows.? Cleanse with NS, Pat dry.? Apply vaseline to both legs, apply layer of Durafiber AG to open wound beds secure with ABD pad, gauze wrap and tape.? Change every other day.. Mid Thoracic Spine - Routine cleansing, Apply foam dressing peel back and assess change every 5 days and PRN. outpatient follow up in wound care clinic recommended Assessment: see discharge summary
--- NOTE | 2024-06-22 13:34 | MHC.CM.PN ---
Addendum entered by Anahi Naranjo RN 06/22/24 16:52: [facility] UNABLE TO OFFER, PT'S SECOND CHOICE IS [facility] STILL AWAITING RESPONSE FROM [facility]. Original Note: PER HOSPITALIST PT TO BE MEDICALLY CLEARED FOR STR, [facility] HAS ADDED PT'S PREFERRED SNF [facility] TO REFERRAL AND AWAITING RESPONSE.
--- NOTE | 2024-06-22 14:52 | MHC.CLN ---
F/U DIET=DIABETIC 2000 KCALS. SUPPLEMENT ENSURE MAX BID PROVIDES 300 KCALS, 60 G PROTEIN. SUPPLEMENT APPROPRIATE TO PROMOTE WOUND HEALING. MULTIPLE AREAS OF IMPAIRED SKIN. INTAKE VARIABLE, WITH MOST MEALS GREATER THAN OR EQUAL TO 50%. FOLLOW FOR INTAKE AND WOUND HEALING.
[2024-06-22] MEDS: cefTRIAXone sodium 2 GM in 0.9 % Sodium Chloride 50 ML IV (14:55)
[2024-06-22 15:25] VITALS: BP 159/72; PULSE 95; RESP 20; TEMP 36.3; O2SAT 94
--- NOTE | 2024-06-22 15:52 | P.PNIM_ITS ---
Subjective Subjective Date of Service: 06/22/24 Interval History: Seen and examined this morning Follow-up for sacral wound No overnight events Patient feeling well this morning Review of Systems Review of Systems: Yes all other systems are reviewed and are negative Constitutional Constitutional: Denies chills and Denies fever(s) Cardiovascular Cardiovascular: Denies chest pain, Denies palpitations and Denies dyspnea Respiratory Respiratory: Denies cough and Denies dyspnea Endocrine Endocrine: Denies palpitations Physical Exam 2 Vital Signs: Vital Signs: Last Vital Signs Temp 97.4 F 06/22/24 15:25 Pulse 95 06/22/24 15:25 Resp 20 06/22/24 15:25 BP 159/72 H 06/22/24 15:25 Pulse Ox 94 06/22/24 15:25 O2 Del Method Room Air 06/22/24 15:25 BMI result Body Mass Index 38.3 Const: General: cooperative, comfortable, no acute distress, alert and awake Nutritional Appearance: overweight Orientation/consciousness: patient oriented x3 Resp: Effort & Inspection: normal respiratory effort, able to speak in complete sentences, no respiratory distress and no use of accessory muscles A uscultation: clear to auscultation bilaterally Cardio: Rate: regular rate GI: Inspection: No distended Palpation (GI): Soft to palpation and nontender Skin: Other: chronic venous stasis skin changes/thickened skin b/l lower extremities; left leg>right leg with mild erythema; left leg with b/l heel DTI, no open skin Neuro: General: patient oriented x3 Objective Data Active Medications Acetaminophen (Acetaminophen 325 Mg Tablet) 650 mg PO Q6H PRN PRN Reason: Pain, Mild (Pain Scale 1-3), fever or headache Aspirin (Aspirin Enteric Coated 81 Mg Tablet.) 81 mg PO BID [facility] Last Admin: 06/22/24 08:52 Dose: 81 mg Documented By: EDGARD Atorvastatin Calcium (Atorvastatin Calcium 40 Mg Tablet) 40 mg PO BEDTIME [facility] Last Admin: 06/21/24 21:17 Dose: 40 mg Documented By: GABRIEL Calcium Carbonate (Calcium Carbonate 750 Mg Tab.Chew) 750 mg PO Q4H PRN PRN Reason: Heartburn Clopidogrel Bisulfate (Clopidogrel Bisulfate 75 Mg Tablet) 75 mg PO DAILY [facility] Last Admin: 06/22/24 08:51 Dose: 75 mg Documented By: EDGARD Collagenase (Collagenase Clostridium Hist. 30 Gm Tube) 1 appl TOPICAL DAILY [facility]; Protocol Last Admin: 06/22/24 08:57 Dose: 1 appl Documented By: EDGARD Enoxaparin Sodium (Enoxaparin Sodium 40 Mg/0.4 Ml Syringe) 40 mg SUBCUT Q24H [facility] Last Admin: 06/21/24 17:51 Dose: 40 mg Documented By: PITER Glucose (Glucose Gel 15 Gm Gel..Gram.) 15 gm PO Q15M PRN; Protocol PRN Reason: per Hypoglycemia Standing Ord. Dextrose (D10) 250 mls @ 750 mls/hr IV Q15M PRN; Protocol PRN Reason: per Hypoglycemia Standing Ord. Ceftriaxone Sodium 2 gm/ (Sodium Chloride) 50 mls @ 100 mls/hr IV Q24H [facility] Last Admin: 06/22/24 14:55 Dose: 100 mls/hr Documented By: EDGARD Insulin Human Lispro (Insulin Lispro 100 Unit/Ml 3 Ml Vial) 0 unit SUBCUT QIDACHS [facility]; Protocol Last Admin: 06/22/24 11:58 Dose: 10 unit Documented By: EDGARD Levothyroxine Sodium (Levothyroxine Sodium 125 Mcg Tablet) 125 mcg PO DAILY@0600 [facility] Last Admin: 06/22/24 06:15 Dose: 125 mcg Documented By: GABRIEL Lisinopril (Lisinopril 10 Mg Tablet) 10 mg PO DAILY [facility]; Protocol Last Admin: 06/22/24 08:22 Dose: 10 mg Magnesium Hydroxide (Milk Of Magnesia 30 Ml Oral.Susp) 30 ml PO DAILY PRN PRN Reason: Constipation Melatonin (Melatonin 3 Mg Tablet) 6 mg PO BEDTIME PRN PRN Reason: Insomnia Pt Own (Insulin Degludec [Tresiba U- 100 Insulin] 100 Unit/Ml Solution) 20 unit SUBCUT BID [facility] Last Admin: 06/22/24 08:51 Dose: 20 unit Documented By: EDGARD Ondansetron HCl (Ondansetron Hcl 4 Mg/2 Ml Vial) 4 mg IVPUSH Q8H PRN PRN Reason: Nausea and Vomiting Polyethylene Glycol (Polyethylene Glycol 3350 17 Gm Powd.Pack) 17 gm PO DAILY PRN PRN Reason: Constipation Polyethylene Glycol (Polyethylene Glycol 3350 17 Gm Powd.Pack) 17 gm PO DAILY [facility] Last Admin: 06/22/24 08:53 Dose: 17 gm Documented By: EDGARD Senna/Docusate Sodium (Sennosides/Docusate Sodium Tablet) 1 tab PO DAILY [facility] Last Admin: 06/22/24 08:52 Dose: 1 tab Documented By: EDGARD Sodium Chloride (0.9 % Sodium Chloride Flush 3 Ml Syringe) 3 ml IVFLUSH QSHIFT [facility] Last Admin: 06/22/24 08:56 Dose: 3 ml Documented By: EDGARD Labs 06/20/24 06:49 06/22/24 12:04 Labs: Laboratory Results - last 24 hr 06/21/24 06/21/24 06/22/24 15:44 20:27 07:12 Anion Gap 15 Estim Creat Clear Calc 101.8 Estimated GFR > 60 POC Glucose 264 H 251 H Random Glucose 215 H Calcium 8.9 06/22/24 06/22/24 06/22/24 07:19 10:47 11:18 Anion Gap Estim Creat Clear Calc Estimated GFR POC Glucose 196 H 273 H 273 H Random Glucose Calcium Microbiology Microbiology Results: Microbiology 06/19/24 15:36 Blood Culture - Preliminary Blood - Venous No growth after 48 hours. 06/19/24 15:36 Blood Culture - Preliminary Blood - Venous No growth after 48 hours. Assessment and Plan (1) Sacral decubitus ulcer: Status: Acute (2) Cellulitis: Status: Acute Plan 69-year-old gentleman with history of obstructive sleep apnea, diabetes mellitus, hypothyroidism, hyperlipidemia, hypertension, CVA on dual antiplatelet therapy slid out of bed last night landing on the ground on his buttocks, unable to get up since then and brought to [facility] this morning patient denies loss of consciousness, no preceding symptoms of lightheadedness, or dizziness, patient noted to be incontinent of urine, diagnosed to have sepsis likely due to left lower extremity cellulitis and an anion gap acidosis. Sepsis likely due to left lower extremity cellulitis due to diabetes mellitus/ch venous stasis wound. Strep agalactiae bacteremia Blood cultures x2 positive for strep agalactie/repeat bc x2 negative s/p IV vancomycin started on 06/17, transitioned to IV ceftriaxone on 06/19, repeat BCx neg, plan for dc on 2 weeks of po ceftin Chest x-ray benign, UA negative Keep legs elevated, continue local wound care Sacral pressure wound unstageable /deep tissue injury present on admission seen by wound nurse recommended Santyl dressing seen by General surgery -s/p sharp excisional debridement at bedside 06/20. no further surgical intervention required Anion gap metabolic acidosis likely due to acute lactic acidosis. Resolved with IV fluids Acute mild rhabdomyolysis s/p IV fluids, CPK trended down to 414, LFTs trended down likely due to rhabdo. hyperkalemia due to hemolysis resolved Hypermagnesemia repeat magnesium trended down, not on magnesium supplements, normal renal function. Diabetes mellitus type 2 on insulin presented with hyperglycemia on insulin sliding scale, diabetic diet,on Tresiba b.i.d. at home but ran out of prescription a few days prior to admission Patient allergic to Lantus, family brought Tresiba, continue insulin sliding scale. Hypothyroidism TSH 5.06 , will increase dose to 125 mcg daily, follow TSH in 6 weeks. Hyperlipidemia Lipitor 40 mg Hypertension Lisinopril on hold for soft BP, BP trending up, we will resume at lower dose, up titrate as needed History of CVA continue Plavix, aspirin, statin Class 2 obesity recommend low-calorie diet ROLO not using CPAP regularly, encourage compliance; continue CPAP at bedtime Generalized weakness PT recommend short-term rehab when medically ready for discharge Full code In my clinical judgment patient requires continued inpatient hospitalization management of sepsis/bacteremia likely due to cellulitis requiring IV antibiotics, and further treatment and expert consultation for sacral wound. Quality Stroke Does the patient have a stroke diagnosis?: No VTE Prior VTE?: No VTE Risk Level:: Medical - moderate - high VTE Device Contraindication: Treatment Not Indicated VTE Drug Contraindication: N/A - Med Ordered
[2024-06-22 16:29] LABS: Glucose, Whole Blood 324 mg/dL (60-115)
[2024-06-22] MEDS: Enoxaparin Sodium 40 MG/0.4 ML SYRINGE SUBCUT (16:44)
[2024-06-22 19:07] VITALS: BP 116/58; PULSE 94; RESP 18; TEMP 37.3; O2SAT 93
[2024-06-22 20:07] LABS: Glucose, Whole Blood 268 mg/dL (60-115)
[2024-06-22] MEDS: Atorvastatin Calcium 40 MG TABLET PO (20:15)
[2024-06-23] VITALS: BP 132/63; PULSE 82; RESP 20; TEMP 36.1; O2SAT 96
[2024-06-23 04:00] VITALS: BP 132/68; PULSE 81; RESP 20; TEMP 36.2; O2SAT 95
[2024-06-23] MEDS: Levothyroxine Sodium 125 MCG TABLET PO (04:48)
[2024-06-23] MEDS: Acetaminophen 325 MG TABLET 650 MG PO (04:48)
[2024-06-23 07:54] VITALS: BP 129/59; PULSE 83; RESP 18; TEMP 36.4; O2SAT 96
[2024-06-23] MEDS: Sennosides/Docusate Sodium TABLET 1 TAB PO (08:12)
[2024-06-23 08:13] LABS: Glucose, Whole Blood 195 mg/dL (60-115)
[2024-06-23] MEDS: Aspirin Enteric Coated 81 MG TABLET.DR PO (08:13)
[2024-06-23] MEDS: Clopidogrel Bisulfate 75 MG TABLET PO (08:13)
[2024-06-23] MEDS: 0.9 % Sodium Chloride Flush 3 ML SYRINGE IVFLUSH (08:13)
[2024-06-23] MEDS: Insulin Lispro 100 UNIT/ML 3 ML VIAL SUBCUT ×2 (08:13→11:23)
[2024-06-23] MEDS: polyethylene glycoL 3350 17 GM POWD.PACK PO (08:14)
[2024-06-23] MEDS: Collagenase Clostridium Hist. 30 GM TUBE 1 APPL TOPICAL (08:14)
--- NOTE | 2024-06-23 09:23 | PM.PNGS ---
Subjective Subjective Date of Service: 06/23/24 Interval history: Still very weak he says Not getting out of bed much Physical Exam Vital Signs: Vital Signs: Last Vital Signs Temp 97.5 F 06/23/24 07:54 Pulse 83 06/23/24 07:54 Resp 18 06/23/24 07:54 BP 129/59 L 06/23/24 07:54 Pulse Ox 96 06/23/24 07:54 O2 Del Method Room Air 06/23/24 07:54 BMI result Body Mass Index 38.3 Const: General: comfortable and no acute distress Resp: Effort & Inspection: normal respiratory effort Cardio: Rate: regular rate Back/Spine/Pelvis: Other: Large ulcer on the sacrococcygeal area, small patches of nonviable skin, residual superficial eschar otherwise he has improved Objective Data Active Medications Acetaminophen (Acetaminophen 325 Mg Tablet) 650 mg PO Q6H PRN PRN Reason: Pain, Mild (Pain Scale 1-3), fever or headache Last Admin: 06/23/24 04:48 Dose: 650 mg Documented By: ADIEL Aspirin (Aspirin Enteric Coated 81 Mg Tablet.Dr) 81 mg PO BID [facility] Last Admin: 06/23/24 08:13 Dose: 81 mg Documented By: JAM Atorvastatin Calcium (Atorvastatin Calcium 40 Mg Tablet) 40 mg PO BEDTIME [facility] Last Admin: 06/22/24 20:15 Dose: 40 mg Documented By: ADIEL Calcium Carbonate (Calcium Carbonate 750 Mg Tab.Chew) 750 mg PO Q4H PRN PRN Reason: Heartburn Clopidogrel Bisulfate (Clopidogrel Bisulfate 75 Mg Tablet) 75 mg PO DAILY [facility] Last Admin: 06/23/24 08:13 Dose: 75 mg Documented By: JAM Collagenase (Collagenase Clostridium Hist. 30 Gm Tube) 1 appl TOPICAL DAILY [facility]; Protocol Last Admin: 06/23/24 08:14 Dose: 1 appl Documented By: JAM Enoxaparin Sodium (Enoxaparin Sodium 40 Mg/0.4 Ml Syringe) 40 mg SUBCUT Q24H [facility] Last Admin: 06/22/24 16:44 Dose: 40 mg Documented By: EDGARD Glucose (Glucose Gel 15 Gm Gel..Gram.) 15 gm PO Q15M PRN; Protocol PRN Reason: per Hypoglycemia Standing Ord. Dextrose (D10) 250 mls @ 750 mls/hr IV Q15M PRN; Protocol PRN Reason: per Hypoglycemia Standing Ord. Ceftriaxone Sodium 2 gm/ (Sodium Chloride) 50 mls @ 100 mls/hr IV Q24H [facility] Last Infusion: 06/22/24 15:25 Dose: Infused Documented By: JAM Insulin Human Lispro (Insulin Lispro 100 Unit/Ml 3 Ml Vial) 0 unit SUBCUT QIDACHS [facility]; Protocol Last Admin: 06/23/24 08:13 Dose: 4 unit Documented By: JAM Levothyroxine Sodium (Levothyroxine Sodium 125 Mcg Tablet) 125 mcg PO DAILY@0600 [facility] Last Admin: 06/23/24 04:48 Dose: 125 mcg Documented By: ADIEL Lisinopril (Lisinopril 10 Mg Tablet) 10 mg PO DAILY [facility]; Protocol Last Admin: 06/22/24 08:22 Dose: 10 mg Magnesium Hydroxide (Milk Of Magnesia 30 Ml Oral.Susp) 30 ml PO DAILY PRN PRN Reason: Constipation Melatonin (Melatonin 3 Mg Tablet) 6 mg PO BEDTIME PRN PRN Reason: Insomnia Pt Own (Insulin Degludec [Tresiba U- 100 Insulin] 100 Unit/Ml Solution) 20 unit SUBCUT BID [facility] Last Admin: 06/23/24 08:13 Dose: 20 unit Documented By: JAM Ondansetron HCl (Ondansetron Hcl 4 Mg/2 Ml Vial) 4 mg IVPUSH Q8H PRN PRN Reason: Nausea and Vomiting Polyethylene Glycol (Polyethylene Glycol 3350 17 Gm Powd.Pack) 17 gm PO DAILY PRN PRN Reason: Constipation Last Admin: 06/23/24 08:14 Dose: 17 gm Documented By: JAM Polyethylene Glycol (Polyethylene Glycol 3350 17 Gm Powd.Pack) 17 gm PO DAILY [facility] Last Admin: 06/22/24 08:53 Dose: 17 gm Documented By: EDGARD Senna/Docusate Sodium (Sennosides/Docusate Sodium Tablet) 1 tab PO DAILY [facility] Last Admin: 06/22/24 08:52 Dose: 1 tab Documented By: EDGARD Sodium Chloride (0.9 % Sodium Chloride Flush 3 Ml Syringe) 3 ml IVFLUSH QSHIFT [facility] Last Admin: 06/23/24 08:13 Dose: 3 ml Documented By: JAM Labs 06/20/24 06:49 06/22/24 12:04 Labs: Laboratory Results - last 24 hr 06/22/24 06/22/24 06/22/24 10:47 11:18 15:59 POC Glucose 273 H 273 H 324 H 06/22/24 06/23/24 19:58 08:03 POC Glucose 268 H 195 H Procedures Date of Service Date of Service: 06/23/24 Progress Note: A&P Assessment and plan (1) Sacral decubitus ulcer: Status: Acute Assessment and Plan: Additional debridement done, area about 2 x 2 cm at bedside to re-excise full-thickness of the skin Santyl dressings applied Fluffy dressings placed Continue same wound care daily Change position [id number] every 2 hours Time Spent With Patient Time: Total time managing care of this patient today ____ minutes. Quality Stroke Does the patient have a stroke diagnosis?: No VTE Prior VTE?: No VTE Risk Level:: Medical - moderate - high VTE Device Contraindication: Treatment Not Indicated VTE Drug Contraindication: N/A - Med Ordered
--- NOTE | 2024-06-23 09:25 | PM.PROC ---
Brief Operative Note Date of procedure: 06/23/24 Pre-op diagnosis: Sacral decubitus ulcer Post-op diagnosis: same Procedure: He was in left lateral decubitus position. There was some patchy areas of residual eschar consisting of full-thickness of skin. I excised this using fine scissors at bedside. Aggregate area was about 2 x 2 cm. I applied Santyl dressings and covered the area with fluffy gauze. He tolerated procedure well
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
--- NOTE | 2024-06-23 10:39 | MHC.CM.PN ---
Patient has been medically cleared for dc to SNF/[facility] today. Patient has accepted a bed offer from [facility] and he will dc there today at 1PM, via [facility]. Patient wished to inform his Daughter himself of the dc plan. DC IMM addressed with Patiernt and he received the original and a copy has been placed on the chart.
[2024-06-23 11:11] LABS: Glucose, Whole Blood 326 mg/dL (60-115)
[2024-06-23 11:31] VITALS: BP 145/79; PULSE 88; RESP 19; TEMP 36.6; O2SAT 98
== END 2024-06-23 13:52 | disposition skilled nursing facility (03) | DRG 854 ==
LOC: HO.ED 15:24 → HO.EDOVER 17:28 → HO.IMC 06-18 17:08
PROVIDERS: Nurse Practitioner Family; Admitting Provider Hospitalist; Emergency Provider Emergency Medicine; PCP Internal Medicine; Visit Provider Physician Assistant Medical
DX: A41.9 Sepsis, unspecified organism (principal); E87.21 Acute metabolic acidosis; L03.116 Cellulitis of left lower limb; M62.82 Rhabdomyolysis; I87.312 Chronic venous hypertension (idiopathic) with ulcer of left lower extremity; L97.829 Non-pressure chronic ulcer of other part of left lower leg with unspecified severity; G47.33 Obstructive sleep apnea (adult) (pediatric); E11.628 Type 2 diabetes mellitus with other skin complications; L89.626 Pressure-induced deep tissue damage of left heel; E11.65 Type 2 diabetes mellitus with hyperglycemia; L89.616 Pressure-induced deep tissue damage of right heel; E03.9 Hypothyroidism, unspecified; R29.6 Repeated falls; W06.XXXA Fall from bed, initial encounter; E66.8 Other obesity; M06.9 Rheumatoid arthritis, unspecified; M35.3 Polymyalgia rheumatica; Z68.38 Body mass index [BMI] 38.0-38.9, adult; B95.1 Streptococcus, group B, as the cause of diseases classified elsewhere; E87.5 Hyperkalemia; Z71.3 Dietary counseling and surveillance; E83.41 Hypermagnesemia; L89.156 Pressure-induced deep tissue damage of sacral region; T38.3X6A Underdosing of insulin and oral hypoglycemic [antidiabetic] drugs, initial encounter; E78.5 Hyperlipidemia, unspecified; Z86.73 Personal history of transient ischemic attack (TIA), and cerebral infarction without residual deficits; Z20.822 Contact with and (suspected) exposure to COVID-19; Z87.891 Personal history of nicotine dependence; Z79.4 Long term (current) use of insulin; Z79.02 Long term (current) use of antithrombotics/antiplatelets; Z79.82 Long term (current) use of aspirin; Z79.890 Hormone replacement therapy; Z79.899 Other long term (current) drug therapy
CPT/HCPCS: 36415; 70450; 71045; 72125; 80048; 80076; 80202; 81001; 82550; 82565; 82947; 83605; 83735; 84132; 84443; 84484; 85025; 85027; 85610; 87040; 87147; 87205; 87635; 93005; 94660; 97116; 97162; 97530; 99285; J0696; J1650; J3370

== ENCOUNTER → 2024-06-17 17:13 | Outpatient (BNV) | payer MEDICARE, SELFPAY | PROVIDERS: Admitting Provider Hospitalist; Emergency Provider Emergency Medicine; PCP Internal Medicine; Visit Provider Hospitalist | DX: L89.159 Pressure ulcer of sacral region, unspecified stage (principal) | CPT/HCPCS: 99223; 99232; 99233; 99238; 99499 ==

== ENCOUNTER → 2024-06-17 17:13 | Outpatient (BNV) | payer MEDICARE, SELFPAY | PROVIDERS: Admitting Provider Hospitalist; Emergency Provider Emergency Medicine; PCP Internal Medicine; Visit Provider Physician Assistant Surgical | DX: L89.159 Pressure ulcer of sacral region, unspecified stage (principal) | CPT/HCPCS: 11042; 11045; 97597; 99024; 99222; 99232 ==

== ENCOUNTER 2024-07-16 13:39 | Inpatient (IN) | payer MEDICARE, SELFPAY ==
--- NOTE | 2024-07-16 | ECG_ITS ---
Test Reason : TACHY Blood Pressure : / mmHG Vent. Rate : 133 BPM Atrial Rate : 000 BPM P-R Int : 000 ms QRS Dur : 068 ms QT Int : 318 ms P-R-T Axes : 000 251 026 degrees QTc Int : 473 ms Supraventricular tachycardia with Premature ventricular complexes or Fusion complexes Inferior infarct (cited on or before 17-JUN-2024) Anterolateral infarct , age undetermined Abnormal ECG When compared with ECG of 17-JUN-2024 14:48, Fusion complexes are now Present Premature ventricular complexes are now Present Anterolateral infarct is now Present Referred By: Chivo Padgett Electronically Signed By:DELIA PARKER
--- NOTE | ~2024-07-16 | XR_ITS ---
EXAMINATION: XR CALCANEUS, LEFT CLINICAL INFORMATION: Wound of the heel COMPARISON: None available. TECHNIQUE: Lateral and axial views of the left calcaneus were obtained. FINDINGS: No radiopaque foreign body or gas within the soft tissues. No focal bone lesion or bone destruction. No radiographic evidence for osteomyelitis. There is a plantar calcaneal spur. There are vascular calcifications around the ankle. XR/XR calcaneus LT min 2V IMPRESSION: 1. No acute abnormality. No radiographic evidence for osteomyelitis. 2. Plantar calcaneal spur. Electronically signed by: Markus Olson MD 07/16/2024 05:56 PM EDT
--- NOTE | ~2024-07-16 | CT_ITS ---
EXAMINATION: CT HEAD WITHOUT IV CONTRAST CLINICAL INFORMATION: fall out of bed, head trauma COMPARISON: CT head without contrast 06/17/2024 TECHNIQUE: Contiguous axial imaging was performed from the skull base to vertex without intravenous contrast. Sagittal and coronal reformatted images were obtained. This CT examination was performed using dose optimization techniques as appropriate, variously including the following: * Automated exposure control * Adjustment of mA and/or kV according to patient size (this includes techniques or standardized protocols for targeted exams where dose is matched to indication/reason for exam; i.e. extremities or head) Use of iterative reconstruction technique DLP: 1322 mGy-cm (including contrast-enhanced CT pelvis) FINDINGS: Mild left frontal soft tissue swelling. No acute osseous abnormality. Left maxillary sinus mucosal thickening. The mastoids are clear. There is no evidence of acute intracranial hemorrhage or territorial infarction. No abnormal mass effect or midline shift is seen. [place] to white matter differentiation is well preserved. No extra-axial fluid collections are identified. No hydrocephalus. Proportional prominence of the ventricles and sulcal spaces related to volume loss. Patchy periventricular and deep white matter hypoattenuation is consistent with mild small vessel ischemic changes. Chronic encephalomalacia involving the right superior frontal gyrus. Chronic lacunar infarcts involving the right guadarrama radiata and inferior right cerebellum. CT/CT head/brain wo IV con IMPRESSION: No acute intracranial abnormality including hemorrhage, mass effect, hydrocephalus, or acute territorial edematous infarction. Electronically signed by: Clyde Banda MD 07/16/2024 05:43 PM EDT
--- NOTE | ~2024-07-16 | XR_ITS ---
EXAMINATION: XR CHEST CLINICAL INFORMATION: Hypoxia COMPARISON: 06/17/2024 TECHNIQUE: Frontal view of the chest was obtained. FINDINGS: There is elevation of the right hemidiaphragm and suggestion of a small to moderate pleural effusion with adjacent basilar opacity. Mild atelectasis is suspected at the left lung base. No appreciable pneumothorax or overt pulmonary edema. The cardiomediastinal silhouette is stable. Loop recorder overlies the lower chest to the left of midline. Degenerative changes are noted in the spine. XR/XR chest 1V IMPRESSION: Suggestion of small to moderate right pleural effusion with adjacent basilar opacity which may represent atelectasis or consolidation. Electronically signed by: Moncho Haq MD 07/16/2024 09:17 PM EDT RP
--- NOTE | ~2024-07-16 | CT_ITS ---
EXAMINATION: CT PELVIS WITH CONTRAST CLINICAL INFORMATION: worsening deep sacral ulcer COMPARISON: None available. TECHNIQUE: Helical scanning was performed with submillimeter collimation through the pelvis with the use of oral contrast and during bolus intravenous injection of 85 mL of Omnipaque 350 intravenous contrast. Sagittal and coronal multiplanar 2-D reconstructions were obtained. This CT examination was performed using dose optimization techniques as appropriate, variously including the following: *Automated exposure control *Adjustment of mA and/or kV according to patient size (this includes techniques or standardized protocols for targeted exams where dose is matched to indication/reason for exam; i.e. extremities or head) *Use of iterative reconstruction technique DLP: 407.18+23.39 mGy-cm FINDINGS: There is a deep ulcer at the right posterior pelvis adjacent to the sacrum. This contains air and measures about 3 cm superior-inferior by 3.8 cm in depth by 3 cm in width. There is edema and induration in the surrounding cutaneous tissue. The gas-filled ulcer approaches but does not contact the underlying sacrum. 0.7 cm soft tissue still present between the bone and the air-filled ulcer. There is no bone destruction or abnormal periosteal reaction. No radiographic evidence for osteomyelitis. Multilevel degenerative spondylosis of the lower lumbar spine. Degenerative joint disease of hips bilateral. Fat-containing right inguinal hernia measuring 3.7 cm. Small left inguinal hernia. Fat-containing umbilical hernia. Anterior abdominal wall defect measures 5 cm transverse. No acute abnormality of bowel. Bladder is distended but no inflammation of the bladder wall or bladder mass. CT/CT pelvis w IV con IMPRESSION: 1. Deep ulcer at the right posterior pelvis adjacent to the sacrum. No radiographic evidence for osteomyelitis. 2. Fat-containing inguinal hernias bilateral. Fat-containing umbilical hernia. Electronically signed by: Markus Olson MD 07/16/2024 05:53 PM EDT
[2024-07-16 14:24] VITALS: BP 131/61; BP 180/98; PULSE 84; RESP 16; TEMP 36.9; O2SAT 95; O2SAT 96; BMI 42.3
[2024-07-16 15:06] LABS: MANUAL DIFF FLAG NO
[2024-07-16 15:13] LABS: Basophils Percent Auto 0.4 % (0-2); Eosinophils Absolute Auto 0.8 X10*3/uL (0.0-0.4); Eosinophils Percent Auto 7.7 % (0-4); Hematocrit 31.7 % (42.0-52.0); Hemoglobin 10.8 g/dl (14.0-18.0); Imm Gran Abs Auto 0.04 X10*3/uL (0.00-0.03); Imm Gran Pct Auto 0.4 % (0.0-0.4); Lymphocytes Absolute Auto 1.7 X10*3/uL (1.2-4.9); Lymphocytes Percent Auto 17.4 % (20-40); Mean Corpuscular HGB Conc 34.1 g/dl (31.0-36.0); Mean Corpuscular Hemoglobin 31.9 pg (27.0-33.0); Mean Corpuscular Volume 93.5 fL (80.0-98.0); Monocytes Absolute Auto 0.7 X10*3/uL (0.1-1.2); Monocytes Percent Auto 7.3 % (2-11); Neutrophils Absolute Auto 6.5 x10*3/uL (2.0-8.3); Neutrophils Percent Auto 66.8 % (45-73); Platelet Count 310 X10*3/uL (160-400); Red Blood Count 3.39 X10*6/uL (4.60-5.80); Red Cell Distribution Width 13.3 % (11.0-16.0); White Blood Count 9.7 X10*3/uL (4.8-10.8)
[2024-07-16 15:32] LABS: Alanine Aminotransferase 18 U/L (0-40); Albumin Level 2.5 g/dL (3.5-5.0); Alkaline Phosphatase 59 U/L (39-117); Anion Gap 11 (12-20); Aspartate Amino Transferase 19 U/L (5-37); Bilirubin Total 0.5 mg/dL (0.0-1.0); Blood Urea Nitrogen 10 mg/dL (9-16); C Reactive Protein 7.44 mg/dL (< or = 0.50); Carbon Dioxide 29 mmol/L (22-29); Chloride 104 mmol/L (96-108); Estimated Glomerular Filt Rate > 60; Glucose Random 194 mg/dL (60-115); Magnesium 1.8 mg/dL (1.6-2.6); Potassium 4.1 mmol/L (3.3-5.1); Sodium 140 mmol/L (135-145)
[2024-07-16 15:54] LABS: Erythrocyte Sedimentation Rate 56 MM/HR (0-15)
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
[2024-07-16] MEDS: iohexoL 350 MG/ML 100 ML INFUS..BTL IV (16:40)
[2024-07-16] MEDS: cefEPime HCl 1 GM in 0.9 % Sodium Chloride 50 ML IV (16:56)
[2024-07-16 16:58] VITALS: BP 118/38; PULSE 87; RESP 20; TEMP 36.8; O2SAT 95
[2024-07-16 17:36] LABS: Lactic Acid 1.1 mmol/L (0.5-2.0)
[2024-07-16 18:00] VITALS: BP 120/49; PULSE 90; RESP 18; TEMP 37.1; O2SAT 93
[2024-07-16] MEDS: vancomycin/NS 2,000 MG/500 ML PLAST..BAG 250 MG IV (18:16)
[2024-07-16 18:54] VITALS: BP 120/49; PULSE 93; RESP 18; TEMP 37.2; O2SAT 95
--- NOTE | 2024-07-16 18:56 | PM.IMHP ---
History of Present Illness Date of Service: 07/16/24 Attending physician on admission: Burke Jimenes Chief Complaint: worsening wounds 69 yo male with PMH of ROLO, DM, hypothyroidism, hyperlipidemia, HTN, CVA on aspirin and plavix discharged from here to [facility] for unstageable sacral ulcer s/p debridement on 06/20 and 06/23 by gen surg and then + blood cultures strep agalactie / treated with IV ceftriaxone and last dose ceftin 07/02 who presents here with c/o being at [facility] and staff told him wounds were worse. He is unable to see the wounds. He reports 4/10 pain in the sacral wound and is incontinent of urine requesting brief. He is also reporting 8/10 pain with friction to the L heel. No fevers, chills. He is supposed to be using heel boots for offloading but states they havent really been used at the facility. He did complete course of abx. Did have fall OOB 2 nights ago without loss of consciousness. Since arrival, VSS. No leukocytosis. Normocytic anemia with H/H 10.8/31.7%. Renal function electrolyte levels normal. CRP 7.44, ESR 56. Head CT negative for acute intracranial abnormality. Pelvis CT shows deep ulcer at the right posterior pelvis adjacent to the sacrum without evidence of osteomyelitis. X-ray of the left calcaneus negative for acute abnormality and negative for evidence of osteomyelitis. In the ED, has received IV cefepime, vancomycin. Review of Systems Review of Systems: Yes all other systems are reviewed and are negative [facility] Medical History Obstructive sleep apnea (adult) (pediatric) Sacral decubitus ulcer TIA (transient ischemic attack) Solitary left kidney Osteoarthritis Type 2 diabetes mellitus with hyperglycemia Erectile dysfunction Hypercholesterolemia Polymyalgia rheumatica Vitamin D deficiency Hypothyroid Migraine Obesity Alcohol abuse Tobacco abuse Hypertension Family History Father Diabetes Mother Melanoma Maternal Uncle Colon cancer Surgical History History of colonoscopy Hx of tonsillectomy History of total left knee replacement History of arthroscopy of both knees Social History Household Members: None Housing: House Do you presently have visiting nurse or other home services: No Alcohol intake: former Patient Tobacco Use Status: Never used Tobacco Tobacco use type: Cigar and Pipe Years Smoked: 50 stopped 08/2022 Smoked in Last 30 Days: No e-Cigarette/Vaping Use: Currently Using Second Hand Smoke Exposure: Yes Use of substances other than those prescribed or required for medical reasons: No Advance Directives: Yes Advance Directives on File: Yes Advance Directives Date on File: 06/26/24 Do you have a plan to hurt others: No Plan service: Yes Current occupational status: employed Cognitive needs: Yes Hearing needs: No Vision needs: Yes Meds Allergies Allergy/AdvReac Type Severity Reaction Status Date / Time canagliflozin [Invokana] Allergy Unknown hives Verified 07/16/24 14:32 dulaglutide [Trulicity] Allergy Unknown hives Verified 07/16/24 14:32 insulin glargine Allergy Unknown Hives Verified 07/16/24 14:32 [From Lantus U-100 Insulin] metformin [METFORMIN] Allergy Unknown HIVES Verified 07/16/24 14:32 rosuvastatin Allergy Unknown Unknown Verified 07/16/24 14:32 sitagliptin [From JANUVIA] Allergy Unknown HIVES Verified 07/16/24 14:32 Active Medications: Current Medications Vancomycin HCl (Vancomycin/Ns) 2,000 mg in 500 mls @ 250 mls/hr IV ONCE ONE Stop: 07/16/24 19:47 Last Admin: 07/16/24 18:16 Dose: 250 mls/hr Home Medications ?Medication ?Instructions ?Recorded ?Confirmed ?Last Taken ?Type levothyroxine 112 mcg tablet 112 mcg PO DAILY@0600 06/17/24 06/17/24 06/15/24 History Physical Exam Vital Signs and Narrative: Vital Signs: Last Vital Signs Temp 98.8 F 07/16/24 18:00 Pulse 90 07/16/24 18:00 Resp 18 07/16/24 18:00 BP 120/49 L 07/16/24 18:00 Pulse Ox 93 07/16/24 18:00 O2 Del Method Room Air 07/16/24 18:00 BMI result Body Mass Index 42.3 Constitutional - Awake and Alert, No apparent distress Eyes - PERRLA, EOMI Cardiovascular - S1S2, RRR, No edema Respiratory - Normal lung expansion, Normal respiratory effort, No respiratory distress, CTA bilaterally Gastrointestinal - NT / ND; +BS; No rebound or guarding - incontinent of urine Extremities - no calf tenderness bilaterally, no swelling Skin - Warm/Dry. Unstageable ulcer sacrum with foul odor. Unstageable ulcer L heel with eschar and some slough with foul odor Neurological - Alert & oriented x3 Psychological - Appropriate affect Results Labs 07/16/24 15:01 07/16/24 15:01 Labs: Laboratory Results - last 24 hr 07/16/24 07/16/24 15:01 17:15 MCV 93.5 MCH 31.9 MCHC 34.1 RDW 13.3 Plt Count 310 MPV 9.0 L Immature Gran % (Auto) 0.4 Neut % (Auto) 66.8 Lymph % (Auto) 17.4 L [place] % (Auto) 7.3 Eos % (Auto) 7.7 H Baso % (Auto) 0.4 Lymph # (Auto) 1.7 [place] # (Auto) 0.7 Eos # (Auto) 0.8 H Baso # (Auto) 0.0 Abs Immat Gran (auto) 0.04 H Absolute Neuts (auto) 6.5 Absolute Nucleated RBC 0.000 Nucleated RBC % (auto) 0.0 ESR 56 H Anion Gap 11 L Estim Creat Clear Calc 123.0 Estimated GFR > 60 Random Glucose 194 H Lactic Acid 1.1 Calcium 8.0 L D Magnesium 1.8 Total Bilirubin 0.5 AST 19 ALT 18 Alkaline Phosphatase 59 C-Reactive Protein 7.44 H Total Protein 6.0 L Albumin 2.5 L Imaging Radiologist's Impressions: Impressions Calcaneus X-Ray 07/16/24 15:53 IMPRESSION: 1. No acute abnormality. No radiographic evidence for osteomyelitis. 2. Plantar calcaneal spur. Electronically signed by: Markus Olson MD 07/16/2024 05:56 PM EDT RP Head CT 07/16/24 16:03 IMPRESSION: No acute intracranial abnormality including hemorrhage, mass effect, hydrocephalus, or acute territorial edematous infarction. Electronically signed by: Clyde Banda MD 07/16/2024 05:43 PM EDT RP Pelvis CT 09/23/24 16:21 IMPRESSION: 1. Deep ulcer at the right posterior pelvis adjacent to the sacrum. No radiographic evidence for osteomyelitis. 2. Fat-containing inguinal hernias bilateral. Fat-containing umbilical hernia. Electronically signed by: Markus Olson MD 07/16/2024 05:53 PM EDT RP Assessment and Plan (1) Heel ulcer: Qualifiers: Laterality: left Non-pressure ulcer stage: unspecified non-pressure ulcer stage Qualified Code(s): L97.429 - Non-pressure chronic ulcer of left heel and midfoot with unspecified severity Status: Acute (2) Sacral decubitus ulcer: Qualifiers: Pressure injury stage: unstageable Qualified Code(s): L89.150 - Pressure ulcer of sacral region, unstageable Status: Acute Plan 69 yo male with PMH of ROLO, DM, hypothyroidism, hyperlipidemia, HTN, CVA on aspirin and plavix discharged from here to [facility] for unstageable sacral ulcer s/p debridement on 06/20 and 06/23 by gen surg and then + blood cultures strep agalactie 11/25 treated with IV ceftriaxone and last dose ceftin 07/02 admitted for infected unstageable ulcer L heel #Infected unstageable decubitus ulcer L heel r/t type II diabetes -ESR 56, CRP 7, XR negative for osteo. MRI L foot w/wo ordered -IV vanco and zosyn -general surgery consult -wound care/pressure dressing -no sepsis -follow cultures -consider ID consult if +for osteomyelitis #Infected unstageable sacral ulcer -general surgery consult -IV vanco and zosyn -wound culture/pressure dressing -Incontinent of urine. Unable to place condom cath due to anatomy. Lozano catheter ordered for skin integrity #Insulin dependent type 2 diabetes -poc glucose, diabetic diet -dose adjusted basal insulin -admelog on ss #Hypothyroidism -levothyroxine #Hx CVA -continue DAPT, statin #HTN -continue lisinopril #Acute on chronic normocytic anemia -above transfusion threshold, likely in setting of chronic wounds, no bleeding dvt prophyalxis- lovenox full code pt requires inpt stay at least 2 midnights for infected foot ulcer with concern for osteomyelitis requiring broad spectum abx, further advanced imaging and expert consultation Quality Stroke Does the patient have a stroke diagnosis?: No VTE Prior VTE?: No VTE Risk Level:: Medical - moderate - high VTE Device Contraindication: Treatment Not Indicated VTE Drug Contraindication: N/A - Med Ordered
--- NOTE | 2024-07-16 19:25 | PHA.PROG ---
Admission Date/Time: July 16, 2024 18:54 Indication: BONE AND JOINT Weight in k.4 kg Adjusted body weight in Kg: [place] body weight in Kg: Obesity Dosing Indication % IBW: Serum Creatinine - Last 168 Hours 07/16/24 15:01 Creatinine 0.71 Estimated CrCl and GFR - Last 168 Hours 07/16/24 15:01 Estim Creat Clear Calc 123.0 Estimated GFR > 60 Vancomycin Loading Dose: 2000 MG Current Vancomycin Dosing Regimen: 1500 MG Q12H Vancomycin Monitoring using AUC goal of 400 - 600 range with trough as surrogate marker: OMS=118 TROUGH=17.1 Date and Time for next Vancomycin Level to be drawn: 07/18/24@0600 Pharmacist Comments on Vancomycin Plan: Vancomycin dosing will take advantage of [employer] as a clinical decision support tool that uses Bayesian modeling to calculate individual patient's pharmacokinetic parameters and forecast the patient's drug concentration time course with the target goal AUC 24 range of 400 - 600 mg/L/hr.
[2024-07-16] MEDS: Heparin Sodium,Porcine 5,000 UNIT/ML VIAL 5000 UNIT SUBCUT (19:26)
[2024-07-16] MEDS: Piperacillin Sodium/Tazobactam 4.5 GM in 0.9 % Sodium Chloride 100 ML IV (19:27)
[2024-07-16 19:41] LABS: Glucose, Whole Blood 102 mg/dL (60-115)
--- NOTE | 2024-07-16 20:16 | MHC.EDTECH ---
EKG was done and was given to admitting provider
--- NOTE | 2024-07-16 20:16 | PHA.MEDREC ---
Addendum entered by Chris Dumont [facility] 07/17/24 11:58: Reviewed by [facility]. Per pt's medical list from [facility], two updates on medication and dosing from what patient states: Lisinopril 10mg and Tresiba 32 units BID. Provider was altered of these changes from what pt states. Addendum entered by Cindy Horton 07/17/24 11:50: Patient is coming from [facility]. updated med rec utilizing list from [facility]. Original Note: Pharmacy Consult ? Medication Reconciliation Pharmacy has completed the medication reconciliation. Confirmed medications with patient. Patient confirmed he is done with his Cefuroxime 500mg regimen and never started the Santyl that were new from his last discharge on 06/23/24. He also confirmed the medications from his last discharge are up to dater but the Tresiba and Clopidogrel 75mg. He states he is injecting 28 units BID of his Tresiba and he is taking his Clopidogrel 75mg at bedtime with his Atorvastatin 40mg tab. Also with his last discharge it looked like he was suppose to put the Lisionpril 20mg tab on hold and when I asked about that the patient was confused and states he been taking it continuously and never put it on hold. Patient also seemed confused when he last took his medications, he states he last took them a day or 2 before coming into [facility] and I inquired more about it but he was going all over the place.
[2024-07-16 20:32] VITALS: PULSE 141; RESP 30; O2SAT 87
--- NOTE | 2024-07-16 20:32 | PC.NURSE ---
pt HR elevated to 140s, RR's up to 30-35, O2 down to 87% room air, w/ sob and audible wheezing. pt states it is due to his low blood sugar, however it was 102 and pt ate pudding, sandwich and juice. ppt placed on 2L O2 via LEON, MD cohen and bedside and ekg being done
[2024-07-16 20:36] VITALS: BP 148/108; PULSE 128; RESP 24; O2SAT 93
[2024-07-16] MEDS: Metoprolol Tartrate 5 MG/5 ML VIAL IVPUSH (20:36)
--- NOTE | 2024-07-16 20:41 | PC.NURSE ---
pt given iv lopressor 5mg as ordered.
[2024-07-16 21:54] LABS: Glucose, Whole Blood 184 mg/dL (60-115)
[2024-07-16 22:05] LABS: VBG Base Excess 4.3 mmol/L; VBG HCO3 29 mmol/L (22-26); VBG pCO2 48 mmHg; VBG pH 7.39 (7.32-7.43); VBG pO2 36 mmHg
[2024-07-16 22:08] LABS: Venous Blood Gas Refer to POC result
[2024-07-16 22:18] LABS: Troponin-I High Sensitivity 4.7 ng/L (<3.5-35.0)
[2024-07-16 22:35] LABS: B Type Natriuretic Peptide 23 pg/mL (<100)
[2024-07-16 23:04] LABS: Glucose, Whole Blood 202 mg/dL (60-115)
[2024-07-17] VITALS (10 sets, daily range): BP systolic 92–127; BP diastolic 30–64; PULSE 82–95; RESP 13–20; TEMP 36.3–36.9; O2SAT 90–97
--- NOTE | 2024-07-17 00:43 | PC.NURSE ---
16fr wells catheter placed for incontinence and skin breakdown. pt tolerated well. 600cc urine put out upon insertion
[2024-07-17] MEDS: Piperacillin Sodium/Tazobactam 4.5 GM in 0.9 % Sodium Chloride 100 ML IV ×4 (03:01→20:07)
[2024-07-17 04:48] LABS: MANUAL DIFF FLAG NO
[2024-07-17 04:51] LABS: Basophils Absolute Auto 0.1 X10*3/uL (0.0-0.2); Basophils Percent Auto 0.4 % (0-2); Eosinophils Absolute Auto 0.5 X10*3/uL (0.0-0.4); Eosinophils Percent Auto 4.3 % (0-4); Hematocrit 29.7 % (42.0-52.0); Hemoglobin 9.8 g/dl (14.0-18.0); Imm Gran Abs Auto 0.05 X10*3/uL (0.00-0.03); Imm Gran Pct Auto 0.4 % (0.0-0.4); Lymphocytes Absolute Auto 1.6 X10*3/uL (1.2-4.9); Lymphocytes Percent Auto 13.5 % (20-40); Mean Corpuscular Hemoglobin 31.1 pg (27.0-33.0); Mean Corpuscular Volume 94.3 fL (80.0-98.0); Mean Platelet Volume 9.5 fL (9.4-12.4); Monocytes Absolute Auto 0.8 X10*3/uL (0.1-1.2); Monocytes Percent Auto 6.5 % (2-11); Neutrophils Absolute Auto 8.8 x10*3/uL (2.0-8.3); Neutrophils Percent Auto 74.9 % (45-73); Platelet Count 314 X10*3/uL (160-400); Red Blood Count 3.15 X10*6/uL (4.60-5.80); Red Cell Distribution Width 13.3 % (11.0-16.0); White Blood Count 11.8 X10*3/uL (4.8-10.8)
[2024-07-17 05:22] LABS: Anion Gap 12 (12-20); Blood Urea Nitrogen 11 mg/dL (9-16); Carbon Dioxide 26 mmol/L (22-29); Chloride 106 mmol/L (96-108); Creatinine Clr Calc Pharmacy 114.9; Estimated Glomerular Filt Rate > 60; Glucose Random 180 mg/dL (60-115); Potassium 4.4 mmol/L (3.3-5.1); Sodium 140 mmol/L (135-145)
--- NOTE | 2024-07-17 05:29 | PM.EVENT ---
Event Note Date of Service: 07/17/24 Event Note: Patient had an episode of SVT last night with heart rate in the 140s which responded to IV Lopressor. He denied any symptoms Time Spent With Patient Time: Total time managing care of this patient today ____ minutes.
[2024-07-17] MEDS: Heparin Sodium,Porcine 5,000 UNIT/ML VIAL 5000 UNIT SUBCUT ×2 (07:00→20:04)
[2024-07-17] MEDS: Levothyroxine Sodium 112 MCG TABLET PO (07:00)
[2024-07-17 07:15] LABS: Glucose, Whole Blood 134 mg/dL (60-115)
--- NOTE | 2024-07-17 07:18 | PC.NURSE ---
Spoke with Purvi in Pharmacy RE; Zosyn not available in pyxis. Purvi reports will have it delivered to ED. Purvi aware Pt has inpatient room assignment.
--- NOTE | 2024-07-17 09:22 | PC.NURSE ---
PT PLACED IN HOSPITAL BED FOR COMFORT, SACRAL DRESSING CHANGED, ONE PLACED ON LEFT HEEL PRESSURE SORE. DR KOCH WAS AT THE BEDSIDE AND STATES PT WILL GO TO OR TOMORROW FOR WOUND DEBRIDEMENT AND CLEANING.
[2024-07-17] MEDS: 0.9 % Sodium Chloride Flush 3 ML SYRINGE IVFLUSH ×3 (09:29→22:14)
[2024-07-17] MEDS: vancomycin HCL 1,500 MG in 0.9 % Sodium Chloride 500 ML 333.33 MG IV (09:30)
[2024-07-17] MEDS: Aspirin Enteric Coated 81 MG TABLET.DR PO ×2 (09:36→22:14)
--- NOTE | 2024-07-17 09:38 | P.CONGS_ITS ---
History of Present Illness Consult details Consult date: 07/17/24 Narrative: 69-year-old male with multiple medical problems including obstructive sleep apnea, hypothyroidism hyperlipidemia, admitted because of worsening decubitus ulcers. He had been admitted last month with the hospital for similar issues. I had done bedside debridement of an ulcer on the right sacral decubitus area during that admission He had been in a correction since then. He was sent to the ER because of worsening of this ulcers. He denies any fever or chills He has known incontinence of urine. He does have frequent falls. He was admitted to the hospital last month when he was found down on the floor during a welfare check for an undetermined number of hours. He does describes pain on the left heel ulcer. Review of Systems 2 Constitutional: Constitutional: Denies chills and Denies fever(s) Cardiovascular: Cardiovascular: Denies chest pain, Denies dyspnea and Denies dyspnea on exertion Respiratory: Respiratory: Denies cough, Denies dyspnea and Denies dyspnea on exertion Gastrointestinal: Gastrointestinal: Denies hematochezia and Denies change in bowel habits Genitourinary: Genitourinary: Denies hematuria, Denies difficulty urinating and Reports urinary incontinence Musculoskeletal: Musculoskeletal: Denies back pain and Denies limited range of motion Neurologic: Denies focal weakness and Denies convulsions Psychiatric: Psychiatric: Denies depression and Denies mood swings PMFSH Past Medical History Medical History Obstructive sleep apnea (adult) (pediatric) Sacral decubitus ulcer TIA (transient ischemic attack) Solitary left kidney Osteoarthritis Type 2 diabetes mellitus with hyperglycemia Erectile dysfunction Hypercholesterolemia Polymyalgia rheumatica Vitamin D deficiency Hypothyroid Migraine Obesity Alcohol abuse Tobacco abuse Hypertension Family History Family History Father Diabetes Mother Melanoma Maternal Uncle Colon cancer Surgical History Surgical History History of colonoscopy Hx of tonsillectomy History of total left knee replacement History of arthroscopy of both knees Social History Social History Household Members: Family Housing: House Are you a primary infant childcare provider to a significant other at home: No Do you presently have visiting nurse or other home services: No Alcohol intake: former Patient Tobacco Use Status: Never used Tobacco Tobacco use type: Cigar and Pipe Years Smoked: 50 stopped 08/2022 e-Cigarette/Vaping Use: Currently Using Second Hand Smoke Exposure: No Advance Directives Date on File: 06/26/24 service: No Current occupational status: employed Cognitive needs: Yes Hearing needs: No Vision needs: Yes Meds Allergies Allergy/AdvReac Type Severity Reaction Status Date / Time canagliflozin [Invokana] Allergy Unknown hives Verified 07/16/24 14:32 dulaglutide [Trulicity] Allergy Unknown hives Verified 07/16/24 14:32 insulin glargine Allergy Unknown Hives Verified 07/16/24 14:32 [From Lantus U-100 Insulin] metformin [METFORMIN] Allergy Unknown HIVES Verified 07/16/24 14:32 rosuvastatin Allergy Unknown Unknown Verified 07/16/24 14:32 sitagliptin [From JANUVIA] Allergy Unknown HIVES Verified 07/16/24 14:32 Active Medications: Current Medications Acetaminophen (Acetaminophen 325 Mg Tablet) 650 mg PO Q6H PRN PRN Reason: Pain, Mild (Pain Scale 1-3), fever or headache Aspirin (Aspirin Enteric Coated 81 Mg Tablet.Dr) 81 mg PO BID NINA Atorvastatin Calcium (Atorvastatin Calcium 40 Mg Tablet) 40 mg PO BEDTIME NINA Calcium Carbonate (Calcium Carbonate 750 Mg Tab.Chew) 750 mg PO Q4H PRN PRN Reason: Heartburn Clopidogrel Bisulfate (Clopidogrel Bisulfate 75 Mg Tablet) 75 mg PO BEDTIME NINA Glucose (Glucose Gel 15 Gm Gel..Gram.) 15 gm PO Q15M PRN; Protocol PRN Reason: per Hypoglycemia Standing Ord. Heparin Sodium (Porcine) (Heparin Sodium,Porcine 5,000 Unit/Ml Vial) 5,000 unit SUBCUT Q12H [facility] Last Admin: 07/17/24 07:00 Dose: 5,000 unit Dextrose (D10) 250 mls @ 750 mls/hr IV Q15M PRN; Protocol PRN Reason: per Hypoglycemia Standing Ord. Piperacillin Sod/Tazobactam (Sod 4.5 gm/ Sodium Chloride) 100 mls @ 200 mls/hr IV Q6H [facility] Last Infusion: 07/17/24 09:19 Dose: Infused Vancomycin HCl 1,500 mg/ (Sodium Chloride) 500 mls @ 333.333 mls/hr IV Q12H [facility] Last Admin: 07/17/24 09:30 Dose: 333.33 mls/hr Insulin Human Lispro (Insulin Lispro 100 Unit/Ml 3 Ml Vial) 0 unit SUBCUT QIDACHS [facility]; Protocol Last Admin: 07/17/24 07:16 Dose: Not Given Levothyroxine Sodium (Levothyroxine Sodium 112 Mcg Tablet) 112 mcg PO DAILY@0600 [facility] Last Admin: 07/17/24 07:00 Dose: 112 mcg Lisinopril (Lisinopril 20 Mg Tablet) 20 mg PO DAILY [facility]; Protocol Magnesium Hydroxide (Milk Of Magnesia 30 Ml Oral.Susp) 30 ml PO DAILY PRN PRN Reason: Constipation Melatonin (Melatonin 3 Mg Tablet) 6 mg PO BEDTIME PRN PRN Reason: Insomnia Oxycodone HCl (Oxycodone Hcl Immed Release 5 Mg Tablet) 5 mg PO Q6H PRN PRN Reason: Pain, Severe (Pain Scale 7-10) Pharmacy Consult (Consult Rx Vancomycin Dosing) 1 each MISCELLANE DAILY PRN PRN Reason: Consult order Sodium Chloride (0.9 % Sodium Chloride Flush 3 Ml Syringe) 3 ml IVFLUSH QSHIFT [facility] Last Admin: 07/17/24 09:29 Dose: 3 ml Home Medications ?Medication ?Instructions ?Recorded ?Confirmed ?Last Taken ?Type clopidogrel 75 mg tablet 75 mg PO BEDTIME 07/16/24 07/16/24 Unknown History insulin degludec 100 unit/mL 32 unit subcut BID 07/16/24 07/17/24 Unknown History subcutaneous solution (Tresiba U-100 Insulin) Lactobacillus acidophilus 1,000 mmu cells PO DAILY 07/17/24 07/17/24 Unknown History acetaminophen 650 mg rectal 650 mg IL Q4H PRN Fever Or Pain 07/17/24 07/17/24 Unknown History suppository acetaminophen 650 mg 650 mg PO Q4H PRN Pain 07/17/24 07/17/24 Unknown History tablet,extended release bisacodyl 10 mg rectal suppository 10 mg IL DAILY PRN Constipation 07/17/24 07/17/24 Unknown History calcium carbonate 1,000 mg PO TIDAC 07/17/24 07/17/24 Unknown History collagenase clostridium histo. 250 1 appl topical TID 07/17/24 07/17/24 Unknown History unit/gram topical ointment (Santyl) diclofenac sodium 1 % topical gel 4 g topical Q6H 07/17/24 07/17/24 Unknown History levothyroxine 125 mcg tablet 125 mcg PO DAILY@0600 07/17/24 07/17/24 Unknown History lisinopril 10 mg tablet 10 mg PO DAILY 07/17/24 07/17/24 Unknown History magnesium hydroxide 400 mg/5 mL 5 ml PO Q8H PRN Constipation 07/17/24 07/17/24 Unknown History oral suspension (Milk of Magnesia) naloxone 0.4 mg/mL injection 0.4 mg subcut Q3M PRN Opiate 07/17/24 07/17/24 Unknown History solution Reversal omeprazole 40 mg capsule,delayed 40 mg PO DAILY@0630 07/17/24 07/17/24 Unknown History release sodium phosphates 19 gram-7 118 ml [place] DAILY PRN Constipation 07/17/24 07/17/24 Unknown History gram/118 mL enema (Fleet Enema) Physical Exam 2 Vital Signs: Vital Signs: Last Vital Signs Temp 98.1 F 07/17/24 08:31 Pulse 84 07/17/24 08:31 Resp 19 07/17/24 08:31 BP 121/54 L 07/17/24 08:31 Pulse Ox 90 L 07/17/24 08:31 O2 Del Method Room Air 07/17/24 08:31 O2 Flow Rate 2 07/16/24 20:36 BMI result Body Mass Index 42.3 Const: Other: Complains of pain on the left heel General: no acute distress Resp: Effort & Inspection: normal respiratory effort Cardio: Rate: regular rate GI: Palpation (GI): Soft to palpation Back/Spine/Pelvis: Other: Large sacral decubitus area on the right, probably at least 10 cm in diameter, with note of some nonviable debris coating the wound base and eschar Extrem: Other: Left heel ulcer with eschar, tender to touch, about 3 cm in diameter Results Labs 07/17/24 04:17 07/19/24 05:50 Labs: Abnormal lab results 07/16/24 07/16/24 07/16/24 Range/Units 15:01 21:50 21:51 WBC (4.8-10.8) X10*3/uL RBC 3.39 L (4.60-5.80) X10*6/uL Hgb 10.8 L (14.0-18.0) g/dl Hct 31.7 L (42.0-52.0) % MPV 9.0 L (9.4-12.4) fL Neut % (Auto) (45-73) % Lymph % (Auto) 17.4 L (20-40) % Eos % (Auto) 7.7 H (0-4) % Eos # (Auto) 0.8 H (0.0-0.4) X10*3/uL Abs Immat Gran (auto) 0.04 H (0.00-0.03) X10*3/uL Absolute Neuts (auto) (2.0-8.3) x10*3/uL ESR 56 H (0-15) MM/HR VBG HCO3 29 H (22-26) mmol/L Anion Gap 11 L (12-20) POC Glucose 184 H (60-115) mg/dL Random Glucose 194 H (60-115) mg/dL Calcium 8.0 L D (8.4-10.2) mg/dL C-Reactive Protein 7.44 H (< or = 0.50) mg/dL Total Protein 6.0 L (6.5-8.0) g/dL Albumin 2.5 L (3.5-5.0) g/dL 07/16/24 07/17/24 07/17/24 Range/Units 23:00 04:17 07:11 WBC 11.8 H (4.8-10.8) X10*3/uL RBC 3.15 L (4.60-5.80) X10*6/uL Hgb 9.8 L (14.0-18.0) g/dl Hct 29.7 L (42.0-52.0) % MPV (9.4-12.4) fL Neut % (Auto) 74.9 H (45-73) % Lymph % (Auto) 13.5 L (20-40) % Eos % (Auto) 4.3 H (0-4) % Eos # (Auto) 0.5 H (0.0-0.4) X10*3/uL Abs Immat Gran (auto) 0.05 H (0.00-0.03) X10*3/uL Absolute Neuts (auto) 8.8 H (2.0-8.3) x10*3/uL ESR (0-15) MM/HR VBG HCO3 (22-26) mmol/L Anion Gap (12-20) POC Glucose 202 H 134 H (60-115) mg/dL Random Glucose 180 H (60-115) mg/dL Calcium 8.0 L (8.4-10.2) mg/dL C-Reactive Protein (< or = 0.50) mg/dL Total Protein (6.5-8.0) g/dL Albumin (3.5-5.0) g/dL Short CBC 07/16/24 07/17/24 Range/Units 15:01 04:17 WBC 9.7 11.8 H (4.8-10.8) X10*3/uL Hgb 10.8 L 9.8 L (14.0-18.0) g/dl Hct 31.7 L 29.7 L (42.0-52.0) % Plt Count 310 314 (160-400) X10*3/uL BMP 07/16/24 07/17/24 15:01 04:17 Sodium 140 140 Potassium 4.1 4.4 Chloride 104 106 Carbon Dioxide 29 26 BUN 10 11 Creatinine 0.71 0.76 Calcium 8.0 L D 8.0 L Liver Function 07/16/24 Range/Units 15:01 Total Bilirubin 0.5 (0.0-1.0) mg/dL AST 19 (5-37) U/L ALT 18 (0-40) U/L Alkaline Phosphatase 59 (39-117) U/L Albumin 2.5 L (3.5-5.0) g/dL All other labs normal. Assessment and Plan (1) Sacral decubitus ulcer: Qualifiers: Pressure injury stage: unstageable Qualified Code(s): L89.150 - Pressure ulcer of sacral region, unstageable Status: Acute He has a large sacral decubitus ulcer along with a left heel ulcer with eschar and nonviable tissue as described above. I explained to him it will be best to proceed with debridement in the operating room as he complains of pain and we will be unable to tolerate bedside debridement. I reviewed with him the technique of sharp excisional debridement under anesthesia. I discussed the risks including but not limited to bleeding, infections, prolonged healing, pain, as well as the benefits and alternatives. He says he understands and agrees to proceed We will schedule him for debridement in the operating room tomorrow. (2) Heel ulcer: Qualifiers: Laterality: left Non-pressure ulcer stage: unspecified non-pressure ulcer stage Qualified Code(s): L97.429 - Non-pressure chronic ulcer of left heel and midfoot with unspecified severity Status: Acute We will do debridement in the operating room along with debridement of the sacral decubitus ulcer. Procedures Date of Service Date of Service: 07/19/24
--- NOTE | 2024-07-17 09:49 | PC.NURSE ---
9am Lisinopril 20mg held per Dr. Eason d/t BP readings of 92/30 with a recheck of 112/34. HR is 88 consistent; A&OX3; breaths and speech are slow, even and unlabored. NAD noted at this time; will continue to monitor.
--- NOTE | 2024-07-17 10:36 | MHC.CM.PN ---
CM met with Patient at bedside, in the ED and addressed IMM with him (original was given to Patient and a copy has been placed on the chart). Patient is not a private pay bed hold @ [facility] but his goal is to return there at time of dc. CM has initiated and will follow for dc planning. Patient typically lives alone and was working prior to this illness. PCP is Dr. Babak Greene and Patient's Daughter/Yvette is the HCP.
--- NOTE | 2024-07-17 12:18 | PC.NURSE ---
MRI screening form completed per request of Avril Christian. [place] made aware Pt with hardware to L knee and loop monitor. Pt transported to MRI with screening form. Dr. Eason made aware.
--- NOTE | 2024-07-17 12:34 | PC.NURSE ---
Pt refused MRI and has returned to ED. Dr. Eason made aware.
--- NOTE | 2024-07-17 12:38 | P.PNIM_ITS ---
Subjective Subjective Date of Service: 07/17/24 Interval History: seen and examined this morning follow up for sacral decubitus ulcer complaining of declined mri had episode of svt with hr in 140s given IV lopressor and further epiode Physical Exam 2 Vital Signs: Vital Signs: Last Vital Signs Temp 98.1 F 07/17/24 08:31 Pulse 82 07/17/24 11:09 Resp 14 07/17/24 11:09 BP 108/37 L 07/17/24 11:09 Pulse Ox 95 07/17/24 11:09 O2 Del Method Room Air 07/17/24 11:09 O2 Flow Rate 2 07/16/24 20:36 BMI result Body Mass Index 42.3 Constitutional - Awake and Alert, No apparent distress Eyes - PERRLA, EOMI Cardiovascular - S1S2, RRR, No edema Respiratory - Normal lung expansion, Normal respiratory effort, No respiratory distress, CTA bilaterally Gastrointestinal - NT / ND; +BS; No rebound or guarding - incontinent of urine Extremities - no calf tenderness bilaterally, no swelling Skin - Warm/Dry. Unstageable ulcer sacrum with foul odor. Unstageable ulcer L heel with eschar and some slough with foul odor Neurological - Alert & oriented x3 Psychological - Appropriate affect Objective Data Active Medications Acetaminophen (Acetaminophen 325 Mg Tablet) 650 mg PO Q6H PRN PRN Reason: Pain, Mild (Pain Scale 1-3), fever or headache Aspirin (Aspirin Enteric Coated 81 Mg Tablet.) 81 mg PO BID [facility] Last Admin: 07/17/24 09:36 Dose: 81 mg Documented By: CLARISA Atorvastatin Calcium (Atorvastatin Calcium 40 Mg Tablet) 40 mg PO BEDTIME [facility] Bisacodyl (Bisacodyl 10 Mg Supp.Rect) 10 mg [place] DAILY PRN PRN Reason: Constipation Calcium Carbonate (Calcium Carbonate 750 Mg Tab.Chew) 750 mg PO Q4H PRN PRN Reason: Heartburn Clopidogrel Bisulfate (Clopidogrel Bisulfate 75 Mg Tablet) 75 mg PO BEDTIME [facility] Glucose (Glucose Gel 15 Gm Gel..Gram.) 15 gm PO Q15M PRN; Protocol PRN Reason: per Hypoglycemia Standing Ord. Heparin Sodium (Porcine) (Heparin Sodium,Porcine 5,000 Unit/Ml Vial) 5,000 unit SUBCUT Q12H [facility] Last Admin: 07/17/24 07:00 Dose: 5,000 unit Documented By: CLARISA Dextrose (D10) 250 mls @ 750 mls/hr IV Q15M PRN; Protocol PRN Reason: per Hypoglycemia Standing Ord. Piperacillin Sod/Tazobactam (Sod 4.5 gm/ Sodium Chloride) 100 mls @ 200 mls/hr IV Q6H [facility] Last Infusion: 07/17/24 09:19 Dose: Infused Documented By: CLARISA Vancomycin HCl 1,500 mg/ (Sodium Chloride) 500 mls @ 333.333 mls/hr IV Q12H [facility] Last Admin: 07/17/24 09:30 Dose: 333.33 mls/hr Documented By: CLARISA Insulin Human Lispro (Insulin Lispro 100 Unit/Ml 3 Ml Vial) 0 unit SUBCUT QIDACHS [facility]; Protocol Last Admin: 07/17/24 07:16 Dose: Not Given Documented By: CLARISA Non-Admin Reason: No Insulin Coverage Levothyroxine Sodium (Levothyroxine Sodium 112 Mcg Tablet) 112 mcg PO DAILY@0600 [facility] Last Admin: 07/17/24 07:00 Dose: 112 mcg Documented By: CLARISA Lisinopril (Lisinopril 10 Mg Tablet) 10 mg PO DAILY [facility]; Protocol Magnesium Hydroxide (Milk Of Magnesia 30 Ml Oral.Susp) 30 ml PO DAILY PRN PRN Reason: Constipation Magnesium Hydroxide (Milk Of Magnesia 30 Ml Oral.Susp) 5 ml PO Q8H PRN PRN Reason: Constipation Melatonin (Melatonin 3 Mg Tablet) 6 mg PO BEDTIME PRN PRN Reason: Insomnia Omeprazole (Omeprazole 40 Mg Capsule.Dr) 40 mg PO DAILY@0630 [facility] Oxycodone HCl (Oxycodone Hcl Immed Release 5 Mg Tablet) 5 mg PO Q6H PRN PRN Reason: Pain, Severe (Pain Scale 7-10) Pharmacy Consult (Consult Rx Vancomycin Dosing) 1 each MISCELLANE DAILY PRN PRN Reason: Consult order Sodium Biphosphate/Sodium Phosphate (Sodium Phosphate,[place]-Dibasic 133 Ml Enema) 118 ml [place] DAILY PRN PRN Reason: Constipation Sodium Chloride (0.9 % Sodium Chloride Flush 3 Ml Syringe) 3 ml IVFLUSH QSHIFT [facility] Last Admin: 07/17/24 09:29 Dose: 3 ml Documented By: CLARISA Labs 07/17/24 04:17 07/17/24 04:17 Labs: Laboratory Results - last 24 hr 07/16/24 07/16/24 07/16/24 15:01 17:15 19:36 MCV 93.5 MCH 31.9 MCHC 34.1 RDW 13.3 Plt Count 310 MPV 9.0 L Immature Gran % (Auto) 0.4 Neut % (Auto) 66.8 Lymph % (Auto) 17.4 L [place] % (Auto) 7.3 Eos % (Auto) 7.7 H Baso % (Auto) 0.4 Lymph # (Auto) 1.7 [place] # (Auto) 0.7 Eos # (Auto) 0.8 H Baso # (Auto) 0.0 Abs Immat Gran (auto) 0.04 H Absolute Neuts (auto) 6.5 Absolute Nucleated RBC 0.000 Nucleated RBC % (auto) 0.0 ESR 56 H VBG pH VBG pCO2 VBG pO2 VBG HCO3 VBG O2 Saturation VBG Base Excess Anion Gap 11 L Estim Creat Clear Calc 123.0 Estimated GFR > 60 POC Glucose 102 Random Glucose 194 H Lactic Acid 1.1 Calcium 8.0 L D Magnesium 1.8 Total Bilirubin 0.5 AST 19 ALT 18 Alkaline Phosphatase 59 Troponin I High Sens C-Reactive Protein 7.44 H B-Natriuretic Peptide Total Protein 6.0 L Albumin 2.5 L 07/16/24 07/16/24 07/16/24 21:46 21:50 21:51 MCV MCH MCHC RDW Plt Count MPV Immature Gran % (Auto) Neut % (Auto) Lymph % (Auto) [place] % (Auto) Eos % (Auto) Baso % (Auto) Lymph # (Auto) [place] # (Auto) Eos # (Auto) Baso # (Auto) Abs Immat Gran (auto) Absolute Neuts (auto) Absolute Nucleated RBC Nucleated RBC % (auto) ESR VBG pH 7.39 VBG pCO2 48 VBG pO2 36 VBG HCO3 29 H VBG O2 Saturation 54.0 VBG Base Excess 4.3 Anion Gap Estim Creat Clear Calc Estimated GFR POC Glucose 184 H Random Glucose Lactic Acid Calcium Magnesium Total Bilirubin AST ALT Alkaline Phosphatase Troponin I High Sens 4.7 C-Reactive Protein B-Natriuretic Peptide 23 Total Protein Albumin 07/16/24 07/17/24 07/17/24 23:00 04:17 07:11 MCV 94.3 MCH 31.1 MCHC 33.0 RDW 13.3 Plt Count 314 MPV 9.5 Immature Gran % (Auto) 0.4 Neut % (Auto) 74.9 H Lymph % (Auto) 13.5 L [place] % (Auto) 6.5 Eos % (Auto) 4.3 H Baso % (Auto) 0.4 Lymph # (Auto) 1.6 [place] # (Auto) 0.8 Eos # (Auto) 0.5 H Baso # (Auto) 0.1 Abs Immat Gran (auto) 0.05 H Absolute Neuts (auto) 8.8 H Absolute Nucleated RBC 0.000 Nucleated RBC % (auto) 0.0 ESR VBG pH VBG pCO2 VBG pO2 VBG HCO3 VBG O2 Saturation VBG Base Excess Anion Gap 12 Estim Creat Clear Calc 114.9 Estimated GFR > 60 POC Glucose 202 H 134 H Random Glucose 180 H Lactic Acid Calcium 8.0 L Magnesium Total Bilirubin AST ALT Alkaline Phosphatase Troponin I High Sens C-Reactive Protein B-Natriuretic Peptide Total Protein Albumin Assessment and Plan (1) Heel ulcer: Status: Acute (2) Sacral decubitus ulcer: Status: Acute Plan 69 yo male with PMH of ROLO, DM, hypothyroidism, hyperlipidemia, HTN, CVA on aspirin and plavix discharged from here to [facility] for unstageable sacral ulcer s/p debridement on 06/20 and 06/23 by gen surg and then + blood cultures strep agalactie / treated with IV ceftriaxone and last dose ceftin 07/02 admitted for infected unstageable ulcer L heel #Infected unstageable decubitus ulcer L heel r/t type II diabetes -ESR 56, CRP 7, XR negative for osteo. MRI L foot w/wo ordered but refusing -IV vanco and zosyn -general surgery consult -wound care/pressure dressing -no sepsis -follow cultures -consider ID consult if +for osteomyelitis #Infected unstageable sacral ulcer -general surgery consult -IV vanco and zosyn -wound culture/pressure dressing -Incontinent of urine. Unable to place condom cath due to anatomy. Lozano catheter ordered for skin integrity -surgery to debride in OR tommorrow #SVT--resolved, K ok, check mag, add low dose metoprolol and if happens again, cardiology consult #Insulin dependent type 2 diabetes -poc glucose, diabetic diet -dose adjusted basal insulin -admelog on ss -restart Lantus at lower dose #Hypothyroidism -levothyroxine #Hx CVA -continue DAPT, statin #HTN -continue lisinopril #Acute on chronic normocytic anemia d/t chronic disease -above transfusion threshold, likely in setting of chronic wounds, no bleeding dvt prophyalxis- lovenox full code need for inpatient: infected foot ulcer with concern for osteomyelitis requiring broad spectum abx, further advanced imaging and expert consultation Quality Stroke Does the patient have a stroke diagnosis?: No VTE Prior VTE?: No VTE Risk Level:: Medical - moderate - high VTE Device Contraindication: Treatment Not Indicated VTE Drug Contraindication: N/A - Med Ordered
[2024-07-17 12:54] LABS: Glucose, Whole Blood 183 mg/dL (60-115)
[2024-07-17] MEDS: Insulin Lispro 100 UNIT/ML 3 ML VIAL SUBCUT ×2 (13:09→17:54)
[2024-07-17 17:48] LABS: Glucose, Whole Blood 167 mg/dL (60-115)
[2024-07-17 18:13] LABS: Magnesium 1.9 mg/dL (1.6-2.6)
[2024-07-17 20:26] LABS: Glucose, Whole Blood 155 mg/dL (60-115)
[2024-07-17] MEDS: vancomycin HCL 1,500 MG in 0.9 % Sodium Chloride 500 ML 333.3 MG IV (22:13)
[2024-07-17] MEDS: Metoprolol Tartrate 12.5 MG HALFTAB PO (22:13)
[2024-07-17] MEDS: Atorvastatin Calcium 40 MG TABLET PO (22:14)
[2024-07-17] MEDS: Clopidogrel Bisulfate 75 MG TABLET PO (22:14)
[2024-07-18] VITALS (13 sets, daily range): BP systolic 94–154; BP diastolic 35–73; PULSE 74–90; RESP 16–20; TEMP 36–37.1; O2SAT 91–100; BMI 42.3
[2024-07-18] MEDS: Piperacillin Sodium/Tazobactam 4.5 GM in 0.9 % Sodium Chloride 100 ML IV ×3 (00:32→17:13)
[2024-07-18] MEDS: Omeprazole 40 MG CAPSULE.DR PO (05:49)
[2024-07-18] MEDS: Levothyroxine Sodium 112 MCG TABLET PO (05:49)
[2024-07-18 06:43] LABS: Creatinine Clr Calc Pharmacy 132.4; Estimated Glomerular Filt Rate > 60; Vancomycin Random 21.7 mcg/mL (15-20)
[2024-07-18 07:11] LABS: Glucose, Whole Blood 90 mg/dL (60-115)
[2024-07-18] MEDS: lisinopriL 10 MG TABLET PO (07:37)
[2024-07-18] MEDS: Aspirin Enteric Coated 81 MG TABLET.DR PO ×2 (07:37→20:52)
[2024-07-18] MEDS: Heparin Sodium,Porcine 5,000 UNIT/ML VIAL 5000 UNIT SUBCUT ×2 (07:37→20:52)
--- NOTE | 2024-07-18 08:06 | HE.PHANOTE ---
MICHELL Reduced dose to 1000mg Q12H per supratherapeutic trough of 21.7 after 3 doses. Decreasing for one day to allow trough to come down and then adjusting based on next trough on 07/19.
[2024-07-18 08:21] LABS: Anion Gap 12 (12-20)
[2024-07-18 08:24] LABS: Blood Urea Nitrogen 8 mg/dL (9-16); Calcium 7.8 mg/dL (8.4-10.2); Carbon Dioxide 25 mmol/L (22-29); Chloride 108 mmol/L (96-108); Glucose Random 103 mg/dL (60-115); Potassium 3.9 mmol/L (3.3-5.1); Sodium 141 mmol/L (135-145)
[2024-07-18] MEDS: vancomycin HCL 1,000 MG in 0.9 % Sodium Chloride 250 ML 270 MG IV ×2 (08:48→20:52)
[2024-07-18] MEDS: Metoprolol Tartrate 12.5 MG HALFTAB PO ×2 (09:00→20:53)
--- NOTE | 2024-07-18 11:03 | HO.PM.IMPN ---
Subjective Subjective Date of Service: 07/18/24 Interval History: seen and examined this morning follow up for sacral decubitus ulcer and concern for OM Pain seems controlled, still declining mri no further episode of vtach or other arrythmia Physical Exam Vital Signs: Vital Signs: Last Vital Signs Temp 98.0 F 07/18/24 07:09 Pulse 77 07/18/24 07:09 Resp 18 07/18/24 07:09 BP 119/58 L 07/18/24 07:09 Pulse Ox 94 07/18/24 07:09 O2 Del Method Room Air 07/18/24 07:09 O2 Flow Rate 2 07/16/24 20:36 BMI result Body Mass Index 42.3 Constitutional - Awake and Alert, No apparent distress Eyes - PERRLA, EOMI Cardiovascular - S1S2, RRR, No edema Respiratory - Normal lung expansion, Normal respiratory effort, No respiratory distress, CTA bilaterally Gastrointestinal - NT / ND; +BS; No rebound or guarding - incontinent of urine Extremities - no calf tenderness bilaterally, no swelling Skin - Warm/Dry. Unstageable ulcer sacrum with foul odor. Unstageable ulcer L heel with eschar and some slough with foul odor Neurological - Alert & oriented x3 Psychological - Appropriate affect Objective Data Active Medications Acetaminophen (Acetaminophen 325 Mg Tablet) 650 mg PO Q6H PRN PRN Reason: Pain, Mild (Pain Scale 1-3), fever or headache Aspirin (Aspirin Enteric Coated 81 Mg Tablet.) 81 mg PO BID [facility] Last Admin: 07/18/24 07:37 Dose: 81 mg Documented By: TERESA Atorvastatin Calcium (Atorvastatin Calcium 40 Mg Tablet) 40 mg PO BEDTIME [facility] Last Admin: 07/17/24 22:14 Dose: 40 mg Documented By: MIS Bisacodyl (Bisacodyl 10 Mg Supp.Rect) 10 mg [place] DAILY PRN PRN Reason: Constipation Calcium Carbonate (Calcium Carbonate 750 Mg Tab.Chew) 750 mg PO Q4H PRN PRN Reason: Heartburn Clopidogrel Bisulfate (Clopidogrel Bisulfate 75 Mg Tablet) 75 mg PO BEDTIME [facility] Last Admin: 07/17/24 22:14 Dose: 75 mg Documented By: MIS Glucose (Glucose Gel 15 Gm Gel..Gram.) 15 gm PO Q15M PRN; Protocol PRN Reason: per Hypoglycemia Standing Ord. Heparin Sodium (Porcine) (Heparin Sodium,Porcine 5,000 Unit/Ml Vial) 5,000 unit SUBCUT Q12H [facility] Last Admin: 07/18/24 07:37 Dose: 5,000 unit Documented By: TERESA Dextrose (D10) 250 mls @ 750 mls/hr IV Q15M PRN; Protocol PRN Reason: per Hypoglycemia Standing Ord. Piperacillin Sod/Tazobactam (Sod 4.5 gm/ Sodium Chloride) 100 mls @ 200 mls/hr IV Q6H [facility] Last Infusion: 07/18/24 08:30 Dose: Infused Documented By: TERESA Vancomycin HCl 1,000 mg/ (Sodium Chloride) 270 mls @ 270 mls/hr IV Q12H [facility] Last Admin: 07/18/24 08:48 Dose: 270 mls/hr Documented By: TERESA Insulin Human Lispro (Insulin Lispro 100 Unit/Ml 3 Ml Vial) 0 unit SUBCUT QIDACHS [facility]; Protocol Last Admin: 07/18/24 07:38 Dose: Not Given Documented By: TERESA Non-Admin Reason: No Insulin Coverage Levothyroxine Sodium (Levothyroxine Sodium 112 Mcg Tablet) 112 mcg PO DAILY@0600 [facility] Last Admin: 07/18/24 05:49 Dose: 112 mcg Documented By: MIS Lisinopril (Lisinopril 10 Mg Tablet) 10 mg PO DAILY [facility]; Protocol Last Admin: 07/18/24 07:37 Dose: 10 mg Documented By: TERESA Magnesium Hydroxide (Milk Of Magnesia 30 Ml Oral.Susp) 30 ml PO DAILY PRN PRN Reason: Constipation Magnesium Hydroxide (Milk Of Magnesia 30 Ml Oral.Susp) 5 ml PO Q8H PRN PRN Reason: Constipation Melatonin (Melatonin 3 Mg Tablet) 6 mg PO BEDTIME PRN PRN Reason: Insomnia Metoprolol Tartrate (Metoprolol Tartrate 12.5 Mg Halftab) 12.5 mg PO BID [facility]; Protocol Last Admin: 07/17/24 22:13 Dose: 12.5 mg Documented By: MIS Omeprazole (Omeprazole 40 Mg Capsule.) 40 mg PO DAILY@0630 [facility] Last Admin: 07/18/24 05:49 Dose: 40 mg Documented By: MIS Oxycodone HCl (Oxycodone Hcl Immed Release 5 Mg Tablet) 5 mg PO Q6H PRN PRN Reason: Pain, Severe (Pain Scale 7-10) Pharmacy Consult (Consult Rx Vancomycin Dosing) 1 each MISCELLANE DAILY PRN PRN Reason: Consult order Sodium Biphosphate/Sodium Phosphate (Sodium Phosphate,[place]-Dibasic 133 Ml Enema) 118 ml [place] DAILY PRN PRN Reason: Constipation Sodium Chloride (0.9 % Sodium Chloride Flush 3 Ml Syringe) 3 ml IVFLUSH QSHIFT [facility] Last Admin: 07/17/24 22:14 Dose: 3 ml Documented By: MIS Labs 07/17/24 04:17 07/18/24 06:00 Labs: Laboratory Results - last 24 hr 07/17/24 07/17/24 07/17/24 04:17 12:44 17:44 Anion Gap Estim Creat Clear Calc Estimated GFR POC Glucose 183 H 167 H Random Glucose Calcium Magnesium 1.9 Random Vancomycin 07/17/24 07/18/24 07/18/24 20:20 06:00 07:08 Anion Gap 12 Estim Creat Clear Calc 132.4 Estimated GFR > 60 POC Glucose 155 H 90 Random Glucose 103 Calcium 7.8 L Magnesium Random Vancomycin 21.7 H Microbiology Microbiology Results: Microbiology 07/16/24 17:19 Blood Culture - Preliminary Blood - Venous No growth after 24 hours. 07/16/24 17:15 Blood Culture - Preliminary Blood - Venous No growth after 24 hours. Assessment and Plan (1) Heel ulcer: Status: Acute (2) Sacral decubitus ulcer: Status: Acute Plan 69 yo male with PMH of ROLO, DM, hypothyroidism, hyperlipidemia, HTN, CVA on aspirin and plavix discharged from here to [facility] for unstageable sacral ulcer s/p debridement on 06/20 and 06/23 by gen surg and then + blood cultures strep agalactie / treated with IV ceftriaxone and last dose ceftin 07/02 admitted for infected unstageable ulcer L heel #Infected unstageable decubitus ulcer L heel r/t type II diabetes -ESR 56, CRP 7, XR negative for osteo. MRI L foot w/wo ordered but refusing -IV vanco and zosyn -general surgery consult -wound care/pressure dressing -no sepsis -follow cultures -consider ID consult if +for osteomyelitis #Infected unstageable sacral ulcer -general surgery consult -IV vanco and zosyn -wound culture/pressure dressing -Incontinent of urine. Unable to place condom cath due to anatomy. Lozano catheter ordered for skin integrity -surgery to debride in OR today #SVT--resolved, K ok, check mag, add low dose metoprolol and if happens again, cardiology consult #Insulin dependent type 2 diabetes -poc glucose, diabetic diet -dose adjusted basal insulin -admelog on ss -restart Lantus at lower dose #Hypothyroidism -levothyroxine #Hx CVA -continue DAPT, statin #HTN -continue lisinopril #Acute on chronic normocytic anemia d/t chronic disease -above transfusion threshold, likely in setting of chronic wounds, no bleeding dvt prophyalxis- lovenox full code need for inpatient: infected foot ulcer with concern for osteomyelitis requiring broad spectum abx, further advanced imaging and expert consultation Quality Stroke Does the patient have a stroke diagnosis?: No VTE Prior VTE?: No VTE Risk Level:: Medical - moderate - high VTE Device Contraindication: Treatment Not Indicated VTE Drug Contraindication: N/A - Med Ordered
[2024-07-18 11:28] LABS: Glucose, Whole Blood 79 mg/dL (60-115)
--- NOTE | 2024-07-18 11:35 | MHC.SHP ---
Pre-Procedural Eval Section A - 24 Hr Update-Section A only Date of Service: 07/18/24 The patient is an INPATIENT: Yes Changes since office visit: No Cold of Flu in the past 2 weeks, No New Medical Problems, No Changes in Medication and No Patient answered all questions The patient has been examined within 24 hours of the surgical procedure. The History & Physical has been completed within 30 days and I have reviewed it.: Yes Section B - Complete if H&P > 30 days Chief Complaint: infected ulcer l heel Allergies: Allergies Allergy/AdvReac Type Severity Reaction Status Date / Time canagliflozin [Invokana] Allergy Unknown hives Verified 07/16/24 14:32 dulaglutide [Trulicity] Allergy Unknown hives Verified 07/16/24 14:32 insulin glargine Allergy Unknown Hives Verified 07/16/24 14:32 [From Lantus U-100 Insulin] metformin [METFORMIN] Allergy Unknown HIVES Verified 07/16/24 14:32 rosuvastatin Allergy Unknown Unknown Verified 07/16/24 14:32 sitagliptin [From JANUVIA] Allergy Unknown HIVES Verified 07/16/24 14:32 Plan I have reviewed the history and physical and performed a pertinent physical examination on my patient. No changes have occurred unless specified. Time Spent With Patient Time: Total time managing care of this patient today ____ minutes.
--- NOTE | 2024-07-18 13:08 | HO.WOUND ---
Wound Consult: Initial 69yr old Male? admitted to [facility] on 06/[facility]4 - See progress notes and H&P for detailed history.? Wound consult placed for sacral wound and bilateral heels wounds.? Chart review completed patient was seen by General Surgery with plan for OR debridement to sacrum and left heel. Arrival to bedside patient was already sent to OR - discussion with nurse to followup at future time and or date. Recommendations: 1. Turn and Reposition every 2 hours and as needed for patient comfort.? Use pillows or wedges to support off loading positions. 2. Off Load all bony prominences with use of pillows and heel boots if needed.? Apply Preventative foams where needed. ?Elevate heels with heel protector boots if non-ambulatory at this time. 3. Monitor for incontinence and moisture control, use barrier creams when needed for prevention and treatment. 4. Provide adequate and supplemental nutrition.? 5. Order low air loss mattress. 6. When applicable maintain blood glucose levels per Providers order. Re-consult wound care Nurse for wound deterioration or wound changes.
[2024-07-18 13:33] LABS: Glucose, Whole Blood 71 mg/dL (60-115)
--- NOTE | 2024-07-18 13:56 | P.CONAN_ITS ---
[facility] Active Problems Active Problems: All Active Problems Heel ulcer (Acute) Sacral decubitus ulcer (Acute) Sacral decubitus ulcer (Acute) Cellulitis (Acute) Leukocytosis (Acute) CVA (cerebral vascular accident) (Acute) Colonoscopy refused (Acute) Peripheral vascular disease (Acute) Left leg cellulitis (Acute) Stasis dermatitis (Acute) Hyperglycemia (Acute) History of total left knee replacement (Acute) Colon cancer screening (Acute) Osteoarthritis (Acute) Type 2 diabetes mellitus with hyperglycemia (Acute) Erectile dysfunction (Acute) Hypercholesterolemia (Acute) Polymyalgia rheumatica (Acute) Hypothyroid (Acute) Obesity (Acute) Hypertension (Acute) Past Medical History Medical History Obstructive sleep apnea (adult) (pediatric) Sacral decubitus ulcer TIA (transient ischemic attack) Solitary left kidney Osteoarthritis Type 2 diabetes mellitus with hyperglycemia Erectile dysfunction Hypercholesterolemia Polymyalgia rheumatica Vitamin D deficiency Hypothyroid Migraine Obesity Alcohol abuse Tobacco abuse Hypertension Family History Family History Father Diabetes Mother Melanoma Maternal Uncle Colon cancer Surgical History Surgical History History of colonoscopy Hx of tonsillectomy History of total left knee replacement History of arthroscopy of both knees History of Problems with Anesthesia: No Social History Social History Household Members: Family Housing: House Are you a primary pet care worker to a significant other at home: No Do you presently have visiting nurse or other home services: No Alcohol intake: former Patient Tobacco Use Status: Never used Tobacco Tobacco use type: Cigar and Pipe Years Smoked: 50 stopped 08/2022 e-Cigarette/Vaping Use: Currently Using Second Hand Smoke Exposure: No Advance Directives Date on File: 06/26/24 service: No Current occupational status: employed Cognitive needs: Yes Hearing needs: No Vision needs: Yes Meds Allergies Allergy/AdvReac Type Severity Reaction Status Date / Time canagliflozin [Invokana] Allergy Unknown hives Verified 07/16/24 14:32 dulaglutide [Trulicity] Allergy Unknown hives Verified 07/16/24 14:32 insulin glargine Allergy Unknown Hives Verified 07/16/24 14:32 [From Lantus U-100 Insulin] metformin [METFORMIN] Allergy Unknown HIVES Verified 07/16/24 14:32 rosuvastatin Allergy Unknown Unknown Verified 07/16/24 14:32 sitagliptin [From JANUVIA] Allergy Unknown HIVES Verified 07/16/24 14:32 Active Medications: Current Medications Acetaminophen (Acetaminophen 325 Mg Tablet) 650 mg PO Q6H PRN PRN Reason: Pain, Mild (Pain Scale 1-3), fever or headache Aspirin (Aspirin Enteric Coated 81 Mg Tablet.Dr) 81 mg PO BID [facility] Last Admin: 07/18/24 07:37 Dose: 81 mg Atorvastatin Calcium (Atorvastatin Calcium 40 Mg Tablet) 40 mg PO BEDTIME [facility] Last Admin: 07/17/24 22:14 Dose: 40 mg Bisacodyl (Bisacodyl 10 Mg Supp.Rect) [address] DAILY PRN PRN Reason: Constipation Calcium Carbonate (Calcium Carbonate 750 Mg Tab.Chew) 750 mg PO Q4H PRN PRN Reason: Heartburn Clopidogrel Bisulfate (Clopidogrel Bisulfate 75 Mg Tablet) 75 mg PO BEDTIME [facility] Last Admin: 07/17/24 22:14 Dose: 75 mg Glucose (Glucose Gel 15 Gm Gel..Gram.) 15 gm PO Q15M PRN; Protocol PRN Reason: per Hypoglycemia Standing Ord. Heparin Sodium (Porcine) (Heparin Sodium,Porcine 5,000 Unit/Ml Vial) 5,000 unit SUBCUT Q12H [facility] Last Admin: 07/18/24 07:37 Dose: 5,000 unit Dextrose (D10) 250 mls @ 750 mls/hr IV Q15M PRN; Protocol PRN Reason: per Hypoglycemia Standing Ord. Piperacillin Sod/Tazobactam (Sod 4.5 gm/ Sodium Chloride) 100 mls @ 200 mls/hr IV Q6H [facility] Last Infusion: 07/18/24 08:30 Dose: Infused Vancomycin HCl 1,000 mg/ (Sodium Chloride) 270 mls @ 270 mls/hr IV Q12H [facility] Last Infusion: 07/18/24 09:50 Dose: Infused Insulin Human Lispro (Insulin Lispro 100 Unit/Ml 3 Ml Vial) 0 unit SUBCUT QIDACHS [facility]; Protocol Last Admin: 07/18/24 13:06 Dose: Not Given Levothyroxine Sodium (Levothyroxine Sodium 112 Mcg Tablet) 112 mcg PO DAILY@0600 [facility] Last Admin: 07/18/24 05:49 Dose: 112 mcg Lisinopril (Lisinopril 10 Mg Tablet) 10 mg PO DAILY [facility]; Protocol Last Admin: 07/18/24 07:37 Dose: 10 mg Magnesium Hydroxide (Milk Of Magnesia 30 Ml Oral.Susp) 30 ml PO DAILY PRN PRN Reason: Constipation Magnesium Hydroxide (Milk Of Magnesia 30 Ml Oral.Susp) 5 ml PO Q8H PRN PRN Reason: Constipation Melatonin (Melatonin 3 Mg Tablet) 6 mg PO BEDTIME PRN PRN Reason: Insomnia Metoprolol Tartrate (Metoprolol Tartrate 12.5 Mg Halftab) 12.5 mg PO BID [facility]; Protocol Last Admin: 07/17/24 22:13 Dose: 12.5 mg Omeprazole (Omeprazole 40 Mg Capsule.Dr) 40 mg PO DAILY@0630 [facility] Last Admin: 07/18/24 05:49 Dose: 40 mg Oxycodone HCl (Oxycodone Hcl Immed Release 5 Mg Tablet) 5 mg PO Q6H PRN PRN Reason: Pain, Severe (Pain Scale 7-10) Pharmacy Consult (Consult Rx Vancomycin Dosing) 1 each MISCELLANE DAILY PRN PRN Reason: Consult order Sodium Biphosphate/Sodium Phosphate (Sodium Phosphate,Bell-Dibasic 133 Ml Enema) [address] DAILY PRN PRN Reason: Constipation Sodium Chloride (0.9 % Sodium Chloride Flush 3 Ml Syringe) [facility] Admin: 07/17/24 22:14 Dose: 3 ml Home Medications ?Medication ?Instructions ?Recorded ?Confirmed ?Last Taken ?Type clopidogrel 75 mg tablet 75 mg PO BEDTIME 07/16/24 07/16/24 Unknown History insulin degludec 100 unit/mL 32 unit subcut BID 07/16/24 07/17/24 Unknown Hist ory subcutaneous solution (Tresiba U-100 Insulin) Lactobacillus acidophilus 1,000 mmu cells PO DAILY 07/17/24 07/17/24 Unknown History acetaminophen 650 mg [address] Q4H PRN Fever Or Pain 07/17/24 07/17/24 Unknown History suppository acetaminophen 650 mg 650 mg PO Q4H PRN Pain 07/17/24 07/17/24 Unknown History tablet,extended release bisacodyl 10 mg rectal suppository [address] DAILY PRN Constipation 07/17/24 07/17/24 Unknown History calcium carbonate 1,000 mg PO TIDAC 07/17/24 07/17/24 Unknown History collagenase clostridium histo. 250 1 appl topical TID 07/17/24 07/17/24 Unknown History unit/gram topical ointment (Santyl) diclofenac sodium 1 % topical gel 4 g topical Q6H 07/17/24 07/17/24 Unknown History levothyroxine 125 mcg tablet 125 mcg PO DAILY@0600 07/17/24 07/17/24 Unknown History lisinopril 10 mg tablet 10 mg PO DAILY 07/17/24 07/17/24 Unknown History magnesium hydroxide 400 mg/5 mL 5 ml PO Q8H PRN Constipation 07/17/24 07/17/24 Unknown History oral suspension (Milk of Magnesia) naloxone 0.4 mg/mL injection 0.4 mg subcut Q3M PRN Opiate 07/17/24 07/17/24 Unknown History solution Reversal omeprazole 40 mg capsule,delayed 40 mg PO DAILY@0630 07/17/24 07/17/24 Unknown History release sodium phosphates 19 gram-[address] DAILY PRN Constipation 07/17/24 07/17/24 Unknown History gram/118 mL enema (Fleet Enema) Exam Height,Weight and Vital Signs: Height 5 ft 7 in Weight 122.4 kg Last Vital Signs Temp 98.1 F 07/18/24 13:19 Pulse 76 07/18/24 13:19 Resp 16 07/18/24 13:19 BP 154/58 H 07/18/24 13:19 Pulse Ox 93 07/18/24 13:19 O2 Del Method Room Air 07/18/24 13:19 O2 Flow Rate 2 07/16/24 20:36 Pertinent Lab Results Pertinent Lab Results: Laboratory Tests 07/16/24 07/16/24 07/16/24 15:01 17:15 19:36 WBC 9.7 RBC 3.39 L Hgb 10.8 L Hct 31.7 L MCV 93.5 MCH 31.9 MCHC 34.1 RDW 13.3 Plt Count 310 MPV 9.0 L Immature Gran % (Auto) 0.4 Neut % (Auto) 66.8 Lymph % (Auto) 17.4 L Bell % (Auto) 7.3 Eos % (Auto) 7.7 H Baso % (Auto) 0.4 Lymph # (Auto) 1.7 Bell # (Auto) 0.7 Eos # (Auto) 0.8 H Baso # (Auto) 0.0 Abs Immat Gran (auto) 0.04 H Absolute Neuts (auto) 6.5 Absolute Nucleated RBC 0.000 Nucleated RBC % (auto) 0.0 ESR 56 H VBG pH VBG pCO2 VBG pO2 VBG HCO3 VBG O2 Saturation VBG Base Excess Sodium 140 Potassium 4.1 Chloride 104 Carbon Dioxide 29 Anion Gap 11 L BUN 10 Creatinine 0.71 Estim Creat Clear Calc 123.0 Estimated GFR > 60 POC Glucose 102 Random Glucose 194 H Lactic Acid 1.1 Calcium 8.0 L D Magnesium 1.8 Total Bilirubin 0.5 AST 19 ALT 18 Alkaline Phosphatase 59 Troponin I High Sens C-Reactive Protein 7.44 H B-Natriuretic Peptide Total Protein 6.0 L Albumin 2.5 L Random Vancomycin 07/16/24 07/16/24 07/16/24 21:46 21:50 21:51 WBC RBC Hgb Hct MCV MCH MCHC RDW Plt Count MPV Immature Gran % (Auto) Neut % (Auto) Lymph % (Auto) Bell % (Auto) Eos % (Auto) Baso % (Auto) Lymph # (Auto) Bell # (Auto) Eos # (Auto) Baso # (Auto) Abs Immat Gran (auto) Absolute Neuts (auto) Absolute Nucleated RBC Nucleated RBC % (auto) ESR VBG pH 7.39 VBG pCO2 48 VBG pO2 36 VBG HCO3 29 H VBG O2 Saturation 54.0 VBG Base Excess 4.3 Sodium Potassium Chloride Carbon Dioxide Anion Gap BUN Creatinine Estim Creat Clear Calc Estimated GFR POC Glucose 184 H Random Glucose Lactic Acid Calcium Magnesium Total Bilirubin AST ALT Alkaline Phosphatase Troponin I High Sens 4.7 C-Reactive Protein B-Natriuretic Peptide 23 Total Protein Albumin Random Vancomycin 07/16/24 07/17/24 07/17/24 23:00 04:17 07:11 WBC 11.8 H RBC 3.15 L Hgb 9.8 L Hct 29.7 L MCV 94.3 MCH 31.1 MCHC 33.0 RDW 13.3 Plt Count 314 MPV 9.5 Immature Gran % (Auto) 0.4 Neut % (Auto) 74.9 H Lymph % (Auto) 13.5 L Bell % (Auto) 6.5 Eos % (Auto) 4.3 H Baso % (Auto) 0.4 Lymph # (Auto) 1.6 Bell # (Auto) 0.8 Eos # (Auto) 0.5 H Baso # (Auto) 0.1 Abs Immat Gran (auto) 0.05 H Absolute Neuts (auto) 8.8 H Absolute Nucleated RBC 0.000 Nucleated RBC % (auto) 0.0 ESR VBG pH VBG pCO2 VBG pO2 VBG HCO3 VBG O2 Saturation VBG Base Excess Sodium 140 Potassium 4.4 Chloride 106 Carbon Dioxide 26 Anion Gap 12 BUN 11 Creatinine 0.76 Estim Creat Clear Calc 114.9 Estimated GFR > 60 POC Glucose 202 H 134 H Random Glucose 180 H Lactic Acid Calcium 8.0 L Magnesium 1.9 Total Bilirubin AST ALT Alkaline Phosphatase Troponin I High Sens C-Reactive Protein B-Natriuretic Peptide Total Protein Albumin Random Vancomycin 07/17/24 07/17/24 07/17/24 12:44 17:44 20:20 WBC RBC Hgb Hct MCV MCH MCHC RDW Plt Count MPV Immature Gran % (Auto) Neut % (Auto) Lymph % (Auto) Bell % (Auto) Eos % (Auto) Baso % (Auto) Lymph # (Auto) Bell # (Auto) Eos # (Auto) Baso # (Auto) Abs Immat Gran (auto) Absolute Neuts (auto) Absolute Nucleated RBC Nucleated RBC % (auto) ESR VBG pH VBG pCO2 VBG pO2 VBG HCO3 VBG O2 Saturation VBG Base Excess Sodium Potassium Chloride Carbon Dioxide Anion Gap BUN Creatinine Estim Creat Clear Calc Estimated GFR POC Glucose 183 H 167 H 155 H Random Glucose Lactic Acid Calcium Magnesium Total Bilirubin AST ALT Alkaline Phosphatase Troponin I High Sens C-Reactive Protein B-Natriuretic Peptide Total Protein Albumin Random Vancomycin 07/18/24 07/18/24 07/18/24 06:00 07:08 11:23 WBC RBC Hgb Hct MCV MCH MCHC RDW Plt Count MPV Immature Gran % (Auto) Neut % (Auto) Lymph % (Auto) Bell % (Auto) Eos % (Auto) Baso % (Auto) Lymph # (Auto) Bell # (Auto) Eos # (Auto) Baso # (Auto) Abs Immat Gran (auto) Absolute Neuts (auto) Absolute Nucleated RBC Nucleated RBC % (auto) ESR VBG pH VBG pCO2 VBG pO2 VBG HCO3 VBG O2 Saturation VBG Base Excess Sodium 141 Potassium 3.9 Chloride 108 Carbon Dioxide 25 Anion Gap 12 BUN 8 L Creatinine 0.66 Estim Creat Clear Calc 132.4 Estimated GFR > 60 POC Glucose 90 79 Random Glucose 103 Lactic Acid Calcium 7.8 L Magnesium Total Bilirubin AST ALT Alkaline Phosphatase Troponin I High Sens C-Reactive Protein B-Natriuretic Peptide Total Protein Albumin Random Vancomycin 21.7 H 07/18/24 13:28 WBC RBC Hgb Hct MCV MCH MCHC RDW Plt Count MPV Immature Gran % (Auto) Neut % (Auto) Lymph % (Auto) Bell % (Auto) Eos % (Auto) Baso % (Auto) Lymph # (Auto) Bell # (Auto) Eos # (Auto) Baso # (Auto) Abs Immat Gran (auto) Absolute Neuts (auto) Absolute Nucleated RBC Nucleated RBC % (auto) ESR VBG pH VBG pCO2 VBG pO2 VBG HCO3 VBG O2 Saturation VBG Base Excess Sodium Potassium Chloride Carbon Dioxide Anion Gap BUN Creatinine Estim Creat Clear Calc Estimated GFR POC Glucose 71 Random Glucose Lactic Acid Calcium Magnesium Total Bilirubin AST ALT Alkaline Phosphatase Troponin I High Sens C-Reactive Protein B-Natriuretic Peptide Total Protein Albumin Random Vancomycin Airway Mallampati Class: III TM Dist: >3cm Neck ROM: Limited Loose/Missing/Broken Teeth: Yes Heart: RRR Lungs: CTA Assessment and Plan Assessment Anesthesia Assessment: Anesthesia Plan Discussed and Chart Reviewed Final Anesthetic Review History of Problems with Anesthesia: No NPO: Yes ASA Class: III Final Preanesthetic Review: Meds/Allgs Chart Reviewed, Consent Obtained/Reviewed and Anes Risks/Benef Reviewed Patient Risk: Intermediate Procedure Risk: Low Anesthetic Plan Anesthetic Plan: MAC: Disposition: Standard PACU
--- NOTE | 2024-07-18 15:13 | P.OP_ITS ---
Operative Note Operative Note Date of Service: 07/18/24 Narrative: Preop diagnosis: Sacral decubitus ulcer , with thick eschar; left heel ulcer with eschar Postop diagnosis: Sacral decubitus ulcer, about 7 x 8 cm, thick eschar involving skin, subcutaneous fat down to muscle, with undermining superiorly Left heel ulcer, with thick eschar, measuring about 4 x 4 cm, involving full-thickness of the skin and part of the subcutaneous layer Procedure: Sharp excisional debridement of sacral decubitus ulcer and left heel ulcer down to skin, subcutaneous layer and soft tissue Surgeon: Steve Paiz MD The patient is a 69-year-old male mostly bed-bound with poor mobility, with worsening ulcers on the sacrum as well as on the left heel. He was noted to have some foul-smelling eschar so I explained to him that it would be best to proceed with excisional debridement in the OR. I reviewed with the technique of this procedure as well as the risks, benefits, and alternatives He was brought to the operating room and placed left lateral decubitus position under monitored anesthesia care. The sacral area as well as the left heel were prepped and draped in the usual sterile fashion. A surgical time-out was done. The patient was receiving IV antibiotics Examination of the sacral area showed this large ulcer with thick foul-smelling eschar he had this measured about 7 x 8 cm but had significant undermining superiorly. I proceeded to do sharp excisional debridement of the thick foul- smelling eschar using curved Hines scissors. This was down to the full thickness of the skin, subcutaneous fat as well as part of the soft tissue. I carried t his down to viable tissue. I used electrocautery to achieve hemostasis on oozing areas I proceeded to do excisional debridement of the left heel eschar as well. This was carried down through the full-thickness of the skin and subcutaneous fat. This was about a 4 x 4 cm area I applied wet-to-dry packing to both areas of excision. I then covered the sacral ulcer with thick fluffy dressings. I covered the left heel ulcer with take gauze and wrapped this with Kerlix roll He tolerated the procedure well. There were no immediate complications. Estimated blood loss was about 25 cc He was then transferred to the recovery room with stable vital signs.
[2024-07-18 16:43] LABS: Glucose, Whole Blood 70 mg/dL (60-115)
[2024-07-18] MEDS: 0.9 % Sodium Chloride Flush 3 ML SYRINGE IVFLUSH (17:12)
[2024-07-18] MEDS: Atorvastatin Calcium 40 MG TABLET PO (20:52)
[2024-07-18 20:53] LABS: Glucose, Whole Blood 150 mg/dL (60-115)
[2024-07-18] MEDS: Clopidogrel Bisulfate 75 MG TABLET PO (20:54)
[2024-07-19] VITALS (8 sets, daily range): BP systolic 109–130; BP diastolic 53–77; PULSE 78–90; RESP 16–20; TEMP 36.2–36.8; O2SAT 92–96
[2024-07-19] MEDS: Piperacillin Sodium/Tazobactam 4.5 GM in 0.9 % Sodium Chloride 100 ML IV ×5 (00:17→23:46)
[2024-07-19] MEDS: 0.9 % Sodium Chloride Flush 3 ML SYRINGE IVFLUSH ×4 (01:11→22:11)
[2024-07-19] MEDS: Omeprazole 40 MG CAPSULE.DR PO (05:52)
[2024-07-19] MEDS: Levothyroxine Sodium 112 MCG TABLET PO (05:52)
[2024-07-19] MEDS: Heparin Sodium,Porcine 5,000 UNIT/ML VIAL 5000 UNIT SUBCUT ×2 (05:57→18:40)
[2024-07-19 06:39] LABS: Creatinine Clr Calc Pharmacy 132.4; Estimated Glomerular Filt Rate > 60
[2024-07-19 06:48] LABS: Vancomycin Random 19.6 mcg/mL (15-20)
[2024-07-19 07:13] LABS: Glucose, Whole Blood 79 mg/dL (60-115)
--- NOTE | 2024-07-19 07:16 | HE.PHANOTE ---
VANCO DOSE ADJUSTMENT BASED ON SCR AND TROUGH OF 19.6 DOSE DECREASED TO 750 Q 12 NEXT LEVEL 07/20 @ 0600
--- NOTE | 2024-07-19 08:02 | HO.POSTANES ---
Post Anesthesia Evaluation Post Anesthesia Evaluation Date of Service: 07/19/24 Vital Signs: Vital Signs Temp Pulse Resp BP Pulse Ox O2 Del Method 07/19/24 07:09 98.0 F 79 18 113/53 L 92 Room Air 07/19/24 04:00 98.1 F 80 16 123/58 L Room Air 07/19/24 00:00 97.2 F 78 16 109/59 L 92 Room Air Anesthesia: Monitored Mental Status: Awake Pain Control: Satisfactory Nausea/Vomiting: None Hydration: Adequate Anesthesia-Related Issues: No Anes. Related Issues
--- NOTE | 2024-07-19 08:29 | HO.STUDPN_ITS ---
Subjective Subjective Date of Service: 07/19/24 <Neli Moulton - Last Filed: 07/19/24 10:21> 07/19/24 <Steve Paiz MD - Last Filed: 07/19/24 13:59> 07/20/24 <Cherry Ramírez PA-C - Last Filed: 07/20/24 10:58> Interval History: Mr. Nolasco is a 69 year old male POD1 for surgical debridement of sacral decubitus and L heel ulcer with concern for osteomyelitis. At the time of evaluation, approximately 7AM, he reports throbbing pain to L heel that started 30 minutes ago. He reports that the pain is localized to L heel and has intact motor and sensory function of L and R extremities. Heel pain is 8/10. States that the sacral pain is well controlled and currently at 5/10. Denies difficulty urinating. Reports difficulty with bowel movement since beginning of June but states that he had a bowel movement last night. <Neli Moulton - Last Filed: 07/19/24 10:21> Constitutional Constitutional: Denies chills and Denies fever(s) <Neli Towns - Last Filed: 07/19/24 10:21> Cardiovascular Cardiovascular: Denies chest pain, Denies dyspnea and Denies dyspnea on exertion <Neli Towns - Last Filed: 07/19/24 10:21> Respiratory Respiratory: Denies cough, Denies dyspnea and Denies dyspnea on exertion <Neli Towns - Last Filed: 07/19/24 10:21> Gastrointestinal Gastrointestinal: Denies hematochezia and Denies change in bowel habits <Neli Towns - Last Filed: 07/19/24 10:21> Genitourinary Genitourinary: Denies hematuria, Denies difficulty urinating and Denies urinary incontinence <Neli MolinaBrien - Last Filed: 07/19/24 10:21> Musculoskeletal Musculoskeletal: Denies back pain and Denies limited range of motion <Neli Towns - Last Filed: 07/19/24 10:21> Neurologic Neurologic: Denies focal weakness and Denies convulsions <Neli MolinaBrien - Last Filed: 07/19/24 10:21> Psychiatric Psychiatric: Denies depression and Denies mood swings <Neli Towns - Last Filed: 07/19/24 10:21> Physical Exam 2 Vital Signs: Vital Signs: Last Vital Signs Temp 98.0 F 07/19/24 07:09 Pulse 79 07/19/24 07:09 Resp 18 07/19/24 07:09 BP 113/53 L 07/19/24 07:09 Pulse Ox 92 07/19/24 07:09 O2 Del Method Room Air 07/19/24 07:09 O2 Flow Rate 4 07/18/24 15:30 BMI result Body Mass Index 42.3 <Neli Towns - Last Filed: 07/19/24 10:21> Constitutional: HEENT: atraumatic, anencephalopathic, pupils and conjunctive normal appearance on confrontation Cardiovascular: Normal rate and rhythm. No murmurs, rubs or gallops Respiratory: Good respiratory effort, no use of accessory muscles. Equal breath sounds, no adventitious sounds auscultated Gastrointestinal: obese, soft abdomen, nontender. Bowel sounds x4 Skin: dry bandage applied to L heel. Chronic venous stasis bilaterally with erythema and pitting edema <Neli Towns - Last Filed: 07/19/24 10:21> Const: Other: Complains of pain on the left heel <Neli Towns - Last Filed: 07/19/24 10:21> General: no acute distress <Neli Towns - Last Filed: 07/19/24 10:21> Limitations: No language barrier <Neli Towns - Last Filed: 07/19/24 10:21> Resp: Effort & Inspection: normal respiratory effort <Neli Towns - Last Filed: 07/19/24 10:21> Cardio: Rate: regular rate <Neli Towns - Last Filed: 07/19/24 10:21> GI: Palpation (GI): Soft to palpation <[facility] - Last Filed: 07/19/24 10:21> Back/Spine/Pelvis: Other: Large sacral decubitus area on the right, probably at least 10 cm in diameter, with note of some nonviable debris coating the wound base and eschar <Neli Moulton - Last Filed: 07/19/24 10:21> Extrem: Other: Left heel ulcer with eschar, tender to touch, about 3 cm in diameter <Neli Moulton - Last Filed: 07/19/24 10:21> Objective Data Active Medications Acetaminophen (Acetaminophen 325 Mg Tablet) 650 mg PO Q6H PRN PRN Reason: Pain, Mild (Pain Scale 1-3), fever or headache Aspirin (Aspirin Enteric Coated 81 Mg Tablet.Dr) 81 mg PO BID [facility] Last Admin: 07/18/24 20:52 Dose: 81 mg Documented By: KARLO Atorvastatin Calcium (Atorvastatin Calcium 40 Mg Tablet) 40 mg PO BEDTIME [facility] Last Admin: 07/18/24 20:52 Dose: 40 mg Documented By: KARLO Bisacodyl (Bisacodyl 10 Mg Supp.Rect) 10 mg [place] DAILY PRN PRN Reason: Constipation Calcium Carbonate (Calcium Carbonate 750 Mg Tab.Chew) 750 mg PO Q4H PRN PRN Reason: Heartburn Clopidogrel Bisulfate (Clopidogrel Bisulfate 75 Mg Tablet) 75 mg PO BEDTIME [facility] Last Admin: 07/18/24 20:54 Dose: 75 mg Documented By: KARLO Glucose (Glucose Gel 15 Gm Gel..Gram.) 15 gm PO Q15M PRN; Protocol PRN Reason: per Hypoglycemia Standing Ord. Heparin Sodium (Porcine) (Heparin Sodium,Porcine 5,000 Unit/Ml Vial) 5,000 unit SUBCUT Q12H [facility] Last Admin: 07/19/24 05:57 Dose: 5,000 unit Documented By: KARLO Dextrose (D10) 250 mls @ 750 mls/hr IV Q15M PRN; Protocol PRN Reason: per Hypoglycemia Standing Ord. Piperacillin Sod/Tazobactam (Sod 4.5 gm/ Sodium Chloride) 100 mls @ 200 mls/hr IV Q6H [facility] Last Infusion: 07/19/24 06:27 Dose: Infused Documented By: KARLO Vancomycin HCl 750 mg/ Sodium (Chloride) 265 mls @ 265 mls/hr IV Q12H [facility] Insulin Human Lispro (Insulin Lispro 100 Unit/Ml 3 Ml Vial) 0 unit SUBCUT QIDACHS [facility]; Protocol Last Admin: 07/19/24 07:42 Dose: Not Given Documented By: SHYLA Non-Admin Reason: No Insulin Coverage Levothyroxine Sodium (Levothyroxine Sodium 112 Mcg Tablet) 112 mcg PO DAILY@0600 [facility] Last Admin: 07/19/24 05:52 Dose: 112 mcg Documented By: KARLO Lisinopril (Lisinopril 10 Mg Tablet) 10 mg PO DAILY [facility]; Protocol Last Admin: 07/18/24 07:37 Dose: 10 mg Documented By: TERESA Magnesium Hydroxide (Milk Of Magnesia 30 Ml Oral.Susp) 30 ml PO DAILY PRN PRN Reason: Constipation Magnesium Hydroxide (Milk Of Magnesia 30 Ml Oral.Susp) 5 ml PO Q8H PRN PRN Reason: Constipation Melatonin (Melatonin 3 Mg Tablet) 6 mg PO BEDTIME PRN PRN Reason: Insomnia Metoprolol Tartrate (Metoprolol Tartrate 12.5 Mg Halftab) 12.5 mg PO BID [facility]; Protocol Last Admin: 07/18/24 20:53 Dose: 12.5 mg Documented By: KARLO Morphine Sulfate (Morphine Sulfate 2 Mg/Ml Cartridge) 2 mg IVPUSH Q3H PRN; Protocol PRN Reason: Pain, Severe (Pain Scale 7-10) Naloxone HCl (Naloxone Hcl 0.4 Mg/Ml Vial) 0.04 mg IVPUSH Q5M PRN PRN Reason: Excessive sedation or RR < 8 Omeprazole (Omeprazole 40 Mg Capsule.Dr) 40 mg PO DAILY@0630 [facility] Last Admin: 07/19/24 05:52 Dose: 40 mg Documented By: KARLO Oxycodone HCl (Oxycodone Hcl Immed Release 5 Mg Tablet) 5 mg PO Q6H PRN PRN Reason: Pain, Severe (Pain Scale 7-10) Pharmacy Consult (Consult Rx Vancomycin Dosing) 1 each MISCELLANE DAILY PRN PRN Reason: Consult order Sodium Biphosphate/Sodium Phosphate (Sodium Phosphate,[place]-Dibasic 133 Ml Enema) 118 ml KS DAILY PRN PRN Reason: Constipation Sodium Chloride (0.9 % Sodium Chloride Flush 3 Ml Syringe) 3 ml IVFLUSH QSHIFT [facility] Last Admin: 07/19/24 01:11 Dose: 3 ml Documented By: KARLO <Neli Hooper'Brien - Last Filed: 07/19/24 10:21> Labs CBC & Chem 7: 09/24/24 04:17 07/20/24 06:39 <Neli Moulton - Last Filed: 07/19/24 10:21> Labs: Laboratory Results - last 24 hr 07/18/24 07/18/24 07/18/24 11:23 13:28 16:31 Estim Creat Clear Calc Estimated GFR POC Glucose 79 71 70 Random Vancomycin 07/18/24 07/19/24 07/19/24 20:49 05:50 07:10 Estim Creat Clear Calc 132.4 Estimated GFR > 60 POC Glucose 150 H 79 Random Vancomycin 19.6 <Neli Moulton - Last Filed: 07/19/24 10:21> Microbiology Microbiology Results: Microbiology 07/16/24 17:19 Blood Culture - Preliminary Blood - Venous No growth after 48 hours. 07/16/24 17:15 Blood Culture - Preliminary Blood - Venous No growth after 48 hours. <Neli Moulton - Last Filed: 07/19/24 10:21> Assessment and Plan (1) Sacral decubitus ulcer: Status: Acute <Neli Moulton - Last Filed: 07/19/24 10:21> Assessment and Plan: both debridement sites examined clean, much improved after debridement wet to dry applied plan to start Dakins solution packing tomorrow for both sites hopefully, Wound Vac next week for the sacral ulcer seen [facility] Wound Care nurse Justa <Steve Paiz MD - Last Filed: 07/19/24 13:59> (2) Heel ulcer: Status: Acute <Neli Moulton - Last Filed: 07/19/24 10:21> Assessment and Plan: 69 year old male POD1 for surgical debridement of infect unstageable sacral decubitis ulcer and L heel ulcer. Patient actively reporting L heel pain 8/10 that is throbbing in nature. Motor and sensory funciton intact, pain is as expected due to bulky debridement. Continue offloading, pain management, with wound care/pressure dressings. Continue to monitor wound progress and cultures. Will follow up daily. <Neli Moulton - Last Filed: 07/19/24 10:21> Quality Stroke Does the patient have a stroke diagnosis?: No <Neli Moulton - Last Filed: 07/19/24 10:21> VTE Prior VTE?: No <Neli Moulton - Last Filed: 07/19/24 10:21> VTE Risk Level:: Medical - moderate - high <Neli Moulton - Last Filed: 07/19/24 10:21> VTE Device Contraindication: Treatment Not Indicated <Neli Moulton - Last Filed: 07/19/24 10:21> VTE Drug Contraindication: N/A - Med Ordered <Neli Moulton - Last Filed: 07/19/24 10:21>
[2024-07-19] MEDS: Metoprolol Tartrate 12.5 MG HALFTAB PO ×2 (09:11→22:10)
[2024-07-19] MEDS: Aspirin Enteric Coated 81 MG TABLET.DR PO ×2 (09:11→22:10)
[2024-07-19] MEDS: vancomycin HCL 750 MG in 0.9 % Sodium Chloride 250 ML 265 MG IV ×2 (09:11→22:11)
[2024-07-19] MEDS: lisinopriL 10 MG TABLET PO (09:11)
[2024-07-19 10:40] LABS: Glucose, Whole Blood 116 mg/dL (60-115)
--- NOTE | 2024-07-19 11:30 | HO.WOUND ---
Addendum entered by Justa Leavitt RN 07/19/24 15:23: Sacrum Etiology: ?Stage 4 Pressure Injury?Present on Admission Wound Bed: marbled wound bed with red moist tissue and yellow slough Drainage / Odor: Moderate amount of yellow brink serosang drainage no odor noted Edges: ? unattached Radha wound:dark red, No Induration, Fluctuance or Warmth noted Pain: pain reported Goals of Treatment: ?Dakins wet to moist dressing packing daily Patient is a potential Negative Pressure Wound Therapy candidate- wound bed should be cleaned to 80% red viable tissue prior application. Will monitor - Dr Paiz will perform dressing change tomorrow and direct care team over the weekend. Left Heel Etiology: Stage 4 Pressure Injury?Present on Admission Wound Bed: adherent yellow slough with red moist tissue on the wound edge Drainage / Odor: Moderate amount of yellow brink serosang drainage no odor noted Edges: ? unattached Radha wound: pink - No Induration, Fluctuance or Warmth noted Pain: pain reported Goals of Treatment: ?Dakins wet to moist dressing packing daily Off Load Pressure, HARSHIL mattress in use - requested [employer] pulsate bed, wedges in use and heels off loaded with pillows - Dr. Paiz prefers pillows over heel protector boots. Recommendations: 1. Turn and Reposition every 2 hours and as needed for patient comfort.? Use pillows or wedges to support off loading positions. 2. Off Load all bony prominences with use of pillows and heel boots if needed.? Apply Preventative foams where needed. ?Elevate heels with heel protector boots if non-ambulatory at this time. 3. Monitor for incontinence and moisture control, use barrier creams when needed for prevention and treatment. 4. Provide adequate and supplemental nutrition.? 5. Order low air loss mattress. 6. When applicable maintain blood glucose levels per Providers order. 7. Right Heel - [place] with Betadine daily - allow to dry. Leave open to air. Do not apply foam dressing. Elevate heels off of bed surface with heel protector boots or pillows. 8. Sacrum and Left Heel - Cleanse and irrigate with Dakins Solution, pat dry. Apply barrier to wound edge. Lightly pack wound bed with Dakins moist gauze, followed by dry gauze, ABD pad and or gauze wrap. Change Daily. Re-consult wound care Nurse for wound deterioration or wound changes. Addendum entered by Justa Leavitt RN 07/19/24 15:15: Sacrum Etiology: ?Stage 4 Pressure Injury?Present on Admission Wound Bed: marbled wound bed with red moist tissue and yellow slough Drainage / Odor: Moderate amount of yellow brink serosang drainage no odor noted Edges: ? unattached Radha wound:dark red, No Induration, Fluctuance or Warmth noted Pain: pain reported Goals of Treatment: ?Dakins wet to moist dressing packing daily Patient is a potential Negative Pressure Wound Therapy candidate- wound bed should be cleaned to 80% red viable tissue prior application. Will monitor - Dr Paiz will perform dressing change tomorrow and direct care team over the weekend. Left Heel Etiology: Stage 4 Pressure Injury?Present on Admission Wound Bed: adherent yellow slough with red moist tissue on the wound edge Drainage / Odor: Moderate amount of yellow brink serosang drainage no odor noted Edges: ? unattached Radha wound: pink - No Induration, Fluctuance or Warmth noted Pain: pain reported Goals of Treatment: ?Dakins wet to moist dressing packing daily Off Load Pressure, HARSHIL mattress in use - requested [employer] pulsate bed, wedges in use and heels off loaded with pillows - Dr. Paiz prefers pillows over heel protector boots. Original Note: Wound Consult: Follow up 69yr old Male? [place] [facility] [place] - See progress notes and H&P for detailed history.? Wound consult placed for sacral wound and bilateral heels wounds.? General Surgery to change dressing this afternoon - will plan to perform with General Surgery for assessment. Right heel assessed and detailed below. Right Heel Etiology: ?Resurfacing Pressure Injury - Suspect stage 2 - last assessed as Deep Tissue Injury on last admission -?Present on Admission Measurements: 2cm x 1cm x 0.1cm Wound Bed: dry lifting epidermal layer Drainage / Odor: None Edges: ? dry lifting and irregular Radha wound: Intact - No Induration, Fluctuance or Warmth noted Pain: denies Goals of Treatment: ?Betadine to keep dry and off load pressure Recommendations: 1. Turn and Reposition every 2 hours and as needed for patient comfort.? Use pillows or wedges to support off loading positions. 2. Off Load all bony prominences with use of pillows and heel boots if needed.? Apply Preventative foams where needed. ?Elevate heels with heel protector boots if non-ambulatory at this time. 3. Monitor for incontinence and moisture control, use barrier creams when needed for prevention and treatment. 4. Provide adequate and supplemental nutrition.? 5. Order low air loss mattress. 6. When applicable maintain blood glucose levels per Providers order. 7. Right Heel - [place] with Betadine daily - allow to dry. Leave open to air. Do not apply foam dressing. Elevate heels off of bed surface with heel protector boots or pillows. 8. Sacrum and Left Heel - defer to Surgery. Re-consult wound care Nurse for wound deterioration or wound changes.
--- NOTE | 2024-07-19 11:43 | HO.PM.IMPN ---
Subjective Subjective Date of Service: 07/19/24 Interval History: seen and examined this morning follow up for sacral decubitus ulcer and concern for OM Pain seems controlled, still declining mri s/p debridement yesterday, c/o of throbing left heel pain Physical Exam Vital Signs: Vital Signs: Last Vital Signs Temp 97.5 F 07/19/24 10:42 Pulse 81 07/19/24 10:42 Resp 18 07/19/24 10:42 BP 117/56 L 07/19/24 10:42 Pulse Ox 93 07/19/24 10:42 O2 Del Method Room Air 07/19/24 10:42 O2 Flow Rate 4 07/18/24 15:30 BMI result Body Mass Index 42.3 Constitutional - Awake and Alert, No apparent distress Eyes - PERRLA, EOMI Cardiovascular - S1S2, RRR, No edema Respiratory - Normal lung expansion, Normal respiratory effort, No respiratory distress, CTA bilaterally Gastrointestinal - NT / ND; +BS; No rebound or guarding - incontinent of urine Extremities - no calf tenderness bilaterally, no swelling Skin - Warm/Dry. Unstageable ulcer sacrum with foul odor. Unstageable ulcer L heel with eschar and some slough with foul odor--see picture elsewhere Neurological - Alert & oriented x3 Psychological - Appropriate affect Objective Data Active Medications Acetaminophen (Acetaminophen 325 Mg Tablet) 650 mg PO Q6H PRN PRN Reason: Pain, Mild (Pain Scale 1-3), fever or headache Aspirin (Aspirin Enteric Coated 81 Mg Tablet.) 81 mg PO BID [facility] Last Admin: 07/19/24 09:11 Dose: 81 mg Documented By: SHYLA Atorvastatin Calcium (Atorvastatin Calcium 40 Mg Tablet) 40 mg PO BEDTIME [facility] Last Admin: 07/18/24 20:52 Dose: 40 mg Documented By: KARLO Bisacodyl (Bisacodyl 10 Mg Supp.Rect) 10 mg NM DAILY PRN PRN Reason: Constipation Calcium Carbonate (Calcium Carbonate 750 Mg Tab.Chew) 750 mg PO Q4H PRN PRN Reason: Heartburn Clopidogrel Bisulfate (Clopidogrel Bisulfate 75 Mg Tablet) 75 mg PO BEDTIME [facility] Last Admin: 07/18/24 20:54 Dose: 75 mg Documented By: KARLO Glucose (Glucose Gel 15 Gm Gel..Gram.) 15 gm PO Q15M PRN; Protocol PRN Reason: per Hypoglycemia Standing Ord. Heparin Sodium (Porcine) (Heparin Sodium,Porcine 5,000 Unit/Ml Vial) 5,000 unit SUBCUT Q12H [facility] Last Admin: 07/19/24 05:57 Dose: 5,000 unit Documented By: KARLO Dextrose (D10) 250 mls @ 750 mls/hr IV Q15M PRN; Protocol PRN Reason: per Hypoglycemia Standing Ord. Piperacillin Sod/Tazobactam (Sod 4.5 gm/ Sodium Chloride) 100 mls @ 200 mls/hr IV Q6H [facility] Last Admin: 07/19/24 11:42 Dose: 200 mls/hr Documented By: SHYLA Vancomycin HCl 750 mg/ Sodium (Chloride) 265 mls @ 265 mls/hr IV Q12H [facility] Last Infusion: 07/19/24 10:20 Dose: Infused Documented By: SHYLA Insulin Human Lispro (Insulin Lispro 100 Unit/Ml 3 Ml Vial) 0 unit SUBCUT QIDACHS [facility]; Protocol Last Admin: 07/19/24 11:42 Dose: Not Given Documented By: SHYLA Non-Admin Reason: No Insulin Coverage Levothyroxine Sodium (Levothyroxine Sodium 112 Mcg Tablet) 112 mcg PO DAILY@0600 [facility] Last Admin: 07/19/24 05:52 Dose: 112 mcg Documented By: KARLO Lisinopril (Lisinopril 10 Mg Tablet) 10 mg PO DAILY [facility]; Protocol Last Admin: 07/19/24 09:11 Dose: 10 mg Documented By: SHYLA Magnesium Hydroxide (Milk Of Magnesia 30 Ml Oral.Susp) 30 ml PO DAILY PRN PRN Reason: Constipation Magnesium Hydroxide (Milk Of Magnesia 30 Ml Oral.Susp) 5 ml PO Q8H PRN PRN Reason: Constipation Melatonin (Melatonin 3 Mg Tablet) 6 mg PO BEDTIME PRN PRN Reason: Insomnia Metoprolol Tartrate (Metoprolol Tartrate 12.5 Mg Halftab) 12.5 mg PO BID [facility]; Protocol Last Admin: 07/19/24 09:11 Dose: 12.5 mg Documented By: SHYLA Morphine Sulfate (Morphine Sulfate 2 Mg/Ml Cartridge) 2 mg IVPUSH Q3H PRN; Protocol PRN Reason: Pain, Severe (Pain Scale 7-10) Naloxone HCl (Naloxone Hcl 0.4 Mg/Ml Vial) 0.04 mg IVPUSH Q5M PRN PRN Reason: Excessive sedation or RR < 8 Omeprazole (Omeprazole 40 Mg Capsule.Dr) 40 mg PO DAILY@0630 [facility] Last Admin: 07/19/24 05:52 Dose: 40 mg Documented By: ANDJAY Oxycodone HCl (Oxycodone Hcl Immed Release 5 Mg Tablet) 5 mg PO Q6H PRN PRN Reason: Pain, Severe (Pain Scale 7-10) Pharmacy Consult (Consult Rx Vancomycin Dosing) 1 each MISCELLANE DAILY PRN PRN Reason: Consult order Sodium Biphosphate/Sodium Phosphate (Sodium Phosphate,[place]-Dibasic 133 Ml Enema) 118 ml NM DAILY PRN PRN Reason: Constipation Sodium Chloride (0.9 % Sodium Chloride Flush 3 Ml Syringe) 3 ml IVFLUSH QSHIFT [facility] Last Admin: 07/19/24 09:16 Dose: 3 ml Documented By: SATYAONO Labs 07/17/24 04:17 07/19/24 05:50 Labs: Laboratory Results - last 24 hr 07/18/24 07/18/24 07/18/24 13:28 16:31 20:49 Estim Creat Clear Calc Estimated GFR POC Glucose 71 70 150 H Random Vancomycin 07/19/24 07/19/24 07/19/24 05:50 07:10 10:37 Estim Creat Clear Calc 132.4 Estimated GFR > 60 POC Glucose 79 116 H Random Vancomycin 19.6 Microbiology Microbiology Results: Microbiology 07/16/24 17:19 Blood Culture - Preliminary Blood - Venous No growth after 48 hours. 07/16/24 17:15 Blood Culture - Preliminary Blood - Venous No growth after 48 hours. Assessment and Plan (1) Heel ulcer: Status: Acute (2) Sacral decubitus ulcer: Status: Acute Plan 69 yo male with PMH of ROLO, DM, hypothyroidism, hyperlipidemia, HTN, CVA on aspirin and plavix discharged from here to [facility] for unstageable sacral ulcer s/p debridement on 06/20 and 06/23 by gen surg and then + blood cultures strep agalactie 2/2 treated with IV ceftriaxone and last dose ceftin 07/02 admitted for infected unstageable ulcer L heel #Infected unstageable decubitus ulcer L heel r/t type II diabetes -ESR 56, CRP 7, XR negative for osteo. MRI L foot w/wo ordered but declined -IV vanco and zosyn -general surgery following and debrided sacral area and left heel -wound care consult -no sepsis -follow cultures -ID consult #Infected unstageable sacral ulcer -general surgery consult -IV vanco and zosyn -wound culture/pressure dressing -Incontinent of urine. Unable to place condom cath due to anatomy. Lozano catheter ordered for skin integrity -surgery to debride in OR yesterday #SVT--resolved, K ok, check mag, add low dose metoprolol and if happens again, cardiology consult #Insulin dependent type 2 diabetes -poc glucose, diabetic diet -dose adjusted basal insulin -admelog on ss -restart Lantus at lower dose #Hypothyroidism -levothyroxine #Hx CVA -continue DAPT, statin #HTN -continue lisinopril #Acute on chronic normocytic anemia d/t chronic disease -above transfusion threshold, likely in setting of chronic wounds, no bleeding dvt prophyalxis- heparin full code need for inpatient: infected foot ulcer with concern for osteomyelitis requiring broad spectum abx, further advanced imaging and expert consultation Quality Stroke Does the patient have a stroke diagnosis?: No VTE Prior VTE?: No VTE Risk Level:: Medical - moderate - high VTE Device Contraindication: Treatment Not Indicated VTE Drug Contraindication: N/A - Med Ordered
--- NOTE | 2024-07-19 15:37 | P.CDIM_ITS ---
PROVIDER RESPONSE TEXT: To clarify, the appropriate diagnosis supported by the clinical indicators: Pressure injury right heel Stage 2: stage 2 QUERY TEXT: PHYSICIAN'S DOCUMENTATION REQUEST Date of Query: 07/19/2024 12:01 PM EDT Patient Name: Shaun Nolasco Admit Date: 07/16/2024 Dear Primo Eason MD, A review of the medical record indicates additional documentation may be needed. Please review below and update the documentation accordingly. Clinical Indicators: Wound care assessment 07/19 - Resurfacing Pressure injury right heel, suspected stage 2, present on ad mission. Betadine to keep dry and off load pressure. Based on the above, could you please provide further information regarding the ulcer/wound/injury: Pressure injury right heel Stage 2 possible, probable, suspected etc. Other (explain) Clinically unable to determine (explain) Thank you, Shawna Harp, CCS, CDIS Use of terms such as suspected, likely, concern for, or probable (associated with a specific diagnosi s that is being evaluated, monitored, or treated as if it exists) are acceptable and can be coded in the inpatient se tting, when documented at the time of discharge. Please use your independent medical judgment in providing your response. THIS QUERY IS PART OF THE PERMANENT MEDICAL RECORD
--- NOTE | 2024-07-19 15:37 | P.CDIM_ITS ---
PROVIDER RESPONSE TEXT: To clarify, the appropriate diagnosis supported by the clinical indicators: Obesity Due to excess calories QUERY TEXT: PHYSICIAN'S DOCUMENTATION REQUEST Date of Query: 07/18/2024 06:20 AM EDT Patient Name: Shaun Nolasco Admit Date: 07/16/2024 Dear Primo Eason MD, A review of the medical record indicates additional documentation may be needed. Please review below and update the documentation accordingly. Clinical Indicators: Height: 5ft 7in Weight: 122.4kg BMI: 42.3 If possible, please provide an associated diagnosis related to the abnormal BMI, such as: Obesity Due to excess calories Obesity Obesity Due to other cause Specify the other cause Morbid Obesity Other (explain) Clinically unable to determine (explain) Thank you, Shawna Harp, CCS, CDIS Use of terms such as suspected, likely, concern for, or probable (associated with a specific diagnosi s that is being evaluated, monitored, or treated as if it exists) are acceptable and can be coded in the inpatient se tting, when documented at the time of discharge. Please use your independent medical judgment in providing your response. THIS QUERY IS PART OF THE PERMANENT MEDICAL RECORD
[2024-07-19 16:29] LABS: Glucose, Whole Blood 155 mg/dL (60-115)
[2024-07-19] MEDS: Insulin Lispro 100 UNIT/ML 3 ML VIAL SUBCUT ×2 (16:42→22:10)
[2024-07-19 21:07] LABS: Glucose, Whole Blood 166 mg/dL (60-115)
[2024-07-19] MEDS: Clopidogrel Bisulfate 75 MG TABLET PO (22:10)
[2024-07-19] MEDS: Atorvastatin Calcium 40 MG TABLET PO (22:10)
[2024-07-20 04:00] VITALS: BP 119/58; PULSE 74; RESP 18; TEMP 36.3; O2SAT 93
[2024-07-20] MEDS: Piperacillin Sodium/Tazobactam 4.5 GM in 0.9 % Sodium Chloride 100 ML IV ×4 (05:03→22:21)
[2024-07-20] MEDS: Levothyroxine Sodium 112 MCG TABLET PO (05:03)
[2024-07-20] MEDS: Heparin Sodium,Porcine 5,000 UNIT/ML VIAL 5000 UNIT SUBCUT ×2 (06:11→17:53)
[2024-07-20] MEDS: Omeprazole 40 MG CAPSULE.DR PO (06:12)
--- NOTE | 2024-07-20 07:01 | HO.STUDPN_ITS ---
Subjective Subjective Date of Service: 07/20/24 <Neli Moulton - Last Filed: 07/20/24 07:04> 07/20/24 <Steve Paiz MD - Last Filed: 07/20/24 09:22> 07/20/24 <Cherry Ramírez PA-C - Last Filed: 07/20/24 10:53> Interval History: Mr. Nolasco is a 69 year old POD2 for debridement of sacral decubitus ulcer and left heel ulcer. Reports intact appetite and + BM and flatus this morning. Pain is well controlled. No acute concerns at this time. <Neli Moulton - Last Filed: 07/20/24 07:04> Review of Systems Constitutional : No Fever, No Chills ENT/Mouth : No sore throat, No Rhinorrhea Eyes: No Eye Pain, No Swelling, No Redness Cardiovascular : No Chest Pain, No SOB Respiratory : No Cough, No Sputum Gastrointestinal : No Nausea, No Vomiting, No Diarrhea, No abdominal Pain Genitourinary : No Dysuria, No Hematuria Musculoskeletal : No joint pain, No Myalgias, No Joint Swelling Skin : pos Skin Lesions, positive skin rash Neuro : No Weakness, No Numbness, No Headache Psych : No Anxiety, No Depression Heme/Lymph: No Bruising, No Bleeding,No Lymphadenopathy Endocrine : No Polyuria, No Polydipsia All other systems reviewed and are negative <Neli Moulton - Last Filed: 07/20/24 07:04> Constitutional Constitutional: Denies chills and Denies fever(s) <Neil Moulton - Last Filed: 07/20/24 07:04> Cardiovascular Cardiovascular: Denies chest pain, Denies dyspnea and Denies dyspnea on exertion <Neli Moulton - Last Filed: 07/20/24 07:04> Respiratory Respiratory: Denies cough, Denies dyspnea and Denies dyspnea on exertion <Neli Moulton - Last Filed: 07/20/24 07:04> Gastrointestinal Gastrointestinal: Denies hematochezia and Denies change in bowel habits <Neli Moulton - Last Filed: 07/20/24 07:04> Genitourinary Genitourinary: Denies hematuria, Denies difficulty urinating and Denies urinary incontinence <[facility] - Last Filed: 07/20/24 07:04> Musculoskeletal Musculoskeletal: Denies back pain and Denies limited range of motion <[facility] - Last Filed: 07/20/24 07:04> Neurologic Neurologic: Denies focal weakness and Denies convulsions <[facility] - Last Filed: 07/20/24 07:04> Psychiatric Psychiatric: Denies depression and Denies mood swings <[facility] - Last Filed: 07/20/24 07:04> Physical Exam 2 Vital Signs: Vital Signs: Last Vital Signs Temp 97.4 F 07/20/24 04:00 Pulse 74 07/20/24 04:00 Resp 18 07/20/24 04:00 BP 119/58 L 07/20/24 04:00 Pulse Ox 93 07/20/24 04:00 O2 Del Method Room Air 07/20/24 04:00 O2 Flow Rate 4 07/18/24 15:30 BMI result Body Mass Index 42.3 <[facility] - Last Filed: 07/20/24 07:04> Const: Other: Complains of pain on the left heel <[facility] - Last Filed: 07/20/24 07:04> General: no acute distress <Neli Ciales - Last Filed: 07/20/24 07:04> Limitations: No language barrier <[facility] - Last Filed: 07/20/24 07:04> Resp: Effort & Inspection: normal respiratory effort <[facility] - Last Filed: 07/20/24 07:04> Cardio: Rate: regular rate <[facility] - Last Filed: 07/20/24 07:04> GI: Palpation (GI): Soft to palpation <[facility] - Last Filed: 07/20/24 07:04> Back/Spine/Pelvis: Other: Large sacral decubitus area on the right, probably at least 10 cm in diameter, with note of some nonviable debris coating the wound base and eschar <[facility] - Last Filed: 07/20/24 07:04> Extrem: Other: Left heel ulcer with eschar, tender to touch, about 3 cm in diameter <Neli Moulton - Last Filed: 07/20/24 07:04> Objective Data Active Medications Acetaminophen (Acetaminophen 325 Mg Tablet) 650 mg PO Q6H PRN PRN Reason: Pain, Mild (Pain Scale 1-3), fever or headache Aspirin (Aspirin Enteric Coated 81 Mg Tablet.) 81 mg PO BID [facility] Last Admin: 07/19/24 22:10 Dose: 81 mg Documented By: DALIA Atorvastatin Calcium (Atorvastatin Calcium 40 Mg Tablet) 40 mg PO BEDTIME [facility] Last Admin: 07/19/24 22:10 Dose: 40 mg Documented By: DALIA Bisacodyl (Bisacodyl 10 Mg Supp.Rect) 10 mg MO DAILY PRN PRN Reason: Constipation Calcium Carbonate (Calcium Carbonate 750 Mg Tab.Chew) 750 mg PO Q4H PRN PRN Reason: Heartburn Clopidogrel Bisulfate (Clopidogrel Bisulfate 75 Mg Tablet) 75 mg PO BEDTIME [facility] Last Admin: 07/19/24 22:10 Dose: 75 mg Documented By: DALIA Glucose (Glucose Gel 15 Gm Gel..Gram.) 15 gm PO Q15M PRN; Protocol PRN Reason: per Hypoglycemia Standing Ord. Heparin Sodium (Porcine) (Heparin Sodium,Porcine 5,000 Unit/Ml Vial) 5,000 unit SUBCUT Q12H [facility] Last Admin: 07/20/24 06:11 Dose: 5,000 unit Documented By: DALIA Dextrose (D10) 250 mls @ 750 mls/hr IV Q15M PRN; Protocol PRN Reason: per Hypoglycemia Standing Ord. Piperacillin Sod/Tazobactam (Sod 4.5 gm/ Sodium Chloride) 100 mls @ 200 mls/hr IV Q6H [facility] Last Infusion: 07/20/24 05:43 Dose: Infused Documented By: DALIA Vancomycin HCl 750 mg/ Sodium (Chloride) 265 mls @ 265 mls/hr IV Q12H [facility] Last Infusion: 07/19/24 23:46 Dose: Infused Documented By: DALIA Insulin Human Lispro (Insulin Lispro 100 Unit/Ml 3 Ml Vial) 0 unit SUBCUT QIDACHS [facility]; Protocol Last Admin: 07/19/24 22:10 Dose: 2 unit Documented By: DALIA Levothyroxine Sodium (Levothyroxine Sodium 112 Mcg Tablet) 112 mcg PO DAILY@0600 [facility] Last Admin: 07/20/24 05:03 Dose: 112 mcg Documented By: DALIA Lisinopril (Lisinopril 10 Mg Tablet) 10 mg PO DAILY [facility]; Protocol Last Admin: 07/19/24 09:11 Dose: 10 mg Documented By: SHYLA Magnesium Hydroxide (Milk Of Magnesia 30 Ml Oral.Susp) 30 ml PO DAILY PRN PRN Reason: Constipation Magnesium Hydroxide (Milk Of Magnesia 30 Ml Oral.Susp) 5 ml PO Q8H PRN PRN Reason: Constipation Melatonin (Melatonin 3 Mg Tablet) 6 mg PO BEDTIME PRN PRN Reason: Insomnia Metoprolol Tartrate (Metoprolol Tartrate 12.5 Mg Halftab) 12.5 mg PO BID [facility]; Protocol Last Admin: 07/19/24 22:10 Dose: 12.5 mg Documented By: DALIA Morphine Sulfate (Morphine Sulfate 2 Mg/Ml Cartridge) 2 mg IVPUSH Q3H PRN; Protocol PRN Reason: Pain, Severe (Pain Scale 7-10) Naloxone HCl (Naloxone Hcl 0.4 Mg/Ml Vial) 0.04 mg IVPUSH Q5M PRN PRN Reason: Excessive sedation or RR < 8 Nystatin (Nystatin Cream 15 Gm Tube) 1 appl TOPICAL BID [facility]; Protocol Last Admin: 07/20/24 01:28 Dose: Not Given Documented By: DALIA Non-Admin Reason: Med Not Available Omeprazole (Omeprazole 40 Mg Roque.) 40 mg PO DAILY@0630 [facility] Last Admin: 07/20/24 06:12 Dose: 40 mg Documented By: DALIA Oxycodone HCl (Oxycodone Hcl Immed Release 5 Mg Tablet) 5 mg PO Q6H PRN PRN Reason: Pain, Severe (Pain Scale 7-10) Pharmacy Consult (Consult Rx Vancomycin Dosing) 1 each MISCELLANE DAILY PRN PRN Reason: Consult order Sodium Biphosphate/Sodium Phosphate (Sodium Phosphate,[place]-Dibasic 133 Ml Enema) 118 ml MO DAILY PRN PRN Reason: Constipation Sodium Chloride (0.9 % Sodium Chloride Flush 3 Ml Syringe) 3 ml IVFLUSH QSHIFT [facility] Last Admin: 07/19/24 22:11 Dose: 3 ml Documented By: DALIA Sodium Hypochlorite (Sodium Hypochlorite 0.125% 473 Ml Solution) 1 appl TOPICAL DAILY NINA Sodium Hypochlorite (Sodium Hypochlorite 0.125% 473 Ml Solution) 1 appl TOPICAL DAILY NINA <Neli Moulton - Last Filed: 07/20/24 07:04> Labs CBC & Chem 7: 07/17/24 04:17 07/20/24 06:39 <Neli Moulton - Last Filed: 07/20/24 07:04> Labs: Laboratory Results - last 24 hr 07/19/24 07/19/24 07/19/24 07:10 10:37 16:26 POC Glucose 79 116 H 155 H 07/19/24 20:53 POC Glucose 166 H <Neli Moulton - Last Filed: 07/20/24 07:04> Assessment and Plan (1) Sacral decubitus ulcer: Status: Acute <Neli Moulton - Last Filed: 07/20/24 07:04> Assessment and Plan: Plan for start Dakins solution packing today for both sites. With anticipatory Wound Vac next week for the sacral ulcer. Wound care to pain. < Neli Moulton - Last Filed: 07/20/24 07:04> I have changed his dressings at bedside Dakin solution packing applied to both the sacrum as well as the left heel Continue the same dressing overseamer the weekend Possible wound VAC on Tuesday Seen and examined independently Plan for start Dakins solution packing today for both sites. With anticipatory Wound Vac next week for the sacral ulcer. Wound care to pain. <Steve Paiz MD - Last Filed: 07/20/24 09:22> Assessment and Plan: 69 year old male POD1 for surgical debridement of infect unstageable sacral decubitis ulcer and L heel ulcer. Patient reports pain is well controlled in comparison to yesterday. + BM this morning. Motor and sensory function intact, pain is as expected due to bulky debridement. Continue offloading, pain management, with wound care/pressure dressings. Continue to monitor wound progress and cultures. Will follow up daily. <Neli Moulton - Last Filed: 07/20/24 07:04> Quality Stroke Does the patient have a stroke diagnosis?: No <Neli Moulton - Last Filed: 07/20/24 07:04> VTE Prior VTE?: No <Neli Moulton - Last Filed: 07/20/24 07:04> VTE Risk Level:: Medical - moderate - high <Neli Moulton - Last Filed: 07/20/24 07:04> VTE Device Contraindication: Treatment Not Indicated <Neli Moulton - Last Filed: 07/20/24 07:04> VTE Drug Contraindication: N/A - Med Ordered <Neli Moulton - Last Filed: 07/20/24 07:04>
[2024-07-20 07:16] VITALS: BP 142/66; PULSE 76; RESP 18; TEMP 37; O2SAT 94
[2024-07-20 07:16] LABS: Glucose, Whole Blood 120 mg/dL (60-115)
[2024-07-20 07:48] LABS: Vancomycin Random 14.4 mcg/mL (15-20)
[2024-07-20 08:14] LABS: Anion Gap 12 (12-20); Carbon Dioxide 25 mmol/L (22-29); Chloride 109 mmol/L (96-108); Estimated Glomerular Filt Rate > 60; Sodium 142 mmol/L (135-145)
--- NOTE | 2024-07-20 08:26 | HE.PHANOTE ---
RE: vanco Trough on 07/20 came back at 14.4mg/L; changed dose to 1000mg Q12H with predicted trough of 15.1 mg/L, AUC of 496 mg/L. Next level to be drawn 07/21 @0700
[2024-07-20] MEDS: lisinopriL 10 MG TABLET PO (08:33)
[2024-07-20] MEDS: Nystatin Cream 15 GM TUBE 1 APPL TOPICAL ×2 (08:33→19:46)
[2024-07-20] MEDS: vancomycin HCL 1,000 MG in 0.9 % Sodium Chloride 250 ML 270 MG IV (08:33)
[2024-07-20] MEDS: Metoprolol Tartrate 12.5 MG HALFTAB PO ×2 (08:33→19:46)
[2024-07-20] MEDS: 0.9 % Sodium Chloride Flush 3 ML SYRINGE IVFLUSH ×3 (08:33→23:47)
[2024-07-20] MEDS: Aspirin Enteric Coated 81 MG TABLET.DR PO ×2 (08:33→19:45)
[2024-07-20] MEDS: Sodium Hypochlorite 0.125% 473 ML SOLUTION 1 APPL TOPICAL (08:34)
--- NOTE | 2024-07-20 10:28 | MHC.CLN ---
F/U PT WITH INCREASED NUTRITION RISK R/T PRESSURE INJURY DIET RX: 2000DM -APPROPRIATE RECOMMEND ADDING ENSURE MAX BID TO PROMOTE WOUND HEALING SUPPLEMENTS TO PROVIDE 300KCALS, 60G PROTEIN MONITOR PO INTAKE AND ENCOURAGE SUPPLEMENTS
--- NOTE | 2024-07-20 10:47 | HO.PM.IMPN ---
Subjective Subjective Date of Service: 07/20/24 Interval History: seen and examined this morning follow up for sacral decubitus ulcer and concern for OM Pain seems controlled, still declining mri Pain is controlled now Physical Exam Vital Signs: Vital Signs: Last Vital Signs Temp 98.6 F 07/20/24 07:16 Pulse 76 07/20/24 07:16 Resp 18 07/20/24 07:16 BP 142/66 H 07/20/24 07:16 Pulse Ox 94 07/20/24 07:16 O2 Del Method Room Air 07/20/24 07:16 O2 Flow Rate 4 07/18/24 15:30 BMI result Body Mass Index 42.3 Constitutional - Awake and Alert, No apparent distress Eyes - PERRLA, EOMI Cardiovascular - S1S2, RRR, No edema Respiratory - Normal lung expansion, Normal respiratory effort, No respiratory distress, CTA bilaterally Gastrointestinal - NT / ND; +BS; No rebound or guarding - incontinent of urine Extremities - no calf tenderness bilaterally, no swelling Skin - Warm/Dry. Unstageable ulcer sacrum with foul odor. Unstageable ulcer L heel with eschar and some slough with foul odor--see picture elsewhere---see picture in wound nurse note Neurological - Alert & oriented x3 Psychological - Appropriate affect Objective Data Active Medications Acetaminophen (Acetaminophen 325 Mg Tablet) 650 mg PO Q6H PRN PRN Reason: Pain, Mild (Pain Scale 1-3), fever or headache Aspirin (Aspirin Enteric Coated 81 Mg Tablet.) 81 mg PO BID [facility] Last Admin: 07/20/24 08:33 Dose: 81 mg Documented By: JAM Atorvastatin Calcium (Atorvastatin Calcium 40 Mg Tablet) 40 mg PO BEDTIME [facility] Last Admin: 07/19/24 22:10 Dose: 40 mg Documented By: DALIA Bisacodyl (Bisacodyl 10 Mg Supp.Rect) 10 mg MD DAILY PRN PRN Reason: Constipation Calcium Carbonate (Calcium Carbonate 750 Mg Tab.Chew) 750 mg PO Q4H PRN PRN Reason: Heartburn Clopidogrel Bisulfate (Clopidogrel Bisulfate 75 Mg Tablet) 75 mg PO BEDTIME [facility] Last Admin: 07/19/24 22:10 Dose: 75 mg Documented By: DALIA Glucose (Glucose Gel 15 Gm Gel..Gram.) 15 gm PO Q15M PRN; Protocol PRN Reason: per Hypoglycemia Standing Ord. Heparin Sodium (Porcine) (Heparin Sodium,Porcine 5,000 Unit/Ml Vial) 5,000 unit SUBCUT Q12H [facility] Last Admin: 07/20/24 06:11 Dose: 5,000 unit Documented By: DALIA Dextrose (D10) 250 mls @ 750 mls/hr IV Q15M PRN; Protocol PRN Reason: per Hypoglycemia Standing Ord. Piperacillin Sod/Tazobactam (Sod 4.5 gm/ Sodium Chloride) 100 mls @ 200 mls/hr IV Q6H [facility] Last Infusion: 07/20/24 05:43 Dose: Infused Documented By: DALIA Vancomycin HCl 1,000 mg/ (Sodium Chloride) 270 mls @ 270 mls/hr IV Q12H [facility] Last Admin: 07/20/24 08:33 Dose: 270 mls/hr Documented By: JAM Insulin Human Lispro (Insulin Lispro 100 Unit/Ml 3 Ml Vial) 0 unit SUBCUT QIDACHS [facility]; Protocol Last Admin: 07/20/24 08:02 Dose: Not Given Documented By: JAM Non-Admin Reason: poc= 120 Levothyroxine Sodium (Levothyroxine Sodium 112 Mcg Tablet) 112 mcg PO DAILY@0600 [facility] Last Admin: 07/20/24 05:03 Dose: 112 mcg Documented By: DALIA Lisinopril (Lisinopril 10 Mg Tablet) 10 mg PO DAILY [facility]; Protocol Last Admin: 07/20/24 08:33 Dose: 10 mg Documented By: JAM Magnesium Hydroxide (Milk Of Magnesia 30 Ml Oral.Susp) 30 ml PO DAILY PRN PRN Reason: Constipation Magnesium Hydroxide (Milk Of Magnesia 30 Ml Oral.Susp) 5 ml PO Q8H PRN PRN Reason: Constipation Melatonin (Melatonin 3 Mg Tablet) 6 mg PO BEDTIME PRN PRN Reason: Insomnia Metoprolol Tartrate (Metoprolol Tartrate 12.5 Mg Halftab) 12.5 mg PO BID [facility]; Protocol Last Admin: 07/20/24 08:33 Dose: 12.5 mg Documented By: JAM Morphine Sulfate (Morphine Sulfate 2 Mg/Ml Cartridge) 2 mg IVPUSH Q3H PRN; Protocol PRN Reason: Pain, Severe (Pain Scale 7-10) Naloxone HCl (Naloxone Hcl 0.4 Mg/Ml Vial) 0.04 mg IVPUSH Q5M PRN PRN Reason: Excessive sedation or RR < 8 Nystatin (Nystatin Cream 15 Gm Tube) 1 appl TOPICAL BID [facility]; Protocol Last Admin: 07/20/24 08:33 Dose: 1 appl Documented By: JAM Omeprazole (Omeprazole 40 Mg Capsule.) 40 mg PO DAILY@0630 [facility] Last Admin: 07/20/24 06:12 Dose: 40 mg Documented By: DALIA Oxycodone HCl (Oxycodone Hcl Immed Release 5 Mg Tablet) 5 mg PO Q6H PRN PRN Reason: Pain, Severe (Pain Scale 7-10) Pharmacy Consult (Consult Rx Vancomycin Dosing) 1 each MISCELLANE DAILY PRN PRN Reason: Consult order Sodium Biphosphate/Sodium Phosphate (Sodium Phosphate,[place]-Dibasic 133 Ml Enema) 118 ml MD DAILY PRN PRN Reason: Constipation Sodium Chloride (0.9 % Sodium Chloride Flush 3 Ml Syringe) 3 ml IVFLUSH QSHIFT [facility] Last Admin: 07/20/24 08:33 Dose: 3 ml Documented By: JAM Sodium Hypochlorite (Sodium Hypochlorite 0.125% 473 Ml Solution) 1 appl TOPICAL DAILY [facility] Last Admin: 07/20/24 08:34 Dose: Not Given Documented By: JAM Non-Admin Reason: Duplicate Order Sodium Hypochlorite (Sodium Hypochlorite 0.125% 473 Ml Solution) 1 appl TOPICAL DAILY [facility] Last Admin: 07/20/24 08:34 Dose: 1 appl Documented By: JAM Labs 07/17/24 04:17 07/20/24 06:39 Labs: Laboratory Results - last 24 hr 07/19/24 07/19/24 07/20/24 16:26 20:53 06:39 Anion Gap 12 Estim Creat Clear Calc 123.0 Estimated GFR > 60 POC Glucose 155 H 166 H Random Vancomycin 14.4 L 07/20/24 07:13 Anion Gap Estim Creat Clear Calc Estimated GFR POC Glucose 120 H Random Vancomycin Assessment and Plan (1) Heel ulcer: Status: Acute (2) Sacral decubitus ulcer: Status: Acute Plan 69 yo male with PMH of ROLO, DM, hypothyroidism, hyperlipidemia, HTN, CVA on aspirin and plavix discharged from here to [facility] for unstageable sacral ulcer s/p debridement on 06/20 and 06/23 by gen surg and then + blood cultures strep agalactie 2/2 treated with IV ceftriaxone and last dose ceftin 07/02 admitted for infected unstageable ulcer L heel #Infected unstageable decubitus ulcer L heel r/t type II diabetes -ESR 56, CRP 7, XR negative for osteo. MRI L foot w/wo ordered but declined -IV vanco and zosyn -general surgery following and debrided sacral area and left heel -wound care consult -no sepsis -follow cultures -ID consult #Infected unstageable sacral ulcer -general surgery consult -IV vanco and zosyn -wound culture/pressure dressing -Incontinent of urine. Unable to place condom cath due to anatomy. Lozano catheter ordered for skin integrity -surgery to debride in OR on 07/18, being considered for wound vac -dressing change per surgery #SVT--resolved, K ok, mag ok, add low dose metoprolol and if happens again, cardiology consult #Insulin dependent type 2 diabetes -poc glucose, diabetic diet -dose adjusted basal insulin -admelog on ss -restart Lantus at lower dose #Hypothyroidism -levothyroxine #Hx CVA -continue DAPT, statin #HTN -continue lisinopril #Acute on chronic normocytic anemia d/t chronic disease -above transfusion threshold, likely in setting of chronic wounds, no bleeding dvt prophyalxis- heparin full code need for inpatient: infected foot ulcer with concern for osteomyelitis requiring broad spectum abx, further advanced imaging and expert consultation Quality Stroke Does the patient have a stroke diagnosis?: No VTE Prior VTE?: No VTE Risk Level:: Medical - moderate - high VTE Device Contraindication: Treatment Not Indicated VTE Drug Contraindication: N/A - Med Ordered
[2024-07-20 11:06] VITALS: BP 134/62; PULSE 73; RESP 20; TEMP 37; O2SAT 92
[2024-07-20 11:14] LABS: Glucose, Whole Blood 232 mg/dL (60-115)
[2024-07-20] MEDS: Insulin Lispro 100 UNIT/ML 3 ML VIAL SUBCUT ×3 (11:46→22:24)
[2024-07-20 15:11] VITALS: BP 130/60; PULSE 80; RESP 16; TEMP 36.6; O2SAT 93
--- NOTE | 2024-07-20 15:48 | MHC.CM.PN ---
EMR REVIEWED, PER SURGICAL NOTE, PT WILL NEED [employer] DRESSINGS THROUGH W/E AND POSSIBLE WOUND VAC PLACED MONDAY 07/23, PLAN CONT'S TO BE STR, CM WILL CONT TO FOLLOW DC NEEDS.
[2024-07-20 16:15] LABS: Glucose, Whole Blood 199 mg/dL (60-115)
[2024-07-20 19:38] VITALS: BP 158/69; PULSE 87; RESP 18; TEMP 36.4; O2SAT 94
[2024-07-20] MEDS: Atorvastatin Calcium 40 MG TABLET PO (19:45)
[2024-07-20] MEDS: Clopidogrel Bisulfate 75 MG TABLET PO (19:46)
[2024-07-20 20:06] LABS: Glucose, Whole Blood 231 mg/dL (60-115)
[2024-07-20] MEDS: DAPTOmycin 500 MG in 0.9 % Sodium Chloride 50 ML 100.33 MG IV (20:46)
--- NOTE | 2024-07-20 22:49 | P.CNID_ITS ---
History of Present Illness Data of Consult Service Date: 07/20/24 Requesting physician: Primo Shoemaker Primary Care Provider: MD GOGO Anguiano Reason for consult: sacral ulcer and left heel infection He comes worsening sacral ulcer and left heel. He was discharged 06/22 after stay for decubiti heel and sacrum and left with po Ceftin for two weeks,end 07/02. Review of Systems 2 Constitutional: Constitutional: Reports no additional constitutional complaints PMFSH Past Medical History Medical History Obstructive sleep apnea (adult) (pediatric) Sacral decubitus ulcer TIA (transient ischemic attack) Solitary left kidney Osteoarthritis Type 2 diabetes mellitus with hyperglycemia Erectile dysfunction Hypercholesterolemia Polymyalgia rheumatica Vitamin D deficiency Hypothyroid Migraine Obesity Alcohol abuse Tobacco abuse Hypertension Family History Family History Father Diabetes Mother Melanoma Maternal Uncle Colon cancer Family history: reviewed and not pertinent Surgical History Surgical History History of colonoscopy Hx of tonsillectomy History of total left knee replacement History of arthroscopy of both knees Social History Social History Household Members: Family Housing: House Are you a primary assurance services manager health care to a significant other at home: No Do you presently have visiting nurse or other home services: No Alcohol intake: former Patient Tobacco Use Status: Never used Tobacco Tobacco use type: Cigar and Pipe Years Smoked: 50 stopped 08/2022 e-Cigarette/Vaping Use: Currently Using Second Hand Smoke Exposure: No Advance Directives Date on File: 06/26/24 service: No Current occupational status: employed Cognitive needs: Yes Hearing needs: No Vision needs: Yes Meds Allergies Allergy/AdvReac Type Severity Reaction Status Date / Time canagliflozin [Invokana] Allergy Unknown hives Verified 07/16/24 14:32 dulaglutide [Trulicity] Allergy Unknown hives Verified 07/16/24 14:32 insulin glargine Allergy Unknown Hives Verified 07/16/24 14:32 [From Lantus U-100 Insulin] metformin [METFORMIN] Allergy Unknown HIVES Verified 07/16/24 14:32 rosuvastatin Allergy Unknown Unknown Verified 07/16/24 14:32 sitagliptin [From JANUVIA] Allergy Unknown HIVES Verified 07/16/24 14:32 Active Medications: Current Medications Acetaminophen (Acetaminophen 325 Mg Tablet) 650 mg PO Q6H PRN PRN Reason: Pain, Mild (Pain Scale 1-3), fever or headache Aspirin (Aspirin Enteric Coated 81 Mg Tablet.) 81 mg PO BID [facility] Last Admin: 07/20/24 19:45 Dose: 81 mg Atorvastatin Calcium (Atorvastatin Calcium 40 Mg Tablet) 40 mg PO BEDTIME [facility] Last Admin: 07/20/24 19:45 Dose: 40 mg Bisacodyl (Bisacodyl 10 Mg Supp.Rect) 10 mg MO DAILY PRN PRN Reason: Constipation Calcium Carbonate (Calcium Carbonate 750 Mg Tab.Chew) 750 mg PO Q4H PRN PRN Reason: Heartburn Clopidogrel Bisulfate (Clopidogrel Bisulfate 75 Mg Tablet) 75 mg PO BEDTIME [facility] Last Admin: 07/20/24 19:46 Dose: 75 mg Glucose (Glucose Gel 15 Gm Gel..Gram.) 15 gm PO Q15M PRN; Protocol PRN Reason: per Hypoglycemia Standing Ord. Heparin Sodium (Porcine) (Heparin Sodium,Porcine 5,000 Unit/Ml Vial) 5,000 unit SUBCUT Q12H [facility] Last Admin: 07/20/24 17:53 Dose: 5,000 unit Dextrose (D10) 250 mls @ 750 mls/hr IV Q15M PRN; Protocol PRN Reason: per Hypoglycemia Standing Ord. Piperacillin Sod/Tazobactam (Sod 4.5 gm/ Sodium Chloride) 100 mls @ 200 mls/hr IV Q6H [facility] Last Admin: 07/20/24 22:21 Dose: 200 mls/hr Meropenem 1 gm/ Sodium (Chloride) 100 mls @ 200 mls/hr IV Q8H [facility] Last Infusion: 07/20/24 20:00 Dose: Infused Daptomycin 500 mg/ Sodium (Chloride) 60 mls @ 100.325 mls/hr IV Q24H [facility] Last Infusion: 07/20/24 21:44 Dose: Infused Insulin Human Lispro (Insulin Lispro 100 Unit/Ml 3 Ml Vial) 0 unit SUBCUT QIDACHS [facility]; Protocol Last Admin: 07/20/24 22:24 Dose: 4 unit Levothyroxine Sodium (Levothyroxine Sodium 112 Mcg Tablet) 112 mcg PO DAILY@0600 [facility] Last Admin: 07/20/24 05:03 Dose: 112 mcg Lisinopril (Lisinopril 10 Mg Tablet) 10 mg PO DAILY [facility]; Protocol Last Admin: 07/20/24 08:33 Dose: 10 mg Magnesium Hydroxide (Milk Of Magnesia 30 Ml Oral.Susp) 30 ml PO DAILY PRN PRN Reason: Constipation Magnesium Hydroxide (Milk Of Magnesia 30 Ml Oral.Susp) 5 ml PO Q8H PRN PRN Reason: Constipation Melatonin (Melatonin 3 Mg Tablet) 6 mg PO BEDTIME PRN PRN Reason: Insomnia Metoprolol Tartrate (Metoprolol Tartrate 12.5 Mg Halftab) 12.5 mg PO BID [facility]; Protocol Last Admin: 07/20/24 19:46 Dose: 12.5 mg Morphine Sulfate (Morphine Sulfate 2 Mg/Ml Cartridge) 2 mg IVPUSH Q3H PRN; Protocol PRN Reason: Pain, Severe (Pain Scale 7-10) Naloxone HCl (Naloxone Hcl 0.4 Mg/Ml Vial) 0.04 mg IVPUSH Q5M PRN PRN Reason: Excessive sedation or RR < 8 Nystatin (Nystatin Cream 15 Gm Tube) 1 appl TOPICAL BID [facility]; Protocol Last Admin: 07/20/24 19:46 Dose: 1 appl Omeprazole (Omeprazole 40 Mg Capsule.Dr) 40 mg PO DAILY@0630 [facility] Last Admin: 07/20/24 06:12 Dose: 40 mg Oxycodone HCl (Oxycodone Hcl Immed Release 5 Mg Tablet) 5 mg PO Q6H PRN PRN Reason: Pain, Severe (Pain Scale 7-10) Pharmacy Consult (Consult Rx Vancomycin Dosing) 1 each MISCELLANE DAILY PRN PRN Reason: Consult order Sodium Biphosphate/Sodium Phosphate (Sodium Phosphate,[place]-Dibasic 133 Ml Enema) 118 ml MO DAILY PRN PRN Reason: Constipation Sodium Chloride (0.9 % Sodium Chloride Flush 3 Ml Syringe) 3 ml IVFLUSH QSHIFT [facility] Last Admin: 07/20/24 16:41 Dose: 3 ml Sodium Hypochlorite (Sodium Hypochlorite 0.125% 473 Ml Solution) 1 appl TOPICAL DAILY [facility] Last Admin: 07/20/24 08:34 Dose: Not Given Sodium Hypochlorite (Sodium Hypochlorite 0.125% 473 Ml Solution) 1 appl TOPICAL DAILY [facility] Last Admin: 07/20/24 08:34 Dose: 1 appl Home Medications ?Medication ?Instructions ?Recorded ?Confirmed ?Last Taken ?Type clopidogrel 75 mg tablet 75 mg PO BEDTIME 07/16/24 07/16/24 Unknown History insulin degludec 100 unit/mL 32 unit subcut BID 07/16/24 07/17/24 Unknown History subcutaneous solution (Tresiba U-100 Insulin) Lactobacillus acidophilus 1,000 mmu cells PO DAILY 07/17/24 07/17/24 Unknown History acetaminophen 650 mg rectal 650 mg MO Q4H PRN Fever Or Pain 07/17/24 07/17/24 Unknown History suppository acetaminophen 650 mg 650 mg PO Q4H PRN Pain 07/17/24 07/17/24 Unknown History tablet,extended release bisacodyl 10 mg rectal suppository 10 mg MO DAILY PRN Constipation 07/17/24 07/17/24 Unknown History calcium carbonate 1,000 mg PO TIDAC 07/17/24 07/17/24 Unknown History collagenase clostridium histo. 250 1 appl topical TID 07/17/24 07/17/24 Unknown History unit/gram topical ointment (Santyl) diclofenac sodium 1 % topical gel 4 g topical Q6H 07/17/24 07/17/24 Unknown History levothyroxine 125 mcg tablet 125 mcg PO DAILY@0600 07/17/24 07/17/24 Unknown History lisinopril 10 mg tablet 10 mg PO DAILY 07/17/24 07/17/24 Unknown History magnesium hydroxide 400 mg/5 mL 5 ml PO Q8H PRN Constipation 07/17/24 07/17/24 Unknown History oral suspension (Milk of Magnesia) naloxone 0.4 mg/mL injection 0.4 mg subcut Q3M PRN Opiate 07/17/24 07/17/24 Unknown History solution Reversal omeprazole 40 mg capsule,delayed 40 mg PO DAILY@0630 07/17/24 07/17/24 Unknown History release sodium phosphates 19 gram-7 118 ml MO DAILY PRN Constipation 07/17/24 07/17/24 Unknown History gram/118 mL enema (Fleet Enema) Physical Exam 2 Vital Signs: Vital Signs: Last Vital Signs Temp 97.5 F 07/20/24 19:38 Pulse 87 07/20/24 19:38 Resp 18 07/20/24 19:38 BP 158/69 H 07/20/24 19:38 Pulse Ox 94 07/20/24 19:38 O2 Del Method Room Air 07/20/24 19:38 O2 Flow Rate 4 07/18/24 15:30 BMI result Body Mass Index 42.3 Const: General: cooperative HEENT: Head: Yes normal to inspection Face and sinus: Yes normal facial exam Mouth: Normal oral and palatal mucosa present Teeth and gingiva: d entition normal Eyes: General: appearance normal, both eyes and all related structures P upils: Equal, round and reactive pupils present Resp: Effort & Inspection: normal respiratory effort Cardio: Rate: regular rate Rhythm: regular rhythm GI: Palpation (GI): Soft to palpation and nontender : General: Yes no CVA tenderness Back/Spine/Pelvis: Back: no CVA tenderness Skin: General skin exam: no rashes or lesions noted Neuro: General: moves all extremities Cranial nerves: Yes Equal, round and reactive pupils present Extrem: Other: eschar left foot, heeel neuropathy General: Yes normal to inspection Psych: Appearance: grossly normal Results Labs 07/17/24 04:17 07/20/24 06:39 Labs: BMP 07/20/24 06:39 Sodium 142 Potassium 4.0 Chloride 109 H Carbon Dioxide 25 Creatinine 0.71 Microbiology Microbiology Results: Microbiology 07/16/24 17:19 Blood - Venous Blood Culture - Preliminary No growth after 48 hours. 07/16/24 17:15 Blood - Venous Blood Culture - Preliminary No growth after 48 hours. Assessment and Plan (1) Heel ulcer: Qualifiers: Laterality: left Non-pressure ulcer stage: unspecified non-pressure ulcer stage Qualified Code(s): L97.429 - Non-pressure chronic ulcer of left heel and midfoot with unspecified severity Status: Acute (2) Sacral decubitus ulcer: Qualifiers: Pressure injury stage: unstageable Qualified Code(s): L89.150 - Pressure ulcer of sacral region, unstageable Status: Acute Plan Areas not healing 6 weeks IV Daptomycin and Ertapenem with weekly CBC,creatinine and CK as well as ESR.
--- NOTE | 2024-07-20 23:05 | P.CNID_ITS ---
History of Present Illness Data of Consult Service Date: 07/20/24 Requesting physician: Ailyn Zepeda Primary Care Provider: MD GOGO Anguiano Reason for consult: waekness and fatigue He presents weakness and some fatigue lasat month S PMFSH Past Medical History Medical History Obstructive sleep apnea (adult) (pediatric) Sacral decubitus ulcer TIA (transient ischemic attack) Solitary left kidney Osteoarthritis Type 2 diabetes mellitus with hyperglycemia Erectile dysfunction Hypercholesterolemia Polymyalgia rheumatica Vitamin D deficiency Hypothyroid Migraine Obesity Alcohol abuse Tobacco abuse Hypertension Family History Family History Father Diabetes Mother Melanoma Maternal Uncle Colon cancer Family history: reviewed and not pertinent Surgical History Surgical History History of colonoscopy Hx of tonsillectomy History of total left knee replacement History of arthroscopy of both knees Social History Social History Household Members: Family Housing: House Are you a primary day care provider to a significant other at home: No Do you presently have visiting nurse or other home services: No Alcohol intake: former Patient Tobacco Use Status: Never used Tobacco Tobacco use type: Cigar and Pipe Years Smoked: 50 stopped 08/2022 e-Cigarette/Vaping Use: Currently Using Second Hand Smoke Exposure: No Advance Directives Date on File: 06/26/24 service: No Current occupational status: employed Cognitive needs: Yes Hearing needs: No Vision needs: Yes Meds Allergies Allergy/AdvReac Type Severity Reaction Status Date / Time canagliflozin [Invokana] Allergy Unknown hives Verified 07/16/24 14:32 dulaglutide [Trulicity] Allergy Unknown hives Verified 07/16/24 14:32 insulin glargine Allergy Unknown Hives Verified 07/16/24 14:32 [From Lantus U-100 Insulin] metformin [METFORMIN] Allergy Unknown HIVES Verified 07/16/24 14:32 rosuvastatin Allergy Unknown Unknown Verified 07/16/24 14:32 sitagliptin [From JANUVIA] Allergy Unknown HIVES Verified 07/16/24 14:32 Active Medications: Current Medications Acetaminophen (Acetaminophen 325 Mg Tablet) 650 mg PO Q6H PRN PRN Reason: Pain, Mild (Pain Scale 1-3), fever or headache Aspirin (Aspirin Enteric Coated 81 Mg Tablet.Dr) 81 mg PO BID [facility] Last Admin: 07/20/24 19:45 Dose: 81 mg Atorvastatin Calcium (Atorvastatin Calcium 40 Mg Tablet) 40 mg PO BEDTIME [facility] Last Admin: 07/20/24 19:45 Dose: 40 mg Bisacodyl (Bisacodyl 10 Mg Supp.Rect) 10 mg ME DAILY PRN PRN Reason: Constipation Calcium Carbonate (Calcium Carbonate 750 Mg Tab.Chew) 750 mg PO Q4H PRN PRN Reason: Heartburn Clopidogrel Bisulfate (Clopidogrel Bisulfate 75 Mg Tablet) 75 mg PO BEDTIME [facility] Last Admin: 07/20/24 19:46 Dose: 75 mg Glucose (Glucose Gel 15 Gm Gel..Gram.) 15 gm PO Q15M PRN; Protocol PRN Reason: per Hypoglycemia Standing Ord. Heparin Sodium (Porcine) (Heparin Sodium,Porcine 5,000 Unit/Ml Vial) 5,000 unit SUBCUT Q12H [facility] Last Admin: 07/20/24 17:53 Dose: 5,000 unit Dextrose (D10) 250 mls @ 750 mls/hr IV Q15M PRN; Protocol PRN Reason: per Hypoglycemia Standing Ord. Piperacillin Sod/Tazobactam (Sod 4.5 gm/ Sodium Chloride) 100 mls @ 200 mls/hr IV Q6H [facility] Last Admin: 07/20/24 22:21 Dose: 200 mls/hr Meropenem 1 gm/ Sodium (Chloride) 100 mls @ 200 mls/hr IV Q8H [facility] Last Infusion: 07/20/24 20:00 Dose: Infused Daptomycin 500 mg/ Sodium (Chloride) 60 mls @ 100.325 mls/hr IV Q24H [facility] Last Infusion: 07/20/24 21:44 Dose: Infused Insulin Human Lispro (Insulin Lispro 100 Unit/Ml 3 Ml Vial) 0 unit SUBCUT QIDACHS [facility]; Protocol Last Admin: 07/20/24 22:24 Dose: 4 unit Levothyroxine Sodium (Levothyroxine Sodium 112 Mcg Tablet) 112 mcg PO DAILY@0600 [facility] Last Admin: 07/20/24 05:03 Dose: 112 mcg Lisinopril (Lisinopril 10 Mg Tablet) 10 mg PO DAILY [facility]; Protocol Last Admin: 07/20/24 08:33 Dose: 10 mg Magnesium Hydroxide (Milk Of Magnesia 30 Ml Oral.Susp) 30 ml PO DAILY PRN PRN Reason: Constipation Magnesium Hydroxide (Milk Of Magnesia 30 Ml Oral.Susp) 5 ml PO Q8H PRN PRN Reason: Constipation Melatonin (Melatonin 3 Mg Tablet) 6 mg PO BEDTIME PRN PRN Reason: Insomnia Metoprolol Tartrate (Metoprolol Tartrate 12.5 Mg Halftab) 12.5 mg PO BID [facility]; Protocol Last Admin: 07/20/24 19:46 Dose: 12.5 mg Morphine Sulfate (Morphine Sulfate 2 Mg/Ml Cartridge) 2 mg IVPUSH Q3H PRN; Protocol PRN Reason: Pain, Severe (Pain Scale 7-10) Naloxone HCl (Naloxone Hcl 0.4 Mg/Ml Vial) 0.04 mg IVPUSH Q5M PRN PRN Reason: Excessive sedation or RR < 8 Nystatin (Nystatin Cream 15 Gm Tube) 1 appl TOPICAL BID [facility]; Protocol Last Admin: 07/20/24 19:46 Dose: 1 appl Omeprazole (Omeprazole 40 Mg Capsule.Dr) 40 mg PO DAILY@0630 [facility] Last Admin: 07/20/24 06:12 Dose: 40 mg Oxycodone HCl (Oxycodone Hcl Immed Release 5 Mg Tablet) 5 mg PO Q6H PRN PRN Reason: Pain, Severe (Pain Scale 7-10) Pharmacy Consult (Consult Rx Vancomycin Dosing) 1 each MISCELLANE DAILY PRN PRN Reason: Consult order Sodium Biphosphate/Sodium Phosphate (Sodium Phosphate,[place]-Dibasic 133 Ml Enema) 118 ml ME DAILY PRN PRN Reason: Constipation Sodium Chloride (0.9 % Sodium Chloride Flush 3 Ml Syringe) 3 ml IVFLUSH QSHIFT [facility] Last Admin: 07/20/24 16:41 Dose: 3 ml Sodium Hypochlorite (Sodium Hypochlorite 0.125% 473 Ml Solution) 1 appl TOPICAL DAILY [facility] Last Admin: 07/20/24 08:34 Dose: Not Given Sodium Hypochlorite (Sodium Hypochlorite 0.125% 473 Ml Solution) 1 appl TOPICAL DAILY [facility] Last Admin: 07/20/24 08:34 Dose: 1 appl Home Medications ?Medication ?Instructions ?Recorded ?Confirmed ?Last Taken ?Type clopidogrel 75 mg tablet 75 mg PO BEDTIME 07/16/24 07/16/24 Unknown History insulin degludec 100 unit/mL 32 unit subcut BID 07/16/24 07/17/24 Unknown History subcutaneous solution (Tresiba U-100 Insulin) Lactobacillus acidophilus 1,000 mmu cells PO DAILY 07/17/24 07/17/24 Unknown History acetaminophen 650 mg rectal 650 mg ME Q4H PRN Fever Or Pain 07/17/24 07/17/24 Unknown History suppository acetaminophen 650 mg 650 mg PO Q4H PRN Pain 07/17/24 07/17/24 Unknown History tablet,extended release bisacodyl 10 mg rectal suppository 10 mg ME DAILY PRN Constipation 07/17/24 07/17/24 Unknown History calcium carbonate 1,000 mg PO TIDAC 07/17/24 07/17/24 Unknown History collagenase clostridium histo. 250 1 appl topical TID 07/17/24 07/17/24 Unknown History unit/gram topical ointment (Santyl) diclofenac sodium 1 % topical gel 4 g topical Q6H 07/17/24 07/17/24 Unknown History levothyroxine 125 mcg tablet 125 mcg PO DAILY@0600 07/17/24 07/17/24 Unknown History lisinopril 10 mg tablet 10 mg PO DAILY 07/17/24 07/17/24 Unknown History magnesium hydroxide 400 mg/5 mL 5 ml PO Q8H PRN Constipation 07/17/24 07/17/24 Unknown History oral suspension (Milk of Magnesia) naloxone 0.4 mg/mL injection 0.4 mg subcut Q3M PRN Opiate 07/17/24 07/17/24 Unknown History solution Reversal omeprazole 40 mg capsule,delayed 40 mg PO DAILY@0630 07/17/24 07/17/24 Unknown History release sodium phosphates 19 gram-7 118 ml ME DAILY PRN Constipation 07/17/24 07/17/24 Unknown History gram/118 mL enema (Fleet Enema) Physical Exam 2 Vital Signs: Vital Signs: Last Vital Signs Temp 97.5 F 07/20/24 19:38 Pulse 87 07/20/24 19:38 Resp 18 07/20/24 19:38 BP 158/69 H 07/20/24 19:38 Pulse Ox 94 07/20/24 19:38 O2 Del Method Room Air 07/20/24 19:38 O2 Flow Rate 4 07/18/24 15:30 BMI result Body Mass Index 42.3 Results Labs 07/17/24 04:17 07/20/24 06:39 Labs: BMP 07/20/24 06:39 Sodium 142 Potassium 4.0 Chloride 109 H Carbon Dioxide 25 Creatinine 0.71 Microbiology Microbiology Results: Microbiology 07/16/24 17:19 Blood - Venous Blood Culture - Preliminary No growth after 48 hours. 07/16/24 17:15 Blood - Venous Blood Culture - Preliminary No growth after 48 hours.
[2024-07-20 23:13] VITALS: BP 131/63; PULSE 81; RESP 18; TEMP 36.6; O2SAT 92
[2024-07-21 03:46] VITALS: BP 117/56; PULSE 76; RESP 18; TEMP 36.6; O2SAT 92
[2024-07-21] MEDS: Piperacillin Sodium/Tazobactam 4.5 GM in 0.9 % Sodium Chloride 100 ML IV ×4 (04:36→21:56)
[2024-07-21] MEDS: Omeprazole 40 MG CAPSULE.DR PO (05:36)
[2024-07-21] MEDS: Levothyroxine Sodium 112 MCG TABLET PO (05:36)
[2024-07-21 07:22] VITALS: BP 147/67; PULSE 75; RESP 20; TEMP 36.2; O2SAT 93
[2024-07-21 07:46] LABS: Glucose, Whole Blood 161 mg/dL (60-115)
[2024-07-21 07:57] LABS: Vancomycin Random 9.1 mcg/mL (15-20)
[2024-07-21 07:59] LABS: Creatinine Clr Calc Pharmacy 132.4; Estimated Glomerular Filt Rate > 60
[2024-07-21] MEDS: Heparin Sodium,Porcine 5,000 UNIT/ML VIAL 5000 UNIT SUBCUT ×2 (08:12→18:00)
[2024-07-21] MEDS: Insulin Lispro 100 UNIT/ML 3 ML VIAL SUBCUT ×4 (08:12→21:55)
[2024-07-21] MEDS: lisinopriL 10 MG TABLET PO (08:13)
[2024-07-21] MEDS: Nystatin Cream 15 GM TUBE 1 APPL TOPICAL ×2 (08:13→20:08)
[2024-07-21] MEDS: 0.9 % Sodium Chloride Flush 3 ML SYRINGE IVFLUSH ×2 (08:13→17:07)
[2024-07-21] MEDS: Aspirin Enteric Coated 81 MG TABLET.DR PO ×2 (08:13→20:07)
[2024-07-21] MEDS: Metoprolol Tartrate 12.5 MG HALFTAB PO ×2 (08:13→20:07)
[2024-07-21] MEDS: Sodium Hypochlorite 0.125% 473 ML SOLUTION 1 APPL TOPICAL (08:13)
--- NOTE | 2024-07-21 11:16 | HO.PM.IMPN ---
Subjective Subjective Date of Service: 07/21/24 Interval History: seen and examined this morning follow up for sacral decubitus ulcer and concern for OM Pain seems controlled, Pain is controlled now Physical Exam Vital Signs: Vital Signs: Last Vital Signs Temp 97.2 F 07/21/24 07:22 Pulse 75 07/21/24 07:22 Resp 20 07/21/24 07:22 BP 147/67 H 07/21/24 07:22 Pulse Ox 93 07/21/24 07:22 O2 Del Method Room Air 07/21/24 07:22 O2 Flow Rate 4 07/18/24 15:30 BMI result Body Mass Index 42.3 Objective Data Active Medications Acetaminophen (Acetaminophen 325 Mg Tablet) 650 mg PO Q6H PRN PRN Reason: Pain, Mild (Pain Scale 1-3), fever or headache Aspirin (Aspirin Enteric Coated 81 Mg Tablet.) 81 mg PO BID [facility] Last Admin: 07/21/24 08:13 Dose: 81 mg Documented By: JAM Atorvastatin Calcium (Atorvastatin Calcium 40 Mg Tablet) 40 mg PO BEDTIME [facility] Last Admin: 07/20/24 19:45 Dose: 40 mg Documented By: UNIQUE Bisacodyl (Bisacodyl 10 Mg Supp.Rect) 10 mg [place] DAILY PRN PRN Reason: Constipation Calcium Carbonate (Calcium Carbonate 750 Mg Tab.Chew) 750 mg PO Q4H PRN PRN Reason: Heartburn Clopidogrel Bisulfate (Clopidogrel Bisulfate 75 Mg Tablet) 75 mg PO BEDTIME [facility] Last Admin: 07/20/24 19:46 Dose: 75 mg Documented By: UNIQUE Glucose (Glucose Gel 15 Gm Gel..Gram.) 15 gm PO Q15M PRN; Protocol PRN Reason: per Hypoglycemia Standing Ord. Heparin Sodium (Porcine) (Heparin Sodium,Porcine 5,000 Unit/Ml Vial) 5,000 unit SUBCUT Q12H [facility] Last Admin: 07/21/24 08:12 Dose: 5,000 unit Documented By: JAM Dextrose (D10) 250 mls @ 750 mls/hr IV Q15M PRN; Protocol PRN Reason: per Hypoglycemia Standing Ord. Piperacillin Sod/Tazobactam (Sod 4.5 gm/ Sodium Chloride) 100 mls @ 200 mls/hr IV Q6H [facility] Last Infusion: 07/21/24 05:28 Dose: Infused Documented By: FOREST Meropenem 1 gm/ Sodium (Chloride) 100 mls @ 200 mls/hr IV Q8H [facility] Last Infusion: 07/21/24 03:05 Dose: Infused Documented By: FOREST Daptomycin 500 mg/ Sodium (Chloride) 60 mls @ 100.325 mls/hr IV Q24H [facility] Last Infusion: 07/20/24 21:44 Dose: Infused Documented By: UNIQUE Insulin Human Lispro (Insulin Lispro 100 Unit/Ml 3 Ml Vial) 0 unit SUBCUT QIDACHS [facility]; Protocol Last Admin: 07/21/24 08:12 Dose: 2 unit Documented By: JAM Levothyroxine Sodium (Levothyroxine Sodium 112 Mcg Tablet) 112 mcg PO DAILY@0600 [facility] Last Admin: 07/21/24 05:36 Dose: 112 mcg Documented By: FOREST Lisinopril (Lisinopril 10 Mg Tablet) 10 mg PO DAILY [facility]; Protocol Last Admin: 07/21/24 08:13 Dose: 10 mg Documented By: JAM Magnesium Hydroxide (Milk Of Magnesia 30 Ml Oral.Susp) 30 ml PO DAILY PRN PRN Reason: Constipation Magnesium Hydroxide (Milk Of Magnesia 30 Ml Oral.Susp) 5 ml PO Q8H PRN PRN Reason: Constipation Melatonin (Melatonin 3 Mg Tablet) 6 mg PO BEDTIME PRN PRN Reason: Insomnia Metoprolol Tartrate (Metoprolol Tartrate 12.5 Mg Halftab) 12.5 mg PO BID [facility]; Protocol Last Admin: 07/21/24 08:13 Dose: 12.5 mg Documented By: JAM Morphine Sulfate (Morphine Sulfate 2 Mg/Ml Cartridge) 2 mg IVPUSH Q3H PRN; Protocol PRN Reason: Pain, Severe (Pain Scale 7-10) Naloxone HCl (Naloxone Hcl 0.4 Mg/Ml Vial) 0.04 mg IVPUSH Q5M PRN PRN Reason: Excessive sedation or RR < 8 Nystatin (Nystatin Cream 15 Gm Tube) 1 appl TOPICAL BID [facility]; Protocol Last Admin: 07/21/24 08:13 Dose: 1 appl Documented By: JAM Omeprazole (Omeprazole 40 Mg Capsule.Dr) 40 mg PO DAILY@0630 [facility] Last Admin: 07/21/24 05:36 Dose: 40 mg Documented By: FOREST Oxycodone HCl (Oxycodone Hcl Immed Release 5 Mg Tablet) 5 mg PO Q6H PRN PRN Reason: Pain, Severe (Pain Scale 7-10) Sodium Biphosphate/Sodium Phosphate (Sodium Phosphate,Robeson-Dibasic 133 Ml Enema) 118 ml [place] DAILY PRN PRN Reason: Constipation Sodium Chloride (0.9 % Sodium Chloride Flush 3 Ml Syringe) 3 ml IVFLUSH QSHIFT [facility] Last Admin: 07/21/24 08:13 Dose: 3 ml Documented By: JAM Sodium Hypochlorite (Sodium Hypochlorite 0.125% 473 Ml Solution) 1 appl TOPICAL DAILY [facility] Last Admin: 07/21/24 08:08 Dose: Not Given Documented By: JAM Non-Admin Reason: Duplicate Order Sodium Hypochlorite (Sodium Hypochlorite 0.125% 473 Ml Solution) 1 appl TOPICAL DAILY N[facility] Last Admin: 07/21/24 08:13 Dose: 1 appl Documented By: JAM Labs 07/17/24 04:17 07/21/24 07:17 Labs: Laboratory Results - last 24 hr 07/20/24 07/20/24 07/21/24 15:58 20:01 07:17 Hold Purple Top Estim Creat Clear Calc 132.4 Estimated GFR > 60 POC Glucose 199 H 231 H Random Vancomycin 9.1 L 07/21/24 07:34 Hold Purple Top SEE NOTE Estim Creat Clear Calc Estimated GFR POC Glucose 161 H Random Vancomycin Assessment and Plan (1) Heel ulcer: Status: Acute (2) Sacral decubitus ulcer: Status: Acute Plan 69 yo male with PMH of ROLO, DM, hypothyroidism, hyperlipidemia, HTN, CVA on aspirin and plavix discharged from here to [facility] for unstageable sacral ulcer s/p debridement on 06/20 and 06/23 by gen surg and then + blood cultures strep agalactie 2/2 treated with IV ceftriaxone and last dose ceftin 07/02 admitted for infected unstageable ulcer L heel #Infected unstageable decubitus ulcer L heel r/t type II diabetes -ESR 56, CRP 7, XR negative for osteo. MRI L foot w/wo ordered but declined -IV vanco and zosyn, changed to meropenem and dapto on 07/20 per ID recomendation -general surgery following and debrided sacral area and left heel, wound vac on tuesday -wound care following -no sepsis -follow cultures #Infected unstageable sacral ulcer -general surgery consult -IV vanco and zosyn -wound culture/pressure dressing -Incontinent of urine. Unable to place condom cath due to anatomy. Lozano catheter ordered for skin integrity -surgery to debride in OR on 07/18, being considered for wound vac -dressing change per surgery #SVT--resolved, K ok, mag ok, add low dose metoprolol and if happens again, cardiology consult #Insulin dependent type 2 diabetes -poc glucose, diabetic diet -dose adjusted basal insulin -admelog on -restart Lantus at lower dose #Hypothyroidism -levothyroxine #Hx CVA -continue DAPT, statin #HTN -continue lisinopril #Acute on chronic normocytic anemia d/t chronic disease -above transfusion threshold, likely in setting of chronic wounds, no bleeding dvt prophyalxis- heparin full code need for inpatient: infected foot ulcer with concern for osteomyelitis requiring broad spectum abx, further advanced imaging and expert consultation Quality Stroke Does the patient have a stroke diagnosis?: No VTE Prior VTE?: No VTE Risk Level:: Medical - moderate - high VTE Device Contraindication: Treatment Not Indicated VTE Drug Contraindication: N/A - Med Ordered
[2024-07-21 11:20] LABS: Glucose, Whole Blood 179 mg/dL (60-115)
[2024-07-21 12:00] VITALS: BP 145/67; PULSE 82; RESP 20; TEMP 36.8; O2SAT 94
[2024-07-21 14:00] VITALS: O2SAT 93
[2024-07-21 16:00] VITALS: BP 150/59; PULSE 85; RESP 18; TEMP 36.9; O2SAT 93
[2024-07-21 16:35] LABS: Glucose, Whole Blood 240 mg/dL (60-115)
[2024-07-21 19:51] VITALS: BP 131/60; PULSE 85; RESP 20; TEMP 37.1; O2SAT 92
[2024-07-21] MEDS: DAPTOmycin 500 MG in 0.9 % Sodium Chloride 50 ML 100 MG IV (20:07)
[2024-07-21] MEDS: Clopidogrel Bisulfate 75 MG TABLET PO (20:07)
[2024-07-21] MEDS: Atorvastatin Calcium 40 MG TABLET PO (20:07)
[2024-07-21 20:49] LABS: Glucose, Whole Blood 235 mg/dL (60-115)
[2024-07-22] VITALS (7 sets, daily range): BP systolic 115–142; BP diastolic 59–71; PULSE 75–88; RESP 14–20; TEMP 36.2–37; O2SAT 93–96
[2024-07-22] MEDS: 0.9 % Sodium Chloride Flush 3 ML SYRINGE IVFLUSH ×4 (01:07→20:47)
[2024-07-22] MEDS: Levothyroxine Sodium 112 MCG TABLET PO (05:40)
[2024-07-22] MEDS: Acetaminophen 325 MG TABLET 650 MG PO (05:40)
[2024-07-22] MEDS: Omeprazole 40 MG CAPSULE.DR PO (05:40)
[2024-07-22] MEDS: Piperacillin Sodium/Tazobactam 4.5 GM in 0.9 % Sodium Chloride 100 ML IV ×4 (05:44→23:28)
[2024-07-22 06:40] LABS: Creatinine Clr Calc Pharmacy 134.4; Estimated Glomerular Filt Rate > 60
[2024-07-22] MEDS: Heparin Sodium,Porcine 5,000 UNIT/ML VIAL 5000 UNIT SUBCUT ×2 (06:57→19:30)
[2024-07-22 07:25] LABS: Glucose, Whole Blood 182 mg/dL (60-115)
[2024-07-22] MEDS: Insulin Lispro 100 UNIT/ML 3 ML VIAL SUBCUT ×6 (08:14→20:46)
[2024-07-22] MEDS: lisinopriL 10 MG TABLET PO (08:15)
[2024-07-22] MEDS: Metoprolol Tartrate 12.5 MG HALFTAB PO ×2 (08:15→20:43)
[2024-07-22] MEDS: Aspirin Enteric Coated 81 MG TABLET.DR PO ×2 (08:15→20:43)
[2024-07-22] MEDS: Sodium Hypochlorite 0.125% 473 ML SOLUTION 1 APPL TOPICAL (08:22)
[2024-07-22] MEDS: Nystatin Cream 15 GM TUBE 1 APPL TOPICAL ×2 (08:22→20:47)
--- NOTE | 2024-07-22 10:05 | HO.PM.IMPN ---
Subjective Subjective Date of Service: 07/22/24 Interval History: seen and examined this morning follow up for sacral decubitus ulcer and concern for OM No pain and no new issues Physical Exam Vital Signs: Vital Signs: Last Vital Signs Temp 98.6 F 07/22/24 07:42 Pulse 79 07/22/24 07:42 Resp 20 07/22/24 07:42 BP 125/59 L 07/22/24 08:15 Pulse Ox 94 07/22/24 07:42 O2 Del Method Room Air 07/22/24 07:42 O2 Flow Rate 4 07/18/24 15:30 BMI result Body Mass Index 42.3 Constitutional - Awake and Alert, No apparent distress Eyes - PERRLA, EOMI Cardiovascular - S1S2, RRR, No edema Respiratory - Normal lung expansion, Normal respiratory effort, No respiratory distress, CTA bilaterally Gastrointestinal - NT / ND; +BS; No rebound or guarding - incontinent of urine Extremities - no calf tenderness bilaterally, no swelling Skin - Warm/Dry. Unstageable ulcer sacrum with foul odor. Unstageable ulcer L heel with eschar and some slough with foul odor--see picture elsewhere---see picture in wound nurse note Neurological - Alert & oriented x3 Psychological - Appropriate affect Objective Data Active Medications Acetaminophen (Acetaminophen 325 Mg Tablet) 650 mg PO Q6H PRN PRN Reason: Pain, Mild (Pain Scale 1-3), fever or headache Last Admin: 07/22/24 05:40 Dose: 650 mg Documented By: MEETA Aspirin (Aspirin Enteric Coated 81 Mg Tablet.) 81 mg PO BID [facility] Last Admin: 07/22/24 08:15 Dose: 81 mg Documented By: CRISELDA Atorvastatin Calcium (Atorvastatin Calcium 40 Mg Tablet) 40 mg PO BEDTIME [facility] Last Admin: 07/21/24 20:07 Dose: 40 mg Documented By: UNIQUE Bisacodyl (Bisacodyl 10 Mg Supp.Rect) 10 mg [place] DAILY PRN PRN Reason: Constipation Calcium Carbonate (Calcium Carbonate 750 Mg Tab.Chew) 750 mg PO Q4H PRN PRN Reason: Heartburn Clopidogrel Bisulfate (Clopidogrel Bisulfate 75 Mg Tablet) 75 mg PO BEDTIME [facility] Last Admin: 07/21/24 20:07 Dose: 75 mg Documented By: UNIQUE Glucose (Glucose Gel 15 Gm Gel..Gram.) 15 gm PO Q15M PRN; Protocol PRN Reason: per Hypoglycemia Standing Ord. Heparin Sodium (Porcine) (Heparin Sodium,Porcine 5,000 Unit/Ml Vial) 5,000 unit SUBCUT Q12H [facility] Last Admin: 07/22/24 06:57 Dose: 5,000 unit Documented By: MEETA Dextrose (D10) 250 mls @ 750 mls/hr IV Q15M PRN; Protocol PRN Reason: per Hypoglycemia Standing Ord. Piperacillin Sod/Tazobactam (Sod 4.5 gm/ Sodium Chloride) 100 mls @ 200 mls/hr IV Q6H [facility] Last Infusion: 07/22/24 06:42 Dose: Infused Documented By: MEETA Meropenem 1 gm/ Sodium (Chloride) 100 mls @ 200 mls/hr IV Q8H [facility] Last Infusion: 07/22/24 05:00 Dose: Infused Documented By: MEETA Daptomycin 500 mg/ Sodium (Chloride) 60 mls @ 100.325 mls/hr IV Q24H [facility] Last Infusion: 07/21/24 22:01 Dose: Infused Documented By: UNIQUE Insulin Human Lispro (Insulin Lispro 100 Unit/Ml 3 Ml Vial) 0 unit SUBCUT QIDACHS [facility]; Protocol Last Admin: 07/22/24 08:14 Dose: 2 unit Documented By: CRISELDA Levothyroxine Sodium (Levothyroxine Sodium 112 Mcg Tablet) 112 mcg PO DAILY@0600 [facility] Last Admin: 07/22/24 05:40 Dose: 112 mcg Documented By: MEETA Lisinopril (Lisinopril 10 Mg Tablet) 10 mg PO DAILY [facility]; Protocol Last Admin: 07/22/24 08:15 Dose: 10 mg Documented By: CRISELDA Magnesium Hydroxide (Milk Of Magnesia 30 Ml Oral.Susp) 30 ml PO DAILY PRN PRN Reason: Constipation Magnesium Hydroxide (Milk Of Magnesia 30 Ml Oral.Susp) 5 ml PO Q8H PRN PRN Reason: Constipation Melatonin (Melatonin 3 Mg Tablet) 6 mg PO BEDTIME PRN PRN Reason: Insomnia Metoprolol Tartrate (Metoprolol Tartrate 12.5 Mg Halftab) 12.5 mg PO BID [facility]; Protocol Last Admin: 07/22/24 08:15 Dose: 12.5 mg Documented By: CRISELDA Morphine Sulfate (Morphine Sulfate 2 Mg/Ml Cartridge) 2 mg IVPUSH Q3H PRN; Protocol PRN Reason: Pain, Severe (Pain Scale 7-10) Naloxone HCl (Naloxone Hcl 0.4 Mg/Ml Vial) 0.04 mg IVPUSH Q5M PRN PRN Reason: Excessive sedation or RR < 8 Nystatin (Nystatin Cream 15 Gm Tube) 1 appl TOPICAL BID [facility]; Protocol Last Admin: 07/22/24 08:22 Dose: 1 appl Documented By: CRISELDA Omeprazole (Omeprazole 40 Mg Capsule.Dr) 40 mg PO DAILY@0630 [facility] Last Admin: 07/22/24 05:40 Dose: 40 mg Documented By: MEETA Sodium Biphosphate/Sodium Phosphate (Sodium Phosphate,Kerr-Dibasic 133 Ml Enema) 118 ml [place] DAILY PRN PRN Reason: Constipation Sodium Chloride (0.9 % Sodium Chloride Flush 3 Ml Syringe) 3 ml IVFLUSH QSHIFT [facility] Last Admin: 07/22/24 08:15 Dose: 3 ml Documented By: CRISELDA Sodium Hypochlorite (Sodium Hypochlorite 0.125% 473 Ml Solution) 1 appl TOPICAL DAILY [facility] Last Admin: 07/22/24 08:22 Dose: Not Given Documented By: CRISELDA Non-Admin Reason: duplicate Sodium Hypochlorite (Sodium Hypochlorite 0.125% 473 Ml Solution) 1 appl TOPICAL DAILY [facility] Last Admin: 07/22/24 08:22 Dose: 1 appl Documented By: CRISELDA Labs 07/17/24 04:17 07/22/24 05:52 Labs: Laboratory Results - last 24 hr 07/21/24 07/21/24 07/21/24 11:13 16:29 20:40 Hold Purple Top Estim Creat Clear Calc Estimated GFR POC Glucose 179 H 240 H 235 H 07/22/24 07/22/24 05:52 07:17 Hold Purple Top SEE NOTE Estim Creat Clear Calc 134.4 Estimated GFR > 60 POC Glucose 182 H Microbiology Microbiology Results: Microbiology 07/16/24 17:15 Blood Culture - Final Blood - Venous No growth after 5 days. 07/16/24 17:19 Blood Culture - Final Blood - Venous No growth after 5 days. Assessment and Plan (1) Heel ulcer: Status: Acute (2) Sacral decubitus ulcer: Status: Acute Plan 69 yo male with PMH of ROLO, DM, hypothyroidism, hyperlipidemia, HTN, CVA on aspirin and plavix discharged from here to [facility] for unstageable sacral ulcer s/p debridement on 06/20 and 06/23 by gen surg and then + blood cultures strep agalactie 2/2 treated with IV ceftriaxone and last dose ceftin 07/02 admitted for infected unstageable ulcer L heel #Infected unstageable decubitus ulcer L heel r/t type II diabetes -ESR 56, CRP 7, XR negative for osteo. MRI L foot w/wo ordered but declined -IV vanco and zosyn, changed to meropenem and dapto on 07/20 per ID recomendation -general surgery following and debrided sacral area and left heel, wound vac on tuesday -wound care following -no sepsis -follow cultures -check CPK weekly while on Dapto #Infected unstageable sacral ulcer -general surgery consult -Abx as above -pressure dressing -Incontinent of urine. Unable to place condom cath due to anatomy. Lozano catheter ordered for skin integrity -surgerydebrided in OR on 07/18, being considered for wound vac -dressing change per surgery #SVT--resolved, K ok, mag ok, nor further episode #Insulin dependent type 2 diabetes -poc glucose, diabetic diet -dose adjusted basal insulin -admelog on -on Tresiba 32 bid, allergic to Lantus, continue short acting inslyin with aditional insulin as needed #Hypothyroidism -levothyroxine #Hx CVA -continue DAPT, statin #HTN -continue lisinopril #Acute on chronic normocytic anemia d/t chronic disease -above transfusion threshold, likely in setting of chronic wounds, no bleeding dvt prophyalxis- heparin full code need for inpatient: infected foot ulcer with concern for osteomyelitis requiring broad spectum abx, further advanced imaging and expert consultation Quality Stroke Does the patient have a stroke diagnosis?: No VTE Prior VTE?: No VTE Risk Level:: Medical - moderate - high VTE Device Contraindication: Treatment Not Indicated VTE Drug Contraindication: N/A - Med Ordered
[2024-07-22 10:10] LABS: MANUAL DIFF FLAG NO
[2024-07-22 10:14] LABS: Basophils Percent Auto 0.4 % (0-2); Eosinophils Absolute Auto 1.2 X10*3/uL (0.0-0.4); Eosinophils Percent Auto 12.1 % (0-4); Hemoglobin 9.4 g/dl (14.0-18.0); Imm Gran Abs Auto 0.05 X10*3/uL (0.00-0.03); Imm Gran Pct Auto 0.5 % (0.0-0.4); Lymphocytes Absolute Auto 1.7 X10*3/uL (1.2-4.9); Lymphocytes Percent Auto 18.1 % (20-40); Mean Corpuscular HGB Conc 33.6 g/dl (31.0-36.0); Mean Corpuscular Hemoglobin 31.9 pg (27.0-33.0); Mean Corpuscular Volume 94.9 fL (80.0-98.0); Mean Platelet Volume 9.3 fL (9.4-12.4); Monocytes Absolute Auto 0.6 X10*3/uL (0.1-1.2); Monocytes Percent Auto 5.8 % (2-11); Neutrophils Absolute Auto 6.1 x10*3/uL (2.0-8.3); Neutrophils Percent Auto 63.1 % (45-73); Platelet Count 370 X10*3/uL (160-400); Red Blood Count 2.95 X10*6/uL (4.60-5.80); Red Cell Distribution Width 13.5 % (11.0-16.0); White Blood Count 9.6 X10*3/uL (4.8-10.8)
[2024-07-22 10:20] LABS: Anion Gap 12 (12-20)
[2024-07-22 10:24] LABS: Carbon Dioxide 23 mmol/L (22-29); Chloride 109 mmol/L (96-108); Magnesium 1.7 mg/dL (1.6-2.6); Potassium 3.8 mmol/L (3.3-5.1); Sodium 140 mmol/L (135-145)
[2024-07-22 12:01] LABS: Glucose, Whole Blood 247 mg/dL (60-115)
[2024-07-22 16:35] LABS: Glucose, Whole Blood 254 mg/dL (60-115)
[2024-07-22 20:40] LABS: Glucose, Whole Blood 220 mg/dL (60-115)
[2024-07-22] MEDS: DAPTOmycin 500 MG in 0.9 % Sodium Chloride 50 ML 100 MG IV (20:43)
[2024-07-22] MEDS: Clopidogrel Bisulfate 75 MG TABLET PO (20:43)
[2024-07-22] MEDS: Atorvastatin Calcium 40 MG TABLET PO (20:43)
[2024-07-23] VITALS (7 sets, daily range): BP systolic 113–147; BP diastolic 55–67; PULSE 76–85; RESP 16–20; TEMP 36.2–37.3; O2SAT 93–95
[2024-07-23] MEDS: Piperacillin Sodium/Tazobactam 4.5 GM in 0.9 % Sodium Chloride 100 ML IV ×4 (05:10→23:43)
[2024-07-23] MEDS: Levothyroxine Sodium 112 MCG TABLET PO (05:39)
[2024-07-23] MEDS: Heparin Sodium,Porcine 5,000 UNIT/ML VIAL 5000 UNIT SUBCUT ×2 (05:40→18:27)
[2024-07-23] MEDS: Omeprazole 40 MG CAPSULE.DR PO (05:40)
[2024-07-23 07:05] LABS: Anion Gap 10 (12-20); Blood Urea Nitrogen 12 mg/dL (9-16); Calcium 8.4 mg/dL (8.4-10.2); Carbon Dioxide 24 mmol/L (22-29); Chloride 109 mmol/L (96-108); Creatinine Clr Calc Pharmacy 136.5; Estimated Glomerular Filt Rate > 60; Glucose Random 203 mg/dL (60-115); Potassium 3.8 mmol/L (3.3-5.1); Sodium 139 mmol/L (135-145)
[2024-07-23 07:30] LABS: Glucose, Whole Blood 183 mg/dL (60-115)
[2024-07-23] MEDS: Insulin Lispro 100 UNIT/ML 3 ML VIAL SUBCUT ×6 (08:01→21:37)
[2024-07-23] MEDS: 0.9 % Sodium Chloride Flush 3 ML SYRINGE IVFLUSH ×3 (08:06→21:39)
[2024-07-23] MEDS: Metoprolol Tartrate 12.5 MG HALFTAB PO ×2 (08:06→21:33)
[2024-07-23] MEDS: lisinopriL 10 MG TABLET PO (08:06)
[2024-07-23] MEDS: Aspirin Enteric Coated 81 MG TABLET.DR PO ×2 (08:06→21:32)
--- NOTE | 2024-07-23 10:21 | PM.EVENT ---
Event Note Date of Service: 07/23/24 Event Note: no new complaints dressings changed by [facility] sacral wound looks clean left heel with some thick fibrinous exudates will change dressings with [facility] dinero plan to debride left heel Time Spent With Patient Time: Total time managing care of this patient today ____ minutes.
[2024-07-23] MEDS: Sodium Hypochlorite 0.125% 473 ML SOLUTION 1 APPL TOPICAL (10:25)
[2024-07-23] MEDS: Nystatin Cream 15 GM TUBE 1 APPL TOPICAL ×2 (10:26→21:39)
--- NOTE | 2024-07-23 10:56 | MHC.CLN ---
F/U PT WITH INCREASED NUTRITION RISK R/T PRESSURE INJURY po intake 75-100% DIET RX: 2000DM -APPROPRIATE PT RECEIVING ENSURE MAX BID TO PROMOTE WOUND HEALING SUPPLEMENTS TO PROVIDE 300KCALS, 60G PROTEIN MONITOR PO INTAKE AND ENCOURAGE SUPPLEMENTS
--- NOTE | 2024-07-23 10:59 | HO.PM.IMPN ---
Subjective Subjective Date of Service: 07/23/24 Interval History: seen and examined this morning follow up for sacral decubitus ulcer and concern for OM Has no pain Physical Exam Vital Signs: Vital Signs: Last Vital Signs Temp 97.1 F 07/23/24 07:34 Pulse 82 07/23/24 07:34 Resp 20 07/23/24 07:34 BP 120/57 L 07/23/24 07:34 Pulse Ox 93 07/23/24 07:34 O2 Del Method Room Air 07/23/24 07:34 O2 Flow Rate 4 07/18/24 15:30 BMI result Body Mass Index 42.3 Constitutional - Awake and Alert, No apparent distress Eyes - PERRLA, EOMI Cardiovascular - S1S2, RRR, No edema Respiratory - Normal lung expansion, Normal respiratory effort, No respiratory distress, CTA bilaterally Gastrointestinal - NT / ND; +BS; No rebound or guarding - incontinent of urine Extremities - no calf tenderness bilaterally, no swelling Skin - Warm/Dry. Unstageable ulcer sacrum with foul odor. Unstageable ulcer L heel with eschar and some slough with foul odor--see picture elsewhere---see picture in wound nurse note Neurological - Alert & oriented x3 Psychological - Appropriate affect Objective Data Active Medications Acetaminophen (Acetaminophen 325 Mg Tablet) 650 mg PO Q6H PRN PRN Reason: Pain, Mild (Pain Scale 1-3), fever or headache Last Admin: 07/22/24 05:40 Dose: 650 mg Documented By: MEETA Aspirin (Aspirin Enteric Coated 81 Mg Tablet.) 81 mg PO BID [facility] Last Admin: 07/23/24 08:06 Dose: 81 mg Documented By: GATO Atorvastatin Calcium (Atorvastatin Calcium 40 Mg Tablet) 40 mg PO BEDTIME [facility] Last Admin: 07/22/24 20:43 Dose: 40 mg Documented By: UNIQUE Bisacodyl (Bisacodyl 10 Mg Supp.Rect) 10 mg [place] DAILY PRN PRN Reason: Constipation Calcium Carbonate (Calcium Carbonate 750 Mg Tab.Chew) 750 mg PO Q4H PRN PRN Reason: Heartburn Clopidogrel Bisulfate (Clopidogrel Bisulfate 75 Mg Tablet) 75 mg PO BEDTIME [facility] Last Admin: 07/22/24 20:43 Dose: 75 mg Documented By: UNIQUE Glucose (Glucose Gel 15 Gm Gel..Gram.) 15 gm PO Q15M PRN; Protocol PRN Reason: per Hypoglycemia Standing Ord. Heparin Sodium (Porcine) (Heparin Sodium,Porcine 5,000 Unit/Ml Vial) 5,000 unit SUBCUT Q12H [facility] Last Admin: 07/23/24 05:40 Dose: 5,000 unit Documented By: UNIQUE Dextrose (D10) 250 mls @ 750 mls/hr IV Q15M PRN; Protocol PRN Reason: per Hypoglycemia Standing Ord. Piperacillin Sod/Tazobactam (Sod 4.5 gm/ Sodium Chloride) 100 mls @ 200 mls/hr IV Q6H [facility] Last Infusion: 07/23/24 05:46 Dose: Infused Documented By: UNIQUE Meropenem 1 gm/ Sodium (Chloride) 100 mls @ 200 mls/hr IV Q8H [facility] Last Admin: 07/23/24 10:27 Dose: 200 mls/hr Documented By: GATO Daptomycin 500 mg/ Sodium (Chloride) 60 mls @ 100.325 mls/hr IV Q24H [facility] Last Infusion: 07/22/24 21:19 Dose: Infused Documented By: UNIQUE Insulin Human Lispro (Insulin Lispro 100 Unit/Ml 3 Ml Vial) 0 unit SUBCUT QIDACHS [facility]; Protocol Last Admin: 07/23/24 08:01 Dose: 2 unit Documented By: GATO Insulin Human Lispro (Insulin Lispro 100 Unit/Ml 3 Ml Vial) 4 unit SUBCUT QIDACHS [facility] Last Admin: 07/23/24 08:02 Dose: Not Given Documented By: GATO Non-Admin Reason: POC less than 200 hold per order Levothyroxine Sodium (Levothyroxine Sodium 112 Mcg Tablet) 112 mcg PO DAILY@0600 [facility] Last Admin: 07/23/24 05:39 Dose: 112 mcg Documented By: UNIQUE Lisinopril (Lisinopril 10 Mg Tablet) 10 mg PO DAILY [facility]; Protocol Last Admin: 07/23/24 08:06 Dose: 10 mg Documented By: GATO Magnesium Hydroxide (Milk Of Magnesia 30 Ml Oral.Susp) 30 ml PO DAILY PRN PRN Reason: Constipation Magnesium Hydroxide (Milk Of Magnesia 30 Ml Oral.Susp) 5 ml PO Q8H PRN PRN Reason: Constipation Melatonin (Melatonin 3 Mg Tablet) 6 mg PO BEDTIME PRN PRN Reason: Insomnia Metoprolol Tartrate (Metoprolol Tartrate 12.5 Mg Halftab) 12.5 mg PO BID [facility]; Protocol Last Admin: 07/23/24 08:06 Dose: 12.5 mg Documented By: GATO Morphine Sulfate (Morphine Sulfate 2 Mg/Ml Cartridge) 2 mg IVPUSH Q3H PRN; Protocol PRN Reason: Pain, Severe (Pain Scale 7-10) Naloxone HCl (Naloxone Hcl 0.4 Mg/Ml Vial) 0.04 mg IVPUSH Q5M PRN PRN Reason: Excessive sedation or RR < 8 Nystatin (Nystatin Cream 15 Gm Tube) 1 appl TOPICAL BID [facility]; Protocol Last Admin: 07/23/24 10:26 Dose: 1 appl Documented By: GATO Omeprazole (Omeprazole 40 Mg Capsule.Dr) 40 mg PO DAILY@0630 [facility] Last Admin: 07/23/24 05:40 Dose: 40 mg Documented By: UNIQUE Sodium Biphosphate/Sodium Phosphate (Sodium Phosphate,[place]-Dibasic 133 Ml Enema) 118 ml [place] DAILY PRN PRN Reason: Constipation Sodium Chloride (0.9 % Sodium Chloride Flush 3 Ml Syringe) 3 ml IVFLUSH QSHIFT [facility] Last Admin: 07/23/24 08:06 Dose: 3 ml Documented By: GATO Sodium Hypochlorite (Sodium Hypochlorite 0.125% 473 Ml Solution) 1 appl TOPICAL DAILY [facility] Last Admin: 07/23/24 08:08 Dose: Not Given Documented By: GATO Non-Admin Reason: Duplicate Order Sodium Hypochlorite (Sodium Hypochlorite 0.125% 473 Ml Solution) 1 appl TOPICAL DAILY [facility] Last Admin: 07/23/24 10:25 Dose: 1 appl Documented By: GATO Labs 07/22/24 05:52 07/23/24 05:45 Labs: Laboratory Results - last 24 hr 07/22/24 07/22/24 07/22/24 11:57 16:31 20:31 Anion Gap Estim Creat Clear Calc Estimated GFR POC Glucose 247 H 254 H 220 H Random Glucose Calcium Total Creatine Kinase 07/23/24 07/23/24 05:45 07:26 Anion Gap 10 L Estim Creat Clear Calc 136.5 Estimated GFR > 60 POC Glucose 183 H Random Glucose 203 H Calcium 8.4 D Total Creatine Kinase 24 L Assessment and Plan (1) Heel ulcer: Status: Acute (2) Sacral decubitus ulcer: Status: Acute Plan 69 yo male with PMH of ROLO, DM, hypothyroidism, hyperlipidemia, HTN, CVA on aspirin and plavix discharged from here to [facility] for unstageable sacral ulcer s/p debridement on 06/20 and 06/23 by gen surg and then + blood cultures strep agalactie 11/25 treated with IV ceftriaxone and last dose ceftin 07/02 admitted for infected unstageable ulcer L heel #Infected unstageable decubitus ulcer L heel r/t type II diabetes -ESR 56, CRP 7, XR negative for osteo. MRI L foot w/wo ordered but declined -IV vanco and zosyn, changed to meropenem and dapto on 07/20 per ID recomendation -general surgery following and debrided sacral area and left heel, wound vac to be applied tomorrow -wound care following -no sepsis -follow cultures -check CPK weekly while on Dapto -Requesting a PICC line for custodial Abx #Infected unstageable sacral ulcer -general surgery consult -Abx as above -pressure dressing -Incontinent of urine. Unable to place condom cath due to anatomy. Lozano catheter ordered for skin integrity -surgerydebrided in OR on 07/18, being considered for wound vac -dressing change per surgery #SVT once while in the ED--resolved, K ok, mag ok, nor further episode #Insulin dependent type 2 diabetes -poc glucose, diabetic diet -dose adjusted basal insulin -admelog on ss -on Tresiba 32 bid, allergic to Lantus, continue short acting insulin with aditional insulin as needed #HypoT -levothyroxine #Hx CVA -continue DAPT, statin #HTN -continue lisinopril #Acute on chronic normocytic anemia d/t chronic disease -above transfusion threshold, likely in setting of chronic wounds, no bleeding dvt prophyalxis- heparin full code need for inpatient: infected foot ulcer with concern for osteomyelitis requiring broad spectum abx, further advanced imaging and expert consultation Quality Stroke Does the patient have a stroke diagnosis?: No VTE Prior VTE?: No VTE Risk Level:: Medical - moderate - high VTE Device Contraindication: Treatment Not Indicated VTE Drug Contraindication: N/A - Med Ordered
--- NOTE | 2024-07-23 11:08 | MHC.CM.PN ---
Per rounds pt is not medically cleared for DC. DCP is STR, NADYA, Beverly Marti, and Kyaw Crane are following.
[2024-07-23 11:47] LABS: Glucose, Whole Blood 293 mg/dL (60-115)
[2024-07-23] MEDS: Acetaminophen 325 MG TABLET 650 MG PO (13:15)
--- NOTE | 2024-07-23 14:43 | HO.PICC ---
PICC Line Insertion NPICC Diagnosis: Sacral and heel ulcers Indication: detention ABT Pertinent Labs: reviewed Technique: Following informed consent including risks, benefits and alternatives and using sterile technique including cap and mask, sterile gown, glove and drape, the arm was prepped and draped in the usual sterile fashion of full barrier technique with G. Following completion of Arnold Protocol the skin and soft tissues were anesthetized with 1% Lidocaine plain. Using ultrasound guidance, right basilic vein access was obtained. Over an 0.018 wire through peel-away sheath, a 4fr single lumen PASV PICC line was positioned. Catheter length is 38cm internal length, external length 0cm, for a total trimmed length of 38cm . The procedure was performed in 272 . Tip verification was performed by Brenden Borja with Sherlock 3CG. Tip located in SVC. Ultrasound was used to document vein patency and for needle entry. A formal ultrasound picture and cardiac rhythm strip was recorded. V[employer] Inspector has released the line for use and it is currently dressed with a StatLock, Tegaderm, and CHG disc. Verification has been performed for blood return and line patency. Patient tolerated to procedure well and denied any procedural discomfort. Arm Circumference: 31.5cm Equipment: [employer] POWER PICC SOLO catherter with Sherlock 3CG tip Catheter Type: 4Fr single lumen PASV catheter Lot #: [id number]
[2024-07-23 16:19] LABS: Glucose, Whole Blood 195 mg/dL (60-115)
--- NOTE | 2024-07-23 16:32 | HO.WOUND ---
Wound Consult: Follow up 69yr old Male? admitted to [facility] [place] on 06/2324 - See progress notes and H&P for detailed history.? Wound consult follow up for sacral wound and bilateral heels wounds.? No new topical recommendations needed at this time - see below to details. Will continue with Dakins moist dressings to wound beds. 07/19/24 07/23/24 - Improving - not yet ready for wound vac placement Sacrum Etiology: ?Stage 4 Pressure Injury?Present on Admission Measurements: 12cm x 6.5cm x 4cm with undermining from 12-1 o'clock depth of 2cm Wound Bed: marbled wound bed with red moist tissue and yellow slough Drainage / Odor: Moderate amount of yellow brink serosang drainage no odor noted Edges: ? unattached Radha wound:dark red,macerated edges No Induration, Fluctuance or Warmth noted Pain: pain reported Goals of Treatment: ?Dakins wet to moist dressing packing daily - per discussion with Dr. Paiz bedside debridement 07/24/24 planned and will reassess for wound vac placement 07/19/24 07/23/24 Left Heel Etiology: Stage 4 Pressure Injury?Present on Admission Wound Bed: No much improved - adherent yellow slough with red moist tissue on the wound edge Drainage / Odor: Moderate amount of yellow brink serosang drainage mild odor noted - Fluctuant center noted Edges: ? unattached Radha wound: iintact - macerated - No Induration, Fluctuance or Warmth noted Pain: pain reported Goals of Treatment: ?Dakins wet to moist dressing packing daily - recommend switch to santyl and consider debridement - per conversation with dr Paiz bedside debridement likely 07/24/24 Right Heel - Not assessed today - no new topical recommendation needed at this time. Etiology: ?Resurfacing Pressure Injury - Suspect stage 2 - last assessed as Deep Tissue Injury on last admission -?Present on Admission Goals of Treatment: ?Betadine to keep dry and off load pressure Off Load Pressure, Agility Specialty pulsate bed in use set to 4 bars patient reports significant improvement in comfort since transition to this bed on tuesday. Wedges in use and heels off loaded with pillows - Dr. Paiz prefers pillows over heel protector boots. Recommendations: 1. Turn and Reposition every 2 hours and as needed for patient comfort.? Use pillows or wedges to support off loading positions. 2. Off Load all bony prominences with use of pillows and heel boots if needed.? Apply Preventative foams where needed. ?Elevate heels with heel protector boots if non-ambulatory at this time. 3. Monitor for incontinence and moisture control, use barrier creams when needed for prevention and treatment. 4. Provide adequate and supplemental nutrition.? 5. Order low air loss mattress. 6. When applicable maintain blood glucose levels per Providers order. 7. Right Heel - [place] with Betadine daily - allow to dry. Leave open to air. Do not apply foam dressing. Elevate heels off of bed surface with heel protector boots or pillows. 8. Sacrum and Left Heel - Cleanse and irrigate with Dakins Solution, pat dry. Apply barrier to wound edge. Lightly pack wound bed with Dakins moist gauze, followed by dry gauze, ABD pad and or gauze wrap. Change Daily. Re-consult wound care Nurse for wound deterioration or wound changes. Re-consult wound care Nurse for wound deterioration or wound changes.
[2024-07-23 20:51] LABS: Glucose, Whole Blood 275 mg/dL (60-115)
[2024-07-23] MEDS: DAPTOmycin 500 MG in 0.9 % Sodium Chloride 50 ML 100 MG IV (21:26)
[2024-07-23] MEDS: Clopidogrel Bisulfate 75 MG TABLET PO (21:32)
[2024-07-23] MEDS: Atorvastatin Calcium 40 MG TABLET PO (21:33)
[2024-07-24] VITALS (7 sets, daily range): BP systolic 114–126; BP diastolic 51–61; PULSE 76–96; RESP 18–20; TEMP 36.2–37.3; O2SAT 92–98
[2024-07-24] MEDS: Piperacillin Sodium/Tazobactam 4.5 GM in 0.9 % Sodium Chloride 100 ML IV ×4 (05:31→23:29)
[2024-07-24] MEDS: Levothyroxine Sodium 112 MCG TABLET PO (05:32)
[2024-07-24] MEDS: Omeprazole 40 MG CAPSULE.DR PO (05:32)
[2024-07-24] MEDS: Heparin Sodium,Porcine 5,000 UNIT/ML VIAL 5000 UNIT SUBCUT ×2 (05:32→18:27)
--- NOTE | 2024-07-24 06:58 | HO.STUDENTPN ---
Subjective Subjective Date of Service: 07/24/24 <Neli Moulton - Last Filed: 07/24/24 07:01> 07/24/24 <Steve Paiz MD - Last Filed: 07/24/24 10:46> 07/24/24 <Cherry Ramírez PA-C - Last Filed: 07/24/24 14:18> Interval History: Seen and examined this morning, post op surgical debridement and follow up for sacral decubitus ulcer, concern for OM. Reports 6/10 pain in both L heel and buttocks. States that R foot is beginning to throb. Otherwise, doing well and tolerating PO. <Neliana maría Moulton - Last Filed: 07/24/24 07:01> Review of Systems All other systems reviewed and are negative except for as stated in HPI. <Neli Moulton - Last Filed: 07/24/24 07:01> Constitutional Constitutional: Reports no additional constitutional complaints, Denies chills and Denies fever(s) <Neli Moulton - Last Filed: 07/24/24 07:01> Cardiovascular Cardiovascular: Denies chest pain, Denies dyspnea and Denies dyspnea on exertion <Neli Moulton - Last Filed: 07/24/24 07:01> Respiratory Respiratory: Denies cough, Denies dyspnea and Denies dyspnea on exertion <Neli Moulton - Last Filed: 07/24/24 07:01> Gastrointestinal Gastrointestinal: Denies hematochezia and Denies change in bowel habits <Neli Moulton - Last Filed: 07/24/24 07:01> Genitourinary Genitourinary: Denies hematuria, Denies difficulty urinating and Denies urinary incontinence <Neli Moulton - Last Filed: 07/24/24 07:01> Musculoskeletal Musculoskeletal: Denies back pain and Denies limited range of motion <Neli Moulton - Last Filed: 07/24/24 07:01> Neurologic Neurologic: Denies focal weakness and Denies convulsions <Neli Moulton - Last Filed: 07/24/24 07:01> Psychiatric Psychiatric: Denies depression and Denies mood swings <Neli Moulton - Last Filed: 07/24/24 07:01> Physical Exam Vital Signs: Vital Signs: Last Vital Signs Temp 97.2 F 07/24/24 03:31 Pulse 76 07/24/24 03:31 Resp 19 07/24/24 03:31 BP 125/55 L 07/24/24 03:31 Pulse Ox 94 07/24/24 03:31 O2 Del Method Room Air 07/24/24 03:31 O2 Flow Rate 4 07/18/24 15:30 BMI result Body Mass Index 42.3 <Neli [place] - Last Filed: 07/24/24 07:01> Const: Other: Complains of pain on the left heel <Neli [place] - Last Filed: 07/24/24 07:01> General: cooperative and no acute distress <Neli [place] - Last Filed: 07/24/24 07:01> Limitations: No language barrier <Neli [place] - Last Filed: 07/24/24 07:01> HEENT: Head: Yes normal to inspection <Neli [place] - Last Filed: 07/24/24 07:01> Face and sinus: Yes normal facial exam <Neli [place] - Last Filed: 07/24/24 07:01> Mouth: Normal oral and palatal mucosa present <Neli [place] - Last Filed: 07/24/24 07:01> Teeth and gingiva: dentition normal <Neli [place] - Last Filed: 07/24/24 07:01> Eyes: General: appearance normal, both eyes and all related structures <Neli [place] - Last Filed: 07/24/24 07:01> Pupils: Equal, round and reactive pupils present <[employer]Brien - Last Filed: 07/24/24 07:01> Resp: Effort & Inspection: normal respiratory effort <Neli [place] - Last Filed: 07/24/24 07:01> Cardio: Rate: regular rate <Neli [place] - Last Filed: 07/24/24 07:01> Rhythm: regular rhythm <Neli [place] - Last Filed: 07/24/24 07:01> GI: Palpation (GI): Soft to palpation and nontender <Neli [place] - Last Filed: 07/24/24 07:01> : General: Yes no CVA tenderness <Neli [place] - Last Filed: 07/24/24 07:01> Back/Spine/Pelvis: Other: Large sacral decubitus area on the right, probably at least 10 cm in diameter, with note of some nonviable debris coating the wound base and eschar <Neli [place] - Last Filed: 07/24/24 07:01> Back: no CVA tenderness <Neli [place] - Last Filed: 07/24/24 07:01> Skin: General skin exam: no rashes or lesions noted <[facility] - Last Filed: 07/24/24 07:01> Neuro: General: moves all extremities <Neli [place] - Last Filed: 07/24/24 07:01> Cranial nerves: Yes Equal, round and reactive pupils present <Neli [place] - Last Filed: 07/24/24 07:01> Extrem: Other: eschar left foot, heeel neuropathy <Neli [place] - Last Filed: 07/24/24 07:01> General: Yes normal to inspection <Neli [place] - Last Filed: 07/24/24 07:01> Psych: Appearance: grossly normal <Neli [place] Last Filed: 07/24/24 07:01> Objective Data Active Medications Acetaminophen (Acetaminophen 325 Mg Tablet) 650 mg PO Q6H PRN PRN Reason: Pain, Mild (Pain Scale 1-3), fever or headache Last Admin: 07/23/24 13:15 Dose: 650 mg Documented By: GATO Aspirin (Aspirin Enteric Coated 81 Mg Tablet.) 81 mg PO BID [facility] Last Admin: 07/23/24 21:32 Dose: 81 mg Documented By: NICOLAS Atorvastatin Calcium (Atorvastatin Calcium 40 Mg Tablet) 40 mg PO BEDTIME [facility] Last Admin: 07/23/24 21:33 Dose: 40 mg Documented By: NICOLAS Bisacodyl (Bisacodyl 10 Mg Supp.Rect) 10 mg SD DAILY PRN PRN Reason: Constipation Calcium Carbonate (Calcium Carbonate 750 Mg Tab.Chew) 750 mg PO Q4H PRN PRN Reason: Heartburn Clopidogrel Bisulfate (Clopidogrel Bisulfate 75 Mg Tablet) 75 mg PO BEDTIME [facility] Last Admin: 07/23/24 21:32 Dose: 75 mg Documented By: NICOLAS Glucose (Glucose Gel 15 Gm Gel..Gram.) 15 gm PO Q15M PRN; Protocol PRN Reason: per Hypoglycemia Standing Ord. Heparin Sodium (Porcine) (Heparin Sodium,Porcine 5,000 Unit/Ml Vial) 5,000 unit SUBCUT Q12H [facility] Last Admin: 07/24/24 05:32 Dose: 5,000 unit Documented By: NICOLAS Dextrose (D10) 250 mls @ 750 mls/hr IV Q15M PRN; Protocol PRN Reason: per Hypoglycemia Standing Ord. Piperacillin Sod/Tazobactam (Sod 4.5 gm/ Sodium Chloride) 100 mls @ 200 mls/hr IV Q6H [facility] Last Infusion: 07/24/24 06:07 Dose: Infused Documented By: NICOLAS Meropenem 1 gm/ Sodium (Chloride) 100 mls @ 200 mls/hr IV Q8H [facility] Last Infusion: 07/24/24 03:10 Dose: Infused Documented By: NICOLAS Daptomycin 500 mg/ Sodium (Chloride) 60 mls @ 100.325 mls/hr IV Q24H [facility] Last Infusion: 07/23/24 22:27 Dose: Infused Documented By: CHON Insulin Human Lispro (Insulin Lispro 100 Unit/Ml 3 Ml Vial) 0 unit SUBCUT QIDAS [facility]; Protocol Last Admin: 07/23/24 21:36 Dose: 6 unit Documented By: NICOLAS Insulin Human Lispro (Insulin Lispro 100 Unit/Ml 3 Ml Vial) 5 unit SUBCUT QIDACHS [facility] Last Admin: 07/23/24 21:37 Dose: 5 unit Documented By: NICOLAS Levothyroxine Sodium (Levothyroxine Sodium 112 Mcg Tablet) 112 mcg PO DAILY@0600 [facility] Last Admin: 07/24/24 05:32 Dose: 112 mcg Documented By: NICOLAS Lisinopril (Lisinopril 10 Mg Tablet) 10 mg PO DAILY [facility]; Protocol Last Admin: 07/23/24 08:06 Dose: 10 mg Documented By: GATO Magnesium Hydroxide (Milk Of Magnesia 30 Ml Oral.Susp) 30 ml PO DAILY PRN PRN Reason: Constipation Magnesium Hydroxide (Milk Of Magnesia 30 Ml Oral.Susp) 5 ml PO Q8H PRN PRN Reason: Constipation Melatonin (Melatonin 3 Mg Tablet) 6 mg PO BEDTIME PRN PRN Reason: Insomnia Metoprolol Tartrate (Metoprolol Tartrate 12.5 Mg Halftab) 12.5 mg PO BID [facility]; Protocol Last Admin: 07/23/24 21:33 Dose: 12.5 mg Documented By: NICOLAS Naloxone HCl (Naloxone Hcl 0.4 Mg/Ml Vial) 0.04 mg IVPUSH Q5M PRN PRN Reason: Excessive sedation or RR < 8 Nystatin (Nystatin Cream 15 Gm Tube) 1 appl TOPICAL BID [facility]; Protocol Last Admin: 07/23/24 21:39 Dose: 1 appl Documented By: NICOLAS Omeprazole (Omeprazole 40 Mg Capsule.Dr) 40 mg PO DAILY@0630 [facility] Last Admin: 07/24/24 05:32 Dose: 40 mg Documented By: NICOLAS Sodium Biphosphate/Sodium Phosphate (Sodium Phosphate,[place]-Dibasic 133 Ml Enema) 118 ml SD DAILY PRN PRN Reason: Constipation Sodium Chloride (0.9 % Sodium Chloride Flush 3 Ml Syringe) 3 ml IVFLUSH QSHIFT [facility] Last Admin: 07/23/24 21:39 Dose: 3 ml Documented By: NICOLAS Sodium Hypochlorite (Sodium Hypochlorite 0.125% 473 Ml Solution) 1 appl TOPICAL DAILY [facility] Last Admin: 07/23/24 08:08 Dose: Not Given Documented By: GATO Non-Admin Reason: Duplicate Order Sodium Hypochlorite (Sodium Hypochlorite 0.125% 473 Ml Solution) 1 appl TOPICAL DAILY [facility] Last Admin: 07/23/24 10:25 Dose: 1 appl Documented By: GATO <Neli Moulton - Last Filed: 07/24/24 07:01> Labs CBC & Chem 7: 07/22/24 05:52 07/23/24 05:45 <Neli Moulton - Last Filed: 07/24/24 07:01> Labs: Laboratory Results - last 24 hr 07/23/24 07/23/2407/23/24 05:45 07:26 11:35 Anion Gap 10 L Estim Creat Clear Calc 136.5 Estimated GFR > 60 POC Glucose 183 H 293 H Random Glucose 203 H Calcium 8.4 D Total Creatine Kinase 24 L 07/23/24 07/23/24 16:15 20:43 Anion Gap Estim Creat Clear Calc Estimated GFR POC Glucose 195 H 275 H Random Glucose Calcium Total Creatine Kinase <Neli Moulton - Last Filed: 07/24/24 07:01> Assessment and Plan (1) Sacral decubitus ulcer: Status: Acute <Neli Moulton - Last Filed: 07/24/24 07:01> Assessment and Plan: Wound with good granulation on the sacral area Wound VAC placed with wound care nurse Plan to change wound VAC Tuesday Bed sore precautions <Steve Paiz MD - Last Filed: 07/24/24 10:46> (2) Heel ulcer: Status: Acute <Neli Moulton - Last Filed: 07/24/24 07:01> Assessment and Plan: Note of fibrinous debris coating the heel I did sharp excisional debridement at bedside for an area about 3 x 3 cm to remove thick fibrinous and nonviable tissue Dakin solution dressings reapplied Foot wrapped in Kerlix roll Try to use Santyl dressings tomorrow <Steve Paiz MD - Last Filed: 07/24/24 10:46> Assessment and Plan: Plan for start Dakins solution packing started on Friday 07/20 for both sites. With anticipatory Wound Vac this week for the sacral ulcer. Wound care to pain. Reports 6/10 pain, some relief with tylenol. Continue the same dressing changes as previously implemented. Possible wound VAC today.Seen and examined independently <Neli Moulton - Last Filed: 07/24/24 07:01> Quality Stroke Does the patient have a stroke diagnosis?: No <Neli Poon Last Filed: 07/24/24 07:01> VTE Prior VTE?: No <Neli Poon Last Filed: 07/24/24 07:01> VTE Risk Level:: Medical - moderate - high <Neli Moulton - Last Filed: 07/24/24 07:01> VTE Device Contraindication: Treatment Not Indicated <Neli Moulton - Last Filed: 07/24/24 07:01> VTE Drug Contraindication: N/A - Med Ordered <Neli Moulton - Last Filed: 07/24/24 07:01>
[2024-07-24 07:53] LABS: Glucose, Whole Blood 203 mg/dL (60-115)
[2024-07-24] MEDS: Metoprolol Tartrate 12.5 MG HALFTAB PO ×2 (08:07→20:14)
[2024-07-24] MEDS: lisinopriL 10 MG TABLET PO (08:07)
[2024-07-24] MEDS: Aspirin Enteric Coated 81 MG TABLET.DR PO ×2 (08:07→20:13)
[2024-07-24] MEDS: 0.9 % Sodium Chloride Flush 3 ML SYRINGE IVFLUSH ×3 (08:07→23:31)
[2024-07-24] MEDS: Insulin Lispro 100 UNIT/ML 3 ML VIAL SUBCUT ×7 (08:07→21:18)
[2024-07-24] MEDS: Nystatin Cream 15 GM TUBE 1 APPL TOPICAL ×2 (08:08→20:25)
[2024-07-24] MEDS: Heparin Sodium,Porcine Flush 50 UNITS/5 ML SYRINGE IVFLUSH ×3 (08:26→23:30)
[2024-07-24] MEDS: Morphine Sulfate 4 MG/ML CARTRIDGE 3 MG IVPUSH (10:07)
--- NOTE | 2024-07-24 10:46 | PM.PROC ---
Brief Operative Note Date of procedure: 07/24/24 Pre-op diagnosis: Sacral decubitus ulcer and heel ulcer, left Post-op diagnosis: same Procedure: Procedure: Change of dressings with use of wound VAC, sharp excisional debridement of left heel ulcer There was note of thick fibrinous and nonviable coating on the left heel. An area of the ulcer measuring 3 x 3 cm was debrided sharply using fine scissors to excise this nonviable coating of tissue . Dakin solution dressings were applied and the foot was wrapped in Kerlix roll The sacral decubitus ulcer was also examined and a wound VAC was applied Pathology: none sent Condition: stable
--- NOTE | 2024-07-24 10:46 | HO.WOUND ---
Wound Consult: Follow up 69yr old Male? admitted to [facility] [place] on 06/2324 - See progress notes and H&P for detailed history.? Wound consult follow up for sacral wound and bilateral heels wounds.? Sacrum -?Stage 4 Pressure Injury?Present on Admission - Packing removed - wound bed debrided at bedside by Dr. Paiz patient tolerated well - The deeper part of the wound bed remains with mostly red moist viable tissue to extending end of the wound bed remains marbled with pink moist tissue and yellow slough. The wound bed was irrigated and cleansed with saline.?Wound vac applied. NPWT Suction Settings: 125mmHg - Setting Type: Continuous Premedication provided by direct care nurse - see MAR. Wound assessment: Approximate 12cm x 6cm x 4cm no undermining noted from 9-1 o'clockdepth of 2cm Wound bed: marbled area of pink red moist tissue and yellow moist slough? - no exposed bone or tendon observed or palpated NPWT Dressing Application: 1 black foam cut to size and applied to wound bed, Skin and wound edge protected with barrier paste strip outlining lower edge.? Skin protected with Drape for Bridge one piece of black foam applied for bridge to left abdomen avoiding bone. Dressing completed and no leak noted.? Suction set to 125mmHg - patient denies pain and or burning sensation. Patient tolerated well.? Next scheduled change will be Tuesday07/27/24 per discussion with Chencho Wallace by this gag writer - Inpatient wound care nurse. Left Heel Etiology: Stage 4 Pressure Injury?Present on Admission Wound Bed: Bedisde debridement performed by Dr. Paiz - patient tolerated well - Dakins applied at the bedside - Recommend Santyl Application starting tomorrow 07/25/24 Goals of Treatment: ?Dakins wet to moist dressing packing applied - recommend switch to santyl Right Heel - Not assessed today - no new topical recommendation needed at this time. Etiology: ?Resurfacing Pressure Injury - Suspect stage 2 - last assessed as Deep Tissue Injury on last admission -?Present on Admission Goals of Treatment: ?Betadine to keep dry and off load pressure Off Load Pressure, Agility Specialty pulsate bed in use set to 4 bars patient reports significant improvement in comfort since transition to this bed on Tuesday. Wedges in use and heels off loaded with pillows - Dr. Paiz prefers pillows over heel protector boots. Recommendations: 1. Turn and Reposition every 2 hours and as needed for patient comfort.? Use pillows or wedges to support off loading positions. 2. Off Load all bony prominences with use of pillows and heel boots if needed.? Apply Preventative foams where needed. ?Elevate heels with heel protector boots if non-ambulatory at this time. 3. Monitor for incontinence and moisture control, use barrier creams when needed for prevention and treatment. 4. Provide adequate and supplemental nutrition.? 5. Order low air loss mattress. 6. When applicable maintain blood glucose levels per Providers order. 7. Right Heel - [place] with Betadine daily - allow to dry. Leave open to air. Do not apply foam dressing. Elevate heels off of bed surface with heel protector boots or pillows. 8. Left Heel - Cleanse with normal saline, pat dry. ?Apply barrier to the immediate maria l wound, apply thick layer of Santyl to entire wound bed, cover with saline moist gauze, dry abd pad and gauze wrap, change Daily. 9. Sacrum - NWPT 125mmHg - low & Continuous. Re-consult wound care Nurse for wound deterioration or wound changes.
[2024-07-24 11:09] LABS: Glucose, Whole Blood 190 mg/dL (60-115)
--- NOTE | 2024-07-24 12:34 | HO.PM.IMPN ---
Subjective Subjective Date of Service: 07/24/24 Interval History: Seen and examined this morning, post op surgical debridement and follow up for sacral decubitus ulcer, concern for OM. Reports 6/10 pain in both L heel and buttocks. States that R foot is beginning to throb. Otherwise, doing well and tolerating PO. Physical Exam Vital Signs: Vital Signs: Last Vital Signs Temp 98.1 F 07/24/24 11:30 Pulse 78 07/24/24 11:30 Resp 18 07/24/24 11:30 BP 123/59 L 07/24/24 11:30 Pulse Ox 93 07/24/24 11:30 O2 Del Method Room Air 07/24/24 11:30 O2 Flow Rate 4 07/18/24 15:30 BMI result Body Mass Index 42.3 Constitutional - Awake and Alert, No apparent distress Eyes - PERRLA, EOMI Cardiovascular - S1S2, RRR, No edema Respiratory - Normal lung expansion, Normal respiratory effort, No respiratory distress, CTA bilaterally Gastrointestinal - NT / ND; +BS; No rebound or guarding - incontinent of urine Extremities - no calf tenderness bilaterally, no swelling Skin - Warm/Dry. Unstageable ulcer sacrum with foul odor. Unstageable ulcer L heel with eschar and some slough with foul odor--see picture elsewhere---see picture in wound nurse note Neurological - Alert & oriented x3 Psychological - Appropriate affect Objective Data Active Medications Acetaminophen (Acetaminophen 325 Mg Tablet) 650 mg PO Q6H PRN PRN Reason: Pain, Mild (Pain Scale 1-3), fever or headache Last Admin: 07/23/24 13:15 Dose: 650 mg Documented By: GATO Aspirin (Aspirin Enteric Coated 81 Mg Tablet.) 81 mg PO BID [facility] Last Admin: 07/24/24 08:07 Dose: 81 mg Documented By: TAWANA Atorvastatin Calcium (Atorvastatin Calcium 40 Mg Tablet) 40 mg PO BEDTIME [facility] Last Admin: 07/23/24 21:33 Dose: 40 mg Documented By: NICOLAS Bisacodyl (Bisacodyl 10 Mg Supp.Rect) 10 mg DE DAILY PRN PRN Reason: Constipation Calcium Carbonate (Calcium Carbonate 750 Mg Tab.Chew) 750 mg PO Q4H PRN PRN Reason: Heartburn Clopidogrel Bisulfate (Clopidogrel Bisulfate 75 Mg Tablet) 75 mg PO BEDTIME [facility] Last Admin: 07/23/24 21:32 Dose: 75 mg Documented By: NICOLAS Collagenase (Collagenase Clostridium Hist. 30 Gm Tube) 1 appl TOPICAL DAILY [facility]; Protocol Glucose (Glucose Gel 15 Gm Gel..Gram.) 15 gm PO Q15M PRN; Protocol PRN Reason: per Hypoglycemia Standing Ord. Heparin Sodium (Porcine) (Heparin Sodium,Porcine 5,000 Unit/Ml Vial) 5,000 unit SUBCUT Q12H [facility] Last Admin: 07/24/24 05:32 Dose: 5,000 unit Documented By: NIOCLAS Heparin Sodium (Porcine) (Heparin Sodium,Porcine Flush 50 Units/5 Ml Syringe) 50 units IVFLUSH QSHIFT [facility] Last Admin: 07/24/24 08:26 Dose: 50 units Documented By: TAWANA Dextrose (D10) 250 mls @ 750 mls/hr IV Q15M PRN; Protocol PRN Reason: per Hypoglycemia Standing Ord. Piperacillin Sod/Tazobactam (Sod 4.5 gm/ Sodium Chloride) 100 mls @ 200 mls/hr IV Q6H [facility] Last Infusion: 07/24/24 06:07 Dose: Infused Documented By: NICOLAS Meropenem 1 gm/ Sodium (Chloride) 100 mls @ 200 mls/hr IV Q8H [facility] Last Infusion: 07/24/24 03:10 Dose: Infused Documented By: NICOLAS Daptomycin 500 mg/ Sodium (Chloride) 60 mls @ 100.325 mls/hr IV Q24H [facility] Last Infusion: 07/23/24 22:27 Dose: Infused Documented By: CHON Insulin Human Lispro (Insulin Lispro 100 Unit/Ml 3 Ml Vial) 0 unit SUBCUT QIDAS [facility]; Protocol Last Admin: 07/24/24 08:07 Dose: 4 unit Documented By: TAWANA Insulin Human Lispro (Insulin Lispro 100 Unit/Ml 3 Ml Vial) 5 unit SUBCUT QIDACHS [facility] Last Admin: 07/24/24 08:07 Dose: 5 unit Documented By: TAWANA Levothyroxine Sodium (Levothyroxine Sodium 112 Mcg Tablet) 112 mcg PO DAILY@0600 [facility] Last Admin: 07/24/24 05:32 Dose: 112 mcg Documented By: NICOLAS Lisinopril (Lisinopril 10 Mg Tablet) 10 mg PO DAILY [facility]; Protocol Last Admin: 07/24/24 08:07 Dose: 10 mg Documented By: TAWANA Magnesium Hydroxide (Milk Of Magnesia 30 Ml Oral.Susp) 30 ml PO DAILY PRN PRN Reason: Constipation Magnesium Hydroxide (Milk Of Magnesia 30 Ml Oral.Susp) 5 ml PO Q8H PRN PRN Reason: Constipation Melatonin (Melatonin 3 Mg Tablet) 6 mg PO BEDTIME PRN PRN Reason: Insomnia Metoprolol Tartrate (Metoprolol Tartrate 12.5 Mg Halftab) 12.5 mg PO BID [facility]; Protocol Last Admin: 07/24/24 08:07 Dose: 12.5 mg Documented By: TAWANA Morphine Sulfate (Morphine Sulfate 4 Mg/Ml Cartridge) 3 mg IVPUSH Q4H PRN; Protocol PRN Reason: Pain, Severe (Pain Scale 7-10) Last Admin: 07/24/24 10:07 Dose: 3 mg Documented By: TAWANA Naloxone HCl (Naloxone Hcl 0.4 Mg/Ml Vial) 0.04 mg IVPUSH Q5M PRN PRN Reason: Excessive sedation or RR < 8 Nystatin (Nystatin Cream 15 Gm Tube) 1 appl TOPICAL BID [facility]; Protocol Last Admin: 07/24/24 08:08 Dose: 1 appl Documented By: TAWANA Omeprazole (Omeprazole 40 Mg Capsule.Dr) 40 mg PO DAILY@0630 [facility] Last Admin: 07/24/24 05:32 Dose: 40 mg Documented By: NICOLAS Sodium Biphosphate/Sodium Phosphate (Sodium Phosphate,[place]-Dibasic 133 Ml Enema) 118 ml DE DAILY PRN PRN Reason: Constipation Sodium Chloride (0.9 % Sodium Chloride Flush 3 Ml Syringe) 3 ml IVFLUSH QSHIFT [facility] Last Admin: 07/24/24 08:07 Dose: 3 ml Documented By: TAWANA Sodium Hypochlorite (Sodium Hypochlorite 0.125% 473 Ml Solution) 1 appl TOPICAL DAILY [facility] Last Admin: 07/24/24 08:08 Dose: Not Given Documented By: TAWANA Non-Admin Reason: Duplicate Order Sodium Hypochlorite (Sodium Hypochlorite 0.125% 473 Ml Solution) 1 appl TOPICAL DAILY [facility] Last Admin: 07/24/24 08:08 Dose: Not Given Documented By: TAWANA Non-Admin Reason: dressing to be changed by surgeon today Labs 07/22/24 05:52 07/23/24 05:45 Labs: Laboratory Results - last 24 hr 07/23/24 07/23/24 07/24/24 16:15 20:43 07:48 POC Glucose 195 H 275 H 203 H 07/24/24 11:05 POC Glucose 190 H Assessment and Plan (1) Sacral decubitus ulcer: Status: Acute Assessment and Plan: Wound with good granulation on the sacral area Wound VAC placed with wound care nurse Plan to change wound VAC Tuesday Bed sore precautions (2) Heel ulcer: Status: Acute Plan 69 yo male with PMH of ROLO, DM, hypothyroidism, hyperlipidemia, HTN, CVA on aspirin and plavix discharged from here to [facility] for unstageable sacral ulcer s/p debridement on 06/20 and 06/23 by gen surg and then + blood cultures strep agalactie 11/25 treated with IV ceftriaxone and last dose ceftin 07/02 admitted for infected unstageable ulcer L heel #Infected unstageable decubitus ulcer L heel r/t type II diabetes -ESR 56, CRP 7, XR negative for osteo. MRI L foot w/wo ordered but declined -IV vanco and zosyn, changed to meropenem and dapto on 07/20 per ID recomendation -general surgery following and debrided sacral area and left heel, wound vac to be applied tomorrow -wound care following -no sepsis -follow cultures -bedside debridment today -check CPK weekly while on Dapto -has a pick line for fpc Abx #Infected unstageable sacral ulcer -general surgery consult -Abx as above -pressure dressing -Incontinent of urine. Unable to place condom cath due to anatomy. Lozano catheter ordered for skin integrity -surgerydebrided in OR on 07/18, being considered for wound vac -dressing change per surgery #SVT once while in the ED--resolved, K ok, mag ok, nor further episode #Insulin dependent type 2 diabetes -poc glucose, diabetic diet -dose adjusted basal insulin -admelog on ss -on Tresiba 32 bid, allergic to Lantus, continue short acting insulin with aditional insulin as needed #HypoT -levothyroxine #Hx CVA -continue DAPT, statin #HTN -continue lisinopril #Acute on chronic normocytic anemia d/t chronic disease -above transfusion threshold, likely in setting of chronic wounds, no bleeding dvt prophyalxis- heparin full code need for inpatient: infected foot ulcer with concern for osteomyelitis requiring broad spectum abx, further advanced imaging and expert consultation Quality Stroke Does the patient have a stroke diagnosis?: No VTE Prior VTE?: No VTE Risk Level:: Medical - moderate - high VTE Device Contraindication: Treatment Not Indicated VTE Drug Contraindication: N/A - Med Ordered
[2024-07-24 16:12] LABS: Glucose, Whole Blood 261 mg/dL (60-115)
[2024-07-24] MEDS: Clopidogrel Bisulfate 75 MG TABLET PO (20:10)
[2024-07-24] MEDS: Atorvastatin Calcium 40 MG TABLET PO (20:13)
[2024-07-24] MEDS: DAPTOmycin 500 MG in 0.9 % Sodium Chloride 50 ML 100 MG IV (20:30)
[2024-07-24 20:51] LABS: Glucose, Whole Blood 283 mg/dL (60-115)
[2024-07-25] VITALS (9 sets, daily range): BP systolic 97–128; BP diastolic 50–61; PULSE 78–91; RESP 16–20; TEMP 36–37.5; O2SAT 91–98
[2024-07-25] MEDS: Piperacillin Sodium/Tazobactam 4.5 GM in 0.9 % Sodium Chloride 100 ML IV ×2 (05:31→12:58)
[2024-07-25] MEDS: Omeprazole 40 MG CAPSULE.DR PO (05:33)
[2024-07-25] MEDS: Levothyroxine Sodium 112 MCG TABLET PO (05:33)
[2024-07-25] MEDS: Heparin Sodium,Porcine 5,000 UNIT/ML VIAL 5000 UNIT SUBCUT ×2 (06:55→18:18)
--- NOTE | 2024-07-25 06:57 | HO.STUDENTPN ---
Subjective Subjective Date of Service: 07/25/24 <Neli Moulton - Last Filed: 07/25/24 07:06> 07/25/24 <Cherry Ramírez PA-C - Last Filed: 07/25/24 10:56> Interval History: Patient is post op surgical debridement and follow up for sacral decubitus ulcer, concern for OM. Reports minimal to no pain in both L heel and buttocks. States that his current complaint is pruritus localized to area surrounding sacral wound vac. Denies bowel movement, reports several false alarms over the past few days. Able to pass flatus, denies abdominal pain. Otherwise, doing well and tolerating PO. Reports some anxiety regarding next wound vac change due to pain and discomfort. <Neli Moulton - Last Filed: 07/25/24 07:06> Review of Systems All systems reviewed and are negative except for as stated in HPI. <Neliana maría Moulton - Last Filed: 07/25/24 07:06> Constitutional Constitutional: Reports no additional constitutional complaints, Denies chills and Denies fever(s) <Neliana maría Moulton - Last Filed: 07/25/24 07:06> Cardiovascular Cardiovascular: Denies chest pain, Denies dyspnea and Denies dyspnea on exertion <Neli Moulton - Last Filed: 07/25/24 07:06> Respiratory Respiratory: Denies cough, Denies dyspnea and Denies dyspnea on exertion <Neliana maría Moulton - Last Filed: 07/25/24 07:06> Gastrointestinal Gastrointestinal: Denies hematochezia and Denies change in bowel habits <Neliana maría Moulton - Last Filed: 07/25/24 07:06> Genitourinary Genitourinary: Denies hematuria, Denies difficulty urinating and Denies urinary incontinence <Neli Moulton - Last Filed: 07/25/24 07:06> Musculoskeletal Musculoskeletal: Denies back pain and Denies limited range of motion <Neliana maría Moulton - Last Filed: 07/25/24 07:06> Neurologic Neurologic: Denies focal weakness and Denies convulsions <Neli Moulton - Last Filed: 07/25/24 07:06> Physical Exam Vital Signs: Vital Signs: Last Vital Signs Temp 99.5 F 07/25/24 03:36 Pulse 83 07/25/24 03:36 Resp 20 07/25/24 03:36 BP 106/57 L 07/25/24 03:36 Pulse Ox 92 07/25/24 03:36 O2 Del Method Room Air 07/25/24 03:36 O2 Flow Rate 4 07/18/24 15:30 BMI result Body Mass Index 42.3 <Neli [place] - Last Filed: 07/25/24 07:06> Const: Other: Complains of pain on the left heel <Neli [place] - Last Filed: 07/25/24 07:06> General: cooperative and no acute distress <Neli [place] - Last Filed: 07/25/24 07:06> Limitations: No language barrier <Neli [place] - Last Filed: 07/25/24 07:06> HEENT: Head: Yes normal to inspection <Neli [place] - Last Filed: 07/25/24 07:06> Face and sinus: Yes normal facial exam <Neli [place] - Last Filed: 07/25/24 07:06> Mouth: Normal oral and palatal mucosa present <Neli [place] - Last Filed: 07/25/24 07:06> Teeth and gingiva: dentition normal <Neli [place] - Last Filed: 07/25/24 07:06> Eyes: General: appearance normal, both eyes and all related structures <Neli [place] - Last Filed: 07/25/24 07:06> Pupils: Equal, round and reactive pupils present <Neli [place] - Last Filed: 07/25/24 07:06> Resp: Effort & Inspection: normal respiratory effort <Neli [place] - Last Filed: 07/25/24 07:06> Cardio: Rate: regular rate <Neli [place] - Last Filed: 07/25/24 07:06> Rhythm: regular rhythm <Neli [place] - Last Filed: 07/25/24 07:06> GI: Palpation (GI): Soft to palpation and nontender <Neli [place] - Last Filed: 07/25/24 07:06> : General: Yes no CVA tenderness <Neli [place] - Last Filed: 07/25/24 07:06> Back/Spine/Pelvis: Other: Large sacral decubitus area on the right, probably at least 10 cm in diameter, with note of some nonviable debris coating the wound base and eschar <Neli [place] - Last Filed: 07/25/24 07:06> Back: no CVA tenderness <Neli [place] - Last Filed: 07/25/24 07:06> Skin: General skin exam: no rashes or lesions noted <Neli [place] - Last Filed: 07/25/24 07:06> Neuro: General: moves all extremities <Neli [place] - Last Filed: 07/25/24 07:06> Cranial nerves: Yes Equal, round and reactive pupils present <Neli [place] - Last Filed: 07/25/24 07:06> Extrem: Other: eschar left foot, heeel neuropathy <Neli [place] - Last Filed: 07/25/24 07:06> General: Yes normal to inspection <Neli [place] - Last Filed: 07/25/24 07:06> Psych: Appearance: grossly normal <Neli [place] - Last Filed: 07/25/24 07:06> Objective Data Active Medications Acetaminophen (Acetaminophen 325 Mg Tablet) 650 mg PO Q6H PRN PRN Reason: Pain, Mild (Pain Scale 1-3), fever or headache Last Admin: 07/23/24 13:15 Dose: 650 mg Documented By: GATO Aspirin (Aspirin Enteric Coated 81 Mg Tablet.) 81 mg PO BID [facility] Last Admin: 07/24/24 20:13 Dose: 81 mg Documented By: BRANDON Atorvastatin Calcium (Atorvastatin Calcium 40 Mg Tablet) 40 mg PO BEDTIME [facility] Last Admin: 07/24/24 20:13 Dose: 40 mg Documented By: BRANDON Bisacodyl (Bisacodyl 10 Mg Supp.Rect) 10 mg DC DAILY PRN PRN Reason: Constipation Calcium Carbonate (Calcium Carbonate 750 Mg Tab.Chew) 750 mg PO Q4H PRN PRN Reason: Heartburn Clopidogrel Bisulfate (Clopidogrel Bisulfate 75 Mg Tablet) 75 mg PO BEDTIME [facility] Last Admin: 07/24/24 20:10 Dose: 75 mg Documented By: BRANDON Collagenase (Collagenase Clostridium Hist. 30 Gm Tube) 1 appl TOPICAL DAILY [facility]; Protocol Glucose (Glucose Gel 15 Gm Gel..Gram.) 15 gm PO Q15M PRN; Protocol PRN Reason: per Hypoglycemia Standing Ord. Heparin Sodium (Porcine) (Heparin Sodium,Porcine 5,000 Unit/Ml Vial) 5,000 unit SUBCUT Q12H [facility] Last Admin: 07/24/24 18:27 Dose: 5,000 unit Documented By: BENTLEY Heparin Sodium (Porcine) (Heparin Sodium,Porcine Flush 50 Units/5 Ml Syringe) 50 units IVFLUSH QSHIFT [facility] Last Admin: 07/24/24 23:30 Dose: 50 units Documented By: BRANDON Dextrose (D10) 250 mls @ 750 mls/hr IV Q15M PRN; Protocol PRN Reason: per Hypoglycemia Standing Ord. Piperacillin Sod/Tazobactam (Sod 4.5 gm/ Sodium Chloride) 100 mls @ 200 mls/hr IV Q6H [facility] Last Admin: 07/25/24 05:31 Dose: 200 mls/hr Documented By: BRANDON Meropenem 1 gm/ Sodium (Chloride) 100 mls @ 200 mls/hr IV Q8H [facility] Last Infusion: 07/25/24 03:49 Dose: Infused Documented By: BRANDON Daptomycin 500 mg/ Sodium (Chloride) 60 mls @ 100.325 mls/hr IV Q24H [facility] Last Infusion: 07/24/24 21:06 Dose: Infused Documented By: BRANDON Insulin Human Lispro (Insulin Lispro 100 Unit/Ml 3 Ml Vial) 0 unit SUBCUT QIDAS [facility]; Protocol Last Admin: 07/24/24 21:18 Dose: 6 unit Documented By: BRANDON Insulin Human Lispro (Insulin Lispro 100 Unit/Ml 3 Ml Vial) 5 unit SUBCUT QIDACHS [facility] Last Admin: 07/24/24 21:18 Dose: 5 unit Documented By: BRANDON Levothyroxine Sodium (Levothyroxine Sodium 112 Mcg Tablet) 112 mcg PO DAILY@0600 [facility] Last Admin: 07/25/24 05:33 Dose: 112 mcg Documented By: BRANDON Lisinopril (Lisinopril 10 Mg Tablet) 10 mg PO DAILY [facility]; Protocol Last Admin: 07/24/24 08:07 Dose: 10 mg Documented By: TAWANA Magnesium Hydroxide (Milk Of Magnesia 30 Ml Oral.Susp) 30 ml PO DAILY PRN PRN Reason: Constipation Magnesium Hydroxide (Milk Of Magnesia 30 Ml Oral.Susp) 5 ml PO Q8H PRN PRN Reason: Constipation Melatonin (Melatonin 3 Mg Tablet) 6 mg PO BEDTIME PRN PRN Reason: Insomnia Metoprolol Tartrate (Metoprolol Tartrate 12.5 Mg Halftab) 12.5 mg PO BID [facility]; Protocol Last Admin: 07/24/24 20:14 Dose: 12.5 mg Documented By: BRANDON Comments: WI=022/[id number] HR=95 Morphine Sulfate (Morphine Sulfate 4 Mg/Ml Cartridge) 3 mg IVPUSH Q4H PRN; Protocol PRN Reason: Pain, Severe (Pain Scale 7-10) Last Admin: 07/24/24 10:07 Dose: 3 mg Documented By: TAWANA Naloxone HCl (Naloxone Hcl 0.4 Mg/Ml Vial) 0.04 mg IVPUSH Q5M PRN PRN Reason: Excessive sedation or RR < 8 Nystatin (Nystatin Cream 15 Gm Tube) 1 appl TOPICAL BID [facility]; Protocol Last Admin: 07/24/24 20:25 Dose: 1 appl Documented By: BRANDON Omeprazole (Omeprazole 40 Mg Capsule.Dr) 40 mg PO DAILY@0630 [facility] Last Admin: 07/25/24 05:33 Dose: 40 mg Documented By: BRANDON Sodium Biphosphate/Sodium Phosphate (Sodium Phosphate,[place]-Dibasic 133 Ml Enema) 118 ml DC DAILY PRN PRN Reason: Constipation Sodium Chloride (0.9 % Sodium Chloride Flush 3 Ml Syringe) 3 ml IVFLUSH QSHIFT [facility] Last Admin: 07/24/24 23:31 Dose: 3 ml Documented By: BRANDON Sodium Hypochlorite (Sodium Hypochlorite 0.125% 473 Ml Solution) 1 appl TOPICAL DAILY [facility] Last Admin: 07/24/24 08:08 Dose: Not Given Documented By: TAWANA Non-Admin Reason: Duplicate Order Sodium Hypochlorite (Sodium Hypochlorite 0.125% 473 Ml Solution) 1 appl TOPICAL DAILY [facility] Last Admin: 07/24/24 08:08 Dose: Not Given Documented By: TAWANA Non-Admin Reason: dressing to be changed by surgeon today <Neli Moulton - Last Filed: 07/25/24 07:06> Labs CBC & Chem 7: 07/22/24 05:52 07/23/24 05:45 <Nelijackeline Moulton - Last Filed: 07/25/24 07:06> Labs: Laboratory Results - last 24 hr 07/24/24 07/24/24 07/24/24 07:48 11:05 16:09 POC Glucose 203 H 190 H 261 H 07/24/24 20:43 POC Glucose 283 H <Neli [place] - Last Filed: 07/25/24 07:06> Assessment and Plan (1) Sacral decubitus ulcer: Status: Acute <Neli Moulton - Last Filed: 07/25/24 07:06> Assessment and Plan: Wound VAC placed with wound care nurse on 07/24. Wound with good granulation on the sacral area, anticipated next wound VAC change this Friday 07/27. Continue previous off loading and bed sore precautions as previously implemented. Will continue to monitor. <Neli Moulton - Last Filed: 07/25/24 07:06> Wound VAC placed with wound care nurse on 07/24. Wound with good granulation on the sacral area, anticipate next wound VAC change this Friday 07/27. Continue previous off loading and bed sore precautions as previously implemented. Will continue to monitor. <Cherry Ramírez PA-C - Last Filed: 07/25/24 10:56> (2) Heel ulcer: Status: Acute <Neli Moulton - Last Filed: 07/25/24 07:06> Assessment and Plan: Sharp excisional debridement completed by Dr. Paiz at bedside on 07/24. Removed approximately 3cm area of thick fibrinous, nonviable tissue. Dakin solution dressings reapplied and heel was rewrapped with soft white bandage. Anticipate dressing change today (07/25) to L heel with santyl dressings. <Neli Moulton - Last Filed: 07/25/24 07:06> Assessment and Plan: Wound vac in place, good seal, no issues overnight. Serosanguineous drainage in cannister. Plan wound vac change Friday 07/27. Left heel debrided yesterday. 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 <Cherry Ramírez PA-C - Last Filed: 07/25/24 10:56> Quality Stroke Does the patient have a stroke diagnosis?: No <Neli Moulton - Last Filed: 07/25/24 07:06> VTE Prior VTE?: No <Neli Moulton - Last Filed: 07/25/24 07:06> VTE Risk Level:: Medical - moderate - high <Neli Moulton - Last Filed: 07/25/24 07:06> VTE Device Contraindication: Treatment Not Indicated <Neli Moulton - Last Filed: 07/25/24 07:06> VTE Drug Contraindication: N/A - Med Ordered <Neli Moulton - Last Filed: 07/25/24 07:06>
[2024-07-25 08:06] LABS: Glucose, Whole Blood 212 mg/dL (60-115)
[2024-07-25] MEDS: Metoprolol Tartrate 12.5 MG HALFTAB PO ×2 (08:39→20:21)
[2024-07-25] MEDS: Aspirin Enteric Coated 81 MG TABLET.DR PO ×2 (08:41→20:21)
[2024-07-25] MEDS: lisinopriL 10 MG TABLET PO (08:41)
[2024-07-25] MEDS: 0.9 % Sodium Chloride Flush 3 ML SYRINGE IVFLUSH ×3 (08:42→20:35)
[2024-07-25] MEDS: Insulin Lispro 100 UNIT/ML 3 ML VIAL SUBCUT ×5 (08:42→20:21)
[2024-07-25] MEDS: Heparin Sodium,Porcine Flush 50 UNITS/5 ML SYRINGE IVFLUSH ×3 (08:43→23:17)
[2024-07-25] MEDS: Nystatin Cream 15 GM TUBE 1 APPL TOPICAL ×2 (08:46→20:32)
[2024-07-25] MEDS: Collagenase Clostridium Hist. 30 GM TUBE 1 APPL TOPICAL (10:22)
[2024-07-25 11:44] LABS: Glucose, Whole Blood 233 mg/dL (60-115)
--- NOTE | 2024-07-25 12:09 | HO.PM.IMPN ---
Subjective Subjective Date of Service: 07/25/24 Interval History: Wound vac placed yesterday, boss no pain this morning Physical Exam Vital Signs: Vital Signs: Last Vital Signs Temp 96.8 F 07/25/24 08:00 Pulse 85 07/25/24 08:00 Resp 20 07/25/24 08:00 BP 124/59 L 07/25/24 08:00 Pulse Ox 93 07/25/24 08:00 O2 Del Method Room Air 07/25/24 08:00 O2 Flow Rate 4 07/18/24 15:30 BMI result Body Mass Index 42.3 Constitutional - Awake and Alert, No apparent distress Eyes - PERRLA, EOMI Cardiovascular - S1S2, RRR, No edema Respiratory - Normal lung expansion, Normal respiratory effort, No respiratory distress, CTA bilaterally Gastrointestinal - NT / ND; +BS; No rebound or guarding - incontinent of urine Extremities - no calf tenderness bilaterally, no swelling Skin - Warm/Dry. Unstageable ulcer sacrum with foul odor. Unstageable ulcer L heel with eschar and some slough with foul odor--see picture elsewhere---see picture in wound nurse note, wound vac now in place Neurological - Alert & oriented x3 Psychological - Appropriate affect Objective Data Active Medications Acetaminophen (Acetaminophen 325 Mg Tablet) 650 mg PO Q6H PRN PRN Reason: Pain, Mild (Pain Scale 1-3), fever or headache Last Admin: 07/23/24 13:15 Dose: 650 mg Documented By: GATO Aspirin (Aspirin Enteric Coated 81 Mg Tablet.) 81 mg PO BID [facility] Last Admin: 07/25/24 08:41 Dose: 81 mg Documented By: TAWANA Atorvastatin Calcium (Atorvastatin Calcium 40 Mg Tablet) 40 mg PO BEDTIME [facility] Last Admin: 07/24/24 20:13 Dose: 40 mg Documented By: BRANDON Bisacodyl (Bisacodyl 10 Mg Supp.Rect) 10 mg NE DAILY PRN PRN Reason: Constipation Calcium Carbonate (Calcium Carbonate 750 Mg Tab.Chew) 750 mg PO Q4H PRN PRN Reason: Heartburn Clopidogrel Bisulfate (Clopidogrel Bisulfate 75 Mg Tablet) 75 mg PO BEDTIME [facility] Last Admin: 07/24/24 20:10 Dose: 75 mg Documented By: BRANDON Collagenase (Collagenase Clostridium Hist. 30 Gm Tube) 1 appl TOPICAL DAILY [facility]; Protocol Last Admin: 07/25/24 10:22 Dose: 1 appl Documented By: TAWANA Glucose (Glucose Gel 15 Gm Gel..Gram.) 15 gm PO Q15M PRN; Protocol PRN Reason: per Hypoglycemia Standing Ord. Heparin Sodium (Porcine) (Heparin Sodium,Porcine 5,000 Unit/Ml Vial) 5,000 unit SUBCUT Q12H [facility] Last Admin: 07/25/24 06:55 Dose: 5,000 unit Documented By: BRANDON Heparin Sodium (Porcine) (Heparin Sodium,Porcine Flush 50 Units/5 Ml Syringe) 50 units IVFLUSH QSHIFT [facility] Last Admin: 07/25/24 08:43 Dose: 50 units Documented By: TAWANA Dextrose (D10) 250 mls @ 750 mls/hr IV Q15M PRN; Protocol PRN Reason: per Hypoglycemia Standing Ord. Piperacillin Sod/Tazobactam (Sod 4.5 gm/ Sodium Chloride) 100 mls @ 200 mls/hr IV Q6H [facility] Last Infusion: 07/25/24 06:01 Dose: Infused Documented By: BRANDON Meropenem 1 gm/ Sodium (Chloride) 100 mls @ 200 mls/hr IV Q8H [facility] Last Infusion: 07/25/24 03:49 Dose: Infused Documented By: BRANDON Daptomycin 500 mg/ Sodium (Chloride) 60 mls @ 100.325 mls/hr IV Q24H [facility] Last Infusion: 07/24/24 21:06 Dose: Infused Documented By: BRANDON Insulin Human Lispro (Insulin Lispro 100 Unit/Ml 3 Ml Vial) 0 unit SUBCUT QIDAS [facility]; Protocol Last Admin: 07/25/24 08:42 Dose: 4 unit Documented By: TAWANA Insulin Human Lispro (Insulin Lispro 100 Unit/Ml 3 Ml Vial) 5 unit SUBCUT QIDAS [facility] Last Admin: 07/25/24 08:42 Dose: 5 unit Documented By: TAWANA Levothyroxine Sodium (Levothyroxine Sodium 112 Mcg Tablet) 112 mcg PO DAILY@0600 [facility] Last Admin: 07/25/24 05:33 Dose: 112 mcg Documented By: BRANDON Lisinopril (Lisinopril 10 Mg Tablet) 10 mg PO DAILY [facility]; Protocol Last Admin: 07/25/24 08:41 Dose: 10 mg Documented By: TAWANA Magnesium Hydroxide (Milk Of Magnesia 30 Ml Oral.Susp) 30 ml PO DAILY PRN PRN Reason: Constipation Magnesium Hydroxide (Milk Of Magnesia 30 Ml Oral.Susp) 5 ml PO Q8H PRN PRN Reason: Constipation Melatonin (Melatonin 3 Mg Tablet) 6 mg PO BEDTIME PRN PRN Reason: Insomnia Metoprolol Tartrate (Metoprolol Tartrate 12.5 Mg Halftab) 12.5 mg PO BID [facility]; Protocol Last Admin: 07/25/24 08:39 Dose: 12.5 mg Documented By: TAWANA Morphine Sulfate (Morphine Sulfate 4 Mg/Ml Cartridge) 3 mg IVPUSH Q4H PRN; Protocol PRN Reason: Pain, Severe (Pain Scale 7-10) Last Admin: 07/24/24 10:07 Dose: 3 mg Documented By: TAWANA Naloxone HCl (Naloxone Hcl 0.4 Mg/Ml Vial) 0.04 mg IVPUSH Q5M PRN PRN Reason: Excessive sedation or RR < 8 Nystatin (Nystatin Cream 15 Gm Tube) 1 appl TOPICAL BID [facility]; Protocol Last Admin: 07/25/24 08:46 Dose: 1 appl Documented By: TAWANA Omeprazole (Omeprazole 40 Mg Capsule.Dr) 40 mg PO DAILY@0630 [facility] Last Admin: 07/25/24 05:33 Dose: 40 mg Documented By: BRANDON Sodium Biphosphate/Sodium Phosphate (Sodium Phosphate,[place]-Dibasic 133 Ml Enema) 118 ml NE DAILY PRN PRN Reason: Constipation Sodium Chloride (0.9 % Sodium Chloride Flush 3 Ml Syringe) 3 ml IVFLUSH QSHIFT [facility] Last Admin: 07/25/24 08:42 Dose: 3 ml Documented By: TAWANA Sodium Hypochlorite (Sodium Hypochlorite 0.125% 473 Ml Solution) 1 appl TOPICAL DAILY [facility] Last Admin: 07/25/24 08:48 Dose: Not Given Documented By: TAWANA Non-Admin Reason: Duplicate Order Sodium Hypochlorite (Sodium Hypochlorite 0.125% 473 Ml Solution) 1 appl TOPICAL DAILY [facility] Last Admin: 07/25/24 08:49 Dose: Not Given Documented By: TAWANA Non-Admin Reason: order chsnged to [facility] 07/22/24 05:52 07/23/24 05:45 Labs: Laboratory Results - last 24 hr 07/24/24 07/24/24 07/25/24 16:09 20:43 07:58 POC Glucose 261 H 283 H 212 H 07/25/24 11:27 POC Glucose 233 H Assessment and Plan (1) Sacral decubitus ulcer: Status: Acute Assessment and Plan: s (2) Heel ulcer: Status: Acute Plan 69 yo male with PMH of ROLO, DM, hypothyroidism, hyperlipidemia, HTN, CVA on aspirin and plavix discharged from here to [facility] for unstageable sacral ulcer s/p debridement on 06/20 and 06/23 by gen surg and then + blood cultures strep agalactie / treated with IV ceftriaxone and last dose ceftin 07/02 admitted for infected unstageable ulcer L heel #Infected unstageable decubitus ulcer L heel r/t type II diabetes -ESR 56, CRP 7, XR negative for osteo. MRI L foot w/wo ordered but declined -IV vanco and zosyn, changed to meropenem and dapto on 07/20 per ID recomendation for 6 weeks -general surgery following and debrided sacral area and left heel, wound vac to be applied tomorrow -wound care following -no sepsis -cultures negative x 5 days -check CPK weekly while on Dapto -has a picc line for care home Abx #Infected unstageable sacral ulcer -following -Abx as above -pressure dressing -Incontinent of urine. Lozano for skin intergrity -s/p debridment by surgery #SVT once while in the ED--resolved, K ok, mag ok, nor further episode #Insulin dependent type 2 diabetes -poc glucose, diabetic diet -dose adjusted basal insulin -admelog on ss -on Tresiba 32 bid, allergic to Lantus, continue short acting insulin with additional scheduled insulin #HypoT -levothyroxine #Hx CVA -continue DAPT, statin #HTN -continue lisinopril #Acute on chronic normocytic anemia d/t chronic disease -above transfusion threshold, likely in setting of chronic wounds, no bleeding dvt prophyalxis- heparin full code need for inpatient: infected foot ulcer with concern for osteomyelitis requiring broad spectum abx, further advanced imaging and expert consultation Quality Stroke Does the patient have a stroke diagnosis?: No VTE Prior VTE?: No VTE Risk Level:: Medical - moderate - high VTE Device Contraindication: Treatment Not Indicated VTE Drug Contraindication: N/A - Med Ordered
[2024-07-25] MEDS: Insulin Lispro 100 UNIT/ML 3 ML VIAL 7 UNIT SUBCUT ×2 (12:59→16:50)
--- NOTE | 2024-07-25 13:03 | PM.DS ---
DS: Providers Provider Date of Service: 07/25/24 Date of admission: 07/16/24 18:54 Primary care physician: Babak Greene MD Consults: 07/16/24 18:51 Consult to General Surgery Routine Consulting Provider: [facility] Reason for consultation: necrotic ulcer sacrum and L heel 07/18/24 11:07 Consult to Wound Care Routine Reason for consultation: extensive decub ulcers 07/19/24 11:52 Consult to Infectious Diseases Routine Consulting Provider: [facility] Reason for consultation: sacral ulcer, concern for osteo DS: Diagnosis Discharge Diagnosis (1) Sacral decubitus ulcer: Status: Acute (2) Heel ulcer: Status: Acute DS: Summary Hospital Course Hospital Course: Admission hpi Chief Complaint: worsening wounds 69 yo male with PMH of ROLO, DM, hypothyroidism, hyperlipidemia, HTN, CVA on aspirin and plavix discharged from here to [facility] for unstageable sacral ulcer s/p debridement on 06/20 and 06/23 by gen surg and then + blood cultures strep agalactie 11/25 treated with IV ceftriaxone and last dose ceftin 07/02 who presents here with c/o being at [facility] and staff told him wounds were worse. He is unable to see the wounds. He reports 4/10 pain in the sacral wound and is incontinent of urine requesting brief. He is also reporting 8/10 pain with friction to the L heel. No fevers, chills. He is supposed to be using heel boots for offloading but states they havent really been used at the facility. He did complete course of abx. Did have fall OOB 2 nights ago without loss of consciousness. Since arrival, VSS. No leukocytosis. Normocytic anemia with H/H 10.8/31.7%. Renal function electrolyte levels normal. CRP 7.44, ESR 56. Head CT negative for acute intracranial abnormality. Pelvis CT shows deep ulcer at the right posterior pelvis adjacent to the sacrum without evidence of osteomyelitis. X-ray of the left calcaneus negative for acute abnormality and negative for evidence of osteomyelitis. In the ED, has received IV cefepime, vancomycin. Hospital course: #Sacral Osteomylitis Patient presented from [facility] with worsening sacral and heel wound with concern for infection and possible osteomylitis. Xray of the heel showed no evidence of osteomylitis and a CT of the pelvis showed Deep ulcer at the right posterior pelvis adjacent to the sacrum. No radiographic evidence for osteomyelitis. -ESR was 56, CRP 7. He was initiated on IV Vancomycin and Zosyn, cultures sent but have been negative. Surgery consult was requested and he had a Sharp excisional debridement of sacral decubitus ulcer and left heel ulcer down to skin, subcutaneous layer and soft tissue on 07/18 and a repeat Left hell beside debridment on 07/23. An MRI was recommended but he declined due to concern that he may have a metalic object in him. He was seen by ID and given high concern for sacral osteomylitis, IV antibiotics was recommended with Ertapene and Daptomycin for 6 weeks--started on July 20, 2024 and ending August 31, 2024. SVT once while in the ED--resolved, [place] ok, ok. Started on Metoprolol 12. 5 mg twice a day and did not have further episode while in the hospital on telemetry Insulin dependent type 2 diabetes--his sugars have been controlled on Sliding scale insulin and schedule insulin. He is on Tresiba out of hospital 32 untis twice a day. He is allergic to Lantus and there was no other substitute, to return to usual regimen upon discharge, in addition to sliding scale #HypoT -levothyroxine #Hx CVA -continue DAPT, statin #HTN -continue lisinopril #Acute on chronic normocytic anemia d/t chronic disease -above transfusion threshold, likely in setting of chronic wounds, no bleeding Time Attestation Discharge Coordination Time (in mins): 45 Quality: Safe Use of Opioids Does Pt have an Active Cancer Diagnosis on the Problem List?: No Quality: Stroke Does the patient have a stroke diagnosis?: No Physical Exam Vital Signs: Vital Signs: Last Vital Signs Temp 97.6 F 07/25/24 12:00 Pulse 88 07/25/24 12:00 Resp 20 07/25/24 12:00 BP 119/58 L 07/25/24 12:00 Pulse Ox 92 07/25/24 12:00 O2 Del Method Room Air 07/25/24 12:00 O2 Flow Rate 4 07/18/24 15:30 BMI result Body Mass Index 42.3 Constitutional - Awake and Alert, No apparent distress Eyes - PERRLA, EOMI Cardiovascular - S1S2, RRR, No edema Respiratory - Normal lung expansion, Normal respiratory effort, No respiratory distress, CTA bilaterally Gastrointestinal - NT / ND; +BS; No rebound or guarding - incontinent of urine Extremities - no calf tenderness bilaterally, no swelling Skin - Warm/Dry. Unstageable ulcer sacrum with foul odor. Unstageable ulcer L heel with eschar and some slough with foul odor--see picture elsewhere---see picture in wound nurse note, wound vac now in place Neurological - Alert & oriented x3 Psychological - Appropriate affect DS: Data Data Completed and Pending Completed studies during hospitalization [Text1]: Pending at discharge 07/18/24 15:04 Surgical [PTH] Routine Procedures Excision of Back Skin, External Approach (06/17/24) Excision of Back Subcutaneous Tissue and Fascia, Open Approach (06/17/24) Labs on day of discharge: Laboratory Results - last 24 hr 07/24/24 07/24/24 07/25/24 16:09 20:43 07:58 POC Glucose 261 H 283 H 212 H 07/25/24 11:27 POC Glucose 233 H Discharge Plan Discharge Anticipated Discharge Date/Time: 07/25/24 13:35 Patient Disposition: Xfer SNF Discharge Diagnosis: Sacral decub ulcer with osteomylitis, heel ulcers Referrals: Adeline Sawyer MD [Physician] - 2 Weeks Steve Paiz MD [Physician] - 1 Week Po,Babak Hooper MD [Primary Care Provider] - 1 Week Discharge Medications: New daptomycin 500 mg Recon Soln 500 mg IV Q24H Qty: 36 0RF ertapenem 1 gram recon soln 1 g IV DAILY Qty: 36 0RF Continued (DME) lancets [FreeStyle Lancets] 28 gauge misc See Rx Instructions .ROUTE .MEDSUPPLY Qty: 3 3RF Rx Instructions: As directed check BS TID aspirin [Adult Aspirin Regimen] 81 mg tablet,delayed release (DR/EC) 81 mg PO BID 90 Days Qty: 180 0RF (DME) FreeStyle Lite Strips Strip See Rx Instructions .ROUTE .MEDSUPPLY Qty: 300 3RF Rx Instructions: As directed check the BS TID insulin requiring (DME) MOLNLYCKE TUBIGRIP SIZE F NAtural See Rx Instructions .Route .MEDSUPPLY Qty: 4 2RF Rx Instructions: As directed elasticated tubular support bandage (lower extremity swelling) atorvastatin 40 mg tablet 40 mg PO BEDTIME Qty: 90 2RF (DME) insulin syringe-needle U-100 [BD Insulin Syringe] 1 mL 29 gauge x 1/2 syringe See Rx Instructions .ROUTE .MEDSUPPLY Qty: 100 3RF Rx Instructions: As directed clopidogrel 75 mg tablet 75 mg PO BEDTIME insulin degludec [Tresiba U-100 Insulin] 100 unit/mL solution 32 unit subcut BID acetaminophen 650 mg Suppository 650 mg PA Q4H MDD 3 gm/day PRN (Reason: Fever Or Pain) naloxone [Narcan] 0.4 mg/mL Solution 0.4 mg SUBCUT Q3M PRN (Reason: Opiate Reversal) Rx Instructions: NTExceed 10 mg total dose/episode omeprazole 40 mg Capsule,Delayed Release(Dr/Ec) 40 mg PO DAILY@0630 acetaminophen 650 mg Tablet Extended Release 650 mg PO Q4H PRN (Reason: Pain) Lactobacillus acidophilus Tablet 1,000 mmu cells PO DAILY magnesium hydroxide [Milk of Magnesia] 400 mg/5 mL Suspension 5 ml PO Q8H PRN (Reason: Constipation) Rx Instructions: For no BM in 3 days calcium carbonate [Calcium 500] 500 mg calcium (1,250 mg) Tablet 1,000 mg PO TIDAC bisacodyl 10 mg Suppository 10 mg PA DAILY PRN (Reason: Constipation) Rx Instructions: For no BM if M.O.M ineffective levothyroxine 125 mcg Tablet 125 mcg PO DAILY@0600 lisinopril 10 mg Tablet 10 mg PO DAILY Fleet Enema 19-7 gram/118 mL Enema 118 ml PA DAILY PRN (Reason: Constipation) Rx Instructions: If no BM &if Bisacodyl supp. ineffective Santyl 250 unit/gram Ointment 1 appl TOPICAL TID diclofenac sodium 1 % Gel 4 g TOPICAL Q6H Rx Instructions: apply to single knee, ankle, foot; for foot includes sole/toes/top of foot Discharge Orders: Discharge Order (Routine); Ordered 07/25/24 Ordered By: Primo Eason Diet: Diabetic diet Activity on Discharge: As tolerated Stand Alone Forms: Patient Portal Discharge page Print Language: Citizen Of [place] Care Plan Goals: recovery from sacral and heel ulcers Health Concerns: osteomylitis of the sacrum and heel ulcers Plan of Treatment: Take Daptomycin 500 mg daily for 36 more days, ending August 31, 2024 Take Invaz 1gramg daily for 36 more days, ending August 31, 2024 Check CPK weekly while on Daptomycin Wound vac due to be changed on Tuesdayjuly 27. Daily dressing changes with Santyl daily to left heel Patient to follow up with DR. Paiz and Dr. Sawyer infectious disease GIVE HALF OF TRESIBA TONIGHT (16 UNTIS) AND RESUME USUAL DOSE OF 32 STARTING TOMORROW Assessment: SEE ABOVE
--- NOTE | 2024-07-25 13:56 | MHC.CM.PN ---
Second IMM 07/25/24, Pt has been medically cleared for DC, [facility] will accept tomorrow, they said they need time to get the air mattress and wound vac for him. Anticipate DC on 07/26/24.
--- NOTE | 2024-07-25 15:18 | HO.WOUND ---
Wound Consult: Follow up 69yr old Male? admitted to [facility] on 06/2324 - See progress notes and H&P for detailed history.? Wound consult follow up for sacral wound and bilateral heels wounds.? Sacrum -?Stage 4 Pressure Injury?Present on Admission - ?Wound vac in place no leaking noted when alarms reviewed. Patient denies pain and burning to the site due to Wound vac placement - plan to change wound vac Tuesday07/27/24 if patient remains inpatient. NPWT Suction Settings: 125mmHg - Setting Type: Continuous Left Heel Etiology: Stage 4 Pressure Injury?Present on Admission Wound Bed: Marbled wound bed with red viable tissue and yellow slough Drainage: [place] red drainage - no odor noted Periwound: dry callused tissue Goals of Treatment: ?Santyl applied today - see MAR Right Heel Etiology: ?Resurfacing Pressure Injury - Suspect stage 2 - last assessed as Deep Tissue Injury on last admission -?Present on Admission Wound bed: stable small dry scab Goals of Treatment: ?Betadine to keep dry and off load pressure Off Load Pressure, [employer] pulsate bed in use set to 4 bars patient reports significant improvement in comfort since transition to this bed on Tuesday. Wedges in use and heels off loaded with pillows - Dr. Paiz prefers pillows over heel protector boots. Recommendations: 1. Turn and Reposition every 2 hours and as needed for patient comfort.? Use pillows or wedges to support off loading positions. 2. Off Load all bony prominences with use of pillows and heel boots if needed.? Apply Preventative foams where needed. ?Elevate heels with heel protector boots if non-ambulatory at this time. 3. Monitor for incontinence and moisture control, use barrier creams when needed for prevention and treatment. 4. Provide adequate and supplemental nutrition.? 5. Order low air loss mattress. 6. When applicable maintain blood glucose levels per Providers order. 7. Right Heel - [place] with Betadine daily - allow to dry. Leave open to air. Do not apply foam dressing. Elevate heels off of bed surface with heel protector boots or pillows. 8. Left Heel - Cleanse with normal saline, pat dry. ?Apply barrier to the immediate maria l wound, apply thick layer of Santyl to entire wound bed, cover with saline moist gauze, dry abd pad and gauze wrap, change Daily. 9. Sacrum - NWPT 125mmHg - low & Continuous. Re-consult wound care Nurse for wound deterioration or wound changes.
[2024-07-25 16:15] LABS: Glucose, Whole Blood 223 mg/dL (60-115)
[2024-07-25 20:09] LABS: Glucose, Whole Blood 191 mg/dL (60-115)
[2024-07-25] MEDS: Clopidogrel Bisulfate 75 MG TABLET PO (20:21)
[2024-07-25] MEDS: Atorvastatin Calcium 40 MG TABLET PO (20:21)
[2024-07-25] MEDS: DAPTOmycin 500 MG in 0.9 % Sodium Chloride 50 ML 100 MG IV (20:22)
[2024-07-26 04:00] VITALS: BP 118/56; PULSE 81; RESP 16; TEMP 36.2; O2SAT 94
[2024-07-26] MEDS: Omeprazole 40 MG CAPSULE.DR PO (05:51)
[2024-07-26] MEDS: Levothyroxine Sodium 112 MCG TABLET PO (05:51)
[2024-07-26] MEDS: Heparin Sodium,Porcine 5,000 UNIT/ML VIAL 5000 UNIT SUBCUT (06:19)
[2024-07-26 07:41] LABS: Glucose, Whole Blood 198 mg/dL (60-115)
[2024-07-26 08:00] VITALS: BP 137/65; PULSE 87; RESP 14; TEMP 36.4; O2SAT 95
[2024-07-26] MEDS: Ertapenem Sodium 1 GM in 0.9 % Sodium Chloride 50 ML IV (08:03)
[2024-07-26] MEDS: Insulin Lispro 100 UNIT/ML 3 ML VIAL SUBCUT ×2 (08:04→11:47)
[2024-07-26] MEDS: 0.9 % Sodium Chloride Flush 3 ML SYRINGE IVFLUSH (08:08)
[2024-07-26] MEDS: Nystatin Cream 15 GM TUBE 1 APPL TOPICAL (08:51)
[2024-07-26] MEDS: Aspirin Enteric Coated 81 MG TABLET.DR PO (08:51)
[2024-07-26] MEDS: Metoprolol Tartrate 12.5 MG HALFTAB PO (08:51)
[2024-07-26] MEDS: Heparin Sodium,Porcine Flush 50 UNITS/5 ML SYRINGE IVFLUSH (08:51)
[2024-07-26] MEDS: lisinopriL 10 MG TABLET PO (08:51)
--- NOTE | 2024-07-26 09:17 | MHC.CM.PN ---
Per MD, patient medically cleared [facility] S transport booked for 1pm to [facility]. RN aware. Patient aware and agreeable to plan.
--- NOTE | 2024-07-26 10:33 | PM.DS ---
DS: Providers Provider Date of Service: 07/26/24 Date of admission: 07/16/24 18:54 Date of discharge: 07/26/24 Primary care physician: Babak Greene MD Consults: 07/16/24 18:51 Consult to General Surgery Routine Consulting Provider: [facility] [place] General Surgeons Reason for consultation: necrotic ulcer sacrum and L heel 07/18/24 11:07 Consult to Wound Care Routine Reason for consultation: extensive decub ulcers 07/19/24 11:52 Consult to Infectious Diseases Routine Consulting Provider: [facility] [place] Infect[facility] Reason for consultation: sacral ulcer, concern for osteo DS: Diagnosis Discharge Diagnosis (1) Sacral decubitus ulcer: Status: Acute (2) Heel ulcer: Status: Acute (3) Sacral osteomyelitis: Status: Acute DS: Summary Hospital Course Hospital Course: Admission hpi Chief Complaint: worsening wounds 69 yo male with PMH of ROLO, DM, hypothyroidism, hyperlipidemia, HTN, CVA on aspirin and plavix discharged from here to [facility] for unstageable sacral ulcer s/p debridement on 06/20 and 06/23 by gen surg and then + blood cultures strep agalactie / treated with IV ceftriaxone and last dose ceftin 07/02 who presents here with c/o being at [facility] and staff told him wounds were worse. He is unable to see the wounds. He reports 4/10 pain in the sacral wound and is incontinent of urine requesting brief. He is also reporting 8/10 pain with friction to the L heel. No fevers, chills. He is supposed to be using heel boots for offloading but states they havent really been used at the facility. He did complete course of abx. Did have fall OOB 2 nights ago without loss of consciousness. Since arrival, VSS. No leukocytosis. Normocytic anemia with H/H 10.8/31.7%. Renal function electrolyte levels normal. CRP 7.44, ESR 56. Head CT negative for acute intracranial abnormality. Pelvis CT shows deep ulcer at the right posterior pelvis adjacent to the sacrum without evidence of osteomyelitis. X-ray of the left calcaneus negative for acute abnormality and negative for evidence of osteomyelitis. In the ED, has received IV cefepime, vancomycin. Hospital course: #Sacral Osteomylitis Patient presented from SNF with worsening sacral and heel wound with concern for infection and possible osteomylitis. Xray of the heel showed no evidence of osteomylitis and a CT of the pelvis showed Deep ulcer at the right posterior pelvis adjacent to the sacrum. No radiographic evidence for osteomyelitis. -ESR was 56, CRP 7. He was initiated on IV Vancomycin and Zosyn, cultures sent but have been negative. Surgery consult was requested and he had a Sharp excisional debridement of sacral decubitus ulcer and left heel ulcer down to skin, subcutaneous layer and soft tissue on 07/18 and a repeat Left hell beside debridment on 07/23. An MRI was recommended but he declined due to concern that he may have a metalic object in him. He was seen by ID and given high concern for sacral osteomylitis, IV antibiotics was recommended with Ertapene and Daptomycin for 6 weeks--started on July 20, 2024 and ending August 31, 2024. # SVT once while in the ED--resolved, K ok, ok. Started on Metoprolol 12. 5 mg twice a day and did not have further episode while in the hospital on telemetry # Insulin dependent type 2 diabetes--his sugars have been controlled on Sliding scale insulin and schedule insulin. He is on Tresiba out of hospital 32 untis twice a day. He is allergic to Lantus and there was no other substitute, to return to usual regimen upon discharge, in addition to sliding scale #Acute on chronic normocytic anemia d/t chronic disease. above transfusion threshold, likely in setting of chronic wounds, no bleeding Discharge plan Take Daptomycin 500 mg daily for 36 more days, ending August 31, 2024 Take Invaz 1gramg daily for 36 more days, ending August 31, 2024 Check CPK weekly while on Daptomycin Wound vac due to be changed on Tuesdayjuly 27. Daily dressing changes with Santyl daily to left heel Patient to follow up with DR. Paiz and Dr. Sawyer infectious disease Time Attestation Discharge Coordination Time (in mins): 43 Quality: Safe Use of Opioids Does Pt have an Active Cancer Diagnosis on the Problem List?: No Quality: Stroke Does the patient have a stroke diagnosis?: No Physical Exam Vital Signs: Vital Signs: Last Vital Signs Temp 97.6 F 07/26/24 08:00 Pulse 87 07/26/24 08:00 Resp 14 07/26/24 08:00 BP 137/65 07/26/24 08:00 Pulse Ox 95 07/26/24 08:00 O2 Del Method Room Air 07/26/24 08:00 O2 Flow Rate 4 07/18/24 15:30 BMI result Body Mass Index 42.3 Const: Other: Constitutional : interactive, not in distress Cardiovascular : no JVP, no lower extremity edema Respiratory : bilateral chest movement, not in resp distress Gastrointestinal: soft, lax, Non tender Skin : Warm, Dry Left Heel, Sacrum; Stage 4 Pressure Injury?Present with Marbled wound bed with red viable tissue and yellow slough , both feet in pressure boot Neurological : Alert & oriented , No focal deficit DS: Data Data Completed and Pending Completed studies during hospitalization [Text1]: Pending at discharge 07/18/24 15:04 Surgical [PTH] Routine Procedures Excision of Back Skin, External Approach (06/17/24) Excision of Back Subcutaneous Tissue and Fascia, Open Approach (06/17/24) Labs on day of discharge: Laboratory Results - last 24 hr 07/25/24 07/25/24 07/25/24 11:27 16:11 20:03 POC Glucose 233 H 223 H 191 H 07/26/24 07:37 POC Glucose 198 H Imaging Chest x-ray: Radiologist's impression: ITS Impressions Calcaneus X-Ray 07/16/24 15:53 IMPRESSION: 1. No acute abnormality. No radiographic evidence for osteomyelitis. 2. Plantar calcaneal spur. Electronically signed by: Markus Olson MD 07/16/2024 05:56 PM EDT RP Head CT 07/16/24 16:03 IMPRESSION: No acute intracranial abnormality including hemorrhage, mass effect, hydrocephalus, or acute territorial edematous infarction. Electronically signed by: Clyde Banda MD 07/16/2024 05:43 PM EDT RP Pelvis CT 07/16/24 16:21 IMPRESSION: 1. Deep ulcer at the right posterior pelvis adjacent to the sacrum. No radiographic evidence for osteomyelitis. 2. Fat-containing inguinal hernias bilateral. Fat-containing umbilical hernia. Electronically signed by: Markus Olson MD 07/16/2024 05:53 PM EDT RP Chest X-Ray 07/16/24 20:10 IMPRESSION: Suggestion of small to moderate right pleural effusion with adjacent basilar opacity which may represent atelectasis or consolidation. Electronically signed by: Moncho Haq MD 07/16/2024 09:17 PM EDT RP Discharge Plan Discharge Anticipated Discharge Date/Time: 07/25/24 13:35 Patient Disposition: Xfer SNF Discharge Diagnosis: Sacral decub ulcer with osteomylitis, heel ulcers Referrals: [facility] [Outside] - 1 Day (SHORT TERM REHAB) Adeline Sawyer MD [Physician] - 2 Weeks Steve Paiz MD [Physician] - 1 Week Po,Babak Hooper MD [Primary Care Provider] - 1 Week Discharge Medications: New daptomycin 500 mg Recon Soln 500 mg IV Q24H Qty: 36 0RF ertapenem 1 gram recon soln 1 g IV DAILY Qty: 36 0RF Continued (DME) lancets [FreeStyle Lancets] 28 gauge misc See Rx Instructions .ROUTE .MEDSUPPLY Qty: 3 3RF Rx Instructions: As directed check BS TID aspirin [Adult Aspirin Regimen] 81 mg tablet,delayed release (DR/EC) 81 mg PO BID 90 Days Qty: 180 0RF (DME) FreeStyle Lite Strips Strip See Rx Instructions .ROUTE .MEDSUPPLY Qty: 300 3RF Rx Instructions: As directed check the BS TID insulin requiring (DME) MOLNLYCKE TUBIGRIP SIZE F NAtural See Rx Instructions .Route .MEDSUPPLY Qty: 4 2RF Rx Instructions: As directed elasticated tubular support bandage (lower extremity swelling) atorvastatin 40 mg tablet 40 mg PO BEDTIME Qty: 90 2RF (DME) insulin syringe-needle U-100 [BD Insulin Syringe] 1 mL 29 gauge x 1/2 syringe See Rx Instructions .ROUTE .MEDSUPPLY Qty: 100 3RF Rx Instructions: As directed clopidogrel 75 mg tablet 75 mg PO BEDTIME insulin degludec [Tresiba U-100 Insulin] 100 unit/mL solution 32 unit subcut BID acetaminophen 650 mg Suppository 650 mg KS Q4H MDD 3 gm/day PRN (Reason: Fever Or Pain) naloxone 0.4 mg/mL Solution 0.4 mg SUBCUT Q3M PRN (Reason: Opiate Reversal) Rx Instructions: NTExceed 10 mg total dose/episode omeprazole 40 mg Capsule,Delayed Release(Dr/Ec) 40 mg PO DAILY@0630 acetaminophen 650 mg Tablet Extended Release 650 mg PO Q4H PRN (Reason: Pain) Lactobacillus acidophilus Tablet 1,000 mmu cells PO DAILY magnesium hydroxide [Milk of Magnesia] 400 mg/5 mL Suspension 5 ml PO Q8H PRN (Reason: Constipation) Rx Instructions: For no BM in 3 days calcium carbonate 500 mg calcium (1,250 mg) Tablet 1,000 mg PO TIDAC bisacodyl 10 mg Suppository 10 mg KS DAILY PRN (Reason: Constipation) Rx Instructions: For no BM if M.O.M ineffective levothyroxine 125 mcg Tablet 125 mcg PO DAILY@0600 lisinopril 10 mg Tablet 10 mg PO DAILY Fleet Enema 19-7 gram/118 mL Enema 118 ml KS DAILY PRN (Reason: Constipation) Rx Instructions: If no BM &if Bisacodyl supp. ineffective Santyl 250 unit/gram Ointment 1 appl TOPICAL TID diclofenac sodium 1 % Gel 4 g TOPICAL Q6H Rx Instructions: apply to single knee, ankle, foot; for foot includes sole/toes/top of foot Discharge Orders: Discharge Order (Routine); Ordered 07/26/24 Ordered By: Neida Lindsey Diet: Diabetic diet Activity on Discharge: As tolerated Stand Alone Forms: Patient Portal Discharge page Print Language: Maori Care Plan Goals: recovery from sacral and heel ulcers Health Concerns: osteomylitis of the sacrum and heel ulcers Plan of Treatment: Take Daptomycin 500 mg daily for 36 more days, ending August 31, 2024 Take Invaz 1gramg daily for 36 more days, ending August 31, 2024 Check CPK weekly while on Daptomycin Wound vac due to be changed on Tuesdayjuly 27. Daily dressing changes with Santyl daily to left heel Patient to follow up with DR. Paiz and Dr. Sawyer infectious disease GIVE HALF OF TRESIBA TONIGHT (16 UNTIS) AND RESUME USUAL DOSE OF 32 STARTING TOMORROW Assessment: SEE ABOVE
[2024-07-26 11:39] LABS: Glucose, Whole Blood 247 mg/dL (60-115)
[2024-07-26] MEDS: Insulin Lispro 100 UNIT/ML 3 ML VIAL 7 UNIT SUBCUT (11:48)
[2024-07-26 12:00] VITALS: BP 134/60; PULSE 91; RESP 14; TEMP 36.6; O2SAT 93
[2024-07-26] MEDS: Collagenase Clostridium Hist. 30 GM TUBE 1 APPL TOPICAL (12:46)
--- NOTE | 2024-07-26 12:47 | PC.NURSE ---
1245- Wound care performed per Wound RN orders. Dressings changed. Patient tolerated well.
== END 2024-07-26 13:13 | disposition skilled nursing facility (03) | DRG 264 ==
LOC: HO.ED 17:48 → HO.EDOVER 19:02 → HO.S3 07-17 07:12 → HO.EDOVER 07-17 07:51 → HO.IMC 07-17 19:25 → HO.S3 07-25 15:03
PROVIDERS: Internal Medicine; Physician Assistant Medical; Student in an Organized Health Care Education/Training Program; Surgery; Admitting Provider Physician Assistant; Emergency Provider Emergency Medicine; PCP Internal Medicine; Visit Provider Student in an Organized Health Care Education/Training Program
PROC: 0JBR0ZZ Excision of Left Foot Subcutaneous Tissue and Fascia, Open Approach (ICD-10-PCS; principal; 2024-07-18 14:30)
DX: I96 Gangrene, not elsewhere classified (principal); I47.10 Supraventricular tachycardia, unspecified; Z68.41 Body mass index [BMI] 40.0-44.9, adult; E03.9 Hypothyroidism, unspecified; M35.3 Polymyalgia rheumatica; E66.09 Other obesity due to excess calories; G47.33 Obstructive sleep apnea (adult) (pediatric); L89.612 Pressure ulcer of right heel, stage 2; R32 Unspecified urinary incontinence; D63.8 Anemia in other chronic diseases classified elsewhere; L89.150 Pressure ulcer of sacral region, unstageable; Z74.01 Bed confinement status; Z79.4 Long term (current) use of insulin; Z79.02 Long term (current) use of antithrombotics/antiplatelets; Z79.82 Long term (current) use of aspirin; Z79.890 Hormone replacement therapy; Z79.899 Other long term (current) drug therapy
CPT/HCPCS: 36415; 36573; 70450; 71045; 72193; 73650; 80048; 80051; 80053; 80202; 82550; 82565; 82803; 82947; 83605; 83735; 83880; 84484; 85025; 85652; 86140; 87040; 88304; 92950; 93005; 97162; 99285; C1751; C1758; J0665; J0692; J0878; J1335; J1642; J1644; J2185; J2250; J2270; J2371; J2543; J2704; J3010; J3370; J3371; Q9967

== ENCOUNTER → 2024-07-16 18:54 | Outpatient (BNV) | payer MEDICARE, SELFPAY | PROVIDERS: Admitting Provider Physician Assistant; Emergency Provider Emergency Medicine; PCP Internal Medicine; Visit Provider Surgery | DX: L89.150 Pressure ulcer of sacral region, unstageable (principal); L97.429 Non-pressure chronic ulcer of left heel and midfoot with unspecified severity | CPT/HCPCS: 11042; 11045; 97597; 97607; 99222; 99232; 99429; 99499 ==

== ENCOUNTER → 2024-07-16 18:54 | Outpatient (BNV) | payer MEDICARE, SELFPAY | PROVIDERS: Admitting Provider Physician Assistant; Emergency Provider Emergency Medicine; PCP Internal Medicine; Visit Provider Internal Medicine | DX: L97.429 Non-pressure chronic ulcer of left heel and midfoot with unspecified severity (principal); L89.150 Pressure ulcer of sacral region, unstageable | CPT/HCPCS: 99222 ==

== ENCOUNTER → 2024-07-16 18:54 | Outpatient (BNV) | payer MEDICARE, SELFPAY | PROVIDERS: Admitting Provider Physician Assistant; Emergency Provider Emergency Medicine; PCP Internal Medicine; Visit Provider Internal Medicine | DX: L89.150 Pressure ulcer of sacral region, unstageable (principal); L97.429 Non-pressure chronic ulcer of left heel and midfoot with unspecified severity | CPT/HCPCS: 99223; 99232; 99239; 99499 ==

== ENCOUNTER 2024-08-29 14:31 | Outpatient (AMB) | payer MEDICARE, SELFPAY ==
[2024-08-29 14:47] VITALS: PULSE 104; O2SAT 96
--- NOTE | 2024-08-29 14:47 | A.OFFVIS_ITS ---
Vital Signs 08/29/24 14:47 Pulse 104 H Pulse Source Pulse Oximeter Pulse Oximetry (%) 96 Oxygen Delivery Method Room Air Intake Visit Reasons: [facility] reff/heel ulcer/ Allergies canagliflozin [Invokana] Allergy (Unknown, Verified 08/29/24 15:26) hives dulaglutide [Trulicity] Allergy (Unknown, Verified 08/29/24 15:26) hives insulin glargine [From Lantus U-100 Insulin] Allergy (Unknown, Verified 08/29/24 15:26) Hives metformin [METFORMIN] Allergy (Unknown, Verified 08/29/24 15:26) HIVES rosuvastatin Allergy (Unknown, Verified 08/29/24 15:26) Unknown sitagliptin [From JANUVIA] Allergy (Unknown, Verified 08/29/24 15:) HIVES HPI HPI [facility]mc reff/heel ulcer/: Details: He has improved heel ulcer. However he has shortness of breath Oxygen saturation 80s PFSH Medical History Obstructive sleep apnea (adult) (pediatric) Sacral decubitus ulcer TIA (transient ischemic attack) Solitary left kidney Osteoarthritis Type 2 diabetes mellitus with hyperglycemia Erectile dysfunction Hypercholesterolemia Polymyalgia rheumatica Vitamin D deficiency Hypothyroid Migraine Obesity Alcohol abuse Tobacco abuse Hypertension Surgical History History of colonoscopy Hx of tonsillectomy History of total left knee replacement History of arthroscopy of both knees Family History Father Diabetes Mother Melanoma Maternal Uncle Colon cancer Social History Household Members: Significant Other and Other Household Members Other:: staff Housing: Other Housing Other:: [facility] Are you a primary child day care center worker to a significant other at home: No Do you presently have visiting nurse or other home services: No Alcohol intake: former Comment: Bedfast. Patient Tobacco Use Status: Never used Tobacco Tobacco use type: Cigar and Pipe Years Smoked: 50 stopped 08/2022 Smoked in Last 30 Days: No e-Cigarette/Vaping Use: Currently Using Second Hand Smoke Exposure: No Use of substances other than those prescribed or required for medical reasons: No Currently Displaying Signs/Symptoms of Drug Intoxication Withdrawal: No Advance Directives: Yes Advance Directives on File: Yes Advance Directives Date on File: 06/26/24 Do you have a plan to hurt others: No Plan Recently lost weight without trying: Yes Eating poorly because of decreased appetite: No service: No Current occupational status: employed Cognitive needs: Yes Hearing needs: No Vision needs: Yes Review of Systems Const All systems reviewed & are unremarkable except as noted in HPI and below Physical Exam Vital Signs: Last Vital Signs Pulse 104 H 08/29/24 14:47 Pulse Ox 96 08/29/24 14:47 Oxygen Delivery Method Room Air 08/29/24 14:47 Extrem Other: clearing foot Assessment & Plan Assessment & Plan (1) Heel ulcer: Comment: He has heel ulcers improving. He has shortness of breath Code(s): L97.409 - Non-pressure chronic ulcer of unspecified heel and midfoot with unspecified severity Category: Medical Qualifiers: Laterality: left Non-pressure ulcer stage: unspecified non-pressure ulcer stage Qualified Code(s): L97.429 - Non-pressure chronic ulcer of left heel and midfoot with unspecified severity Plan: ER shortness of breath. See prn need. Coding Level of Care Code Est Pt Level 3 (70884) Diagnoses Heel ulcer L97.429 Laterality: left Non-pressure ulcer stage: unspecified non-pressure ulcer stage
== END 2024-08-29 15:12 | disposition home or self-care (01) ==
LOC: HO.HID 14:31
PROVIDERS: PCP Internal Medicine; Visit Provider Internal Medicine
DX: L97.429 Non-pressure chronic ulcer of left heel and midfoot with unspecified severity (principal)
CPT/HCPCS: 99213

== ENCOUNTER → 2024-08-29 14:31 | Outpatient (BNVA) | payer MEDICARE, SELFPAY | PROVIDERS: PCP Internal Medicine; Visit Provider Internal Medicine | DX: L97.429 Non-pressure chronic ulcer of left heel and midfoot with unspecified severity (principal); R06.02 Shortness of breath | CPT/HCPCS: 99212 ==

== ENCOUNTER 2024-08-29 15:19 | Inpatient (IN) | payer MEDICARE, SELFPAY ==
--- NOTE | ~2024-08-29 | CT_ITS ---
EXAMINATION: CT ANGIOGRAM CHEST CLINICAL INFORMATION: Shortness of breath COMPARISON: Chest radiograph 08/29/2024. CT angiography head and neck 04/14/2022. TECHNIQUE: Multiple axial images were obtained through the chest after the administration of 65 mL of Omnipaque 350 intravenous contrast. Extensive vascular post-processing including two-dimensional and three-dimensional reformatted images were created and reviewed on an independent workstation. This CT examination was performed using dose optimization techniques as appropriate, variously including the following: *Automated exposure control *Adjustment of mA and/or kV according to patient size (this includes techniques or standardized protocols for targeted exams where dose is matched to indication/reason for exam; i.e. extremities or head) *Use of iterative reconstruction technique DLP: 507 mGy-cm FINDINGS: Pulmonary arteries: No intraluminal filling defects are noted within the visualized pulmonary arterial system to suggest the presence of pulmonary emboli. The main and central pulmonary arteries are normal in caliber. Thoracic aorta: 1 ounces 4 normal cardiac motion artifact, thoracic aorta is normal in caliber. Scattered calcific atherosclerotic plaques are present in the thoracic aorta. Mediastinum: No lymphadenopathy. Normal heart size. No pericardial thickening or fluid collections. Partial visualization of moderate-marked diffuse coronary artery calcific atherosclerosis including dense calcifications within the left anterior descending and left circumflex coronary arteries. Lungs and pleura: Multifocal consolidative densities are present within the lungs including within the left upper pulmonary lobe, posterior left lung base, posterior right middle pulmonary lobe, right lung base and small foci within the right upper pulmonary lobe. No pleural effusions or pneumothoraces are identified. Visualized abdominal structures: Partial visualization is made of prominent pelviectasis and caliectasis of the right kidney. The right kidney is not fully included on imaged field of view. Left kidney is not visualized. Osseous structures: No suspicious skeletal lesions are noted. Multilevel predominantly right-sided anterior bridging endplate osteophytosis of the thoracic spine is present and is suspicious for diffuse idiopathic skeletal hyperostosis (DISH). CT/CT angio chest PE protocol IMPRESSION: *CT pulmonary angiogram negative for pulmonary emboli. *Multifocal consolidative densities within the lungs suspicious for multifocal pneumonia. Recommend follow-up CT of the thorax following resolution of acute symptoms to confirm resolution of the currently identified densities and to exclude possible underlying tumors. *The right kidney is partially visualized. The visualized right kidney demonstrates prominence of the visualized calyces and pelvis suspicious for possible hydronephrosis. As clinically indicated, findings could be further evaluated with dedicated imaging of the kidneys. Electronically signed by: Sharif King MD 08/29/2024 11:31 PM [facility]
--- NOTE | ~2024-08-29 | XR_ITS ---
EXAMINATION: XR CHEST CLINICAL INFORMATION: Shortness of breath COMPARISON: 07/16/24 TECHNIQUE: 2 views of the chest were obtained. FINDINGS: Again seen is a markedly elevated right hemidiaphragm. Heart size is borderline. There is no evidence of CHF. Bibasilar atelectasis is present. A small right pleural effusion is likely present. Compared to the prior study from 07/16/24 there is been no significant interval change. XR/XR chest 2V IMPRESSION: No acute intrathoracic disease. Markedly elevated right hemidiaphragm with bibasilar atelectasis and small right pleural effusion. Electronically signed by: Arun Pitts MD 08/29/2024 11:03 PM [facility]
[2024-08-29 15:24] VITALS: BP 113/41; PULSE 101; RESP 20; TEMP 37.1; O2SAT 93; BMI 39.8
--- NOTE | 2024-08-29 15:25 | PC.RT ---
Pt brought in via EMS for low SATs. PT 86% on RA, titrated up to 4L SATs 93%. Pt lung sounds clear bilateral with good air movement. Pt has minor edema in ankles. No Increased WOB or distress noted. Pt left with RN to perform care on 4L.
--- NOTE | 2024-08-29 17:57 | MHC.EDTECH ---
pt refused x2 to allow me re check vitals
--- NOTE | 2024-08-29 18:02 | ECG_ITS ---
Test Reason : SOB Blood Pressure : / mmHG Vent. Rate : 094 BPM Atrial Rate : 094 BPM P-R Int : 186 ms QRS Dur : 088 ms QT Int : 356 ms P-R-T Axes : 041 -20 011 degrees QTc Int : 445 ms Sinus rhythm with Premature atrial complexes Otherwise normal ECG When compared with ECG of 16-JUL-2024 20:16, Fusion complexes are no longer Present Premature ventricular complexes are no longer Present Premature atrial complexes are now Present QRS duration has increased Criteria for Anterolateral infarct are no longer Present Referred By: Generic ED Physician Electronically Signed By:YOSI HERNANDEZ MD
[2024-08-29 18:19] VITALS: BP 117/61; PULSE 94; RESP 16; TEMP 36.8; O2SAT 94
[2024-08-29 18:21] LABS: Basophils Absolute Auto 0.1 X10*3/uL (0.0-0.2); Basophils Percent Auto 0.4 % (0-2); Eosinophils Absolute Auto 2.2 X10*3/uL (0.0-0.4); Eosinophils Percent Auto 16.7 % (0-4); Hematocrit 29.8 % (42.0-52.0); Hemoglobin 9.9 g/dl (14.0-18.0); Imm Gran Abs Auto 0.04 X10*3/uL (0.00-0.03); Imm Gran Pct Auto 0.3 % (0.0-0.4); Lymphocytes Absolute Auto 1.1 X10*3/uL (1.2-4.9); Lymphocytes Percent Auto 8.8 % (20-40); MANUAL DIFF FLAG SCAN; Mean Corpuscular HGB Conc 33.2 g/dl (31.0-36.0); Mean Corpuscular Hemoglobin 30.1 pg (27.0-33.0); Mean Corpuscular Volume 90.6 fL (80.0-98.0); Monocytes Absolute Auto 0.9 X10*3/uL (0.1-1.2); Monocytes Percent Auto 6.8 % (2-11); Neutrophils Absolute Auto 8.7 x10*3/uL (2.0-8.3); Red Blood Count 3.29 X10*6/uL (4.60-5.80); Red Cell Distribution Width 14.3 % (11.0-16.0); SCAN SMEAR FLAG 1
[2024-08-29 18:33] LABS: Alanine Aminotransferase 8 U/L (0-40); Albumin Level 2.2 g/dL (3.5-5.0); Alkaline Phosphatase 50 U/L (39-117); Anion Gap 9 (12-20); Aspartate Amino Transferase 23 U/L (5-37); Bilirubin Total 0.4 mg/dL (0.0-1.0); Blood Urea Nitrogen 11 mg/dL (9-16); Calcium 7.8 mg/dL (8.4-10.2); Carbon Dioxide 26 mmol/L (22-29); Chloride 106 mmol/L (96-108); Creatinine Clr Calc Pharmacy 159.5; Estimated Glomerular Filt Rate > 60; Glucose Random 150 mg/dL (60-115); Potassium 4.1 mmol/L (3.3-5.1); Sodium 137 mmol/L (135-145); Total Protein 5.5 g/dL (6.5-8.0)
[2024-08-29 18:39] LABS: B Type Natriuretic Peptide 20 pg/mL (<100)
[2024-08-29 18:40] LABS: Troponin-I High Sensitivity 2.7 ng/L (<3.5-35.0)
[2024-08-29 18:46] LABS: Platelet Count 526 X10*3/uL (160-400); SLIDE REVIEW VERIFIED
--- NOTE | 2024-08-29 18:48 | ED_ITS ---
HPI - General Adult General Chief complaint: General Medical Stated complaint: LOW O2 SATURATION FROM DRS APPT PER EMS Time Seen by Provider: 08/29/24 16:06 History of Present Illness HPI narrative: Patient is a 69-year-old male with a history of having a wound appointment at [facility]. Was found to have a low oxygenation in the 80s. Patient unable to give detailed but baseline is not on any oxygen at home. Denies any chest pain shortness of breath. No diaphoresis. Has bilateral lower extremity edema. Has no history of congestive heart failure no history of COPD. Feels weak. Patient is from home. No chest pain or diaphoresis. Has a history of diabetes. History of CVA/TIA history of polymyalgia rheumatica. History of hypercholesterolemia. Related Data Home Medications ?Medication ?Instructions ?Recorded ?Confirmed clopidogrel 75 mg tablet 75 mg PO BEDTIME 07/16/24 07/16/24 insulin degludec 100 unit/mL 32 unit subcut BID 07/16/24 07/17/24 subcutaneous solution (Tresiba U-100 Insulin) Lactobacillus acidophilus 1,000 mmu cells PO DAILY 07/17/24 07/17/24 acetaminophen 650 mg rectal 650 mg [place] Q4H PRN Fever Or Pain 07/17/24 07/17/24 suppository acetaminophen 650 mg 650 mg PO Q4H PRN Pain 07/17/24 07/17/24 tablet,extended release bisacodyl 10 mg rectal suppository 10 mg [place] DAILY PRN Constipation 07/17/24 07/17/24 calcium carbonate 1,000 mg PO TIDAC 07/17/24 07/17/24 collagenase clostridium histo. 250 1 appl topical TID 07/17/24 07/17/24 unit/gram topical ointment (Santyl) diclofenac sodium 1 % topical gel 4 g topical Q6H 07/17/24 07/17/24 levothyroxine 125 mcg tablet 125 mcg PO DAILY@0600 07/17/24 07/17/24 lisinopril 10 mg tablet 10 mg PO DAILY 07/17/24 07/17/24 magnesium hydroxide 400 mg/5 mL 5 ml PO Q8H PRN Constipation 07/17/24 07/17/24 oral suspension (Milk of Magnesia) naloxone 0.4 mg/mL injection 0.4 mg subcut Q3M PRN Opiate 07/17/24 07/17/24 solution Reversal omeprazole 40 mg capsule,delayed 40 mg PO DAILY@0630 07/17/24 07/17/24 release sodium phosphates 19 gram-7 118 ml [place] DAILY PRN Constipation 07/17/24 07/17/24 gram/118 mL enema (Fleet Enema) Previous Rx's ?Medication ?Instructions ?Recorded aspirin 81 mg tablet,delayed 81 mg PO BID 90 days #180 tabs 12/16/22 release (Adult Aspirin Regimen) blood sugar diagnostic (FreeStyle #300 ea 12/16/22 Lite Strips) lancets 28 gauge (FreeStyle ##3 12/16/22 Lancets) MOLNLYCKE TUBIGRIP SIZE F NAtural #4 ea 12/05/23 atorvastatin 40 mg tablet 40 mg PO BEDTIME #90 tabs 01/23/24 insulin syringe-needle U-100 1 mL #100 ea 03/12/24 29 gauge x 1/2 (BD Insulin Syringe) daptomycin 500 mg intravenous 500 mg IV Q24H #36 ea 07/25/24 solution ertapenem 1 gram solution for 1 g IV DAILY #36 ea 07/25/24 injection Allergies Allergy/AdvReac Type Severity Reaction Status Date / Time canagliflozin [Invokana] Allergy Unknown hives Verified 08/29/24 15:26 dulaglutide [Trulicity] Allergy Unknown hives Verified 08/29/24 15:26 insulin glargine Allergy Unknown Hives Verified 08/29/24 15:26 [From Lantus U-100 Insulin] metformin [METFORMIN] Allergy Unknown HIVES Verified 08/29/24 15:26 rosuvastatin Allergy Unknown Unknown Verified 08/29/24 15:26 sitagliptin [From JANUVIA] Allergy Unknown HIVES Verified 08/29/24 15:26 Review of Systems 2 Review of Systems: Positive shortness of breath Yes all other systems are reviewed and are negative PMFSH Past Medical History Attestation statement: The following information was validated with the patient. Medical History Obstructive sleep apnea (adult) (pediatric) Sacral decubitus ulcer TIA (transient ischemic attack) Solitary left kidney Osteoarthritis Type 2 diabetes mellitus with hyperglycemia Erectile dysfunction Hypercholesterolemia Polymyalgia rheumatica Vitamin D deficiency Hypothyroid Migraine Obesity Alcohol abuse Tobacco abuse Hypertension Surgical History History of colonoscopy Hx of tonsillectomy History of total left knee replacement History of arthroscopy of both knees Family History Family History Father Diabetes Mother Melanoma Maternal Uncle Colon cancer Social History Social History Household Members: Family Housing: House Are you a primary direct support professional caregiver to a significant other at home: No Do you presently have visiting nurse or other home services: No Alcohol intake: former Comment: Bedfast. Patient Tobacco Use Status: Never used Tobacco Tobacco use type: Cigar and Pipe Years Smoked: 50 stopped 08/2022 Smoked in Last 30 Days: No e-Cigarette/Vaping Use: Currently Using Second Hand Smoke Exposure: No Use of substances other than those prescribed or required for medical reasons: No Advance Directives: Yes Advance Directives on File: Yes Advance Directives Date on File: 06/26/24 Do you have a plan to hurt others: No Plan service: No Current occupational status: employed Cognitive needs: Yes Hearing needs: No Vision needs: Yes Physical Exam ED Vital Signs: Vital Signs - 24 hr 08/29/24 15:24 08/29/24 18:19 08/29/24 20:03 Temperature 98.7 F 98.3 F 98.5 F Pulse Rate 101 H 94 94 Respiratory Rate 20 16 16 Blood Pressure 113/41 L 117/61 120/44 L Pulse Oximetry 93 94 97 Oxygen Delivery Method Room Air Nasal Cannula Nasal Cannula Oxygen Flow Rate 4 4 08/29/24 22:12 Temperature 99.1 F Pulse Rate 92 Respiratory Rate 16 Blood Pressure 113/54 L Pulse Oximetry 94 Oxygen Delivery Method Nasal Cannula Oxygen Flow Rate 4 BMI result Body Mass Index 39.8 Appearance: Alert. Oriented X3. No acute distress. Eyes: Pupils equal, round and reactive to light. ENT: Pharynx normal. Neck: Normal inspection. Neck supple. No lymph nodes noted. No crepitus CVS: Normal heart rate and rhythm. Pulses normal. Normal S1 and S2 Respiratory: No respiratory distress. Breath sounds normal. No Wheezing. No rales Abdomen: Soft and nontender. No rigidity. No distention. good BS x4 Skin: Skin warm and dry. Normal skin color. Normal skin turgor. Extremities: 2+ edema to bilateral lower extremity. Distal pulses intact sensation intact. Neuro: Oriented X 3. No motor deficit. No sensory deficit. Moving all extermities. No slurred speech Medications Administered Discontinued Medications Generic Name Dose Route Start Last Admin Trade Name Sammq PRN Reason Stop Dose Admin Iohexol 100 ml 08/29/24 19:43 08/29/24 19:43 Iohexol 350 Mg/Ml 100 Ml Infus..Btl IV 08/29/24 19:44 65 ml ONCE ONE Administration Medical Decision Making Medical Decision Making [facility] Narrative: Patient is a 69-year-old male with a history of sacral ulcers. No history of COPD, CHF, asthma. Denies any coughing upper respiratory symptoms but feels more short of breath. Was noted by the wound care to have low oxygen saturation in the 80s requiring O2. Sent in for further evaluation. My interpretation of patient's EKG showed a sinus rhythm heart rate is 90 [place] QRS QTC normal no acute ST segment elevation. A chest x-ray was done my interpretation that is chest x- ray is grossly negative there is no evidence for pneumonia no pneumothorax. I reviewed radiology's reading which was approximately the same. Patient's white count is 13. Electrolytes showed normal BNP and troponin. Making congestive heart failure less likely. Patient's albumin is low question cause of the leg edema. In this setting patient is 69 years old now have increasing shortness of breath hypoxia. With a clear x-ray. No evidence of CHF. A CTA of the chest was done. It was positive for possible early infiltrate. Cultures will be obtained antibiotics be started patient is from residential will start patient on cefepime. Patient to be admitted for further evaluation. In stable condition. Differential Diagnosis Differential Diagnoses: The differential diagnosis associated with the presentation includes Pneumonia, CHF, COVID flu RSV, PE Admission/Observation Consideration of admission/observation: Escalation of care including admission/observation considered Consult Healthcare Provider Management of the patient was discussed with: Hospitalist Lab Data [facility] Lab Attestation statement: I reviewed the patient's lab results. 08/29/24 18:11 08/29/24 18:11 Labs: Lab Results 08/29/24 08/29/24 Range/Units 18:11 21:46 WBC 13.0 H (4.8-10.8) X10*3/uL RBC 3.29 L (4.60-5.80) X10*6/uL Hgb 9.9 L (14.0-18.0) g/dl Hct 29.8 L (42.0-52.0) % MCV 90.6 (80.0-98.0) fL MCH 30.1 (27.0-33.0) pg MCHC 33.2 (31.0-36.0) g/dl RDW 14.3 (11.0-16.0) % Plt Count 526 H D (160-400) X10*3/uL MPV 9.0 L (9.4-12.4) fL Immature Gran % (Auto) 0.3 (0.0-0.4) % Neut % (Auto) 67.0 (45-73) % Lymph % (Auto) 8.8 L (20-40) % Citrus % (Auto) 6.8 (2-11) % Eos % (Auto) 16.7 H (0-4) % Baso % (Auto) 0.4 (0-2) % Lymph # (Auto) 1.1 L (1.2-4.9) X10*3/uL Citrus # (Auto) 0.9 (0.1-1.2) X10*3/uL Eos # (Auto) 2.2 H (0.0-0.4) X10*3/uL Baso # (Auto) 0.1 (0.0-0.2) X10*3/uL Abs Immat Gran (auto) 0.04 H (0.00-0.03) X10*3/uL Absolute Neuts (auto) 8.7 H (2.0-8.3) x10*3/uL Absolute Nucleated RBC 0.000 (0.0-0.012) X10*3/uL Nucleated RBC % (auto) 0.0 (0.0-0.2) /100WBC Smear Tech's Comments VERIFIED Sodium 137 (135-145) mmol/L Potassium 4.1 (3.3-5.1) mmol/L Chloride 106 (96-108) mmol/L Carbon Dioxide 26 (22-29) mmol/L Anion Gap 9 L (12-20) BUN 11 (9-16) mg/dL Creatinine 0.53 (0.5-1.4) mg/dL Estim Creat Clear Calc 159.5 Estimated GFR > 60 POC Glucose 112 (60-115) mg/dL Random Glucose 150 H (60-115) mg/dL Calcium 7.8 L D (8.4-10.2) mg/dL Total Bilirubin 0.4 (0.0-1.0) mg/dL AST 23 (5-37) U/L ALT 8 (0-40) U/L Alkaline Phosphatase 50 (39-117) U/L Troponin I High Sens 2.7 (<3.5-35.0) ng/L B-Natriuretic Peptide 20 (<100) pg/mL Total Protein 5.5 L (6.5-8.0) g/dL Albumin 2.2 L (3.5-5.0) g/dL Independent Interpretation I performed an independent interpretation of an: Plain X-Ray (Chest x-ray is grossly negative) and CT Scan Radiology Impression Discussion of test interpretation with radiology: I have reviewed the radiologist's reading. External Record Review External record reviewed: Inpatient record Chronic Conditions Patient?s care impacted by: Hypertension Discharge Plan Discharge Clinical Impression: Pneumonia Patient Disposition: Admitted As Inpatient Prescriptions: No Action (DME) lancets [FreeStyle Lancets] 28 gauge misc See Rx Instructions .ROUTE .MEDSUPPLY Qty: 3 3RF Rx Instructions: As directed check BS TID aspirin [Adult Aspirin Regimen] 81 mg tablet,delayed release (DR/EC) 81 mg PO BID 90 Days Qty: 180 0RF (DME) FreeStyle Lite Strips Strip See Rx Instructions .ROUTE .MEDSUPPLY Qty: 300 3RF Rx Instructions: As directed check the BS TID insulin requiring (DME) MOLNLYCKE TUBIGRIP SIZE F NAtural See Rx Instructions .Route .MEDSUPPLY Qty: 4 2RF Rx Instructions: As directed elasticated tubular support bandage (lower extremity swelling) atorvastatin 40 mg tablet 40 mg PO BEDTIME Qty: 90 2RF (DME) insulin syringe-needle U-100 [BD Insulin Syringe] 1 mL 29 gauge x 1/2 syringe See Rx Instructions .ROUTE .MEDSUPPLY Qty: 100 3RF Rx Instructions: As directed clopidogrel 75 mg tablet 75 mg PO BEDTIME insulin degludec [Tresiba U-100 Insulin] 100 unit/mL solution 32 unit subcut BID acetaminophen 650 mg Suppository 650 mg [place] Q4H MDD 3 gm/day PRN (Reason: Fever Or Pain) naloxone 0.4 mg/mL Solution 0.4 mg SUBCUT Q3M PRN (Reason: Opiate Reversal) Rx Instructions: NTExceed 10 mg total dose/episode omeprazole 40 mg Capsule,Delayed Release(Dr/Ec) 40 mg PO DAILY@0630 acetaminophen 650 mg Tablet Extended Release 650 mg PO Q4H PRN (Reason: Pain) Lactobacillus acidophilus Tablet 1,000 mmu cells PO DAILY magnesium hydroxide [Milk of Magnesia] 400 mg/5 mL Suspension 5 ml PO Q8H PRN (Reason: Constipation) Rx Instructions: For no BM in 3 days calcium carbonate 500 mg calcium (1,250 mg) Tablet 1,000 mg PO TIDAC bisacodyl 10 mg Suppository 10 mg [place] DAILY PRN (Reason: Constipation) Rx Instructions: For no BM if M.O.M ineffective levothyroxine 125 mcg Tablet 125 mcg PO DAILY@0600 lisinopril 10 mg Tablet 10 mg PO DAILY Fleet Enema 19-7 gram/118 mL Enema 118 ml [place] DAILY PRN (Reason: Constipation) Rx Instructions: If no BM &if Bisacodyl supp. ineffective Santyl 250 unit/gram Ointment 1 appl TOPICAL TID diclofenac sodium 1 % Gel 4 g TOPICAL Q6H Rx Instructions: apply to single knee, ankle, foot; for foot includes sole/toes/top of foot daptomycin 500 mg Recon Soln 500 mg IV Q24H Qty: 36 0RF ertapenem 1 gram recon soln 1 g IV DAILY Qty: 36 0RF Print Language: Mosotho
[2024-08-29] MEDS: iohexoL 350 MG/ML 100 ML INFUS..BTL IV (19:43)
[2024-08-29 20:03] VITALS: BP 120/44; PULSE 94; RESP 16; TEMP 36.9; O2SAT 97
[2024-08-29 21:50] LABS: Glucose, Whole Blood 112 mg/dL (60-115)
[2024-08-29 22:12] VITALS: BP 113/54; PULSE 92; RESP 16; TEMP 37.3; O2SAT 94
--- NOTE | 2024-08-30 00:17 | PM.IMHP ---
History of Present Illness Date of Service: 08/30/24 Chief Complaint: Hypoxia, cough A 69 years old male with PMH of ROLO, DM, hypothyroidism, hyperlipidemia, HTN, CVA on aspirin and plavix, sactal wound among others presenting to the hospital with incident of hypoxia and cough. The patient was at regular visit at the wound care clinic where he was found to have low O2 sat in 80s. He reports feeling little weaker than normal but denies any fever or chills. reporting cough on occasions. In ED placed on 4L of O2 to keep his sats in early 90s. CXR and CT chest were concerning for possible pneumonia. Admitted for further evaluation and treatment. Review of Systems Review of Systems: No fever, chills but reports weakness No chest pain, palpitation No shortness of breath but mild coughing No abdominal pain, nausea or vomiting No urinary symptoms has sacral wound PMFSH Medical History Obstructive sleep apnea (adult) (pediatric) Sacral decubitus ulcer TIA (transient ischemic attack) Solitary left kidney Osteoarthritis Type 2 diabetes mellitus with hyperglycemia Erectile dysfunction Hypercholesterolemia Polymyalgia rheumatica Vitamin D deficiency Hypothyroid Migraine Obesity Alcohol abuse Tobacco abuse Hypertension Family History Father Diabetes Mother Melanoma Maternal Uncle Colon cancer Surgical History History of colonoscopy Hx of tonsillectomy History of total left knee replacement History of arthroscopy of both knees Social History Household Members: Family Housing: House Are you a primary cardiac care unit nurse to a significant other at home: No Do you presently have visiting nurse or other home services: No Alcohol intake: former Comment: Bedfast. Patient Tobacco Use Status: Never used Tobacco Tobacco use type: Cigar and Pipe Years Smoked: 50 stopped 08/2022 Smoked in Last 30 Days: No e-Cigarette/Vaping Use: Currently Using Second Hand Smoke Exposure: No Use of substances other than those prescribed or required for medical reasons: No Advance Directives: Yes Advance Directives on File: Yes Advance Directives Date on File: 06/26/24 Do you have a plan to hurt others: No Plan service: No Current occupational status: employed Cognitive needs: Yes Hearing needs: No Vision needs: Yes Meds Allergies Allergy/AdvReac Type Severity Reaction Status Date / Time canagliflozin [Invokana] Allergy Unknown hives Verified 08/29/24 15:26 dulaglutide [Trulicity] Allergy Unknown hives Verified 08/29/24 15:26 insulin glargine Allergy Unknown Hives Verified 08/29/24 15:26 [From Lantus U-100 Insulin] metformin [METFORMIN] Allergy Unknown HIVES Verified 08/29/24 15:26 rosuvastatin Allergy Unknown Unknown Verified 08/29/24 15:26 sitagliptin [From JANUVIA] Allergy Unknown HIVES Verified 08/29/24 15:26 Home Medications ?Medication ?Instructions ?Recorded ?Confirmed ?Last Taken ?Type clopidogrel 75 mg tablet 75 mg PO BEDTIME 07/16/24 07/16/24 Unknown History insulin degludec 100 unit/mL 32 unit subcut BID 07/16/24 07/17/24 Unknown History subcutaneous solution (Tresiba U-100 Insulin) Lactobacillus acidophilus 1,000 mmu cells PO DAILY 07/17/24 07/17/24 Unknown History acetaminophen 650 mg rectal 650 mg AK Q4H PRN Fever Or Pain 07/17/24 07/17/24 Unknown History suppository acetaminophen 650 mg 650 mg PO Q4H PRN Pain 07/17/24 07/17/24 Unknown History tablet,extended release bisacodyl 10 mg rectal suppository 10 mg AK DAILY PRN Constipation 07/17/24 07/17/24 Unknown History calcium carbonate 1,000 mg PO TIDAC 07/17/24 07/17/24 Unknown History collagenase clostridium histo. 250 1 appl topical TID 07/17/24 07/17/24 Unknown History unit/gram topical ointment (Santyl) diclofenac sodium 1 % topical gel 4 g topical Q6H 07/17/24 07/17/24 Unknown History levothyroxine 125 mcg tablet 125 mcg PO DAILY@0600 07/17/24 07/17/24 Unknown History lisinopril 10 mg tablet 10 mg PO DAILY 07/17/24 07/17/24 Unknown History magnesium hydroxide 400 mg/5 mL 5 ml PO Q8H PRN Constipation 07/17/24 07/17/24 Unknown History oral suspension (Milk of Magnesia) naloxone 0.4 mg/mL injection 0.4 mg subcut Q3M PRN Opiate 07/17/24 07/17/24 Unknown History solution Reversal omeprazole 40 mg capsule,delayed 40 mg PO DAILY@0630 07/17/24 07/17/24 Unknown History release sodium phosphates 19 gram-7 118 ml AK DAILY PRN Constipation 07/17/24 07/17/24 Unknown History gram/118 mL enema (Fleet Enema) Physical Exam Vital Signs and Narrative: Vital Signs: Last Vital Signs Temp 99.1 F 08/29/24 22:12 Pulse 92 08/29/24 22:12 Resp 16 08/29/24 22:12 BP 113/54 L 08/29/24 22:12 Pulse Ox 94 08/29/24 22:12 O2 Del Method Nasal Cannula 08/29/24 22:12 O2 Flow Rate 4 08/29/24 22:12 BMI result Body Mass Index 39.8 Const: Other: Constitutional : Awake, interactive, not in distress Neck :Constitutional : interactive, not in distress Cardiovascular : no JVP, trace lower extremity edema Respiratory : bilateral chest movement, not in resp distress , decrease air entry in lung basis , crackles at bases Gastrointestinal: soft, lax, Non tender Skin : Warm, Dry Left Heel, Sacrum; Stage 4 Pressure Injury?Present covered with dressing Neurological : Alert & oriented , No focal deficit Results Labs 08/29/24 18:11 08/29/24 18:11 Labs: Laboratory Results - last 24 hr 08/29/24 08/29/24 18:11 21:46 MCV 90.6 MCH 30.1 MCHC 33.2 RDW 14.3 Plt Count 526 H D MPV 9.0 L Immature Gran % (Auto) 0.3 Neut % (Auto) 67.0 Lymph % (Auto) 8.8 L [place] % (Auto) 6.8 Eos % (Auto) 16.7 H Baso % (Auto) 0.4 Lymph # (Auto) 1.1 L [place] # (Auto) 0.9 Eos # (Auto) 2.2 H Baso # (Auto) 0.1 Abs Immat Gran (auto) 0.04 H Absolute Neuts (auto) 8.7 H Absolute Nucleated RBC 0.000 Nucleated RBC % (auto) 0.0 Smear Tech's Comments VERIFIED Anion Gap 9 L Estim Creat Clear Calc 159.5 Estimated GFR > 60 POC Glucose 112 Random Glucose 150 H Calcium 7.8 L D Total Bilirubin 0.4 AST 23 ALT 8 Alkaline Phosphatase 50 Troponin I High Sens 2.7 B-Natriuretic Peptide 20 Total Protein 5.5 L Albumin 2.2 L Imaging Radiologist's Impressions: Impressions Chest CTA 08/29/24 18:51 IMPRESSION: *CT pulmonary angiogram negative for pulmonary emboli. *Multifocal consolidative densities within the lungs suspicious for multifocal pneumonia. Recommend follow-up CT of the thorax following resolution of acute symptoms to confirm resolution of the currently identified densities and to exclude possible underlying tumors. *The right kidney is partially visualized. The visualized right kidney demonstrates prominence of the visualized calyces and pelvis suspicious for possible hydronephrosis. As clinically indicated, findings could be further evaluated with dedicated imaging of the kidneys. Electronically signed by: Sharif King MD 08/29/2024 11:31 PM [employer] RP Chest X-Ray 08/29/24 18:55 IMPRESSION: No acute intrathoracic disease. Markedly elevated right hemidiaphragm with bibasilar atelectasis and small right pleural effusion. Electronically signed by: Arun Pitts MD 08/29/2024 11:03 PM EST RP Assessment and Plan (1) Pneumonia: Status: Acute (2) Sacral osteomyelitis: Status: Acute (3) Sacral decubitus ulcer: Qualifiers: Pressure injury stage: unstageable Qualified Code(s): L89.150 - Pressure ulcer of sacral region, unstageable Status: Acute Plan A 69 years old male with PMH of ROLO, DM, hypothyroidism, hyperlipidemia, HTN, CVA on aspirin and plavix, sactal wound among others presenting to the hospital with incident of hypoxia and cough. Acute Hypoxia 2/2 Atelactais vs CAP Cultures sent , not septic negative LA CT as reported Seems more of Atelactasis as he is on broad spectrum Abx Continue Daptomycin and Ertapenem cough med Incentive spirometry , chest physiotherapy Wean O2 down as tolerated will need repeat CT in few weeks to follow on resolution #Sacral Osteomylitis supposed to finish Abx on 08/31 of Dapto and Invanz To check wound care Hold on further Abx at this point check with ID if needs longer course Type II DM POC, humalog on Tresiba 32 bid, allergic to Lantus, continue short acting insulin with additional scheduled insulin #HypoT, levothyroxine #Hx CVA, continue DAPT, statin #HTN, continue lisinopril dvt prophyalxis- Lovenox aThe patient will likely need 2 overnight hospital stay for treatment of hypoxia from pneumonia on IV antibiotics. Quality Stroke Does the patient have a stroke diagnosis?: No VTE Prior VTE?: No VTE Risk Level:: Medical - moderate - high VTE Device Contraindication: Treatment Not Indicated VTE Drug Contraindication: N/A - Med Ordered
[2024-08-30] MEDS: cefEPime HCl 1 GM in 0.9 % Sodium Chloride 50 ML IV (00:44)
[2024-08-30 00:57] VITALS: BP 111/54; PULSE 18; RESP 85; O2SAT 93
[2024-08-30 01:03] LABS: Lactic Acid 0.9 mmol/L (0.5-2.0)
[2024-08-30] MEDS: Enoxaparin Sodium 40 MG/0.4 ML SYRINGE SUBCUT (02:12)
[2024-08-30] MEDS: guaiFENesin LA 600 MG TAB.ER.12H PO ×2 (02:12→09:50)
--- NOTE | 2024-08-30 03:46 | PC.NURSE ---
Late entry: Pt cleaned and changed in stretcher. MD San called in by RN to visualize wound on coccyx. Wound had progressed outside wound vac. Gauze and mepilex applied to wound and to reseal wound vac dressing. Pillows placed under one side of pt to relieve pressure off coccyx.
[2024-08-30 04:46] LABS: Basophils Absolute Auto 0.1 X10*3/uL (0.0-0.2); Basophils Percent Auto 0.7 % (0-2); Eosinophils Percent Auto 17.4 % (0-4); Hematocrit 30.8 % (42.0-52.0); Hemoglobin 11.4 g/dl (14.0-18.0); Imm Gran Abs Auto 0.04 X10*3/uL (0.00-0.03); Imm Gran Pct Auto 0.3 % (0.0-0.4); Lymphocytes Absolute Auto 1.2 X10*3/uL (1.2-4.9); Lymphocytes Percent Auto 10.3 % (20-40); MANUAL DIFF FLAG SCAN; Mean Corpuscular Hemoglobin 34.3 pg (27.0-33.0); Mean Corpuscular Volume 92.8 fL (80.0-98.0); Mean Platelet Volume 9.2 fL (9.4-12.4); Monocytes Absolute Auto 0.7 X10*3/uL (0.1-1.2); Monocytes Percent Auto 6.2 % (2-11); Neutrophils Absolute Auto 7.5 x10*3/uL (2.0-8.3); Neutrophils Percent Auto 65.1 % (45-73); Platelet Count 451 X10*3/uL (160-400); Red Blood Count 3.32 X10*6/uL (4.60-5.80); Red Cell Distribution Width 14.3 % (11.0-16.0); SCAN SMEAR FLAG 1; White Blood Count 11.6 X10*3/uL (4.8-10.8)
[2024-08-30 05:03] LABS: Anion Gap 11 (12-20); Blood Urea Nitrogen 11 mg/dL (9-16); Calcium 7.8 mg/dL (8.4-10.2); Carbon Dioxide 23 mmol/L (22-29); Chloride 107 mmol/L (96-108); Creatinine Clr Calc Pharmacy 153.7; Estimated Glomerular Filt Rate > 60; Glucose Random 192 mg/dL (60-115); Potassium 4.3 mmol/L (3.3-5.1); Sodium 137 mmol/L (135-145)
[2024-08-30 05:04] LABS: SLIDE REVIEW VERIFIED
--- NOTE | 2024-08-30 06:33 | PC.NURSE ---
Pt and linen cleaned and changed, legs elevated; heels off bed. Pillow switch to other side of bed to relieve pressure on coccyx wound.
[2024-08-30 07:31] LABS: Glucose, Whole Blood 145 mg/dL (60-115)
[2024-08-30] MEDS: 0.9 % Sodium Chloride Flush 3 ML SYRINGE IVFLUSH ×3 (07:45→21:00)
[2024-08-30] MEDS: Meropenem 1 GM VIAL IVPUSH ×3 (07:48→22:53)
[2024-08-30] MEDS: Insulin Lispro 100 UNIT/ML 3 ML VIAL SUBCUT ×6 (07:53→20:56)
[2024-08-30 09:13] LABS: C Reactive Protein 11.89 mg/dL (< or = 0.50)
--- NOTE | 2024-08-30 09:30 | PHA.MEDREC ---
Addendum entered by Cyndie Arboleda RPh 08/30/24 09:51: Reviewed by [facility] Original Note: Pharmacy Consult ? Medication Reconciliation Pharmacy has completed the medication reconciliation. Confirmed medications with list from [facility].
[2024-08-30 09:36] LABS: Procalcitonin 0.08 ng/mL
[2024-08-30] MEDS: DAPTOmycin 500 MG in 0.9 % Sodium Chloride 50 ML 94 MG IV (09:50)
--- NOTE | 2024-08-30 10:21 | HO.SKINPHOTO ---
Location: Category: Stage: Length: Width: Depth: cm Location: Category: Stage: Length: Width: Depth: cm Location: Category: Stage: Length: Width: Depth: cm Location: Category: Stage: Length: Width: Depth: cm Location: Category: Stage: Length: Width: Depth: cm Location: Category: Stage: Length: Width: Depth: cm
[2024-08-30 10:38] VITALS: BP 123/58; PULSE 86; RESP 18; TEMP 37.2; O2SAT 95
--- NOTE | 2024-08-30 11:00 | HO.SKINPHOTO ---
Location: Category: Stage: Length: Width: Depth: cm Location: perineal
--- NOTE | 2024-08-30 11:18 | PC.NURSE ---
Wound vac drsg soiled with feces on admission to this floor and mostly off,removed ,area cleansed with NS,covered with NS most kerlixes and abd pad,photo on the chart,wound nurse notified,Left heel st IV ulcer cleansed ith NS,durafiber applied,picture on the chart,MASD perineal area cleansed with NS,Triad applied picture on the chart,Saji protective cream applied to bilaeral groins and scrotum,wound nurse will return to reaplly wound vac drsg.
--- NOTE | 2024-08-30 11:32 | MHC.CM.PN ---
IMM 08/30/24 Male 69 DX Sacral Decub Osteo+ and PNA. Patient was independent with functional mobility just prior to this admission. Patient will likely need STR at discharge. His preference for STR is [facility]. A referral has been sent to the facility. They are following. DP STR via BLS. HCP is on file.
--- NOTE | 2024-08-30 11:40 | PC.NURSE ---
no need for Tele monitoring for this patient per Dr. Valerio
[2024-08-30 11:55] LABS: Glucose, Whole Blood 176 mg/dL (60-115)
[2024-08-30 12:05] VITALS: BMI 39.8
--- NOTE | 2024-08-30 12:07 | MHC.CLN ---
PT WITH INCREASED NUTRITION RISK R/T PRESSURE INJURY DIET RX: 1800DM-RECOMMEND INCREASING TO 2200DM TO MEET NEEDS AN DPROMOTE WOUND HEALING RECOMMEND ADDING ENSURE MAX BID TO PROVIDE 300KCALS, 60G PROTEIN MONITOR PO INTAKE AND ENCOURAGE SUPPLEMENTS SEE ALSO FULL CLINICAL NUTRITION ASSESSMENT
--- NOTE | 2024-08-30 12:08 | MHC.CM.PN ---
IMM 08/30/24 Patient sent in from [facility] wound clinic for Low SPO2. Male 69 DX PNA Sacral Decube Osteo+. Patient reports that he comes to [facility] from [facility]. He would like to return at discharge. A referral has been sent to the facility. Patient requires 2 person to turn in bed. A HCP is on file. DP return to [facility] via BLS.
[2024-08-30 12:14] VITALS: BP 121/57
[2024-08-30] MEDS: lisinopriL 10 MG TABLET PO (12:14)
[2024-08-30] MEDS: Calcium Oyster Shell Elemental 500 MG TABLET 1000 MG PO ×2 (12:14→16:56)
[2024-08-30] MEDS: Levothyroxine Sodium 125 MCG TABLET PO (12:17)
--- NOTE | 2024-08-30 12:49 | HO.WOUND ---
Wound Consult: Initial 69yr old?male admitted to [facility] on 08/30/24 - See progress notes and H&P for detailed history.? Wound consult placed for Left Heel, Sacrum and Perineal area, Present on admission. This patient is well known to this freelance copywriter from previous admissions. He came in with a Nisus NPWT (Negative Pressure Wound Therapy) vac in place. However at time of arrival to unit the wound vac had lost suction and was soiled with stool due to patients incontinence. Wound vac removed and NS moist packing applied by direct care team. Arrival to the bedside the patient reports he does not want the wound vac reapplied at this time. As he reports he had just eaten lunch and would prefer to wait. He reports he is under the impression he is discharging tomorrow to return to [facility] and he has an appointment with his wound care provider. If this is the case the patient should continue with NS moist packing as our 3M wound vacs are not compatible with Nisus wound vacs. I have reached out to provider to discuss patient plan for d/c and will determine if he should continue with Moist packing or reapply a 3M wound vac, pending response. The patient is noted for MASD to the perineal area and a resurfacing stage 4 to the left heel - see below for details. Patient agreeable to assessment and photo documentation.? Left Heel Etiology: ??resurfacing Stage 4 pressure injury Present on Admission Wound Bed: red pink wound bed Edges: ? irregular Radha wound: red pink erythema ? No Induration, Fluctuance or Warmth noted Pain: tenderness reported Goals of Treatment: ? Moisture management with Durafiber AG Sacrum Etiology: ??Stage 4 pressure Injury Present on Admission Wound Bed: full thickness tissue loss Drainage / Odor: brink yellow sanginous drainage ntoed in wound vac canister Edges: ? unattached Radha wound: ? MASD and [place] erythema - No Induration, Fluctuance or Warmth noted Pain: tenderness and pain reported Goals of Treatment: wet to moist packing to continue with autolytic debridement and consider wound vac replacement Perineal Etiology: ?MASD ?Present on Admission Wound Bed: scattered areas of full thickness tissue loss marbled wound beds with yellow slough and pink moist tissue Edges: ? attached Radha wound: MASD - ? No Induration, Fluctuance or Warmth noted Pain: tenderness reported Goals of Treatment: Triad to aid in pressure redistribution Recommendations: 1. Turn and Reposition every 2 hours and as needed for patient comfort.? Use pillows or wedges to support off loading positions. 2. Off Load all bony prominences with use of pillows and heel boots if needed.? Apply Preventative foams where needed. ? 3. Monitor for incontinence and moisture control, use barrier creams when needed for prevention and treatment. 4. Provide adequate and supplemental nutrition.? 5. Order low air loss mattress. 6. Maintain blood glucose levels per Providers order. 7. Left Heel - Cleanse with NS moist gauze. Applt skin prep to periwound. Cover wound bed with Durafiber AG, dry gauze, ABD pad and wrap. Change every 3 days. 8. Perineal area - Routine cleansing with PH balanced wipes, pat dry. Apply thin layer of Triad to wound bed - only pat and dab no scrub and rub when soiling occurs. Reapply thin layer PRN after each episode of incontinence. 9. Sacrum - Off Load Pressure with turns every 2 hours. Cleanse and irrigate with NS, pat dry. Apply Skin Prep wipe to the periwound. Pack wound bed with NS wet gauze roll be sure to pack lightly all space. Cover with Dry gauze, ABD pads. Change daily and PRN for soiling. Re-consult wound care Nurse for wound deterioration or wound changes.
[2024-08-30 13:37] LABS: MRSA Nasal PCR NEGATIVE (Negative); SA Nasal PCR NEGATIVE (Negative)
[2024-08-30 13:43] LABS: Adenovirus PCR Not Detected (Not Detect.); Bordetella parapertussis PCR Not Detected (Not Detect.); Bordetella pertussis PCR Not Detected (Not Detect.); Chlamydia pneumoniae PCR Not Detected (Not Detect.); Coronavirus 229E PCR Not Detected (Not Detect.); Coronavirus HKU1 PCR Not Detected (Not Detect.); Coronavirus NL63 PCR Not Detected (Not Detect.); Coronavirus OC43 PCR Not Detected (Not Detect.); Human metapneumovirus PCR Not Detected (Not Detect.); Influenza A PCR Not Detected (Not Detect.); Influenza B PCR Not Detected (Not Detect.); Mycoplasma pneumoniae PCR Not Detected (Not Detect.); Parainfluenza 1 PCR Not Detected (Not Detect.); Parainfluenza 2 PCR Not Detected (Not Detect.); Parainfluenza 3 PCR Not Detected (Not Detect.); Parainfluenza 4 PCR Not Detected (Not Detect.); RSV PCR Not Detected (Not Detect.); Rhino/Enterovirus PCR Not Detected (Not Detect.)
[2024-08-30 14:23] LABS: SARS-CoV-2 PCR Not Detected (Not Detect.)
--- NOTE | 2024-08-30 14:43 | PM.EVENT ---
Event Note Date of Service: 08/30/24 Event Note: Day hospitalist update S: minimal cough, no dyspnea no fever O: Temp Pulse Resp BP Pulse Ox O2 Del Method O2 Flow Rate 98.9 F 86 18 121/57 L 95 Nasal Cannula 2 08/30/24 10:38 08/30/24 10:38 08/30/24 10:38 08/30/24 12:14 08/30/24 10:38 08/30/24 10:38 08/30/24 10:38 Gen: in no acute distress HEENT: sclera anicteric, moist mucus membranes Neck: supple Lungs: diminished bilaterally Heart: regular rate and rhythm, no murmurs Abd: soft, non-tender, non-distended Ext: no edema Skin: warm/well-perfused, stage IV pressure ulcer sacrum Neuro: alert and oriented x3, no focal findings Psych: appropriate affect A/P: d1 69yo M with ROLO, DM2, hypothyroidism, HLD, HTN, CVA on ASA + clopidogrel, 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 currently at [facility] and sent in from [facility] Wound Care with cough and hypoxia AHRF due to multifocal pneumonia - trend PCT, follow BCx; RVP negative; MRSA negative - continue ertapenem which he was on anyways for osteomyelitis; ID consultation - wean O2 as tolerated - CASTING ROOM HELPER consultation sacral osteomyelitis - supposed to finish ertapenem and daptomycin tomorrow (08/31) - Wound Care consulted, replace VAC [whehe discharges the wound vac will need to removed and wet to moist dressing and when he gets to the facility they will reapply since he has a different brand already in place] DM2 - correction-dose lispro hypothyroidism - continue LT4 hx CVA - continue ASA + clopidogrel; hold statin while on daptomycin HTN - lisinopril VTE ppx - enoxaparin dispo - eventual return to [facility] In my clinical judgment, the patient requires continued inpatient hospitalization for the following reasons: IV ABX. hypoxia Time Spent With Patient Time: Total time managing care of this patient today ____ minutes.
[2024-08-30 15:58] VITALS: BP 119/59; PULSE 87; RESP 18; TEMP 36.1; O2SAT 97
[2024-08-30 16:39] LABS: Glucose, Whole Blood 176 mg/dL (60-115)
--- NOTE | 2024-08-30 16:48 | HO.WOUND ---
NPWT NOTE Wound Consult: Follow up 69yr old?male admitted to [facility] on 08/30/24 - See progress notes and H&P for detailed history.? Wound consult placed for Left Heel, Sacrum and Perineal area, Present on admission. This patient is well known to this medical writer from previous admissions. He came in with a Nisus NPWT (Negative Pressure Wound Therapy) vac in place. However at time of arrival to unit the wound vac had lost suction and was soiled with stool due to patients incontinence. Wound vac removed and NS moist packing applied by direct care team. Earlier today the patient reported he did not want the wound vac reapplied at this time. Spoke to provider and prefers patient to have wound vac on - at bedside discussed wound vac application and he is agreeable to application at this time. The patient is not set for d/c tomorrow 08/31/24 - will follow up with patient and provider tomorrow for d/c planning. Sacrum NPWT Suction Settings: 125mmHg - Setting Type: Continuous and Low No Premedication Provided. Wound assessment: 11cm x 5cm x 4cm? - max depth of 4cm undermining noted at 12 o'clock Wound bed: marbled wound bed with red moist viable tissue and yellow brink slough - no exposed bone or tendon observed or palpated Cleanse and irrigated with NS. NPWT Dressing Application: 1 black foam cut to size and applied to wound bed 2nd piece of separate black foam applied on top to fill space, Skin and wound edge towards anus protected with Paste Strip outlining edge and durafiber for moisture management.? 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 Given the MASD and proximity to the anus the vac will likely have a challenge maintaining suction. Will follow up with patient tomorrow to monitor for leaking. Skin protected with Drape for Bridge one piece of black foam applied for bridge to left abdomen avoiding hip bone. Dressing completed and no leak noted.? Suction set to 125mmHg - patient denies pain and or burning sensation. Patient tolerated well.? D/C plan not yet determined however patient arrived with Nisus wound vac inplace which is not compatible with our 3M wound vac. At the time of d/c wound vac will have to be removed and wound packed with NS moist gauze roll and covered with ABD pads. Re-consult wound care Nurse for wound deterioration or wound changes.
--- NOTE | 2024-08-30 16:54 | PC.NURSE ---
PICC line moira changed by KAIA Hale
--- NOTE | 2024-08-30 18:37 | PC.NURSE ---
Patient refused Lozano at this time
[2024-08-30 19:02] VITALS: BP 119/58; PULSE 97; RESP 18; TEMP 37.1; O2SAT 95
[2024-08-30 20:09] LABS: Glucose, Whole Blood 152 mg/dL (60-115)
[2024-08-30] MEDS: Aspirin Enteric Coated 81 MG TABLET.DR PO (20:55)
[2024-08-30] MEDS: Clopidogrel Bisulfate 75 MG TABLET PO (20:56)
[2024-08-31] MEDS: Enoxaparin Sodium 40 MG/0.4 ML SYRINGE SUBCUT (01:05)
[2024-08-31 04:00] VITALS: BP 110/57; PULSE 89; RESP 18; TEMP 36.9; O2SAT 93
[2024-08-31] MEDS: Levothyroxine Sodium 125 MCG TABLET PO (05:28)
[2024-08-31] MEDS: Omeprazole 40 MG CAPSULE.DR PO (05:28)
[2024-08-31] MEDS: Meropenem 1 GM VIAL IVPUSH ×3 (06:27→22:33)
[2024-08-31 07:33] LABS: Hematocrit 28.4 % (42.0-52.0); Hemoglobin 9.4 g/dl (14.0-18.0); Mean Corpuscular HGB Conc 33.1 g/dl (31.0-36.0); Mean Corpuscular Volume 90.7 fL (80.0-98.0); Mean Platelet Volume 9.5 fL (9.4-12.4); Platelet Count 471 X10*3/uL (160-400); Red Blood Count 3.13 X10*6/uL (4.60-5.80); Red Cell Distribution Width 14.3 % (11.0-16.0)
[2024-08-31 07:34] VITALS: BP 107/58; PULSE 86; RESP 16; TEMP 37; O2SAT 95
[2024-08-31 07:43] LABS: Glucose, Whole Blood 88 mg/dL (60-115)
[2024-08-31 07:49] LABS: Anion Gap 13 (12-20); Blood Urea Nitrogen 11 mg/dL (9-16); Carbon Dioxide 25 mmol/L (22-29); Chloride 106 mmol/L (96-108); Creatinine Clr Calc Pharmacy 150.9; Estimated Glomerular Filt Rate > 60; Glucose Random 84 mg/dL (60-115); Potassium 4.3 mmol/L (3.3-5.1); Sodium 140 mmol/L (135-145)
--- NOTE | 2024-08-31 08:09 | PC.NURSE ---
BS 88,no insulin administered,Dr. Valerio notified
[2024-08-31] MEDS: Aspirin Enteric Coated 81 MG TABLET.DR PO ×2 (08:26→20:26)
[2024-08-31] MEDS: Calcium Oyster Shell Elemental 500 MG TABLET 1000 MG PO ×3 (08:27→18:44)
[2024-08-31] MEDS: guaiFENesin LA 600 MG TAB.ER.12H PO ×2 (08:28→20:26)
[2024-08-31] MEDS: lisinopriL 10 MG TABLET PO (08:29)
[2024-08-31] MEDS: 0.9 % Sodium Chloride Flush 3 ML SYRINGE IVFLUSH ×3 (08:30→22:33)
[2024-08-31] MEDS: DAPTOmycin 500 MG in 0.9 % Sodium Chloride 50 ML 93.9 MG IV (08:31)
--- NOTE | 2024-08-31 08:42 | PC.NURSE ---
Patient refused purewick,benefits were explained to patient
--- NOTE | 2024-08-31 09:21 | MHC.CLN ---
F/U PT WITH INCREASED NUTRITION RISK R/T PRESSURE INJURIES. DIET RX: 2200 DM. SUPPLEMENT ENSURE MAX BID (300 KCALS, 60 G PROTEIN). INCREASED DIET KCALS AND SUPPLEMENT TO PROMOTE WOUND HEALING. FOLLOW FOR PO INTAKE AND SKIN INTEGRITY.
--- NOTE | 2024-08-31 09:22 | MHC.CM.PN ---
Addendum entered by Bridgette Rowe 08/31/24 15:35: Patient will discharge tomorrow. He will return to [facility] via S. Transport has been pre-booked for tomorrow. He will get picked up from [facility] at 2pm. Original Note: Patient DX PNA pressure ulcer heel + sacrum. Patient requiring IV ABX for infection. A clinical update as been sent to [facility]. DP return to [facility] via BLS.
[2024-08-31] MEDS: Nystatin Powder 15 GM BOTTLE 1 APPL TOPICAL (09:46)
--- NOTE | 2024-08-31 11:09 | MHC.SL.SWA ---
Speech Pathologist Impression: WFL Risk of Aspiration Due to: History of Pneumonia Dysphasia Diet Status: No Change to Diet Order Liquid Consistency and Strategies for Safe Swallow: Liquid Intake Recommendation: Thin Liquid Intake Strategies: Small Sips Solid Food Consistency: Dietary Recommendations: Regular Additional Modifications to Solid Foods: Oral mech exam unremarkable and no difficulties observed w/ PO intake. Swallow deemed functional in the oral and pharyngeal phases. Recommend CONTINUE on REGULAR solids and THIN liquids, pills WHOLE with LIQUID. FORENSIC SOCIAL WORKER discussed aspiration precautions w/ patient. Recommend periodic check-in's during meal time to monitor tolerance. FORENSIC SOCIAL WORKER to f/u 1x. Oral Medication Intake: Whole with Liquid Please contact the pharmacy regarding appropriate crushable or liquid drug formulations that are available whenever modified delivery is recommended. Compensatory Strategies and Precautions to be Taken for Safe Swallow: Sitting Upright (90 deg) Small Bites and Sips Alternate Liquids/Solids Rate of Ingestion Change Supervision While Eating and Drinking for Safe Swallow: Intermittent Supervision Recommendation for Speech: Inpatient Speech Therapy Comment: 1 f/u to monitor Frequency/Duration: Date Range for Service Req: Timeline to reassess: Structures Technician Clinican/Clinical Fellow: No Supervisory Statement: I have reviewed and agree with the student/clinical fellow's documentation: N/A Speech Language Pathologist: Ana Kline M.A., CCC-FORENSIC SOCIAL WORKER
--- NOTE | 2024-08-31 11:10 | HO.WOUND ---
NPWT NOTE : Follow up 69yr old?male admitted to [facility] on 08/30/24 - See progress notes and H&P for detailed history.? Wound consult follow up for NPWT to Sacrum. This patient is well known to this account underwriter from previous admissions. Patient continues to deny discomfit with wound vac in place. Alarms reviewed and no leaking or alarms noted when Vac monitor was assessed. Settings continued no changes noted or needed. The dressing is in tact and maintaining suction. Per patient and conversation with direct care nurse patient is set for d/c back to [facility] tomorrow. Staff reminded to remove wound vac prior to discharge and pack sacral wound with NS moist gauze roll, followed by dry gauze and ABD pad. 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 Direct care team advised to order. Staff reports patient continues to refuse incontinence care and repositions at times or defers to later time frame. The patient was provided with concerns and education on results of not allowing for timely incontinence care and off loading pressure. He reports understanding. Details from yesterdays assessment and consultation and wound vac application. He came in with a Nisus NPWT (Negative Pressure Wound Therapy) vac in place. However at time of arrival to unit the wound vac had lost suction and was soiled with stool due to patients incontinence. Wound vac removed and NS moist packing applied by direct care team. Earlier today the patient reported he did not want the wound vac reapplied at this time. Spoke to provider and prefers patient to have wound vac on - at bedside discussed wound vac application and he is agreeable to application at this time. The patient is not set for d/c tomorrow 08/31/24 - will follow up with patient and provider tomorrow for d/c planning. Sacrum NPWT Suction Settings: 125mmHg - Setting Type: Continuous and Low No Premedication Provided. Wound assessment: 11cm x 5cm x 4cm? - max depth of 4cm undermining noted at 12 o'clock Wound bed: marbled wound bed with red moist viable tissue and yellow brink slough - no exposed bone or tendon observed or palpated Cleanse and irrigated with NS. NPWT Dressing Application: 1 black foam cut to size and applied to wound bed 2nd piece of separate black foam applied on top to fill space, Skin and wound edge towards anus protected with Paste Strip outlining edge and durafiber for moisture management.? 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 Given the MASD and proximity to the anus the vac will likely have a challenge maintaining suction. Will follow up with patient tomorrow to monitor for leaking. Skin protected with Drape for Bridge one piece of black foam applied for bridge to left abdomen avoiding hip bone. Dressing completed and no leak noted.? Suction set to 125mmHg - patient denies pain and or burning sensation. Patient tolerated well.? D/C plan not yet determined however patient arrived with Nisus wound vac inplace which is not compatible with our 3M wound vac. At the time of d/c wound vac will have to be removed and wound packed with NS moist gauze roll and covered with ABD pads. Re-consult wound care Nurse for wound deterioration or wound changes.
[2024-08-31 11:14] LABS: Glucose, Whole Blood 206 mg/dL (60-115)
[2024-08-31] MEDS: Insulin Lispro 100 UNIT/ML 3 ML VIAL SUBCUT ×2 (11:57)
[2024-08-31 12:30] VITALS: BP 107/58; PULSE 86; O2SAT 95
--- NOTE | 2024-08-31 13:22 | P.PNIM_ITS ---
Subjective Subjective Date of Service: 08/31/24 Interval History: cough resolved, no dyspnea, no fever Review of Systems Review of Systems: Yes all other systems are reviewed and are negative Physical Exam 2 Vital Signs: Vital Signs: Last Vital Signs Temp 98.6 F 08/31/24 07:34 Pulse 86 08/31/24 12:30 Resp 16 08/31/24 07:34 BP 107/58 L 08/31/24 12:30 Pulse Ox 95 08/31/24 12:30 O2 Del Method Nasal Cannula 08/31/24 07:34 O2 Flow Rate 1.0 08/31/24 07:34 BMI result Body Mass Index 39.8 Gen: in no acute distress HEENT: sclera anicteric, moist mucus membranes Neck: supple Lungs: diminished bilaterally Heart: regular rate and rhythm, no murmurs Abd: soft, non-tender, non-distended Ext: no edema Skin: warm/well-perfused, stage IV pressure ulcer of sacrum with VAC in place Neuro: alert and oriented x3, no focal findings Psych: appropriate affect Objective Data Active Medications Acetaminophen (Acetaminophen 325 Mg Tablet) 650 mg PO Q6H PRN PRN Reason: Pain, Mild (Pain Scale 1-3), fever or headache Aspirin (Aspirin Enteric Coated 81 Mg Tablet.Dr) 81 mg PO BID [facility] Last Admin: 08/31/24 08:26 Dose: 81 mg Documented By: DAYAN Bisacodyl (Bisacodyl 10 Mg Supp.Rect) 10 mg IN DAILY PRN PRN Reason: Constipation Calcium Carbonate (Calcium Carbonate 750 Mg Tab.Chew) 750 mg PO Q4H PRN PRN Reason: Heartburn Calcium Carbonate (Calcium Oyster Shell Elemental 500 Mg Tablet) 1,000 mg PO TIDAC [facility] Last Admin: 08/31/24 11:56 Dose: 1,000 mg Documented By: DAYAN Clopidogrel Bisulfate (Clopidogrel Bisulfate 75 Mg Tablet) 75 mg PO BEDTIME [facility] Last Admin: 08/30/24 20:56 Dose: 75 mg Documented By: MALIKA Enoxaparin Sodium (Enoxaparin Sodium 40 Mg/0.4 Ml Syringe) 40 mg SUBCUT Q24H [facility] Last Admin: 08/31/24 01:05 Dose: 40 mg Documented By: MALIKA Guaifenesin (Guaifenesin La 600 Mg Tab.Er.12h) 600 mg PO BID [facility] Last Admin: 08/31/24 08:28 Dose: 600 mg Documented By: DAYAN Daptomycin 500 mg/ Sodium (Chloride) 60 mls @ 93.995 mls/hr IV Q24H [facility] Last Infusion: 08/31/24 09:13 Dose: Infused Documented By: DAYAN Insulin Human Lispro (Insulin Lispro 100 Unit/Ml 3 Ml Vial) 0 unit SUBCUT QIDAS [facility]; Protocol Last Admin: 08/31/24 11:57 Dose: 4 unit Documented By: DAYAN Insulin Human Lispro (Insulin Lispro 100 Unit/Ml 3 Ml Vial) 5 unit SUBCUT QIDAS [facility] Last Admin: 08/31/24 11:57 Dose: 5 unit Documented By: DAYAN Levothyroxine Sodium (Levothyroxine Sodium 125 Mcg Tablet) 125 mcg PO DAILY@0600 [facility] Last Admin: 08/31/24 05:28 Dose: 125 mcg Documented By: MALIKA Lisinopril (Lisinopril 10 Mg Tablet) 10 mg PO DAILY [facility]; Protocol Last Admin: 08/31/24 08:29 Dose: 10 mg Documented By: DAYAN Magnesium Hydroxide (Milk Of Magnesia 30 Ml Oral.Susp) 30 ml PO DAILY PRN PRN Reason: Constipation Magnesium Hydroxide (Milk Of Magnesia 30 Ml Oral.Susp) 5 ml PO Q8H PRN PRN Reason: Constipation Melatonin (Melatonin 3 Mg Tablet) 6 mg PO BEDTIME PRN PRN Reason: Insomnia Meropenem (Meropenem 1 Gm Vial) 1 gm IVPUSH Q8H [facility] Last Admin: 08/31/24 06:27 Dose: 1 gm Documented By: MALIKA Nystatin (Nystatin Powder 15 Gm Bottle) 1 appl TOPICAL DAILY [facility]; Protocol Last Admin: 08/31/24 09:46 Dose: 1 appl Documented By: DAYAN Omeprazole (Omeprazole 40 Mg Capsule.Dr) 40 mg PO DAILY@0630 [facility] Last Admin: 08/31/24 05:28 Dose: 40 mg Documented By: MALIKA Ondansetron HCl (Ondansetron Hcl 4 Mg/2 Ml Vial) 4 mg IVPUSH Q8H PRN PRN Reason: Nausea and Vomiting Sodium Chloride (0.9 % Sodium Chloride Flush 3 Ml Syringe) 3 ml IVFLUSH QSHIFT [facility] Last Admin: 08/31/24 08:30 Dose: 3 ml Documented By: DAYAN Labs 08/31/24 06:36 08/31/24 06:36 Labs: Laboratory Results - last 24 hr 08/30/24 08/30/24 08/30/24 11:45 16:35 20:00 MCV MCH MCHC RDW Plt Count MPV Absolute Nucleated RBC Nucleated RBC % (auto) Anion Gap Estim Creat Clear Calc Estimated GFR POC Glucose 176 H 152 H Random Glucose Calcium Total Creatine Kinase Nasal Screen MRSA (PCR) NEGATIVE Nasal S. aureus Screen NEGATIVE Nasal MRSA/S.aureus Interp SEE NOTE Respiratory Panel Patel See Note Adenovirus (Rapid PCR) Not Detected B.pert (TEM-PCR) Not Detected B.parapertussis DNA PCR Not Detected C. pneumoniae DNA (PCR) Not Detected Coronavirus OC43 (PCR) Not Detected Coronavirus HKU1 (PCR) Not Detected Coronavirus 229E (PCR) Not Detected Coronavirus NL63 (PCR) Not Detected Human Metapneumovir PCR Not Detected Influenza A (RT-PCR) Not Detected Influenza B (RT-PCR) Not Detected M. pneumoniae (PCR) Not Detected Parainfluenza 1 (PCR) Not Detected Parainfluenza 2 (PCR) Not Detected Parainfluenza 3 (PCR) Not Detected Parainfluenza 4 (PCR) Not Detected RSV (PCR) Not Detected Entero/Rhino (PCR) Not Detected SARS-CoV-2 RNA (RT-PCR) Not Detected 08/31/24 08/31/24 08/31/24 06:36 07:38 11:04 MCV 90.7 MCH 30.0 MCHC 33.1 RDW 14.3 Plt Count 471 H MPV 9.5 Absolute Nucleated RBC 0.000 Nucleated RBC % (auto) 0.0 Anion Gap 13 Estim Creat Clear Calc 150.9 Estimated GFR > 60 POC Glucose 88 206 H Random Glucose 84 Calcium 8.0 L Total Creatine Kinase 34 L Nasal Screen MRSA (PCR) Nasal S. aureus Screen Nasal MRSA/S.aureus Interp Respiratory Panel Patel Adenovirus (Rapid PCR) B.pert (TEM-PCR) B.parapertussis DNA PCR C. pneumoniae DNA (PCR) Coronavirus OC43 (PCR) Coronavirus HKU1 (PCR) Coronavirus 229E (PCR) Coronavirus NL63 (PCR) Human Metapneumovir PCR Influenza A (RT-PCR) Influenza B (RT-PCR) M. pneumoniae (PCR) Parainfluenza 1 (PCR) Parainfluenza 2 (PCR) Parainfluenza 3 (PCR) Parainfluenza 4 (PCR) RSV (PCR) Entero/Rhino (PCR) SARS-CoV-2 RNA (RT-PCR) Microbiology Microbiology Results: Microbiology 08/30/24 00:33 Blood Culture - Preliminary Blood - Venous No growth after 24 hours. 08/30/24 00:37 Blood Culture - Preliminary Blood - Venous No growth after 24 hours. 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 currently at [facility] and sent in from [facility] [place] [facility] Wound Care with cough and hypoxia AHRF due to multifocal pneumonia - trend PCT, follow BCx; RVP negative; MRSA negative - continue ertapenem which he was on anyway for osteomyelitis; ID consultation pending - wean O2 as tolerated; currently on 1L - BIOLOGICAL SCIENCE AIDE consultated, no aspiration concerns sacral osteomyelitis - supposed to finish ertapenem and daptomycin today [08/31] - Wound Care consulted, replace VAC [whehe discharges the wound vac will need to removed and wet to moist dressing and when he gets to the facility they will reapply since he has a different brand already in place] DM2 - correction-dose lispro hypothyroidism - continue LT4 hx CVA - continue ASA + clopidogrel; hold statin while on daptomycin HTN - lisinopril VTE ppx - enoxaparin dispo - eventual return to [facility] In my clinical judgment, the patient requires continued inpatient hospitalization for the following reasons: IV ABX. hypoxia Total time managing care of this patient today: 35 minutes. Quality Stroke Does the patient have a stroke diagnosis?: No VTE Prior VTE?: No VTE Risk Level:: Medical - moderate - high VTE Device Contraindication: Treatment Not Indicated VTE Drug Contraindication: N/A - Med Ordered
[2024-08-31 15:17] VITALS: BP 135/67; PULSE 88; RESP 18; TEMP 36.3; O2SAT 95
[2024-08-31 16:12] LABS: Glucose, Whole Blood 143 mg/dL (60-115)
--- NOTE | 2024-08-31 16:20 | PC.NURSE ---
[id number],Dr. Valerio notified,held scheduled insulin
[2024-08-31] MEDS: Acetaminophen 325 MG TABLET 650 MG PO (18:33)
[2024-08-31 18:56] VITALS: BP 144/78; PULSE 90; RESP 16; TEMP 36.6; O2SAT 95
[2024-08-31 20:08] LABS: Glucose, Whole Blood 149 mg/dL (60-115)
[2024-08-31] MEDS: Clopidogrel Bisulfate 75 MG TABLET PO (20:26)
[2024-09-01] MEDS: Enoxaparin Sodium 40 MG/0.4 ML SYRINGE SUBCUT (01:08)
[2024-09-01 03:38] VITALS: BP 131/61; PULSE 83; RESP 18; TEMP 36.3; O2SAT 95
[2024-09-01] MEDS: Meropenem 1 GM VIAL IVPUSH ×3 (06:20→22:22)
[2024-09-01] MEDS: Levothyroxine Sodium 125 MCG TABLET PO (06:20)
[2024-09-01] MEDS: Omeprazole 40 MG CAPSULE.DR PO (06:20)
[2024-09-01 07:17] VITALS: BP 126/61; PULSE 87; RESP 16; TEMP 37; O2SAT 96
[2024-09-01 07:29] LABS: Glucose, Whole Blood 102 mg/dL (60-115)
[2024-09-01 07:32] LABS: Hematocrit 27.7 % (42.0-52.0); Hemoglobin 9.2 g/dl (14.0-18.0); Mean Corpuscular HGB Conc 33.2 g/dl (31.0-36.0); Mean Corpuscular Hemoglobin 30.3 pg (27.0-33.0); Mean Corpuscular Volume 91.1 fL (80.0-98.0); Mean Platelet Volume 9.6 fL (9.4-12.4); Platelet Count 459 X10*3/uL (160-400); Red Blood Count 3.04 X10*6/uL (4.60-5.80); Red Cell Distribution Width 14.2 % (11.0-16.0); White Blood Count 12.4 X10*3/uL (4.8-10.8)
[2024-09-01] MEDS: Calcium Oyster Shell Elemental 500 MG TABLET 1000 MG PO ×3 (07:39→16:37)
[2024-09-01] MEDS: lisinopriL 10 MG TABLET PO (07:40)
[2024-09-01] MEDS: Aspirin Enteric Coated 81 MG TABLET.DR PO ×2 (07:40→20:12)
[2024-09-01] MEDS: guaiFENesin LA 600 MG TAB.ER.12H PO ×2 (07:40→20:12)
[2024-09-01] MEDS: Nystatin Powder 15 GM BOTTLE 1 APPL TOPICAL (07:41)
[2024-09-01] MEDS: 0.9 % Sodium Chloride Flush 3 ML SYRINGE IVFLUSH ×3 (07:41→20:12)
[2024-09-01] MEDS: DAPTOmycin 500 MG in 0.9 % Sodium Chloride 50 ML 94 MG IV (07:47)
[2024-09-01 07:49] LABS: Anion Gap 14 (12-20); Blood Urea Nitrogen 11 mg/dL (9-16); C Reactive Protein 8.71 mg/dL (< or = 0.50); Calcium 8.5 mg/dL (8.4-10.2); Carbon Dioxide 26 mmol/L (22-29); Chloride 105 mmol/L (96-108); Creatinine Clr Calc Pharmacy 162.6; Estimated Glomerular Filt Rate > 60; Glucose Random 108 mg/dL (60-115); Sodium 141 mmol/L (135-145)
[2024-09-01 08:07] LABS: Procalcitonin 0.06 ng/mL
[2024-09-01 11:04] LABS: Glucose, Whole Blood 207 mg/dL (60-115)
[2024-09-01] MEDS: Insulin Lispro 100 UNIT/ML 3 ML VIAL SUBCUT ×6 (11:55→20:33)
--- NOTE | 2024-09-01 13:07 | P.PNIM_ITS ---
Subjective Subjective Date of Service: 09/01/24 Interval History: Being followed for pneumonia and hypoxia. Feeling better this morning denies shortness of breath, no fevers, no chills, not on home oxygen finger oximetry 96% on 1 L. Review of Systems All other system reviewed and are negative Physical Exam 2 Vital Signs: Vital Signs: Last Vital Signs Temp 98.6 F 09/01/24 07:17 Pulse 87 09/01/24 07:17 Resp 16 09/01/24 07:17 BP 126/61 09/01/24 07:17 Pulse Ox 96 09/01/24 07:17 O2 Del Method Nasal Cannula 09/01/24 07:17 O2 Flow Rate 2.0 09/01/24 07:17 BMI result Body Mass Index 39.8 Const: Other: Gen: in no acute distress HEENT: sclera anicteric, moist mucus membranes Neck: supple Lungs: diminished bilaterally, no wheeze or crackles, Heart: regular rate and rhythm, no murmurs Abd: soft, non-tender, non-distended Ext: no edema Skin: warm/well-perfused, stage IV pressure ulcer of sacrum with VAC in place Neuro: alert and oriented x3, no focal findings Psych: appropriate affect Objective Data Active Medications Acetaminophen (Acetaminophen 325 Mg Tablet) 650 mg PO Q6H PRN PRN Reason: Pain, Mild (Pain Scale 1-3), fever or headache Last Admin: 08/31/24 18:33 Dose: 650 mg Documented By: SIDDHARTH Aspirin (Aspirin Enteric Coated 81 Mg Tablet.Dr) 81 mg PO BID [facility] Last Admin: 09/01/24 07:40 Dose: 81 mg Documented By: JAMIN Bisacodyl (Bisacodyl 10 Mg Supp.Rect) 10 mg SC DAILY PRN PRN Reason: Constipation Calcium Carbonate (Calcium Carbonate 750 Mg Tab.Chew) 750 mg PO Q4H PRN PRN Reason: Heartburn Calcium Carbonate (Calcium Oyster Shell Elemental 500 Mg Tablet) 1,000 mg PO TIDAC [facility] Last Admin: 09/01/24 11:55 Dose: 1,000 mg Documented By: JAMIN Clopidogrel Bisulfate (Clopidogrel Bisulfate 75 Mg Tablet) 75 mg PO BEDTIME [facility] Last Admin: 08/31/24 20:26 Dose: 75 mg Documented By: SANDRA Enoxaparin Sodium (Enoxaparin Sodium 40 Mg/0.4 Ml Syringe) 40 mg SUBCUT Q24H [facility] Last Admin: 09/01/24 01:08 Dose: 40 mg Documented By: SANDRA Guaifenesin (Guaifenesin La 600 Mg Tab.Er.12h) 600 mg PO BID [facility] Last Admin: 09/01/24 07:40 Dose: 600 mg Documented By: JAMIN Daptomycin 500 mg/ Sodium (Chloride) 60 mls @ 93.995 mls/hr IV Q24H [facility] Last Infusion: 09/01/24 09:01 Dose: Infused Documented By: CHON Insulin Human Lispro (Insulin Lispro 100 Unit/Ml 3 Ml Vial) 0 unit SUBCUT QIDACHS [facility]; Protocol Last Admin: 09/01/24 11:55 Dose: 2 unit Documented By: JAMIN Insulin Human Lispro (Insulin Lispro 100 Unit/Ml 3 Ml Vial) 5 unit SUBCUT QIDAS [facility] Last Admin: 09/01/24 11:56 Dose: 5 unit Documented By: JAMIN Levothyroxine Sodium (Levothyroxine Sodium 125 Mcg Tablet) 125 mcg PO DAILY@0600 [facility] Last Admin: 09/01/24 06:20 Dose: 125 mcg Documented By: SANDRA Lisinopril (Lisinopril 10 Mg Tablet) 10 mg PO DAILY [facility]; Protocol Last Admin: 09/01/24 07:40 Dose: 10 mg Documented By: JAMIN Magnesium Hydroxide (Milk Of Magnesia 30 Ml Oral.Susp) 30 ml PO DAILY PRN PRN Reason: Constipation Magnesium Hydroxide (Milk Of Magnesia 30 Ml Oral.Susp) 5 ml PO Q8H PRN PRN Reason: Constipation Melatonin (Melatonin 3 Mg Tablet) 6 mg PO BEDTIME PRN PRN Reason: Insomnia Meropenem (Meropenem 1 Gm Vial) 1 gm IVPUSH Q8H [facility] Last Admin: 09/01/24 06:20 Dose: 1 gm Documented By: SANDRA Nystatin (Nystatin Powder 15 Gm Bottle) 1 appl TOPICAL DAILY [facility]; Protocol Last Admin: 09/01/24 07:41 Dose: 1 appl Documented By: JAMIN Omeprazole (Omeprazole 40 Mg Capsule.) 40 mg PO DAILY@0630 [facility] Last Admin: 09/01/24 06:20 Dose: 40 mg Documented By: SANDRA Ondansetron HCl (Ondansetron Hcl 4 Mg/2 Ml Vial) 4 mg IVPUSH Q8H PRN PRN Reason: Nausea and Vomiting Sodium Chloride (0.9 % Sodium Chloride Flush 3 Ml Syringe) 3 ml IVFLUSH [facility]SHICHI [facility] Last Admin: 09/01/24 07:41 Dose: 3 ml Documented By: JAMIN Labs 09/01/24 06:19 09/01/24 06:19 Labs: Laboratory Results - last 24 hr 08/31/24 08/31/24 09/01/24 16:08 20:03 06:19 MCV 91.1 MCH 30.3 MCHC 33.2 RDW 14.2 Plt Count 459 H MPV 9.6 Absolute Nucleated RBC 0.000 Nucleated RBC % (auto) 0.0 Anion Gap 14 Estim Creat Clear Calc 162.6 Estimated GFR > 60 POC Glucose 143 H 149 H Random Glucose 108 Calcium 8.5 D C-Reactive Protein 8.71 H Procalcitonin 0.06 09/01/24 09/01/24 07:25 10:57 MCV MCH MCHC RDW Plt Count MPV Absolute Nucleated RBC Nucleated RBC % (auto) Anion Gap Estim Creat Clear Calc Estimated GFR POC Glucose 102 207 H Random Glucose Calcium C-Reactive Protein Procalcitonin Microbiology Microbiology Results: Microbiology 08/30/24 00:33 Blood Culture - Preliminary Blood - Venous No growth after 48 hours. 08/30/24 00:37 Blood Culture - Preliminary Blood - Venous No growth after 48 hours. 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 currently at [facility] and sent in from [facility] Wound Care with cough and hypoxia Acute hypoxic respiratory failure due to multifocal pneumonia - persistent mild leukocytosis, no fevers - blood cultures x2 negative, RVP negative; MRSA negative - on IV ertapenem and daptomycin which he was on anyway for osteomyelitis; ID consultation pending - wean O2 as tolerated; currently on 1L, not on home oxygen - 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 OPERATOR 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, no aspiration concerns - procalcitonin 0.06, CRP 8.71 improved from 11.89 sacral osteomyelitis - will discontinue daptomycin since end date for 6 weeks treatment was , continue meropenem to treat multifocal pneumonia and discussed with ID - Wound Care consulted, replace VAC [whehe discharges the wound vac will need to removed and wet to moist dressing and when he gets to the facility they will reapply since he has a different brand already in place] DM2 -blood sugar 207, continue Lantus and correction-dose lispro hypothyroidism - continue LT4 hx CVA - continue ASA + clopidogrel; hold statin while on daptomycin HTN - lisinopril VTE ppx - enoxaparin dispo - eventual return to [facility] In my clinical judgment, the patient requires continued inpatient hospitalization for the following reasons: IV ABX. hypoxia Quality Stroke Does the patient have a stroke diagnosis?: No VTE Prior VTE?: No VTE Risk Level:: Medical - moderate - high VTE Device Contraindication: Treatment Not Indicated VTE Drug Contraindication: N/A - Med Ordered
[2024-09-01 15:41] VITALS: BP 133/63; PULSE 98; RESP 18; TEMP 36.9; O2SAT 93
[2024-09-01 16:20] LABS: Glucose, Whole Blood 284 mg/dL (60-115)
[2024-09-01 19:33] VITALS: BP 138/71; PULSE 100; RESP 16; TEMP 36.7; O2SAT 95
[2024-09-01] MEDS: Clopidogrel Bisulfate 75 MG TABLET PO (20:12)
[2024-09-01 20:20] LABS: Glucose, Whole Blood 182 mg/dL (60-115)
[2024-09-02] MEDS: Enoxaparin Sodium 40 MG/0.4 ML SYRINGE SUBCUT (01:47)
[2024-09-02 03:35] VITALS: BP 111/56; PULSE 82; RESP 18; TEMP 36.7; O2SAT 94
[2024-09-02 05:47] LABS: Hematocrit 29.5 % (42.0-52.0); Hemoglobin 9.8 g/dl (14.0-18.0); Mean Corpuscular HGB Conc 33.2 g/dl (31.0-36.0); Mean Corpuscular Hemoglobin 30.2 pg (27.0-33.0); Mean Corpuscular Volume 90.8 fL (80.0-98.0); Mean Platelet Volume 9.3 fL (9.4-12.4); Platelet Count 438 X10*3/uL (160-400); Red Blood Count 3.25 X10*6/uL (4.60-5.80); Red Cell Distribution Width 14.1 % (11.0-16.0)
[2024-09-02] MEDS: Omeprazole 40 MG CAPSULE.DR PO (06:05)
[2024-09-02] MEDS: Meropenem 1 GM VIAL IVPUSH ×3 (06:05→21:29)
[2024-09-02] MEDS: Levothyroxine Sodium 125 MCG TABLET PO (06:05)
[2024-09-02 07:31] LABS: Glucose, Whole Blood 129 mg/dL (60-115)
[2024-09-02 08:00] VITALS: BP 140/64; PULSE 83; RESP 17; TEMP 36.4; O2SAT 94
[2024-09-02] MEDS: guaiFENesin LA 600 MG TAB.ER.12H PO (08:37)
[2024-09-02] MEDS: Calcium Oyster Shell Elemental 500 MG TABLET 1000 MG PO ×3 (08:37→16:59)
[2024-09-02] MEDS: Aspirin Enteric Coated 81 MG TABLET.DR PO ×2 (08:37→21:24)
[2024-09-02] MEDS: lisinopriL 10 MG TABLET PO (08:37)
[2024-09-02] MEDS: Insulin Lispro 100 UNIT/ML 3 ML VIAL SUBCUT ×7 (08:38→21:36)
[2024-09-02] MEDS: 0.9 % Sodium Chloride Flush 3 ML SYRINGE IVFLUSH ×3 (08:40→21:29)
[2024-09-02] MEDS: Nystatin Powder 15 GM BOTTLE 1 APPL TOPICAL (08:40)
[2024-09-02 11:24] LABS: Glucose, Whole Blood 243 mg/dL (60-115)
[2024-09-02 15:15] VITALS: BP 112/59; PULSE 88; RESP 16; TEMP 36.2; O2SAT 93
--- NOTE | 2024-09-02 15:21 | HO.PM.IMPN ---
Subjective Subjective Date of Service: 09/02/24 Interval History: Offers no acute complaints denies cough, no shortness of breath, not on home oxygen, no fevers, no chills, no acute overnight events, tolerating diet. Review of Systems All other system reviewed and are negative. Physical Exam Vital Signs: Vital Signs: Last Vital Signs Temp 97.2 F 09/02/24 15:15 Pulse 88 09/02/24 15:15 Resp 16 09/02/24 15:15 BP 112/59 L 09/02/24 15:15 Pulse Ox 93 09/02/24 15:15 O2 Del Method Nasal Cannula 09/02/24 15:15 O2 Flow Rate 2 09/02/24 15:15 BMI result Body Mass Index 39.8 Const: Other: Gen: in no acute distress HEENT: sclera anicteric, moist mucus membranes Neck: supple Lungs: diminished bilaterally, no wheeze or crackles, Heart: regular rate and rhythm, no murmurs. Abd: soft, non-tender, non-distended Ext: no edema Skin: warm/well-perfused, stage IV pressure ulcer of sacrum with VAC in place Neuro: alert and oriented x3, no focal findings Psych: appropriate affect Objective Data Active Medications Acetaminophen (Acetaminophen 325 Mg Tablet) 650 mg PO Q6H PRN PRN Reason: Pain, Mild (Pain Scale 1-3), fever or headache Last Admin: 08/31/24 18:33 Dose: 650 mg Documented By: SIDDHARTH Aspirin (Aspirin Enteric Coated 81 Mg Tablet.Dr) 81 mg PO BID [facility] Last Admin: 09/02/24 08:37 Dose: 81 mg Documented By: GAUDENCIO Bisacodyl (Bisacodyl 10 Mg Supp.Rect) 10 mg ND DAILY PRN PRN Reason: Constipation Calcium Carbonate (Calcium Carbonate 750 Mg Tab.Chew) 750 mg PO Q4H PRN PRN Reason: Heartburn Calcium Carbonate (Calcium Oyster Shell Elemental 500 Mg Tablet) 1,000 mg PO TIDAC [facility] Last Admin: 09/02/24 11:28 Dose: 1,000 mg Documented By: GAUDENCIO Clopidogrel Bisulfate (Clopidogrel Bisulfate 75 Mg Tablet) 75 mg PO BEDTIME [facility] Last Admin: 09/01/24 20:12 Dose: 75 mg Documented By: SANDRA Enoxaparin Sodium (Enoxaparin Sodium 40 Mg/0.4 Ml Syringe) 40 mg SUBCUT Q24H [facility] Last Admin: 09/02/24 01:47 Dose: 40 mg Documented By: SANDRA Guaifenesin (Guaifenesin La 600 Mg Tab.Er.12h) 600 mg PO BID [facility] Last Admin: 09/02/24 08:37 Dose: 600 mg Documented By: GAUDENCIO Insulin Human Lispro (Insulin Lispro 100 Unit/Ml 3 Ml Vial) 0 unit SUBCUT QIDAS [facility]; Protocol Last Admin: 09/02/24 11:30 Dose: 4 unit Documented By: GAUDENCIO Insulin Human Lispro (Insulin Lispro 100 Unit/Ml 3 Ml Vial) 5 unit SUBCUT QIDAS [facility] Last Admin: 09/02/24 11:30 Dose: 5 unit Documented By: GAUDENCIO Levothyroxine Sodium (Levothyroxine Sodium 125 Mcg Tablet) 125 mcg PO DAILY@0600 [facility] Last Admin: 09/02/24 06:05 Dose: 125 mcg Documented By: SANDRA Lisinopril (Lisinopril 10 Mg Tablet) 10 mg PO DAILY [facility]; Protocol Last Admin: 09/02/24 08:37 Dose: 10 mg Documented By: GAUDENCIO Magnesium Hydroxide (Milk Of Magnesia 30 Ml Oral.Susp) 30 ml PO DAILY PRN PRN Reason: Constipation Magnesium Hydroxide (Milk Of Magnesia 30 Ml Oral.Susp) 5 ml PO Q8H PRN PRN Reason: Constipation Melatonin (Melatonin 3 Mg Tablet) 6 mg PO BEDTIME PRN PRN Reason: Insomnia Meropenem (Meropenem 1 Gm Vial) 1 gm IVPUSH Q8H [facility] Last Admin: 09/02/24 14:01 Dose: 1 gm Documented By: GAUDENCIO Nystatin (Nystatin Powder 15 Gm Bottle) 1 appl TOPICAL DAILY [facility]; Protocol Last Admin: 09/02/24 08:40 Dose: 1 appl Documented By: GAUDENCIO Omeprazole (Omeprazole 40 Mg Capsule.Dr) 40 mg PO DAILY@0630 [facility] Last Admin: 09/02/24 06:05 Dose: 40 mg Documented By: SANDRA Ondansetron HCl (Ondansetron Hcl 4 Mg/2 Ml Vial) 4 mg IVPUSH Q8H PRN PRN Reason: Nausea and Vomiting Sodium Chloride (0.9 % Sodium Chloride Flush 3 Ml Syringe) 3 ml IVFLUSH QSHIFT [facility] Last Admin: 09/02/24 08:40 Dose: 3 ml Documented By: GAUDENCIO Labs 09/02/24 05:21 09/01/24 06:19 Labs: Laboratory Results - last 24 hr 09/01/24 09/01/24 09/02/24 16:15 20:16 05:21 MCV 90.8 MCH 30.2 MCHC 33.2 RDW 14.1 Plt Count 438 H MPV 9.3 L Absolute Nucleated RBC 0.000 Nucleated RBC % (auto) 0.0 POC Glucose 284 H 182 H 09/02/24 09/02/24 07:19 11:15 MCV MCH MCHC RDW Plt Count MPV Absolute Nucleated RBC Nucleated RBC % (auto) POC Glucose 129 H 243 H 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 currently at [facility] and sent in from [facility] Wound Care with cough and hypoxia Acute hypoxic respiratory failure due to multifocal pneumonia - persistent mild leukocytosis, no fevers - blood cultures x2 negative, RVP negative; MRSA negative - IV ertapenem and daptomycin discontinued on 09 01 after 6 weeks' course for osteomyelitis On IV meropenem for multifocal pneumonia, ID consultation pending - wean O2 as tolerated; currently on 1L, not on home oxygen - MAGAZINE KEEPER consultated, no aspiration concerns - procalcitonin 0.06, CRP 8.71 improved from 11.89 -possible discharge home on by mouth antibiotics, recommend repeat CT chest for clearance, PICC line placed on 07/23 sacral osteomyelitis - will discontinue daptomycin since end date for 6 weeks treatment was , continue meropenem to treat multifocal pneumonia - Wound Care consulted, replace VAC [whehe discharges the wound vac will need to removed and wet to moist dressing and when he gets to the facility they will reapply since he has a different brand already in place] DM2 -blood sugar 207, continue Lantus and correction-dose lispro hypothyroidism - continue LT4 hx CVA - continue ASA + clopidogrel; resume statin since daptomycin discontinued HTN - lisinopril VTE ppx - enoxaparin dispo - eventual return to [facility] In my clinical judgment, the patient requires continued inpatient hospitalization for the following reasons: IV ABX. hypoxia Quality Stroke Does the patient have a stroke diagnosis?: No VTE Prior VTE?: No VTE Risk Level:: Medical - moderate - high VTE Device Contraindication: Treatment Not Indicated VTE Drug Contraindication: N/A - Med Ordered
[2024-09-02 16:09] LABS: Glucose, Whole Blood 192 mg/dL (60-115)
[2024-09-02 19:47] VITALS: BP 117/58; PULSE 89; RESP 18; TEMP 37; O2SAT 94
[2024-09-02 20:06] LABS: Glucose, Whole Blood 187 mg/dL (60-115)
[2024-09-02] MEDS: Clopidogrel Bisulfate 75 MG TABLET PO (21:25)
[2024-09-03] MEDS: Enoxaparin Sodium 40 MG/0.4 ML SYRINGE SUBCUT (01:41)
--- NOTE | 2024-09-03 01:43 | PC.NURSE ---
Pt refused to be repositioned, states he is comfortable, pt educated on importance or repositioning.
[2024-09-03] MEDS: Acetaminophen 325 MG TABLET 650 MG PO (02:25)
--- NOTE | 2024-09-03 02:25 | PC.NURSE ---
Per pt request for pain 4 out of 10, Tylenol given per DEC.
--- NOTE | 2024-09-03 03:00 | PC.NURSE ---
Pt found to be incontinent of urine, when rolled over Wound vac dressing needed reinforcing with large tegaderm, suction is still intact, and draining appropriately. Pt repositioned to right side, and given pain meds per MAR. Pt re-educated on importance of keeping skin dry, to heal, pt agreed to try male purewick, and the importance of repositioning to also help relieve pressure and let wounds heal, pt repositioned to right side with pillow, tolerated every thing very well. Meds given per MAR. Pt resting quietly with no apparent distress, respirations even and non-labored.
[2024-09-03 04:00] VITALS: BP 108/55; PULSE 83; RESP 16; TEMP 37; O2SAT 96
--- NOTE | 2024-09-03 05:17 | PC.NURSE ---
Wound vac dressing reinforced with large tegaderm, suction is still intact, and draining appropriately. Pt repositioned to right side, and given pain meds per DEC.
[2024-09-03] MEDS: Levothyroxine Sodium 125 MCG TABLET PO (05:59)
[2024-09-03] MEDS: Omeprazole 40 MG CAPSULE.DR PO (05:59)
[2024-09-03 07:30] VITALS: BP 113/51; PULSE 82; RESP 18; TEMP 36.7; O2SAT 95
[2024-09-03 07:37] LABS: Glucose, Whole Blood 156 mg/dL (60-115)
[2024-09-03] MEDS: Insulin Lispro 100 UNIT/ML 3 ML VIAL SUBCUT ×4 (07:49→12:16)
[2024-09-03] MEDS: Calcium Oyster Shell Elemental 500 MG TABLET 1000 MG PO ×2 (07:55→12:16)
[2024-09-03] MEDS: Meropenem 1 GM VIAL IVPUSH (07:55)
[2024-09-03] MEDS: lisinopriL 10 MG TABLET PO (07:55)
[2024-09-03] MEDS: Aspirin Enteric Coated 81 MG TABLET.DR PO (07:56)
[2024-09-03] MEDS: guaiFENesin LA 600 MG TAB.ER.12H PO (07:56)
[2024-09-03] MEDS: 0.9 % Sodium Chloride Flush 3 ML SYRINGE IVFLUSH (07:58)
[2024-09-03] MEDS: Nystatin Powder 15 GM BOTTLE 1 APPL TOPICAL (10:13)
--- NOTE | 2024-09-03 11:03 | MHC.SL.SWA ---
Speech Pathologist Impression: No evidence of persisting dysphagia Risk of Aspiration Due to: History of Pneumonia Dysphasia Diet Status: Liquid Consistency and Strategies for Safe Swallow: Liquid Intake Recommendation: Thin Liquid Intake Strategies: Small Sips Unrestricted Solid Food Consistency: Dietary Recommendations: Regular Additional Modifications to Solid Foods: Oral mech exam unremarkable and no difficulties observed w/ PO intake. Swallow deemed functional in the oral and pharyngeal phases. Recommend CONTINUE on REGULAR solids and THIN liquids, pills WHOLE with LIQUID. CONCRETE PAVER discussed aspiration precautions w/ patient. Recommend periodic check-in's during meal time to monitor tolerance. [employer]CR[employer]E [employer] to f/u 1x. Oral Medication Intake: Whole with Liquid Please contact the pharmacy regarding appropriate crushable or liquid drug formulations that are available whenever modified delivery is recommended. Compensatory Strategies and Precautions to be Taken for Safe Swallow: Sitting Upright (90 deg) Small Bites and Sips Alternate Liquids/Solids Supervision While Eating and Drinking for Safe Swallow: None Needed Foods to Avoid: Swallowing Recommended Treatments: Compens. Strategy Educat. Recommendation for Speech: Inpatient Speech Therapy Comment: CONCRETE PAVER followup today, pt exhibiting adequate tolerance of regular solids and thin liquids. Pt using strategies to reduce risk for aspiration, such as sitting upright in bed, alternating consistencies when eating, taking his time and pausing when speaking. No overt s/s of aspiration observed, pt verbalized understanding of [facility] diet and safety precautions to maintain safety of PO intake. No further CONCRETE PAVER intervention needed after discharge as pt able to manage diet without difficulties. Frequency/Duration: Date Range for Service Req: Timeline to reassess: Fitter Up Clinican/Clinical Fellow: No Supervisory Statement: I have reviewed and agree with the student/clinical fellow's documentation: N/A Speech Language Pathologist: Claudette Cormier M.S., [facility] [employer]
[2024-09-03 11:25] LABS: Glucose, Whole Blood 196 mg/dL (60-115)
--- NOTE | 2024-09-03 11:45 | MHC.CLN ---
F/U PT WITH INCREASED NUTRITION RISK R/T PRESSURE INJURIES. DIET RX: 2200 DM. SUPPLEMENT ENSURE MAX BID (300 KCALS, 60 G PROTEIN). INCREASED DIET KCALS AND SUPPLEMENT TO PROMOTE WOUND HEALING. INTAKE VARIABLE WITH MOST MEALS 75-100%. FOLLOW FOR PO INTAKE AND SKIN INTEGRITY.
--- NOTE | 2024-09-03 11:57 | HO.REMOVAL ---
Removal of PICC/Midline Removal of PICC/Midline: Removal of PICC/Midline: 1. Date: 09/03/2024 2. Reason removed: treatment complete 3. Inserted length: 38cm 4. Removed length: 38cm 5. A dressing was placed over the site upon removal. No edema or bleeding at the site.
--- NOTE | 2024-09-03 12:31 | MHC.CM.PN ---
pt to be dcd to [facility] today at 3
--- NOTE | 2024-09-03 13:06 | P.DS_ITS ---
DS: Providers Provider Date of Service: 09/03/24 Date of admission: 08/30/24 01:29 Date of discharge: 09/03/24 Primary care physician: Babak Greene MD Consults: 08/30/24 01:29 Consult to Wound Care Routine Reason for consultation: follow up sacral wounds, Finishing Abx treatment. 08/30/24 06:46 Consult to Infectious Diseases Routine Consulting Provider: MOHAN ATKINS Reason for consultation: Duration of Abx. DS: Diagnosis Discharge Diagnosis (1) Pneumonia: Status: Acute (2) Sacral osteomyelitis: Status: Acute DS: Summary Hospital Course Hospital Course: History of presenting illness: Date of Service: 08/30/24 Chief Complaint: Hypoxia, cough A 69 years old male with PMH of ROLO, DM, hypothyroidism, hyperlipidemia, HTN, CVA on aspirin and plavix, sactal wound among others presenting to the hospital with incident of hypoxia and cough. The patient was at regular visit at the wound care clinic where he was found to have low O2 sat in 80s. He reports feeling little weaker than normal but denies any fever or chills. reporting cough on occasions. In ED placed on 4L of O2 to keep his sats in early 90s. CXR and CT chest were concerning for possible pneumonia. Admitted for further evaluation and treatment. 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 currently at [facility] and sent in from [facility] Wound Care with cough and hypoxia and admitted to medical floor with a diagnosis of Acute hypoxic respiratory failure due to multifocal pneumonia, and treated with IV meropenem, blood cultures x2 showed no growth, MRSA negative, respiratory viral panel showed no growth, patient was previously on IV daptomycin and IV ertapenem for sacral osteomyelitis both medications were discontinued since patient finished 6 weeks' course on 08 31, patient was evaluated by speech therapy and there were no aspiration concerned patient p rocalcitonin was 0.06, CRP improved to 8.71, since patient is clinically stable he is being discharged home on oral antibiotics, PICC line removed prior to discharge. Hypoxia resolved currently 93% on room air recommend out of bed to chair and incentive spirometry as tolerated sacral osteomyelitis patient finished course of daptomycin and ertapenem on 08/31, PICC line removed, wound back removed today patient is being discharged on wet to moist dressing and when he gets to the facility wound VAC can be reapplied, frequent position change high-protein diet and activity as tolerated. DM2 recommend to continue Lantus and correction dose insulin hypothyroidism continue levothyroxine hx CVA - continue ASA ,clopidogrel and daptomycin HTN continue lisinopril Time Attestation Discharge Coordination Time (in mins): 40 Quality: Safe Use of Opioids Does Pt have an Active Cancer Diagnosis on the Problem List?: No Quality: Stroke Does the patient have a stroke diagnosis?: No Physical Exam Vital Signs: Vital Signs: Last Vital Signs Temp 98.0 F 09/03/24 07:30 Pulse 82 09/03/24 07:30 Resp 18 09/03/24 07:30 BP 113/51 L 09/03/24 07:30 Pulse Ox 95 09/03/24 07:30 O2 Del Method Nasal Cannula 09/03/24 07:30 O2 Flow Rate 2 09/03/24 07:30 BMI result Body Mass Index 39.8 Const: Other: Gen: in no acute distress HEENT: sclera anicteric, moist mucus membranes Neck: supple Lungs: diminished bilaterally, no wheeze or crackles, Heart: regular rate and rhythm, no murmurs. Abd: soft, non-tender, non-distended Ext: no edema Skin: warm/well-perfused, stage IV pressure ulcer of sacrum Neuro: alert and oriented x3, no focal findings Psych: appropriate affect DS: Data Data Completed and Pending Completed studies during hospitalization [Text1]: Procedures Compression of Back using Pressure Dressing (07/16/24) Excision of Back Skin, External Approach (06/17/24) Excision of Back Subcutaneous Tissue and Fascia, Open Approach (07/16/24) Excision of Left Foot Skin, External Approach (07/16/24) Excision of Left Foot Subcutaneous Tissue and Fascia, Open Approach (07/16/24) Insertion of Infusion Device into Superior Vena Cava, Percutaneous Approach (07/16/24) Ultrasonography of Superior Vena Cava, Guidance (07/16/24) Labs on day of discharge: Laboratory Results - last 24 hr 09/02/24 09/02/24 09/03/24 16:01 20:02 07:32 POC Glucose 192 H 187 H 156 H 09/03/24 11:21 POC Glucose 196 H Preliminary micro results at discharge 08/30/24 00:33 Blood Culture - Preliminary Blood - Venous No growth after 48 hours. 08/30/24 00:37 Blood Culture - Preliminary Blood - Venous No growth after 48 hours. Discharge Plan Discharge Anticipated Discharge Date/Time: 09/03/24 13:04 Patient Disposition: Xfer SNF Discharge Diagnosis: Acute hypoxic respiratory failure due to multifocal Referrals: [facility] [Other] - 1 Week Po,Babak Hooper MD [Primary Care Provider] - 1 Week Discharge Medications: New amoxicillin-pot clavulanate 875-125 mg tablet 1 tab PO Q12H Qty: 4 0RF Continued (DME) lancets [FreeStyle Lancets] 28 gauge misc See Rx Instructions .ROUTE .MEDSUPPLY Qty: 3 3RF Rx Instructions: As directed check BS TID aspirin [Adult Aspirin Regimen] 81 mg tablet,delayed release (DR/EC) 81 mg PO BID 90 Days Qty: 180 0RF (DME) FreeStyle Lite Strips Strip See Rx Instructions .ROUTE .MEDSUPPLY Qty: 300 3RF Rx Instructions: As directed check the BS TID insulin requiring (DME) MOLNLYCKE TUBIGRIP SIZE F NAtural See Rx Instructions .Route .MEDSUPPLY Qty: 4 2RF Rx Instructions: As directed elasticated tubular support bandage (lower extremity swelling) atorvastatin 40 mg tablet 40 mg PO BEDTIME Qty: 90 2RF (DME) insulin syringe-needle U-100 [BD Insulin Syringe] 1 mL 29 gauge x 1/2 syringe See Rx Instructions .ROUTE .MEDSUPPLY Qty: 100 3RF Rx Instructions: As directed acetaminophen [Tylenol] 325 mg Tablet 650 mg PO Q4H MDD 3gm/day PRN (Reason: Pain) lidocaine 4 % Adhesive Patch,Medicated 1 patch TOPICAL DAILY@0800 Rx Instructions: right knee triamcinolone acetonide 0.1 % Cream 1 appl TOPICAL BID Rx Instructions: to legs nystatin 100,000 unit/gram Powder 1 appl TOPICAL DAILY insulin lispro [Admelog U-100 Insulin lispro] 100 unit/mL Solution 1 sliding scale dose SUBCUT USEASDIRECTD Protocol: Insulin Correction Scale Less than or equal to 110 ---- Give (units): 0 111 to 150 Give (units): 4 151 to 200 Give (units): 6 201 to 250 Give (units): 8 251 to 300 Give (units): 10 301 to 350 Give (units): 12 Greater than 350 Give (units): 14 Call MD if Blood Glucose > : 350 sodium chloride 0.9 % (flush) Syringe 10 ml IV BID Rx Instructions: administer before and after medication infusion. Arginaid 4.5 gram-156 mg/9.2 gram Powder In Packet 9.2 g PO BID Rx Instructions: Mix with 8oz of liquid of choice or 4oz of applesauce. Lactobacillus acidoph-pectin 75 million cell -100 mg Capsule 1 cap PO DAILY clopidogrel 75 mg tablet 75 mg PO BEDTIME omeprazole 40 mg Capsule,Delayed Release(Dr/Ec) 40 mg PO DAILY@0630 magnesium hydroxide [Milk of Magnesia] 400 mg/5 mL Suspension 5 ml PO Q8H PRN (Reason: Constipation) Rx Instructions: For no BM in 3 days calcium carbonate 500 mg calcium (1,250 mg) Tablet 1,000 mg PO TIDAC bisacodyl 10 mg Suppository 10 mg FL DAILY PRN (Reason: Constipation) Rx Instructions: For no BM if M.O.M ineffective levothyroxine 125 mcg Tablet 125 mcg PO DAILY@0600 lisinopril 10 mg Tablet 10 mg PO DAILY Fleet Enema 19-7 gram/118 mL Enema 118 ml FL DAILY PRN (Reason: Constipation) Rx Instructions: If no BM &if Bisacodyl supp. ineffective Changed insulin degludec [Tresiba U-100 Insulin] 100 unit/mL solution 20 unit subcut BID@0800,2000 Qty: 10 0RF Discontinued ertapenem 1 gram recon soln 1 g IV DAILY@0400 daptomycin 500 mg recon soln 500 mg IV DAILY@2100 Discharge Orders: Discharge Order (Routine); Ordered 09/03/24 Ordered By: Brigitte Bryan Diet: Diabetic diet Activity on Discharge: As tolerated Stand Alone Forms: Patient Portal Discharge page Print Language: Turkish Care Plan Goals: Finished course of IV daptomycin and IV ertapenem, midline discontinued Take Augmentin 1 tablet twice daily for 2 more days Continue regular diet with thin liquids, take precautions to avoid aspiration For sacral wound reapply wound VAC on arrival to facility Encourage incentive spirometry q.2 hours as needed Recommend out of bed to chair and activity as tolerated/frequent position change/high-protein diet Health Concerns: Monitor blood sugars dose of Tresiba reduced to 20 units b.i.d. from home dose of 28 units due to blood sugars less than 200 Plan of Treatment: Outpatient follow-up with primary care physician and Infectious Disease as previously planned Assessment: As above
[2024-09-03 13:31] VITALS: PULSE 87; O2SAT 93
--- NOTE | 2024-09-03 14:30 | HO.WOUND ---
NPWT NOTE : Follow up 69yr old?male admitted to [facility] on 08/30/24 - See progress notes and H&P for detailed history.? Wound consult follow up for NPWT to Sacrum. 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 Alarms reviewed and no leaking or alarms noted when Vac monitor was assessed. Settings continued no changes noted or needed. The dressing is in tact and maintaining suction. Per discussion with Dr Bryan and direct care nurse patient plan to d/c today. Wound vac removed prior to d/c and replaced with Durafiber and packing with ABD pad. long-term facility to monitor for wound vac replacement. Per patient and conversation with direct care nurse patient is set for d/c back to [facility] at 3pm today. Patient reported increased comfort with Agiliti Pulsate bed. Staff reports patient continues to refuse incontinence care and repositions at times or defers to later time frame. The patient was provided with concerns and education on results of not allowing for timely incontinence care and off loading pressure. He reports understanding. Patient was noted to not have been completing his Ensure drinks - patient reported he was full. Patient provided with education on his increased protein demands given his full thickness wound. He reports he was unaware and is agreeable to drinking the ensures along with his meals going forward. Wound vac removed all sponge removed not sponge retained. Wound bed is pale pink and moist yellow slough marbled throughout. There was suction noted at the time of removal. Periwound MASD is significantly improved. Details from pervious assessment and consultation and wound vac application. He came in with a Nisus NPWT (Negative Pressure Wound Therapy) vac in place. However at time of arrival to unit the wound vac had lost suction and was soiled with stool due to patients incontinence. Wound vac removed and NS moist packing applied by direct care team. Earlier today the patient reported he did not want the wound vac reapplied at this time. Spoke to provider and prefers patient to have wound vac on - at bedside discussed wound vac application and he is agreeable to application at this time. The patient is not set for d/c tomorrow 08/31/24 - will follow up with patient and provider tomorrow for d/c planning. D/C plan patient arrived with Nisus wound vac in place which is not compatible with our 3M wound vac. At the time of d/c wound vac will have to be removed and wound packed with durafiber AG packing and dry gauze roll to fill space, followed by ABD pads. Re-consult wound care Nurse for wound deterioration or wound changes.
--- NOTE | 2024-09-04 12:18 | P.CDIM_ITS ---
PROVIDER RESPONSE TEXT: To clarify, the appropriate diagnosis supported by the clinical indicators: Subacute osteomyelitis QUERY TEXT: PHYSICIAN'S DOCUMENTATION REQUEST Date of Query: 09/04/2024 11:05 AM EST Patient Name: Shaun Nolasco Admit Date: 08/30/2024 Dear Brigitte Bryan MD, RETROSPECTIVE QUERY A review of the medical record indicates additional documentation may be needed. Please review below and update the documentation accordingly. Clinical Indicators: Progress notes - Sacral osteomyelitis will discontinue daptomycin since end date for 6 weeks was 08/31. Wound care consulted, replace VAC. Discharge summary 09/02 - Assessment and Plan: Sacral osteomyelitis: acute Plan: sacral osteomyelitis patient finished course of daptomycin and ertapenem on 08/31. PICC line removed. Based on the above, please clarify in the Progress Notes further specificity regarding the acuity of the Sacral Osteomyelitis within the body of the written Plan: Acute osteomyelitis Subacute osteomyelitis Chronic osteomyelitis Other (explain) Clinically unable to determine (explain) Thank you, Shawna Harp, CCS, CDIS Use of terms such as suspected, likely, concern for, or probable (associated with a specific diagnosi s that is being evaluated, monitored, or treated as if it exists) are acceptable and can be coded in the inpatient se tting, when documented at the time of discharge. Please use your independent medical judgment in providing your response. THIS QUERY IS PART OF THE PERMANENT MEDICAL RECORD
== END 2024-09-03 15:16 | disposition skilled nursing facility (03) | DRG 193 ==
LOC: HO.ED 23:51 → HO.EDOVER 08-30 01:42 → HO.S3 08-30 07:47
PROVIDERS: Family Medicine; Admitting Provider Student in an Organized Health Care Education/Training Program; Emergency Provider Emergency Medicine Emergency Medical Services; PCP Internal Medicine; Visit Provider Hospitalist
DX: J18.9 Pneumonia, unspecified organism (principal); J96.01 Acute respiratory failure with hypoxia; L89.624 Pressure ulcer of left heel, stage 4; L89.154 Pressure ulcer of sacral region, stage 4; M46.28 Osteomyelitis of vertebra, sacral and sacrococcygeal region; E11.69 Type 2 diabetes mellitus with other specified complication; G47.33 Obstructive sleep apnea (adult) (pediatric); I10 Essential (primary) hypertension; E03.9 Hypothyroidism, unspecified; Z86.73 Personal history of transient ischemic attack (TIA), and cerebral infarction without residual deficits; Z20.822 Contact with and (suspected) exposure to COVID-19; Z79.4 Long term (current) use of insulin; Z79.02 Long term (current) use of antithrombotics/antiplatelets; Z79.890 Hormone replacement therapy; Z79.899 Other long term (current) drug therapy
CPT/HCPCS: 36415; 36573; 71046; 71275; 80048; 80053; 82550; 82947; 83605; 83880; 84145; 84484; 85025; 85027; 86140; 87040; 87633; 87640; 87641; 92526; 92610; 93005; 97161; 99285; C1758; J0692; J0878; J1650; J2185; Q9967

== ENCOUNTER → 2024-08-29 15:43 | Outpatient (BNV) | payer MEDICARE, SELFPAY | PROVIDERS: Emergency Provider Emergency Medicine Emergency Medical Services; PCP Internal Medicine; Visit Provider Student in an Organized Health Care Education/Training Program | DX: M46.28 Osteomyelitis of vertebra, sacral and sacrococcygeal region (principal); J18.9 Pneumonia, unspecified organism | CPT/HCPCS: 99223; 99232; 99233; 99239; 99499 ==

== ENCOUNTER → 2024-08-29 18:02 | Outpatient (BNV) | payer MEDICARE, SELFPAY | PROVIDERS: Admitting Provider Student in an Organized Health Care Education/Training Program; Emergency Provider Emergency Medicine Emergency Medical Services; PCP Internal Medicine; Visit Provider Internal Medicine Cardiovascular Disease | DX: I49.1 Atrial premature depolarization (principal) | CPT/HCPCS: 93010 ==